=== PATIENT | female | born 1960 | race Caucasian/White ===

== ENCOUNTER 2016-11-09 13:21 | Inpatient (IN) | payer MEDICAID, OTHER ==
[~2016-11-09] VITALS: Ht 167.6 cm; Wt 55.9 kg
[2016-11-09] VITALS (9 sets, daily range): BP systolic 107–174; BP diastolic 81–99; PULSE 110–131; RESP 18–24; TEMP 97.3–98.4; O2SAT 83–98
[2016-11-09] MEDS: RESP: ALBUTEROL 2.5 MG/IPRATROPIUM 0.5 MG NEB (SCH) INH ×2 (13:41→13:42)
[2016-11-09] MEDS ORDERED: SODIUM CHLOR 0.9% 1000 ML INJ 1,000 ML IV SCH (13:45)
[2016-11-09] MEDS ORDERED: SODIUM CHLORIDE 0.9% FLUSH 10 ML FLUSH IVF PRN (13:45)
[2016-11-09] MEDS ORDERED: methylPREDNISolone SOD SUCC 125 MG/2 ML VIAL IVP ONE (13:45)
[2016-11-09 13:55] LABS: AUTOMATED NEUTROPHIL # 7.2 TH/MM3 (1.8-7.7); BASOPHIL # 0.1 TH/MM3 (0-0.2); BASOPHIL % 0.6 % (0.0-2.0); EOSINOPHIL % 0.4 % (0.0-4.0); HEMATOCRIT 30.4 % (35.0-46.0); HEMO FLAGS DIFF FINAL; MEAN CELL VOLUME 82.4 FL (80.0-100.0); MEAN CORPUSCULAR HEMOGLOBIN 27.4 PG (27.0-34.0); MEAN CORPUSCULAR HGB CONC 33.2 % (32.0-36.0); MONO % 6.9 % (0.0-8.0); NEUT % 72.1 % (16.0-70.0); PLATELET COUNT 578 TH/MM3 (150-450); RED BLOOD COUNT 3.69 MIL/MM3 (4.00-5.30); RED CELL DISTRIBUTION WIDTH 16.4 % (11.6-17.2)
[2016-11-09 14:00] LABS: CHLORIDE 89 MEQ/L (98-107); SODIUM (NA) 125 MEQ/L (136-145)
[2016-11-09 14:03] LABS: ANION GAP 9 MEQ/L (5-15); BICARBONATE 26.7 MEQ/L (21.0-32.0); BLOOD UREA NITROGEN 7 MG/DL (7-18); MAGNESIUM 1.5 MG/DL (1.5-2.5)
[2016-11-09 14:06] LABS: ALT (GPT) 22 U/L (10-53); AST (GOT) 17 U/L (15-37); GLOMERULAR FILTRATION RATE 159 ML/MIN (>89)
[2016-11-09 14:08] LABS: APTT (PATIENT) 31.7 SEC (24.3-30.1); PROTHROMBIN TIME - PATIENT 11.1 SEC (9.8-11.6); TOTAL BILIRUBIN ADULT 0.6 MG/DL (0.2-1.0)
[2016-11-09 14:09] LABS: ALKALINE PHOSPHATASE 92 U/L (45-117)
--- NOTE | 2016-11-09 14:09 | PD ---
HPI Chief Complaint: Respiratory Distress Time Seen by Provider: 13:29 Travel History International Travel<30 days: No Contact w/Intl Traveler<30days: No Traveled to known affect area: No History of Present Illness HPI The 56 year-old woman who presents to the emergency department complaining of increased cough congestion and shortness of breath symptoms ongoing for about a month. She has a history of tobacco use, less than a half pack per day for more than 20 years. About a month ago she started getting cough congestion symptoms. She was seen in urgent care. She was diagnosed with bronchitis. She was given a prescription for cough medicine. She initially improved a little bit but then had continued worsening symptoms. She went back today and they sent her to the emergency Department for hypoxia. She states she still having shortness of breath dyspnea on exertion cough congestion and wheezing. She states she's never had trouble like this before. She is not prone to respiratory infections. She is not been admitted to the hospital respiratory floor. She has no known past medical history. She otherwise has been feeling generally well and healthy. History Past Medical History Medical History: Denies Significant Hx Influenza Vaccination: No Past Surgical History Surgical History: No Previous Surgery Social History Alcohol Use: No Tobacco Use: Yes (< 1/2 PPD) Allergies-Medications (Allergen,Severity, Reaction): Coded Allergies: No Known Allergies (Unverified , 11/09/16) Reported Meds & Prescriptions Reported Meds & Active Scripts Active No Active Prescriptions or Reported Medications Review of Systems Except as stated in HPI: all other systems reviewed are Neg Physical Exam Narrative GENERAL: 56 year-old woman, mild to moderate respiratory distress. SKIN: Focused skin assessment warm/dry. HEAD: Atraumatic. Normocephalic. EYES: Pupils equal and round. No scleral icterus. No injection or drainage. ENT: No nasal bleeding or discharge. Mucous membranes pink and moist. NECK: Trachea midline. No JVD. CARDIOVASCULAR: Regular rate and rhythm. No murmur appreciated. RESPIRATORY: Coarse wheezing to the posterior lung rob with rhonchi in the bases. Mild to moderate respiratory distress. GASTROINTESTINAL: Abdomen soft, non-tender, nondistended. Hepatic and splenic margins not palpable. MUSCULOSKELETAL: No obvious deformities. No clubbing. No cyanosis. No edema. NEUROLOGICAL: Awake and alert. No obvious cranial nerve deficits. Motor grossly within normal limits. Normal speech. PSYCHIATRIC: Appropriate mood and affect; insight and judgment normal. Data Data Last Documented VS Vital Signs Date Time Temp Pulse Resp B/P Pulse Ox O2 Delivery O2 Flow Rate FiO2 11/09/16 15:31 120 20 147/91 95 Nasal Cannula 3 11/09/16 13:50 98.4 Orders Complete Blood Count With Diff (11/09/16 13:37) Comprehensive Metabolic Panel (11/09/16 13:37) B-Type Natriuretic Peptide (11/09/16 13:37) D-Dimer (11/09/16 13:37) Act Partial Throm Time (Ptt) (11/09/16 13:37) Prothrombin Time / Inr (Pt) (11/09/16 13:37) Magnesium (Mg) (11/09/16 13:37) Troponin I (11/09/16 13:37) Influenzae A/B Antigen (11/09/16 13:37) Iv Access Insert/Monitor (11/09/16 13:37) Electrocardiogram (11/09/16 13:37) Ecg Monitoring (11/09/16 13:37) Oximetry (11/09/16 13:37) Oxygen Administration (11/09/16 13:37) Chest, Single Ap (11/09/16 13:37) Sodium Chloride 0.9% Flush (Ns Flush) (11/09/16 13:45) Methylprednisolone So Succ Inj (Solumedr (11/09/16 13:45) Albuterol-Ipratropium Neb (Duoneb Neb) (11/09/16 13:45) Sodium Chlor 0.9% 1000 Ml Inj (Ns 1000 M (11/09/16 13:45) Lactic Acid (11/09/16 13:48) Blood Culture (11/09/16 13:48) Ct Pulmonary Angiogram (11/09/16 ) Iohexol 350 Inj (Omnipaque 350 Inj) (11/09/16 14:55) Labs Laboratory Tests Test 11/09/16 11/09/16 13:25 13:30 White Blood Count 10.0 TH/MM3 Red Blood Count 3.69 MIL/MM3 Hemoglobin 10.1 GM/DL Hematocrit 30.4 % Mean Corpuscular Volume 82.4 FL Mean Corpuscular Hemoglobin 27.4 PG Mean Corpuscular Hemoglobin 33.2 % Concent Red Cell Distribution Width 16.4 % Platelet Count 578 TH/MM3 Mean Platelet Volume 7.1 FL Neutrophils (%) (Auto) 72.1 % Lymphocytes (%) (Auto) 20.0 % Monocytes (%) (Auto) 6.9 % Eosinophils (%) (Auto) 0.4 % Basophils (%) (Auto) 0.6 % Neutrophils # (Auto) 7.2 TH/MM3 Lymphocytes # (Auto) 2.0 TH/MM3 Monocytes # (Auto) 0.7 TH/MM3 Eosinophils # (Auto) 0.0 TH/MM3 Basophils # (Auto) 0.1 TH/MM3 CBC Comment DIFF FINAL Differential Comment Prothrombin Time 11.1 SEC Prothromb Time International 1.0 RATIO Ratio Activated Partial 31.7 SEC Thromboplast Time D-Dimer Quantitative (PE/DVT) 3.13 MG/L FEU Sodium Level 125 MEQ/L Potassium Level 3.0 MEQ/L Chloride Level 89 MEQ/L Carbon Dioxide Level 26.7 MEQ/L Anion Gap 9 MEQ/L Blood Urea Nitrogen 7 MG/DL Creatinine 0.41 MG/DL Estimat Glomerular Filtration 159 ML/MIN Rate Random Glucose 103 MG/DL Calcium Level 8.7 MG/DL Magnesium Level 1.5 MG/DL Total Bilirubin 0.6 MG/DL Aspartate Amino Transf 17 U/L (AST/SGOT) Alanine Aminotransferase 22 U/L (ALT/SGPT) Alkaline Phosphatase 92 U/L Troponin I LESS THAN 0.02 NG/ML B-Type Natriuretic Peptide 32 PG/ML Total Protein 7.8 GM/DL Albumin 2.5 GM/DL Lactic Acid Level 1.5 mmol/L MDM Medical Decision Making Medical Screen Exam Complete: Yes Emergency Medical Condition: Yes Interpretation(s) My review of EKG: Sinus tachycardia rate of 127, normal axis, normal intervals, no definite evidence of acute ischemia. LABS: CBC remarkable for mild anemia. Platelet count 578. Hyponatremia 125, potassium 3, creatinine 0.41 Troponin negative BNP 32 Lactate 1.5 Coags unremarkable D-dimer 3.13 Chest x-ray: Probable mild congestive failure. Bibasal consolidations present worsening the left with small effusions. CT pulmonary angiogram: Small bilateral effusions. Subcarinal mass with diffuse mediastinal adenopathy. Unsure if the subcarinal mass related to her primary malignancy versus dominant large lymph nodes. Retroperitoneal adenopathy partially seen. Suggest either metastatic disease or myeloproliferative disorder. Emphysematous changes. No PE. Differential Diagnosis COPD or emphysema, pneumonia, PE, CHF, other Narrative Course Medical decision making INITIAL: 56 year-old woman presents to the emergency department complaining of shortness of breath or cough congestion symptoms. Should similar symptoms a month ago. No history of respiratory disease. Looks well with some respiratory distress and coarse wheezing Posterior lung rob. We'll check x- rays, labs, reassess. She is tachypneic and tachycardic, we'll check lactate and blood cultures. Diagnosis Primary Impression: Shortness of breath Additional Impressions: Hypoxia Mediastinal mass Scripts No Active Prescriptions or Reported Meds Grady Robb MD Nov 09, 2016 14:09
--- NOTE | 2016-11-09 14:28 | RADRPT ---
EXAM DATE/TIME: 11/09/2016 14:01 [facility] COMPARISON: No previous studies available for comparison. INDICATIONS : Short of breath MEDICAL HISTORY : Bronchitis SURGICAL HISTORY : None. ENCOUNTER: Initial ACUITY: 4 - 6 days PAIN SCORE: 0/10 LOCATION: Bilateral chest FINDINGS: There is cardiomegaly with mild interstitial edema present. There are small bilateral pleural effusi ons worse left than the right. Minimal bibasilar parietal changes are evident. The portion of the [place] skeleton visualized is unremarkable. CONCLUSION: Probable mild congestive failure. Bibasal consolidation is present worse in the left with small effu sions. Yaya Napier MD FACR on November 09, 2016 at 14:26 Board Certified Radiologist. This report was verified electronically.
[2016-11-09] MEDS ORDERED: IOHEXOL 350 MG/ML 10 ML VIAL (for RAD DIAG) IV ONE (14:55)
--- NOTE | 2016-11-09 15:21 | RADRPT ---
EXAM DATE/TIME: 11/09/2016 14:36 [facility] COMPARISON: CHEST SINGLE AP, November 09, 2016, 14:01. INDICATIONS : Short of breath, cough and congestion x 1 week. IV CONTRAST: 75 cc Omnipaque 350 (iohexol) IV RADIATION DOSE: 8.72 CTDIvol (mGy) MEDICAL HISTORY : None SURGICAL HISTORY : None. ENCOUNTER: Initial ACUITY: 1 week PAIN SCALE: 0/10 LOCATION: chest TECHNIQUE: Volumetric scanning of the chest was performed using a pulmonary embolism protocol MIP images were re constructed. Using automated exposure control and adjustment of the mA and/or kV according to patien t size, radiation dose was kept as low as reasonably achievable to obtain optimal diagnostic quality images. DICOM format image data is available electronically for review and comparison. Follow-up recommendations for incidentally detected pulmonary nodules are based at a minimum on nodul e size and patient risk factors according to Fleischner Society Guidelines. FINDINGS: PULMONARY ARTERIES: No filling defects are seen in the pulmonary arteries through the segmental level. LUNGS: Diffuse emphysematous changes. Consolidation involving the basilar segments bilaterally with some air bronchogram formation. PLEURAE: Small posterior layering pleural effusions bilaterally. MEDIASTINUM: Diffuse mediastinal adenopathy. The large subcarinal mass measuring 5.4 x 4.2 cm. Adenopathy througho ut the anterior, middle, and superior mediastinum. The heart is normal in size. Coronary artery ather osclerotic ulcerations. No pericardial effusion. Aorta is normal in caliber. MUSCULOSKELETAL: Within normal limits for patient age. MISCELLANEOUS: Adenopathy is partially seen within the retroperitoneum. CONCLUSION: 1. No pulmonary embolus. 2. Small bilateral pleural effusions with associated atelectasis. 3. Subcarinal mass with diffuse mediastinal adenopathy. I am unsure of the subcarinal mass related to a primary malignancy versus a dominant enlarged lymph node. Retroperitoneal adenopathy partially see n. This was suggest either metastatic disease or a myeloproliferative disorder. 4. Emphysematous changes. 5. Coronary artery atherosclerotic calcifications. Devon Pope Jr., MD on November 09, 2016 at 14:57 Board Certified Radiologist. This report was verified electronically.
[2016-11-09] MEDS ORDERED: ONDANSETRON HCL 4 MG/2 ML VIAL IVP PRN (15:45)
[2016-11-09] MEDS ORDERED: RESP: ALBUTEROL 2.5 MG/IPRATROPIUM 0.5 MG NEB (PRN) NEB (15:45)
[2016-11-09] MEDS ORDERED: LACTULOSE SYRUP 20 GM/30 ML CUP PO PRN (15:45)
[2016-11-09] MEDS ORDERED: BISACODYL 10 MG SUPP RECTAL PRN (15:45)
[2016-11-09] MEDS ORDERED: SENNOSIDES 8.6 MG TAB PO PRN (15:45)
[2016-11-09] MEDS ORDERED: SODIUM CHLORIDE 0.9% FLUSH 10 ML FLUSH IV FLUSH PRN (15:45)
[2016-11-09] MEDS ORDERED: MAGNESIUM HYDROXIDE SUSP 30 ML CUP PO PRN (15:45)
[2016-11-09] MEDS ORDERED: NALOXONE HCL 0.4 MG/ML AMP IV PRN (15:45)
[2016-11-09] MEDS ORDERED: NS + KCL 20 MEQ INJ 1,000 ML IV SCH (16:00)
[2016-11-09] MEDS: ENOXAPARIN SODIUM 40 MG/0.4 ML SYRINGE SQ SCH (16:09)
[2016-11-09] MEDS: LEVOFLOXACIN 750 MG PREMIX INJ 150 ML IV SCH (16:28)
--- NOTE | 2016-11-09 16:36 | HHI.HP ---
[facility] No Primary Care Physician Admission Diagnosis shortness of breath, hypoxia Diagnoses: Chief Complaint: Increasing Shortness of breath Travel History International Travel<30 Days: No Contact w/Intl Traveler <30 Da: No Traveled to Known Affected Are: No Sepsis Criteria SIRS Criteria (2 or more): Heart rate over 90, RR > 20 or PaCO2 < 32 Sepsis Criteria (SIRS+source): Infect source susp/known Criteria Outcome: Meets SIRS criteria, Meets sepsis criteria History of Present Illness Written by Annalee Kennedy, acting as scribe for Dr. Foley on 11/09/16 at 16:00. Patient is a 56-year-old female with no significant primary medical history who came into the hospital for evaluation of increasing and worsening shortness of breath and cough. Patient states that she had bronchitis last month that she went to urgent care facility, she was given some medication and she felt better. However in the past few days she has some increasing cough, mucus production, orthopnea, increased shortness of breath that she even gets winded and fatigued by just going from the house to the car. She went to urgent care center again to be evaluated she was told that her oxygenation is getting lower and that she needs to be seen in the emergency room. Patient states she has been coughing a lot, unable to bring up mucus but when she was able to in the previous days it was yellow and very thick. Initially, patient was in the ED with shortness of breath and she was desaturating a 83% on room air. She was placed on 3 L nasal cannula with improved O2 sat at 90-92%. She was also given Solu-Medrol 125 mg. States her breathing has improved right now on exam. Denies pain and discomfort. Denies chest pain, headaches, dizziness. Denies fevers, chills, n/v/d. Denies dysuria. Denies weight loss, reports weight gain. Review of Systems Except as stated in HPI: all other systems reviewed are Neg Past Family Social History Past Medical History No significant past medical history Past Surgical History None Reported Medications None Allergies: Coded Allergies: No Known Allergies (Unverified , 11/09/16) Active Ordered Medications Current Medications Medications (Trade) Dose Ordered Sig/Ramy Route Start Time Stop Time Status Last Admin (NS Flush) 2 ml UNSCH PRN IV FLUSH 11/09/16 15:45 (NS Flush) 2 ml BID IV FLUSH 11/09/16 21:00 (Zofran Inj) 4 mg Q6H PRN IVP 11/09/16 15:45 (Lovenox Inj) 40 mg Q24H SQ 11/09/16 16:00 (Narcan Inj) 0.4 mg UNSCH PRN IV 11/09/16 15:45 (Gaby-Colace) 1 tab BID PO 11/09/16 21:00 (Milk Of Magnesia Liq) 30 ml Q12H PRN PO 11/09/16 15:45 (Senokot) 17.2 mg Q12H PRN PO 11/09/16 15:45 (Dulcolax Supp) 10 mg DAILY PRN RECTAL 11/09/16 15:45 Lactulose 30 ml 30 ml DAILY PRN PO 11/09/16 15:45 (NS + KCl 20 Meq Inj) 1,000 ml @ 84 mls/hr [id number] IV 11/09/16 16:00 Family History Mother has COPD, diabetes on insulin. Father of bone cancer Social History Rare alcohol use Smokes a pack per week 37 years Denies illicit drug use Physical Exam Vital Signs Vital Signs Date Time Temp Pulse Resp B/P Pulse Ox O2 Delivery O2 Flow Rate FiO2 11/09/16 15:31 120 20 147/91 95 Nasal Cannula 3 11/09/16 14:27 115 20 135/81 96 Nasal Cannula 3 11/09/16 13:52 96 Nasal Cannula 3 11/09/16 13:52 22 96 Nasal Cannula 3 11/09/16 13:50 98.4 125 22 148/97 96 Nasal Cannula 3 11/09/16 13:27 98.4 131 24 174/99 83 Physical Exam GENERAL: This is a thin lady appearing, older than stated age, well-developed patient, short of breath. SKIN: Warm and dry. Multiple nodular skin lesions appearing bilateral axillary area, right abdominal upper quadrant, no drainage, no erythema, no edema HEAD: Normocephalic. EYES: Pupils equal round and reactive. Extraocular motions intact. No scleral icterus. No injection or drainage. ENT: Nose without bleeding. Throat without erythema. Uvula midline. Airway patent. NECK: Trachea midline. Supraclavicular lymphadenopathy present. CARDIOVASCULAR: Tachycardia to SR without murmurs. RESPIRATORY: Coarse breath sounds. Mild expiratory wheezes GASTROINTESTINAL: Abdomen soft, non-tender, nondistended. Bowel sounds active 4. MUSCULOSKELETAL: Extremities without edema. NEUROLOGICAL: Awake and alert. No focal neuro deficit. Motor and sensory grossly within normal limits. Normal speech. Laboratory Laboratory Tests Test 11/09/16 11/09/16 13:25 13:30 White Blood Count 10.0 Red Blood Count 3.69 Hemoglobin 10.1 Hematocrit 30.4 Mean Corpuscular Volume 82.4 Mean Corpuscular Hemoglobin 27.4 Mean Corpuscular Hemoglobin 33.2 Concent Red Cell Distribution Width 16.4 Platelet Count 578 Mean Platelet Volume 7.1 Neutrophils (%) (Auto) 72.1 Lymphocytes (%) (Auto) 20.0 Monocytes (%) (Auto) 6.9 Eosinophils (%) (Auto) 0.4 Basophils (%) (Auto) 0.6 Neutrophils # (Auto) 7.2 Lymphocytes # (Auto) 2.0 Monocytes # (Auto) 0.7 Eosinophils # (Auto) 0.0 Basophils # (Auto) 0.1 CBC Comment DIFF FINAL Differential Comment Prothrombin Time 11.1 Prothromb Time International 1.0 Ratio Activated Partial 31.7 Thromboplast Time D-Dimer Quantitative (PE/DVT) 3.13 Sodium Level 125 Potassium Level 3.0 Chloride Level 89 Carbon Dioxide Level 26.7 Anion Gap 9 Blood Urea Nitrogen 7 Creatinine 0.41 Estimat Glomerular Filtration 159 Rate Random Glucose 103 Calcium Level 8.7 Magnesium Level 1.5 Total Bilirubin 0.6 Aspartate Amino Transf 17 (AST/SGOT) Alanine Aminotransferase 22 (ALT/SGPT) Alkaline Phosphatase 92 Troponin I LESS THAN 0.02 B-Type Natriuretic Peptide 32 Total Protein 7.8 Albumin 2.5 Lactic Acid Level 1.5 Date/Time Procedure Status Source Growth 11/09/16 13:50 Influenza Types A,B Antigen (HAL) - Final Complete Nasal Washing NEGATIVE FOR FLU A AND B ANTIGEN.... 11/09/16 13:30 Aerobic Blood Culture Received Blood Peripheral Pending 11/09/16 13:30 Anaerobic Blood Culture Received Blood Peripheral Pending Result Diagram: 11/09/16 1325 11/09/16 1325 Imaging Last Impressions Chest X-Ray 11/09/16 1337 Signed Impressions: Service Date/Time: Wednesday, November 09, 2016 14:01 - CONCLUSION: Probable mild congestive failure. Bibasal consolidation is present worse in the left with small effusions. Yaya Napier MD FACR CT Angiography 11/09/16 0000 Signed Impressions: Service Date/Time: Wednesday, November 09, 2016 14:36 - CONCLUSION: 1. No pulmonary embolus. 2. Small bilateral pleural effusions with associated atelectasis. 3. Subcarinal mass with diffuse mediastinal adenopathy. I am unsure of the subcarinal mass related to a primary malignancy versus a dominant enlarged lymph node. Retroperitoneal adenopathy partially seen. This was suggest either metastatic disease or a myeloproliferative disorder. 4. Emphysematous changes. 5. Coronary artery atherosclerotic calcifications. Devon Pope Jr., MD Assessment and Plan Problem List: (1) Hypoxia ICD Code: R09.02 Status: Acute (2) Mediastinal mass ICD Code: J98.59 Status: Acute (3) PNA (pneumonia) ICD Code: J18.9 Status: Acute (4) Sepsis ICD Code: A41.9 Status: Acute Assessment and Plan Patient is a 56-year-old female with no significant primary medical history who came into the hospital for evaluation of increasing and worsening shortness of breath and cough. Sepsis Pneumonia, CAP Respiratory failure - Tachycardic 120-130's, hypoxic O2 sat 83% RA, orthopnea - CT angios showed 1. No pulmonary embolus. 2. Small bilateral pleural effusions with associated atelectasis. 3. Subcarinal mass with diffuse mediastinal adenopathy. Unsure of the subcarinal mass related to a primary malignancy versus a dominant enlarged lymph node. Retroperitoneal adenopathy partially seen. This suggested either metastatic disease or of myelo proliferative disorder. 4. Emphysematous changes. 5. Coronary artery atherosclerotic calcifications - Chest x-ray showed probable mild congestive failure. By basal consolidation is present worse in the left with small effusion. - D-dimer 3.13, BNP 32, troponin less than 0.02 - Pulmonary ultrasound, for possible thoracentesis - Consult pulmonology for further recommendations - DuoNeb scheduled and when necessary. Continue O2 nasal cannula, keep O2 > 92% - Start IV Levaquin 750 mg daily, Solu-Medrol IV - Monitor respiratory status - Check blood cultures, lactic acid - Repeat labs in the morning Subcarinal mass Unknown if it is primary or related to any other primary malignancy - Patient also has supraclavicular lymph nodes. Multiple nodular lesions bilateral axillary area, right abdominal upper quadrant area. - Pulmonology consulted for further recommendations - Depending on what pulmonology recommends would probably need medical oncology consult - Discuss with patient results of CT angiography and plan of care. Hyponatremia - IV fluids NS + KCL - Recheck labs Hypokalemia - IV fluids with KCL 20MEQ - Recheck labs caution w IVFs due to ? CHF noted on xray DVT prop SCD This note was transcribed by rukhsana Kennedy. I, Dr. Beth Foley personally performed the history, physical exam, and medical decision making; and confirmed the accuracy of the information in the transcribed note. Authenticated by Dr. Beth Foley on 11/09/16 at 16:00. Code Status Full code Discussed Condition With Patient, nursing, ED attending Physician Certification 2 Midnight Certification Type: Admission for Inpatient Services Order for Inpatient Services The services are ordered in accordance with Medicare regulations or non- Medicare payer requirements, as applicable. In the case of services not specified as inpatient-only, they are appropriately provided as inpatient services in accordance with the 2-midnight benchmark. Estimated LOS (days): 2 days is the estimated time the patient will need to remain in the hospital, assuming treatment plan goals are met and no additional complications. Post-Hospital Plan: Not yet determined Annalee Grant Nov 09, 2016 16:36 Beth Foley MD Nov 09, 2016 16:47
[2016-11-09] MEDS ORDERED: POTASSIUM CHLORIDE 20 MEQ CONTROLLED RELEASE TAB PO ONE (17:00)
--- NOTE | 2016-11-09 17:06 | RADRPT ---
EXAM DATE/TIME: 11/09/2016 16:22 [facility] COMPARISON: No previous studies available for comparison. INDICATIONS : Shortness of breath. MEDICAL HISTORY : Tobacco use. Dyspnea. SURGICAL HISTORY : None. ENCOUNTER: Initial ACUITY: 1 week PAIN SCORE: 2/10 LOCATION: Left chest. MEASUREMENTS: SKIN TO PARIETAL PLEURA: 1.4 cm SKIN TO MAX SAFE DEPTH: 5.1 cm ESTIMATED FLUID VOLUME: 667.68 cc FLUID COMPOSITION: simple FINDINGS: Pleural effusion as above. CONCLUSION: Moderate effusion as described above.. Yaya Napier MD FACR on November 09, 2016 at 17:04 Board Certified Radiologist. This report was verified electronically.
[2016-11-09] MEDS: RESP: ALBUTEROL 2.5 MG/IPRATROPIUM 0.5 MG NEB (SCH) NEB (19:29)
[2016-11-09] MEDS ORDERED: LEVOFLOXACIN 750 MG PREMIX INJ 150 ML IV SCH (20:00)
[2016-11-09] MEDS ORDERED: RESP: ALBUTEROL 2.5 MG/IPRATROPIUM 0.5 MG NEB (SCH) NEB (20:00)
--- NOTE | 2016-11-09 20:19 | MB ---
cc: Jaswant CLEARY M.D. DATE OF CONSULTATION 11/09/16 REASON FOR CONSULTATION Respiratory distress with COPD. HISTORY OF PRESENT ILLNESS This is a 56-year-old white female who has a longstanding history of smoking who was admitted through the emergency room with progressive shortness of breath, cough and wheezing over the past 2-3 weeks. The patient did have recurrent episodes of bronchitis. She was having some tightness in her chest and bringing up thick whitish-yellow mucus and also had lost some weight and she came to the ER where a chest x-ray showed evidence of some fluid overload and effusions. Subsequently, a CT chest was done which demonstrated a subcarinal mass as well as bilateral pleural effusions, more on the right side. The patient has had no fevers, chills or hemoptysis. Denies nausea, vomiting or aspiration. PAST HISTORY Not significant for any medical illnesses or surgery. ALLERGIES None listed. MEDICATIONS None. FAMILY HISTORY There is a history of diabetes and COPD and her father of carcinoma. HABITS The patient smoked half to one-pack per day for over 35 years. No significant alcohol use. REVIEW OF SYSTEMS Patient has lost weight. She has anxiety. She has shortness of breath, wheezing. She has had no urinary symptoms or flank pains. She has no depression or anxiety. Denies any joint pains or skin rash. PHYSICAL EXAMINATION GENERAL: This thinly built middle-aged white female who is pale and in no acute distress. VITAL SIGNS: Blood pressure was 140/80, pulse is 112, respirations 22, temperature 98.4. HEENT: Head normocephalic. Pupils are reactive and equal. Sclerae are clear. Throat was dry. Ears no inflammation. NECK: Supple. No lymphadenopathy. No bruits or thyroid enlargement. CHEST: Equal movements with percussion note. Dull at the bases, diminished breath sounds at both lower lung rob. Expiratory wheezes are scattered bilaterally. HEART: Heart sounds are regular S1-S2. No murmur. No S3. ABDOMEN: Abdomen is soft, scaphoid. No masses or organomegaly or tenderness. EXTREMITIES: No lesions. No edema. Reflexes were 1+ with no gross motor deficits. Cranial nerves are grossly intact. SKIN: Skin was dry and scaly. Some skin rash noted in the axillary areas. RECTAL: Exam is deferred. IMPRESSION 1. Bilateral pleural effusions with atelectasis right lower lobe. 2. Subcarinal and mediastinal mass, possible lymphadenopathy versus lung mass. 3. COPD with emphysema. 4. Nicotine dependency. PLAN The patient has been started on IV Levaquin 750 milligrams daily and Solu-Medrol 40 milligrams IV q.8 hours. Also be placed on Symbicort 160/4.5 2 puffs b.i.d. Pulmonary functions to be done at the bedside. Ultrasound examination of the chest. If there is significant fluid present a thoracentesis will be planned on the right. Following which a bronchoscopy will be scheduled to evaluate the hilar density. The patient was informed of all these procedures and possible risks including bleeding, pneumothorax, respiratory failure. We will schedule the procedures when the ultrasound results are available. The patient was counseled about quitting cigarette smoking and using a nicotine patch. Thank you Dr. Foley for this consultation. MD ANJALI Silverman/MAHESH /6:48 PM /8:05 PM
[2016-11-09] MEDS: BUDESONIDE-FORMOTEROL 160/4.5 MCG INHALER INH SCH (20:20)
[2016-11-09] MEDS: DOCUSATE SODIUM 50 MG/SENNA 8.6 MG TAB PO SCH (20:20)
[2016-11-09] MEDS: SODIUM CHLORIDE 0.9% FLUSH 10 ML FLUSH IV FLUSH SCH (20:21)
[2016-11-09] MEDS: methylPREDNISolone SOD SUCC 40 MG/1 ML VIAL IV PUSH SCH (20:21)
[2016-11-09 20:51] LABS: BLOOD GAS BASE EXCESS 3.4 mmol/L (-2-2); BLOOD GAS CARBOXYHEMOGLOBIN 4.9 % (0-4); BLOOD GAS HCO3 27 mmol/L (22-26); BLOOD GAS METHEMOGLOBIN 0.9 % (0-2); BLOOD GAS O2 HGB SATURATION 89 % (90-100); BLOOD GAS PCO2 38 mmHG (38-42); BLOOD GAS PO2 68 mmHG (61-120); BLOOD GAS TOTAL HGB 9.6 G/DL (12.0-16.0); TEMP CORR TO 98.6
[2016-11-09 20:52] LABS: CRITICAL VALUE YES; DRAW SITE LT RADIAL; LITER FLOW 2 L/M; NUMBER OF ARTERIAL PUNCTURES 1; OXYGEN DEVICE NASAL CANNULA; STAT NO; ULNAR PULSE Y
[2016-11-10] VITALS (11 sets, daily range): BP systolic 112–144; BP diastolic 66–109; PULSE 91–111; RESP 17–20; TEMP 96.4–98.5; O2SAT 92–98
[2016-11-10] MEDS: methylPREDNISolone SOD SUCC 40 MG/1 ML VIAL IV PUSH SCH ×4 (01:58→20:27)
[2016-11-10 06:52] LABS: AUTOMATED NEUTROPHIL # 3.8 TH/MM3 (1.8-7.7); BASOPHIL % 0.1 % (0.0-2.0); EOSINOPHIL % 0.2 % (0.0-4.0); HEMATOCRIT 29.9 % (35.0-46.0); HEMO FLAGS DIFF FINAL; LYMPH % 14.2 % (9.0-44.0); LYMPHOCYTE # 0.6 TH/MM3 (1.0-4.8); MEAN CELL VOLUME 84.5 FL (80.0-100.0); MEAN CORPUSCULAR HEMOGLOBIN 27.5 PG (27.0-34.0); MEAN CORPUSCULAR HGB CONC 32.5 % (32.0-36.0); MONO % 1.7 % (0.0-8.0); NEUT % 83.8 % (16.0-70.0); PLATELET COUNT 535 TH/MM3 (150-450); RED BLOOD COUNT 3.54 MIL/MM3 (4.00-5.30); RED CELL DISTRIBUTION WIDTH 16.6 % (11.6-17.2); WHITE BLOOD COUNT 4.5 TH/MM3 (4.0-11.0)
[2016-11-10 07:10] LABS: BICARBONATE 27.9 MEQ/L (21.0-32.0); POTASSIUM 3.8 MEQ/L (3.5-5.1)
[2016-11-10] MEDS: RESP: ALBUTEROL 2.5 MG/IPRATROPIUM 0.5 MG NEB (SCH) NEB ×4 (07:42→20:00)
[2016-11-10] MEDS: SODIUM CHLORIDE 0.9% FLUSH 10 ML FLUSH IV FLUSH SCH ×2 (09:00→20:27)
[2016-11-10] MEDS: BUDESONIDE-FORMOTEROL 160/4.5 MCG INHALER INH SCH ×2 (09:02→20:28)
[2016-11-10] MEDS: DOCUSATE SODIUM 50 MG/SENNA 8.6 MG TAB PO SCH ×2 (09:02→20:27)
--- NOTE | 2016-11-10 12:26 | HHI.PR ---
Subjective Remarks Pt states SOB is about the same. Denies any CP, had some nausea but no vomiting. Coughing some clear sputum, non bloody Objective Vitals Vital Signs Date Time Temp Pulse Resp B/P Pulse Ox O2 Delivery O2 Flow Rate FiO2 11/10/16 08:00 96.6 93 18 144/109 92 11/10/16 07:44 92 Nasal Cannula 3.00 11/10/16 04:00 97.4 101 18 132/94 93 11/10/16 00:00 96.4 111 20 120/89 96 11/09/16 20:00 112 11/09/16 20:00 97.3 118 18 107/82 98 11/09/16 19:30 95 Nasal Cannula 3.00 11/09/16 18:00 97.5 122 20 130/86 96 11/09/16 17:48 110 11/09/16 15:31 120 20 147/91 95 Nasal Cannula 3 11/09/16 14:27 115 20 135/81 96 Nasal Cannula 3 11/09/16 13:52 96 Nasal Cannula 3 11/09/16 13:52 22 96 Nasal Cannula 3 11/09/16 13:50 98.4 125 22 148/97 96 Nasal Cannula 3 11/09/16 13:27 98.4 131 24 174/99 83 I/O 11/09/16 11/09/16 11/09/16 11/10/16 11/10/16 11/10/16 06:59 14:59 22:59 06:59 14:59 22:59 Intake Total 1120 ml 240 ml Balance 1120 ml 240 ml Intake Oral 940 ml 240 ml IV Total 180 ml # Voids 2 1 # Bowel Movements 0 0 Result Diagram: 11/10/16 0620 11/10/16 0620 Imaging Last Impressions Chest X-Ray 11/09/16 1337 Signed Impressions: Service Date/Time: Wednesday, November 09, 2016 14:01 - CONCLUSION: Probable mild congestive failure. Bibasal consolidation is present worse in the left with small effusions. Yaya Napier MD FACR Chest Ultrasound 11/09/16 0000 Signed Impressions: Service Date/Time: Wednesday, November 09, 2016 16:22 - CONCLUSION: Moderate effusion as described above.. Yaya Napier MD FACR CT Angiography 11/09/16 0000 Signed Impressions: Service Date/Time: Wednesday, November 09, 2016 14:36 - CONCLUSION: 1. No pulmonary embolus. 2. Small bilateral pleural effusions with associated atelectasis. 3. Subcarinal mass with diffuse mediastinal adenopathy. I am unsure of the subcarinal mass related to a primary malignancy versus a dominant enlarged lymph node. Retroperitoneal adenopathy partially seen. This was suggest either metastatic disease or a myeloproliferative disorder. 4. Emphysematous changes. 5. Coronary artery atherosclerotic calcifications. Devon Pope Jr., MD Objective Remarks GENERAL: This is a thin lady appearing, older than stated age, well-developed patient, short of breath. SKIN: Multiple nodular skin lesions appearing bilateral axillary area, right abdominal upper quadrant EYES: Extraocular motions intact. No scleral icterus. No injection or drainage. ENT: Nose without bleeding. Airway patent. NECK: Trachea midline. Supraclavicular lymphadenopathy present. CARDIOVASCULAR: Tachycardia to SR without murmurs. RESPIRATORY: Coarse breath sounds. no wheezing today GASTROINTESTINAL: Abdomen soft, non-tender, nondistended. Bowel sounds active 4. MUSCULOSKELETAL: Extremities without edema. NEUROLOGICAL: Awake and alert. No focal neuro deficit. Motor and sensory grossly within normal limits. Normal speech. A/P Problem List: (1) Hypoxia ICD Code: R09.02 Status: Acute (2) Mediastinal mass ICD Code: J98.59 Status: Acute (3) PNA (pneumonia) ICD Code: J18.9 Status: Acute (4) Sepsis ICD Code: A41.9 Status: Acute Assessment and Plan Patient is a 56-year-old female with no significant primary medical history who came into the hospital for evaluation of increasing and worsening shortness of breath and cough. Sepsis Pneumonia, CAP Respiratory failure - Tachycardic 120-130's, hypoxic O2 sat 83% RA, orthopnea on admission - CT angios showed 1. No pulmonary embolus. 2. Small bilateral pleural effusions with associated atelectasis. 3. Subcarinal mass with diffuse mediastinal adenopathy. Unsure of the subcarinal mass related to a primary malignancy versus a dominant enlarged lymph node. Retroperitoneal adenopathy partially seen. This suggested either metastatic disease or of myelo proliferative disorder. 4. Emphysematous changes. 5. Coronary artery atherosclerotic calcifications - Chest x-ray showed probable mild congestive failure. By basal consolidation is present worse in the left with small effusion. - D-dimer 3.13, BNP 32, troponin less than 0.02 - Chest us shows 667.68ml. will order u/s thoracentesis w pleural effusion studies. - Pulmonology following - DuoNeb scheduled and when necessary. Continue O2 nasal cannula, keep O2 > 92% - on IV Levaquin 750 mg daily, Solu-Medrol IV - Monitor respiratory status - f/u blood cultures so far neg x 1 day, lactic acid 1.5 - Repeat labs in the morning Subcarinal mass Unknown if it is primary or related to any other primary malignancy - Patient also has supraclavicular lymph nodes. Multiple nodular lesions bilateral axillary area, right abdominal upper quadrant area. u/s left axilla - Pulmonology recommends bronchoscopy - Depending on what pulmonology recommends would probably need medical oncology consult Hyponatremia - HLIV - resolved. Hypokalemia - HLIV - resolved. DVT prop SCD Discharge Planning pulmonology following. Will need bronchoscopy needs u/s guided thoracentesis. f/u cultures Beth Foley MD Nov 10, 2016 12:26
[2016-11-10] MEDS ORDERED: LIDOCAINE HCL 1% 50 ML VIAL ONE (13:05)
--- NOTE | 2016-11-10 13:15 | EKG ---
Date Performed: 11/09/2016 Time Performed: 13:49:05 PTAGE: 56 years EKG: SUPRAVENTRICULAR TACHYCARDIA LOW QRS VOLTAGE IN EXTREMITY LEADS POSSIBLE RIGHT VENTRICULAR CONDUCTION DELAY MODERATE ST DEPRESSION ABNORMAL ECG NO PREVIOUS TRACING DOCTOR: Karma Ansari Interpretating Date/Time 11/10/2016 13:11:33
--- NOTE | 2016-11-10 13:44 | RADRPT ---
EXAM DATE/TIME: 11/10/2016 13:21 [facility] COMPARISON: CHEST SINGLE AP, November 09, 2016, 14:01. INDICATIONS : Expiration CXR status post thoracentesis. MEDICAL HISTORY : None. SURGICAL HISTORY : None. ENCOUNTER: Subsequent ACUITY: 1 week PAIN SCORE: 0/10 LOCATION: Chest. FINDINGS: Decreased left pleural effusion, now small. No pneumothorax seen. Small moderate right pleural effusi on is unchanged. Mild bibasilar consolidation unchanged for technique. Heart size stable, upper limits of normal. CONCLUSION: Left pleural effusion is now small. No pneumothorax or other acute complication demonstrated after th oracentesis. Isidoro Padilla MD on November 10, 2016 at 13:42 Board Certified Radiologist. This report was verified electronically.
[2016-11-10 14:05] LABS: PLEURAL FLUID PH 7.7
[2016-11-10 14:14] LABS: PLEURAL FLUID LYMPHS 98 %
--- NOTE | 2016-11-10 14:35 | HHI.PR ---
Subjective Remarks She is stable. O2 sats 95 on 2 l. Has SOB with exertion US chest not done yet. Objective Vital Signs Date Time Temp Pulse Resp B/P Pulse Ox O2 Delivery O2 Flow Rate FiO2 11/10/16 13:35 124/86 11/10/16 12:00 96.8 109 17 118/76 95 11/10/16 12:00 96.8 109 17 118/76 95 11/10/16 08:00 96.6 93 18 144/109 92 11/10/16 07:44 92 Nasal Cannula 3.00 11/10/16 04:00 97.4 101 18 132/94 93 11/10/16 00:00 96.4 111 20 120/89 96 11/09/16 20:00 112 11/09/16 20:00 97.3 118 18 107/82 98 11/09/16 19:30 95 Nasal Cannula 3.00 11/09/16 18:00 97.5 122 20 130/86 96 11/09/16 17:48 110 11/09/16 15:31 120 20 147/91 95 Nasal Cannula 3 I/O 11/09/16 11/09/16 11/09/16 11/10/16 11/10/16 11/10/16 06:59 14:59 22:59 06:59 14:59 22:59 Intake Total 1120 ml 240 ml Balance 1120 ml 240 ml Intake Oral 940 ml 240 ml IV Total 180 ml # Voids 2 1 # Bowel Movements 0 0 Result Diagram: 11/10/16 0620 11/10/16 0620 Objective Remarks GENERAL: This thinly built middle-aged white female who is pale and in no acute distress. HEENT: Head normocephalic. Pupils are reactive and equal. Sclerae are clear. Throat was dry. Ears no inflammation. NECK: Supple. No lymphadenopathy. No bruits or thyroid enlargement. CHEST: Equal movements with percussion note. Dull at the bases, diminished breath sounds at both lower lung rob. Expiratory wheezes are scattered bilaterally.Occ Crackles. HEART: Heart sounds are regular S1-S2. No murmur. No S3. ABDOMEN: Abdomen is soft, scaphoid. No masses or organomegaly or tenderness. EXTREMITIES: No lesions. No edema. Reflexes were 1+ with no gross motor deficits. Cranial nerves are grossly intact. SKIN: Skin was dry and scaly. Some skin rash noted in the axillary areas. RECTAL: Exam is deferred. Assessment and Plan Assessment and Plan IMPRESSION 1. Bilateral pleural effusions with atelectasis right lower lobe. 2. Subcarinal and mediastinal mass, possible lymphadenopathy versus lung mass. 3. COPD with emphysema. 4. Nicotine dependency. Plan : 1. Cont antibiotics,Levaquin. 2. O2 at 3l 3. Nebs qid , duoneb. 4. Solumderol 40 mg IV q6h. 5. Will need Bronchoscopy on Saturday. 6. Right thoracentesis with ultrasound. 7. CBC,Coags.PFT Jaswant Cardenas MD Nov 10, 2016 14:35
--- NOTE | 2016-11-10 15:08 | ECHRPT ---
Indication: SHORTNESS OF BREATH CONCLUSIONS Normal left ventricular size. Wall thickness is normal. The left ventricular systolic function is mildly reduced with an estimated ejection fraction in the range of 45- 50%. No regional wall motion abnormalities are present. Doppler parameters are consistent with impaired left ventricular relaxtion (grade 1 diastolic dysfun ction). A left sided pleural effusion is present. BP: 132 / 94 HR: 101 Rhythm: Sinus MEASUREMENTS (Male / Female) Normal Values Technical Quality:Fair 2D ECHO LV Diastolic Diameter PLAX 4.6 cm 4.2 - 5.9 / 3.9 - 5.3 cm LV Systolic Diameter PLAX 3.9 cm IVS Diastolic Thickness 0.7 cm 0.6 - 1.0 / 0.6 - 0.9 cm LVPW Diastolic Thickness 0.7 cm 0.6 - 1.0 / 0.6 - 0.9 cm LV Relative Wall Thickness 0.3 LVOT Diameter 2.0 cm Aortic Root Diameter 3.2 cm LA Systolic Diameter LX 2.6 cm 3.0 - 4.0 / 2.7 - 3.8 cm M-MODE AV Cusp Separation MM 1.9 cm DOPPLER AV Peak Velocity 136.0 cm/s AV Peak Gradient 7.4 mmHg AV Mean Gradient 4.0 mmHg AV Velocity Time Integral 23.7 cm LVOT Peak Velocity 102.0 cm/s LVOT Peak Gradient 4.2 mmHg LVOT Velocity Time Integral 16.3 cm LVOT Cardiac Index 3150.2 cm/minm AV Area Cont Eq vti 2.2 cm AV Area Cont Eq pk 2.4 cm Mitral E Point Velocity 80.9 cm/s Mitral A Point Velocity 97.7 cm/s Mitral E to A Ratio 0.8 LV E' Lateral Velocity 8.4 cm/s Mitral E to LV E' Lateral Ratio 9.7 LV E' Septal Velocity 13.8 cm/s Mitral E to LV E' Septal Ratio 5.9 TR Peak Velocity 280.0 cm/s TR Peak Gradient 31.4 mmHg PV Peak Velocity 70.7 cm/s PV Peak Gradient 2.0 mmHg FINDINGS LEFT VENTRICLE Normal left ventricular size. Wall thickness is normal. The left ventricular systolic function is mild to moderately reduced with an estimated ejection frac tion in the range of 35-45%. No regional wall motion abnormalities are present. Doppler parameters are consistent with impaired left ventricular relaxtion (grade 1 diastolic dysfun ction). RIGHT VENTRICLE Normal right ventricular size and systolic function. MITRAL VALVE Structurally normal mitral valve. Trace mitral valve regurgitation. TRICUSPID VALVE Structurally normal tricuspid valve. There is trace tricuspid valve regurgitation. Normal estimated pulmonary pressures. PERICARDIUM A left sided pleural effusion is present. Willian Whitlock MD (Electronically Signed) Final Date:10 November 2016 15:07
[2016-11-10 15:46] LABS: TOTAL PROTEIN,PLEURAL FLUID 4.3 GM/DL
[2016-11-10] MEDS: ENOXAPARIN SODIUM 40 MG/0.4 ML SYRINGE SQ SCH (15:55)
[2016-11-10] MEDS: LEVOFLOXACIN 750 MG PREMIX INJ 150 ML IV SCH (15:55)
--- NOTE | 2016-11-10 17:38 | RADRPT ---
EXAM DATE/TIME: 11/10/2016 17:15 [facility] COMPARISON: No previous studies available for comparison. INDICATIONS : Left axilla palpable lumps. MEDICAL HISTORY : Left pleural effusion. Respiratory disorders. SURGICAL HISTORY : Thoracentesis. ENCOUNTER: Initial ACUITY: 4-6 days PAIN SCORE: 0/10 LOCATION: Left arm. AREA EVALUATED: Left axilla. FINDINGS: There are circumscribed heterogeneous oval-shaped masses in the axilla measuring 2.1 x 1.1 x 1.8 cm a nd 1.4 x 1.5 x 0.8 cm. These are of uncertain etiology. They do not have the typical appearance of ly mph nodes. CONCLUSION: 1. Axillary masses as above with measurements given. Etiology unclear. Soham Mcbride MD on November 10, 2016 at 17:35 Board Certified Radiologist. This report was verified electronically.
[2016-11-11] VITALS (7 sets, daily range): BP systolic 122–135; BP diastolic 69–78; PULSE 85–89; RESP 18–20; TEMP 97.5–98.3; O2SAT 92–98
[2016-11-11] MEDS: methylPREDNISolone SOD SUCC 40 MG/1 ML VIAL IV PUSH SCH ×4 (01:14→19:49)
[2016-11-11] MEDS: RESP: ALBUTEROL 2.5 MG/IPRATROPIUM 0.5 MG NEB (SCH) NEB ×3 (07:33→16:43)
[2016-11-11] MEDS: DOCUSATE SODIUM 50 MG/SENNA 8.6 MG TAB PO SCH ×2 (09:49→19:50)
[2016-11-11] MEDS: SODIUM CHLORIDE 0.9% FLUSH 10 ML FLUSH IV FLUSH SCH ×2 (09:51→19:50)
[2016-11-11] MEDS: BUDESONIDE-FORMOTEROL 160/4.5 MCG INHALER INH SCH ×2 (09:51→19:50)
--- NOTE | 2016-11-11 12:12 | HHI.PR ---
Subjective Remarks No acute events overnight. Afebrile, vital signs stable. Patient currently on 1.5 L nasal cannula. States her shortness of breath is improved status post thoracentesis yesterday. Has no complaints at this time. Objective Vitals Vital Signs Date Time Temp Pulse Resp B/P Pulse Ox O2 Delivery O2 Flow Rate FiO2 11/11/16 08:05 97.6 88 18 128/78 93 11/11/16 07:35 92 Nasal Cannula 2.00 11/11/16 04:23 97.7 89 18 123/72 93 11/11/16 04:23 Nasal Cannula 3.00 11/10/16 23:30 97.4 91 18 138/70 92 11/10/16 19:00 98.5 97 18 112/66 98 11/10/16 19:00 98.5 97 18 112/66 98 11/10/16 16:00 97.8 99 18 118/80 93 11/10/16 15:30 98 Nasal Cannula 3.00 11/10/16 13:55 121/83 11/10/16 13:35 124/86 I/O 11/10/16 11/10/16 11/10/16 11/11/16 11/11/16 11/11/16 07:00 15:00 23:00 07:00 15:00 23:00 Intake Total 240 ml 750 ml 240 ml Output Total 300 ml Balance 240 ml 750 ml -60 ml Intake Oral 240 ml 240 ml IV Total 750 ml Output Urine Total 300 ml # Voids 1 4 # Bowel Movements 0 0 Result Diagram: 11/10/1620 11/10/16 0620 Objective Remarks GENERAL: This is a thin lady appearing, older than stated age, well-developed patient, short of breath. SKIN: Multiple nodular skin lesions appearing bilateral axillary area, right abdominal upper quadrant EYES: Extraocular motions intact. No scleral icterus. No injection or drainage. ENT: Nose without bleeding. Airway patent. NECK: Trachea midline. Supraclavicular lymphadenopathy present. CARDIOVASCULAR: No murmurs rubs or gallops. Regular rate and rhythm. RESPIRATORY: Coarse breath sounds. no wheezing GASTROINTESTINAL: Abdomen soft, non-tender, nondistended. Bowel sounds active 4. MUSCULOSKELETAL: Extremities without edema. NEUROLOGICAL: Awake and alert. No focal neuro deficit. Motor and sensory grossly within normal limits. Normal speech. A/P Problem List: (1) Hypoxia ICD Code: R09.02 Status: Acute (2) Mediastinal mass ICD Code: J98.59 Status: Acute (3) PNA (pneumonia) ICD Code: J18.9 Status: Acute (4) Sepsis ICD Code: A41.9 Status: Acute Assessment and Plan Patient is a 56-year-old female with no significant primary medical history who came into the hospital for evaluation of increasing and worsening shortness of breath and cough. Sepsis Pneumonia, CAP Respiratory failure - Tachycardic 120-130's, hypoxic O2 sat 83% RA, orthopnea on admission - CT angios showed 1. No pulmonary embolus. 2. Small bilateral pleural effusions with associated atelectasis. 3. Subcarinal mass with diffuse mediastinal adenopathy. Unsure of the subcarinal mass related to a primary malignancy versus a dominant enlarged lymph node. Retroperitoneal adenopathy partially seen. This suggested either metastatic disease or of myelo proliferative disorder. 4. Emphysematous changes. 5. Coronary artery atherosclerotic calcifications - Chest x-ray showed probable mild congestive failure. Bibasilar consolidation is present worse in the left with small effusion. - D-dimer 3.13, BNP 32, troponin less than 0.02 - Status post thoracentesis on 11/10, pleural fluid studies pending. Cytology pending. - Pulmonology following, anticipate bronchoscopy tomorrow - DuoNeb scheduled and when necessary. Continue O2 nasal cannula, keep O2 > 92% - on IV Levaquin 750 mg daily, Solu-Medrol IV - Monitor respiratory status - f/u blood cultures so far neg x 2 day, lactic acid 1.5 - Repeat labs in the morning Subcarinal mass Unknown if it is primary or related to any other primary malignancy - Patient also has supraclavicular lymph nodes. Multiple nodular lesions bilateral axillary area, right abdominal upper quadrant area. u/s left axilla - Pulmonology recommends bronchoscopy - Depending on what pulmonology recommends would probably need medical oncology consult Hyponatremia - HLIV - resolved. Hypokalemia - HLIV - resolved. DVT prop SCD Discharge Planning Pending results of bronchoscopy and cytology studies. Patient will likely need medical oncology consult during this hospitalization. Lianne Guardado MD R3 Nov 11, 2016 12:11
[2016-11-11 14:08] LABS: AUTOMATED NEUTROPHIL # 15.1 TH/MM3 (1.8-7.7); HEMATOCRIT 30.9 % (35.0-46.0); HEMO FLAGS DIFF FINAL; LYMPH % 4.4 % (9.0-44.0); LYMPHOCYTE # 0.7 TH/MM3 (1.0-4.8); MEAN CELL VOLUME 84.2 FL (80.0-100.0); MEAN CORPUSCULAR HEMOGLOBIN 27.1 PG (27.0-34.0); MEAN CORPUSCULAR HGB CONC 32.2 % (32.0-36.0); MONO % 5.1 % (0.0-8.0); NEUT % 90.5 % (16.0-70.0); PLATELET COUNT 534 TH/MM3 (150-450); RED BLOOD COUNT 3.67 MIL/MM3 (4.00-5.30); RED CELL DISTRIBUTION WIDTH 17.5 % (11.6-17.2); WHITE BLOOD COUNT 16.7 TH/MM3 (4.0-11.0)
[2016-11-11 14:25] LABS: BICARBONATE 27.1 MEQ/L (21.0-32.0); POTASSIUM 3.6 MEQ/L (3.5-5.1)
[2016-11-11] MEDS: SODIUM CHLOR 0.45% 1000 ML INJ 1,000 ML IV SCH (16:19)
--- NOTE | 2016-11-11 16:19 | HHI.PR ---
Subjective Remarks Remains stable. O2 sats 95 on 2 l. Has SOB with exertion Objective Vital Signs Date Time Temp Pulse Resp B/P Pulse Ox O2 Delivery O2 Flow Rate FiO2 11/11/16 12:26 97.5 87 20 122/71 93 11/11/16 08:05 97.6 88 18 128/78 93 11/11/16 07:35 92 Nasal Cannula 2.00 11/11/16 04:23 97.7 89 18 123/72 93 11/11/16 04:23 Nasal Cannula 3.00 11/10/16 23:30 97.4 91 18 138/70 92 11/10/16 19:00 98.5 97 18 112/66 98 11/10/16 19:00 98.5 97 18 112/66 98 I/O 11/10/16 11/10/16 11/10/16 11/11/16 11/11/16 11/11/16 07:00 15:00 23:00 07:00 15:00 23:00 Intake Total 240 ml 750 ml 240 ml Output Total 300 ml Balance 240 ml 750 ml -60 ml Intake Oral 240 ml 240 ml IV Total 750 ml Output Urine Total 300 ml # Voids 1 4 # Bowel Movements 0 0 Result Diagram: 11/11/16 1250 11/11/16 1250 Objective Remarks GENERAL: This thinly built middle-aged white female who is pale and in no acute distress. HEENT: Head normocephalic. Pupils are reactive and equal. Sclerae are clear. Throat was dry. Ears no inflammation. NECK: Supple. No lymphadenopathy. No bruits or thyroid enlargement. CHEST: Equal movements with percussion note. Dull at the bases, diminished breath sounds at both lower lung rob. Expiratory wheezes are scattered bilaterally. HEART: Heart sounds are regular S1-S2. No murmur. No S3. ABDOMEN: Abdomen is soft, scaphoid. No masses or organomegaly or tenderness. EXTREMITIES: No lesions. No edema. Reflexes were 1+ with no gross motor deficits. SKIN: Skin was dry and scaly. Some skin rash noted in the axillary areas. RECTAL: Exam is deferred. Assessment and Plan Assessment and Plan IMPRESSION 1. Bilateral pleural effusions with atelectasis right lower lobe. 2. Subcarinal and mediastinal mass, possible lymphadenopathy versus lung mass. 3. COPD with emphysema. 4. Nicotine dependency. Plan : 1. Cont antibiotics,Levaquin. 2. O2 at 3l 3. Nebs qid , duoneb. 4. Solumderol 40 mg IV q8h. 5. Will do Bronchoscopy on Saturday.Risks and potential complications discussed 6. Right thoracentesis with ultrasound. 7. CBC,.PFT, BMP in am Jaswant Cardenas MD Nov 11, 2016 16:19
[2016-11-11] MEDS: ENOXAPARIN SODIUM 40 MG/0.4 ML SYRINGE SQ SCH (16:27)
[2016-11-11] MEDS: LEVOFLOXACIN 750 MG PREMIX INJ 150 ML IV SCH (16:27)
[2016-11-11] MEDS ORDERED: RESP: ALBUTEROL CONC 2.5 MG/0.5 ML NEB NEB SCH (16:30)
[2016-11-12] VITALS (8 sets, daily range): BP systolic 126–149; BP diastolic 68–90; PULSE 80–96; RESP 16–20; TEMP 97.2–98.2; O2SAT 92–99
[2016-11-12] MEDS: methylPREDNISolone SOD SUCC 40 MG/1 ML VIAL IV PUSH SCH ×4 (01:19→22:33)
[2016-11-12] MEDS: SODIUM CHLOR 0.45% 1000 ML INJ 1,000 ML IV SCH ×2 (03:32→16:25)
[2016-11-12] MEDS: RESP: ALBUTEROL 2.5 MG/IPRATROPIUM 0.5 MG NEB (SCH) NEB ×4 (07:17→19:23)
[2016-11-12 07:58] LABS: AUTOMATED NEUTROPHIL # 10.8 TH/MM3 (1.8-7.7); BASOPHIL % 0.1 % (0.0-2.0); HEMATOCRIT 30.7 % (35.0-46.0); HEMO FLAGS DIFF FINAL; LYMPH % 7.7 % (9.0-44.0); LYMPHOCYTE # 0.9 TH/MM3 (1.0-4.8); MEAN CELL VOLUME 83.2 FL (80.0-100.0); MEAN CORPUSCULAR HEMOGLOBIN 27.2 PG (27.0-34.0); MEAN CORPUSCULAR HGB CONC 32.7 % (32.0-36.0); MONO % 2.8 % (0.0-8.0); NEUT % 89.4 % (16.0-70.0); PLATELET COUNT 508 TH/MM3 (150-450); RED CELL DISTRIBUTION WIDTH 17.9 % (11.6-17.2); WHITE BLOOD COUNT 12.1 TH/MM3 (4.0-11.0)
[2016-11-12 08:27] LABS: BICARBONATE 28.7 MEQ/L (21.0-32.0); POTASSIUM 3.9 MEQ/L (3.5-5.1)
--- NOTE | 2016-11-12 08:31 | RADRPT ---
EXAM DATE/TIME: 11/10/2016 12:57 [facility] COMPARISON: No previous studies available for comparison. INDICATIONS : Left pleural effusion. MEDICAL HISTORY : Left pleural effusion. Respiratory disorders. SURGICAL HISTORY : None. ENCOUNTER: Initial ACUITY: 3 days PAIN SCORE: 0/10 LOCATION: Left chest FLUID: Total volume of 800 cc of clear, red fluid was removed. Fluid was sent to lab for ordered studies. TECHNIQUE: 1. Ultrasound guidance for thoracentesis. 2. Thoracentesis. The risks, benefits, and alternatives to ultrasound guided thoracentesis were explained to the patien t in lay simple terms, including the risk of bleeding and infection. Written and verbal informed con sent was obtained. Appropriate area for thoracentesis was marked under ultrasound guidance with the patient in the uprig ht position. Overlying skin was prepped and draped in the usual sterile fashion and with local anest hetic, a dermatotomy was made with an 11 blade scalpel. A 6 Malay thoracentesis catheter was placed in the pleural space and fluid was removed. Catheter was then removed and a sterile dressing applie d. There were no immediate complications. The patient tolerated the procedure well and the left the ultrasound suite in stable condition. Chest radiograph is to be obtained. CONCLUSION: Uncomplicated ultrasound guided thoracentesis. Syed Valencia MD on November 12, 2016 at 8:30 Board Certified Radiologist. This report was verified electronically.
[2016-11-12] MEDS: DOCUSATE SODIUM 50 MG/SENNA 8.6 MG TAB PO SCH ×2 (09:10→22:34)
[2016-11-12] MEDS: SODIUM CHLORIDE 0.9% FLUSH 10 ML FLUSH IV FLUSH SCH ×2 (09:10→22:34)
[2016-11-12] MEDS: BUDESONIDE-FORMOTEROL 160/4.5 MCG INHALER INH SCH ×2 (09:10→22:37)
--- NOTE | 2016-11-12 11:25 | HHI.PR ---
Subjective Remarks Follow up for pneumonia, subcarinal mass. The patient is seen resting comfortably in bed. She denies any medical complaints including no fevers/chills , cough, chest pain, shortness of breath, or abdominal complaints. O2 sat stable on 2L NC. The patient was not on oxygen prior to arrival. The patient has smoked her entire life since teenage years, now down to 1 pack per week. She reports her father had lung cancer that was reportedly "cured" with chemo/ radiation, however then found to have mets to bone and in his 70s. Objective Vitals Vital Signs Date Time Temp Pulse Resp B/P Pulse Ox O2 Delivery O2 Flow Rate FiO2 11/12/16 08:00 97.3 80 20 126/75 92 11/12/16 07:17 98 Nasal Cannula 2.00 11/12/16 04:00 Nasal Cannula 2.00 11/12/16 04:00 97.2 88 18 143/86 99 11/12/16 00:00 Nasal Cannula 2.00 11/12/16 00:00 97.5 96 16 147/90 98 11/11/16 20:01 Nasal Cannula 2.00 11/11/16 20:00 98.0 87 18 129/69 98 11/11/16 16:45 96 Nasal Cannula 2.00 11/11/16 16:05 98.3 85 18 135/78 95 11/11/16 12:26 97.5 87 20 122/71 93 I/O 11/11/16 11/11/16 11/11/16 11/12/16 11/12/16 11/12/16 07:00 15:00 23:00 07:00 15:00 23:00 Intake Total 600 ml 560 ml 848 ml Output Total 1050 ml 700 ml 900 ml Balance -450 ml -140 ml -52 ml Intake Oral 600 ml 560 ml 580 ml IV Total 268 ml Output Urine Total 1050 ml 700 ml 900 ml # Bowel Movements 1 1 0 Result Diagram: 11/12/16 0711/12/16 07 Imaging Last Impressions Upper Extremity Ultrasound 11/10/16 0000 Signed Impressions: Service Date/Time: Thursday, November 10, 2016 17:15 - CONCLUSION: 1. Axillary masses as above with measurements given. Etiology unclear. Soham Mcbride MD Thoracentesis Ultrasound 11/10/16 0000 Signed Impressions: Service Date/Time: Thursday, November 10, 2016 12:57 - CONCLUSION: Uncomplicated ultrasound guided thoracentesis. Syed Valencia MD Chest X-Ray 11/10/16 0000 Signed Impressions: Service Date/Time: Thursday, November 10, 2016 13:21 - CONCLUSION: Left pleural effusion is now small. No pneumothorax or other acute complication demonstrated after thoracentesis. Isidoro Padilla MD Chest Ultrasound 11/09/16 0000 Signed Impressions: Service Date/Time: Wednesday, November 09, 2016 16:22 - CONCLUSION: Moderate effusion as described above.. Yaya Napier MD FACR CT Angiography 11/09/16 0000 Signed Impressions: Service Date/Time: Wednesday, November 09, 2016 14:36 - CONCLUSION: 1. No pulmonary embolus. 2. Small bilateral pleural effusions with associated atelectasis. 3. Subcarinal mass with diffuse mediastinal adenopathy. I am unsure of the subcarinal mass related to a primary malignancy versus a dominant enlarged lymph node. Retroperitoneal adenopathy partially seen. This was suggest either metastatic disease or a myeloproliferative disorder. 4. Emphysematous changes. 5. Coronary artery atherosclerotic calcifications. Devon Pope Jr., MD Objective Remarks GENERAL: Well-nourished, well-developed thin female patient who appears older than stated age, in NAD. SKIN: Warm and dry. No rash. HEENT: Normocephalic. Atraumatic. Pupils equal and round. Mucous membranes pink and moist. NECK: Supple. Trachea midline. +supraclavicular lymphadenopathy, nontender. CARDIOVASCULAR: Regular rate and rhythm. S1, S2 noted. No murmur appreciated. RESPIRATORY: No accessory muscle use. Breath sounds diminished at bilateral bases, otherwise clear to auscultation, no wheezing today. GASTROINTESTINAL: Abdomen soft, non-tender, nondistended. Normoactive bowel sounds x4. MUSCULOSKELETAL: No obvious deformities. Extremities without clubbing, cyanosis , or edema. NEUROLOGICAL: Awake and alert. No obvious cranial nerve deficits. Motor grossly within normal limits. Normal speech. PSYCHIATRIC: Appropriate mood and affect; insight and judgment normal. Procedures 11/10/16 - left thoracentesis by IR Medications and IVs Current Medications Medications (Trade) Dose Ordered Sig/Ramy Route Start Time Stop Time Status Last Admin (NS Flush) 2 ml UNSCH PRN IV FLUSH 11/09/16 15:45 (NS Flush) 2 ml BID IV FLUSH 11/09/16 21:00 11/12/16 09:10 (Zofran Inj) 4 mg Q6H PRN IVP 11/09/16 15:45 (Lovenox Inj) 40 mg Q24H SQ 11/09/16 16:00 11/11/16 16:27 (Narcan Inj) 0.4 mg UNSCH PRN IV 11/09/16 15:45 (Gaby-Colace) 1 tab BID PO 11/09/16 21:00 11/12/16 09:10 (Milk Of Magnesia Liq) 30 ml Q12H PRN PO 11/09/16 15:45 (Senokot) 17.2 mg Q12H PRN PO 11/09/16 15:45 (Dulcolax Supp) 10 mg DAILY PRN RECTAL 11/09/16 15:45 Lactulose 30 ml 30 ml DAILY PRN PO 11/09/16 15:45 (Levaquin 750 Mg Premix Inj) 150 ml @ 100 mls/hr Q24H IV 11/09/16 17:00 11/11/16 16:27 (SoluMEDROL INJ) 40 mg Q6H IV PUSH 11/09/16 20:00 11/12/16 09:10 Budesonide/ Formoterol Fumarate 2 puff 2 puff Q12HR INH 11/09/16 21:00 11/12/16 09:10 (1/2 NS 1000 ml Inj) 1,000 ml @ 83 mls/hr Q12H3M IV 11/11/16 16:19 11/12/16 03:32 A/P Problem List: (1) Hypoxia ICD Code: R09.02 Status: Acute (2) Mediastinal mass ICD Code: J98.59 Status: Acute (3) PNA (pneumonia) ICD Code: J18.9 Status: Acute (4) Sepsis ICD Code: A41.9 Status: Acute Assessment and Plan 56-year-old female with history of tobacco use, presents with worsening shortness of breath and cough. Sepsis with Community Acquired Pneumonia & Acute Hypoxic Respiratory Failure: meets sepsis criteria with tachycardia HR 131, tachypnea RR 24, and source PNA. Presented with acute respiratory failure with hypoxia, O2 sat 83% on room air. D -dimer elevated at 3.13, BNP 32, trop 0.02. -CXR 11/09 with probably mild congestive failure; bibasal consolidation worse on left with small effusions bilaterally. -CT-PA 11/09 shows small b/l pleural effusions; subcarinal mass with diffuse mediastinal adenopathy (malignancy vs dominant enlarged lymph node); emphysematous changes -S/p thoracentesis 11/10, pleural fluid studies/cytology pending. -Supportive treatment with Duonebs, O2 prn -Continue antibiotics with IV Levaquin -Continue steroids with IV Solumedrol 40mg q6h -Blood cultures with NGTD, continue to monitor -Pulmonology following, plan for bronchoscopy today 11/12 Subcarinal Mass with Diffuse Lymphadenopathy: Unknown if it is primary or related to any other primary malignancy -Patient also has +supraclavicular lymphadenopathy, multiple nodular lesions bilateral axillary area, right abdominal upper quadrant area. -U/S left axilla with atypical masses measuring 2.1 x 1.1 x 1.8cm and 1.4 x 1.5 x 0.8cm. -Pulmonology recommends bronchoscopy -Will consult oncology for suspicion for malignancy Hyponatremia: Na 125. suspect secondary to dehydration -Given IVF, repeat Na 138 -resolved. Hypokalemia: K 3.0. Suspect secondary to dehydration. -Given KCl replacement, repeat K 3.9 -resolved. DVT prophylaxis: SCDs; avoid chemoprophylaxis with upcoming procedure Discharge Planning Not yet ready for discharge. Pending further clinical improvement and work up. Going for bronchoscopy today. Mica Neves PA-C Nov 12, 2016 11:25 am
[2016-11-12] MEDS ORDERED: PROPOFOL 200 MG/20 ML AMP IV ONE (12:00)
[2016-11-12] MEDS ORDERED: LACTATED RINGER'S 1000 ML INJ 1,000 ML IV ONE (12:00)
[2016-11-12] MEDS: ENOXAPARIN SODIUM 40 MG/0.4 ML SYRINGE SQ SCH (16:00)
[2016-11-12] MEDS ORDERED: LIDOCAINE HCL 2% 50 ML VIAL ONE (16:20)
[2016-11-12] MEDS ORDERED: LIDOCAINE HCL 4% PF 5 ML AMP ONE (16:21)
[2016-11-12] MEDS ORDERED: LIDOCAINE VISCOUS 2% SOLN 15 ML UDC ONE (16:21)
[2016-11-12] MEDS: LEVOFLOXACIN 750 MG PREMIX INJ 150 ML IV SCH (17:00)
[2016-11-12] MEDS ORDERED: EPINEPHrine HCL (1:1000) 1 MG/ML VIAL ONE (17:15)
[2016-11-12] MEDS ORDERED: DO NOT ADM ANY ANTICOAGULANT DRUGS PRN (18:42)
[2016-11-12] MEDS ORDERED: RESP: ALBUTEROL 2.5 MG/3 ML NEB (PRN) NEB (18:45)
--- NOTE | 2016-11-12 19:20 | RADRPT ---
EXAM DATE/TIME: 11/12/2016 18:50 [facility] COMPARISON: CHEST SINGLE AP, November 09, 2016, 14:01. INDICATIONS : Evaluate for pneumothorax post bronchoscopy MEDICAL HISTORY : Left pleural effusion. Respiratory disorders. SURGICAL HISTORY : None. ENCOUNTER: Subsequent ACUITY: 1 week PAIN SCORE: 0/10 LOCATION: chest FINDINGS: No pneumothorax is identified post bronchoscopy. Bilateral effusions and basilar airspace disease pre sent. CONCLUSION: 1. No pneumothorax post bronchoscopy. Basal airspace disease present. Soham Mcbride MD on November 12, 2016 at 19:17 Board Certified Radiologist. This report was verified electronically.
[2016-11-12 23:14] LABS: FERRITIN 507 NG/ML (8-252); TRANSFERRIN IRON PROFILE 196 MG/DL (200-360)
[2016-11-13] VITALS (7 sets, daily range): BP systolic 123–155; BP diastolic 73–90; PULSE 76–96; RESP 16–20; TEMP 97.6–98.4; O2SAT 93–96
[2016-11-13] MEDS ORDERED: DIATRIZOATE MEGLUM/DIATRIZOATE SOD 9 ML CUP PO SCH (01:45)
[2016-11-13] MEDS: methylPREDNISolone SOD SUCC 40 MG/1 ML VIAL IV PUSH SCH ×2 (03:38→10:00)
[2016-11-13] MEDS: SODIUM CHLOR 0.45% 1000 ML INJ 1,000 ML IV SCH (03:38)
[2016-11-13] MEDS: RESP: ALBUTEROL 2.5 MG/IPRATROPIUM 0.5 MG NEB (SCH) NEB ×3 (08:00→16:55)
[2016-11-13] MEDS ORDERED: IOHEXOL 350 MG/ML 10 ML VIAL (for RAD DIAG) IV ONE (09:34)
[2016-11-13] MEDS: DOCUSATE SODIUM 50 MG/SENNA 8.6 MG TAB PO SCH ×2 (10:00→22:31)
[2016-11-13] MEDS: BUDESONIDE-FORMOTEROL 160/4.5 MCG INHALER INH SCH ×2 (10:00→22:32)
[2016-11-13] MEDS: SODIUM CHLORIDE 0.9% FLUSH 10 ML FLUSH IV FLUSH SCH ×2 (10:01→22:30)
--- NOTE | 2016-11-13 10:20 | RADRPT ---
EXAM DATE/TIME: 11/13/2016 09:19 [facility] COMPARISON: CT PULMONARY ANGIOGRAM, November 09, 2016, 14:36. INDICATIONS : Evaluate for adenopathy, recent CTA. IV CONTRAST: 90 cc Omnipaque 350 (iohexol) IV ORAL CONTRAST: Prescribed oral contrast ingested. RADIATION DOSE: 9.96 CTDIvol (mGy) MEDICAL HISTORY : Chronic obstructive pulmonary disease. Emphysema. SURGICAL HISTORY : None. ENCOUNTER: Initial ACUITY: 1 day PAIN SCALE: 0/10 LOCATION: Abdomen TECHNIQUE: Volumetric scanning of the abdomen and pelvis was performed. Using automated exposure control and ad justment of the mA and/or kV according to patient size, radiation dose was kept as low as reasonably achievable to obtain optimal diagnostic quality images. DICOM format image data is available electro nically for review and comparison. FINDINGS: LOWER LUNGS: Small bilateral pleural effusions, right greater than left. There is compressive atelectasis in the r ight lower lung. LIVER: Homogeneous density. 5 mm hepatic cyst in the left lobe of liver. There is no dilation of the biliar y tree. There is a calcified gallstone in the gallbladder measuring about 1.5 cm. No adjacent inflamm atory changes.. SPLEEN: Normal size without lesion. PANCREAS: Within normal limits. KIDNEYS: Normal in size and shape. There is no mass, stone or hydronephrosis. 1 cm stone lower pole left kidn ey without obstruction. There is a 1.5 cm right renal cyst. There is some nonspecific decreased densi ty in the upper and midpole the right kidney. This nonspecific decreased density in the midpole the r ight kidney measures approximately 2.4 cm. ADRENAL GLANDS: Within normal limits. VASCULAR: There is no aortic aneurysm. Atherosclerotic changes. BOWEL/MESENTERY: The stomach, small bowel, and colon demonstrate no acute abnormality. There is no free intraperitone al air or fluid. No inflammatory changes. ABDOMINAL WALL: Within normal limits. RETROPERITONEUM: There is para-aortic and retroperitoneal adenopathy in the midabdomen. The largest collection of lymp h nodes are seen in the left para-aortic area at the level of the kidneys measuring 2.9 cm. The adeno keith appears to extend to just before the bifurcation. No definite pelvic adenopathy is seen. BLADDER: No wall thickening or mass. REPRODUCTIVE: Within normal limits. INGUINAL: There is no lymphadenopathy or hernia. MUSCULOSKELETAL: Within normal limits for patient age. Bony degenerative changes. CONCLUSION: 1. There is para-aortic adenopathy in the midabdomen characteristic for neoplastic disease. Recommend a whole body PET/CT to evaluate for extent of the neoplastic disease. 2. 1 cm stone lower pole left kidney not causing obstruction. 3. Gallstone in the gallbladder. No biliary tract obstruction. 4. 1.5 cm right renal cysts. 5. Nonspecific decreased density in the upper and midpole the right kidney. Possible inflammatory pro cess such as nephritis. Recommend correlation with laboratory values. Sergio Hazel MD on November 13, 2016 at 9:37 Board Certified Radiologist. This report was verified electronically.
--- NOTE | 2016-11-13 12:39 | MB ---
cc: RUSTY SOLIS,ZACK Yun MD DATE OF CONSULTATION 11/12/2016 DATE OF [address] Rusty Solis CHIEF COMPLAINT Dr. Solis requested consultation for Mrs. Calvert regarding subcarinal and mediastinal adenopathy suspicious for underlying malignancy. HISTORY OF PRESENT ILLNESS Ms. Calvert is a 56-year-old woman with no significant past history. She apparently has never been hospitalized or been to a doctor. She developed bronchitis about four weeks ago. She has had persistent cough. Previous to that despite a long history of smoking a pack a day for over 20 years, she developed this coughing. She went to an urgent care and was given antibiotic therapy and was advised that the coughing may persist. She got better for a time, but then worsened prior to coming into the hospital. She returned to the Urgent Care and was found to have hypoxemia. Her saturation was low and therefore was referred to [place] emergency room. On admission, her saturation was 83% on room air. She was started on breathing treatment and improved. She was found to have pleural effusion and underwent a thoracentesis. CT angiogram on November 09 shows no pulmonary emboli. There was a small bilateral pleural effusion with associated atelectasis. There were emphysematous changes and atherosclerotic calcification. Sales Recruitment Specialist was consulted. She underwent a bronchoscopy. The cytology is still pending. There was no cytology from the pleural fluid. She is noted to have a PTT that is mildly prolonged. She has a normocytic anemia with elevated platelet count in the 500,000 range. Chemistry shows normal renal function. Albumin is decreased at 2.5. She tolerated the thoracentesis well. She feels better. She is less short of breath. She still has a cough. The rest of her review of systems is negative. She has had some weight loss, but due to her social situation. PAST MEDICAL HISTORY 1. Bronchitis 2. COPD 3. Chronic tobacco use 4. Emphysema PAST SURGICAL HISTORY Thoracentesis FAMILY HISTORY Mother of COPD complications in her 70s. Father of lung cancer metastatic to bone in his 70s. SOCIAL HISTORY She is from her second . She was living with her sister along with her 16-year-old son. She used to work at the [employer] in [facility], but could not transfer to the [facility] nearby after she moved to her sister's house. She smokes a pack a day for over 20 years. Denies any alcohol or illicit drug use. PHYSICAL EXAMINATION VITAL SIGNS: Temperature 97.3 heart rate 82, respiratory rate 18, blood pressure 149/77, saturation 99% on 2 liters nasal cannula. GENERAL: Nehal is a well-developed slender woman in no acute distress. HEAD, EYES, EARS, NOSE, AND THROAT: Her pupils are round and reactive to light and accommodation. Conjunctivae is pink. Oropharynx is clear. Poor dentition. NECK: Supple. LUNGS: With diminished breath sounds at the bases. CARDIOVASCULAR: Exam reveals mild tachycardia. ABDOMEN: Abdomen is benign. EXTREMITIES: Lower extremities with no edema. LABORATORY DATA Significant for a normocytic anemia with thrombocytosis. Renal function is normal. IMAGING STUDIES Described above. ASSESSMENT/PLAN Ms. Calvert is a 56-year-old woman with long history of tobacco use and COPD changes in the lungs mainly emphysema. She has subcarinal mediastinal adenopathy and possible adenopathy in the retroperitoneal area. We discussed the differential includes cell lung cancer in light of her history of smoking. We await the results of the bronchoscopic biopsy. Further recommendations will depend on the final pathology. In light of the retroperitoneal adenopathy, CT scan of the abdomen will also be obtained. If the bronchoscopic cytology is nondiagnostic, we may consider biopsy of a different lesion. We discussed the differential diagnosis to include cancer. Further recommendations will depend on the type of cancer and the results of the histologic evaluation of the biopsy specimens. Her questions were answered to her satisfaction. MD WAGNER Doe/YESSENIA /10:30 PM /12:25 PM
--- NOTE | 2016-11-13 13:29 | HHI.PR ---
Subjective Remarks Follow-up visit pneumonia, subcarinal mass, para-aortic adenopathy. Patient seen and examined today. Reports she is doing well. States her breathing has improved, she's been on and off oxygen. Denies any fevers, chills, cough, chest pains, headaches, palpitations, dizziness. Denies shortness of breath, dyspnea. Denies nausea, vomiting, diarrhea. Patient is requesting to go home if possible. Objective Vitals Vital Signs Date Time Temp Pulse Resp B/P Pulse Ox O2 Delivery O2 Flow Rate FiO2 11/13/16 12:50 93 21 11/13/16 08:00 97.8 88 20 155/88 96 11/13/16 05:18 97.6 78 16 152/90 95 11/13/16 00:38 97.8 76 18 140/76 95 11/12/16 21:18 97.3 83 18 149/77 99 11/12/16 19:15 97.9 109 20 144/86 99 Nasal Cannula 2 11/12/16 19:00 106 20 134/81 99 Nasal Cannula 2 11/12/16 18:41 97.9 141 20 118/71 96 Nasal Cannula 2 11/12/16 16:39 Nasal Cannula 2.00 11/12/16 16:12 97 Nasal Cannula 2.00 11/12/16 16:00 98.2 87 20 140/74 99 I/O 11/12/16 11/12/16 11/12/16 11/13/16 11/13/16 11/13/16 07:00 15:00 23:00 07:00 15:00 23:00 Intake Total 848 ml 734 ml 900 ml 1186 ml Output Total 900 ml 1350 ml 0 ml 1500 ml Balance -52 ml -616 ml 900 ml -314 ml Intake Oral 580 ml 0 ml 600 ml 1186 ml IV Total 268 ml 734 ml 100 ml Other 200 ml Output Urine Total 900 ml 1350 ml 0 ml 1500 ml # Bowel Movements 0 0 0 0 Result Diagram: 11/12/16 0700 11/12/16 0700 Imaging Last Impressions Abdomen/Pelvis CT 11/13/16 0000 Signed Impressions: Service Date/Time: Sunday, November 13, 2016 09:19 - CONCLUSION: 1. There is para-aortic adenopathy in the midabdomen characteristic for neoplastic disease. Recommend a whole body PET/CT to evaluate for extent of the neoplastic disease. 2. 1 cm stone lower pole left kidney not causing obstruction. 3. Gallstone in the gallbladder. No biliary tract obstruction. 4. 1.5 cm right renal cysts. 5. Nonspecific decreased density in the upper and midpole the right kidney. Possible inflammatory process such as nephritis. Recommend correlation with laboratory values. Sergio Hazel MD Chest X-Ray 11/12/16 Signed Impressions: Service Date/Time: Saturday, November 12, 2016 18:50 - CONCLUSION: 1. No pneumothorax post bronchoscopy. Basal airspace disease present. Soham Mcbride MD Upper Extremity Ultrasound 11/10/16 Signed Impressions: Service Date/Time: Thursday, November 10, 2016 17:15 - CONCLUSION: 1. Axillary masses as above with measurements given. Etiology unclear. Soham Mcbride MD Thoracentesis Ultrasound 11/10/16 Signed Impressions: Service Date/Time: Thursday, November 10, 2016 12:57 - CONCLUSION: Uncomplicated ultrasound guided thoracentesis. Syed Valencia MD Chest Ultrasound 11/09/16 Signed Impressions: Service Date/Time: Wednesday, November 09, 2016 16:22 - CONCLUSION: Moderate effusion as described above.. Yaya Napier MD FACR CT Angiography 11/09/16 Signed Impressions: Service Date/Time: Wednesday, November 09, 2016 14:36 - CONCLUSION: 1. No pulmonary embolus. 2. Small bilateral pleural effusions with associated atelectasis. 3. Subcarinal mass with diffuse mediastinal adenopathy. I am unsure of the subcarinal mass related to a primary malignancy versus a dominant enlarged lymph node. Retroperitoneal adenopathy partially seen. This was suggest either metastatic disease or a myeloproliferative disorder. 4. Emphysematous changes. 5. Coronary artery atherosclerotic calcifications. Devon Pope Jr., MD Objective Remarks GENERAL: This is a thinly appearing, well-developed patient, in no apparent distress. SKIN: Warm and dry. HEENT: Normocephalic. Pupils equal round and reactive. Nose without bleeding. Airway patent. NECK: Trachea midline. Supple. CARDIOVASCULAR: Regular rate and rhythm without murmurs, gallops, or rubs. RESPIRATORY: Diminished bases left greater than the right. No wheezing. No accessory muscle use. GASTROINTESTINAL: Abdomen soft, non-tender, nondistended. Bowel Sounds normoactive x4. MUSCULOSKELETAL: Extremities without clubbing, cyanosis, or edema. NEUROLOGICAL: Awake and alert. Oriented to time, place, person. No focal neuro deficit. Moves all extremities. Normal speech. Procedures 11/10/16 - left thoracentesis by IR A/P Problem List: (1) Hypoxia ICD Code: R09.02 Status: Acute (2) Mediastinal mass ICD Code: J98.59 Status: Acute (3) PNA (pneumonia) ICD Code: J18.9 Status: Acute (4) Sepsis ICD Code: A41.9 Status: Acute Assessment and Plan Patient is a 56-year-old female with no significant primary medical history who came into the hospital for evaluation of increasing and worsening shortness of breath and cough. Sepsis Pneumonia, CAP Respiratory failure - Initial presentation - Tachycardic 120-130's, hypoxic O2 sat 83% RA, orthopnea, D-dimer 3.13, BNP 32, troponin less than 0.02 - CT angios showed 1. No pulmonary embolus. 2. Small bilateral pleural effusions with associated atelectasis. 3. Subcarinal mass with diffuse mediastinal adenopathy. Unsure of the subcarinal mass related to a primary malignancy versus a dominant enlarged lymph node. Retroperitoneal adenopathy partially seen. This suggested either metastatic disease or of myelo proliferative disorder. 4. Emphysematous changes. 5. Coronary artery atherosclerotic calcifications - Chest x-ray showed probable mild congestive failure. By basal consolidation is present worse in the left with small effusion. - S/p thoracentesis 11/10, pleural fluid studies/cytology pending. - Consult pulmonology for further recommendations - DuoNeb scheduled and when necessary. Continue O2 nasal cannula, keep O2 > 92% - IV Levaquin 750 mg daily, Solu-Medrol IV. We'll switch to by mouth Levaquin. Solumedrol decrease dose to 20mg BID then PO switch. - Blood cultures no growth to date, continue to monitor - Monitor respiratory status - Bronchoscopy done 11/12/16 - Walk test - Possible underlying COPD as patient is a smoker 1 pack per day since her teenage years. Symbicort started. Subcarinal mass Unknown if it is primary or related to any other primary malignancy - Patient also has supraclavicular lymph nodes. Multiple nodular lesions bilateral axillary area, right abdominal upper quadrant area. - U/S left axilla with atypical masses measuring 2.1 x 1.1 x 1.8cm and 1.4 x 1.5 x 0.8cm. - Oncology consulted for suspicion of malignancy. Recommended CT of the abdomen and pelvis. - CT of the abdomen and pelvis showed there is para -aortic adenopathy in the mid abdomen characteristic of neoplastic disease. Recommend a whole-body PET/CT to evaluate extent of the neoplastic disease. 2. 1 cm stone lower pole left kidney not causing obstruction 3. Gallstone in the gallbladder. No biliary tract obstruction. 4. 1.5 cm right renal cysts. 5. Nonspecific decreased density in the upper and mid pole of the right kidney. Possible inflammatory process such as nephritis. Recommend correlation with laboratory values. - PET/CT Hyponatremia - Possibly secondary to dehydration - Resolved Hypokalemia - Possibly secondary to dehydration - Resolved DVT prop SCD, lovenox Full code Discussed with patient, nursing, Dr. Oleary Discharge Planning Plan for DC tomorrow if cleared with oncology and pulmonology, set up for outpatient follow up. Case management following for procurement of nebulizer and possible O2 if failed walk test. Annalee Grant [facility] Nov 13, 2016 13:28
[2016-11-13] MEDS: ENOXAPARIN SODIUM 40 MG/0.4 ML SYRINGE SQ SCH (16:51)
--- NOTE | 2016-11-13 19:46 | HHI.PR ---
Subjective Remarks No new complaints . Bronchoscopy result pending. Thoracentesis done and Cytology pending. O2 sats 95 on 2 l. Has SOB with exertion Objective Vital Signs Date Time Temp Pulse Resp B/P Pulse Ox O2 Delivery O2 Flow Rate FiO2 11/13/16 16:00 Nasal Cannula 2.00 11/13/16 16:00 98.4 91 20 129/73 93 11/13/16 12:50 93 21 11/13/16 12:00 Nasal Cannula 2.00 11/13/16 12:00 97.8 96 20 137/79 93 11/13/16 08:00 97.8 88 20 155/88 96 11/13/16 08:00 Nasal Cannula 2.00 11/13/16 05:18 97.6 78 16 152/90 95 11/13/16 00:38 97.8 76 18 140/76 95 11/12/16 21:18 97.3 83 18 149/77 99 I/O 11/12/16 11/12/16 11/12/16 11/13/16 11/13/16 11/13/16 06:59 14:59 22:59 06:59 14:59 22:59 Intake Total 848 ml 734 ml 900 ml 1186 ml 360 ml Output Total 900 ml 1350 ml 0 ml 1500 ml 1200 ml Balance -52 ml -616 ml 900 ml -314 ml -840 ml Intake Oral 580 ml 0 ml 600 ml 1186 ml 360 ml IV Total 268 ml 734 ml 100 ml Other 200 ml Output Urine Total 900 ml 1350 ml 0 ml 1500 ml 1200 ml # Bowel Movements 0 0 0 0 1 Result Diagram: 11/12/16 0700 11/12/16 07 Objective Remarks GENERAL: This thinly built middle-aged white female who is pale and in no acute distress. HEENT: Head normocephalic. Pupils are reactive and equal. Throat was dry. NECK: Supple. Supraclavicular lymphadenopathy. No bruits or thyroid enlargement. CHEST: Equal movements with diminished breath sounds at both lower lung rob. Expiratory wheezes are scattered bilaterally. HEART: Heart sounds are regular S1-S2. No murmur. No S3. ABDOMEN: Abdomen is soft, scaphoid. No masses or organomegaly or tenderness. EXTREMITIES: No lesions. No edema. Reflexes were 1+ with no gross motor deficits. SKIN: Skin was dry and scaly. Some skin rash noted in the axillary areas. RECTAL: Exam is deferred. Assessment and Plan Assessment and Plan IMPRESSION 1. Bilateral pleural effusions with atelectasis right lower lobe. 2. Subcarinal and mediastinal mass, possible lymphadenopathy versus lung mass. 3. COPD with emphysema. 4. Nicotine dependency. Plan : 1. Cont antibiotics, and switch to PO Levaquin. 2. O2 at 2 l 3. Nebs qid , duoneb. 4. D/C Solumderol and add Prednisone 30 mg daily 5.Oncology evaluation 6. Arrange home O2 if sats <89 on RA Jaswant Cardenas MD Nov 13, 2016 19:46
[2016-11-13] MEDS ORDERED: methylPREDNISolone SOD SUCC 40 MG/1 ML VIAL IV PUSH SCH (21:00)
[2016-11-14] VITALS: BP 117/69; PULSE 89; RESP 18; TEMP 98.9; O2SAT 94
[2016-11-14 04:00] VITALS: BP 130/67; PULSE 91; RESP 18; TEMP 98; O2SAT 94
[2016-11-14 08:00] VITALS: BP 127/78; PULSE 89; RESP 20; TEMP 98.3; O2SAT 97
[2016-11-14] MEDS: SODIUM CHLORIDE 0.9% FLUSH 10 ML FLUSH IV FLUSH SCH (08:39)
[2016-11-14] MEDS: DOCUSATE SODIUM 50 MG/SENNA 8.6 MG TAB PO SCH (08:39)
[2016-11-14] MEDS: BUDESONIDE-FORMOTEROL 160/4.5 MCG INHALER INH SCH (08:42)
[2016-11-14] MEDS ORDERED: LEVOFLOXACIN 750 MG TAB PO SCH (09:00)
[2016-11-14] MEDS ORDERED: predniSONE 20 MG TAB PO SCH (09:00)
--- NOTE | 2016-11-14 09:12 | HHI.PR ---
Subjective Remarks This report is in ERROR Please disregard this report and all prior copies ! This report is in ERROR Please disregard this report and all prior copies ! This report is in ERROR Please disregard this report and all prior copies ! Objective Vitals Vital Signs Date Time Temp Pulse Resp B/P Pulse Ox O2 Delivery O2 Flow Rate FiO2 11/14/16 04:00 98.0 91 18 130/67 94 11/14/16 00:00 98.9 89 18 117/69 94 11/13/16 20:00 98.4 77 18 123/75 95 11/13/16 20:00 Nasal Cannula 2.00 11/13/16 16:00 Nasal Cannula 2.00 11/13/16 16:00 98.4 91 20 129/73 93 11/13/16 12:50 93 21 11/13/16 12:00 Nasal Cannula 2.00 11/13/16 12:00 97.8 96 20 137/79 93 I/O 11/13/16 11/13/16 11/13/16 11/14/16 11/14/16 11/14/16 06:59 14:59 22:59 06:59 14:59 22:59 Intake Total 1186 ml 360 ml 480 ml 240 ml Output Total 1500 ml 1200 ml 1000 ml 500 ml Balance -314 ml -840 ml -520 ml -260 ml Intake Oral 1186 ml 360 ml 480 ml 240 ml Output Urine Total 1500 ml 1200 ml 1000 ml 500 ml # Bowel Movements 0 1 1 0 Result Diagram: 11/12/16 0700 11/12/16 0700 Procedures 11/10/16 - left thoracentesis by IR A/P Problem List: (1) Hypoxia ICD Code: R09.02 Status: Acute (2) Mediastinal mass ICD Code: J98.59 Status: Acute (3) PNA (pneumonia) ICD Code: J18.9 Status: Acute (4) Sepsis ICD Code: A41.9 Status: Acute Assessment and Plan Patient is a 56-year-old female with no significant primary medical history who came into the hospital for evaluation of increasing and worsening shortness of breath and cough. Sepsis Pneumonia, CAP Respiratory failure - Initial presentation - Tachycardic 120-130's, hypoxic O2 sat 83% RA, orthopnea, D-dimer 3.13, BNP 32, troponin less than 0.02 - CT angio showed 1. No pulmonary embolus. 2. Small bilateral pleural effusions with associated atelectasis. 3. Subcarinal mass with diffuse mediastinal adenopathy. Unsure of the subcarinal mass related to a primary malignancy versus a dominant enlarged lymph node. Retroperitoneal adenopathy partially seen. This suggested either metastatic disease or of myelo proliferative disorder. 4. Emphysematous changes. 5. Coronary artery atherosclerotic calcifications - Chest x-ray showed probable mild congestive failure. By basal consolidation is present worse in the left with small effusion. - S/p thoracentesis 11/10, pleural fluid studies/cytology pending. - Consulted pulmonology for further recommendations - DuoNeb scheduled and when necessary. Continue O2 nasal cannula, keep O2 > 92% - IV Levaquin 750 mg daily, Solu-Medrol IV. We'll switch to by mouth Levaquin. Solumedrol decrease dose to 20mg BID then PO switch. - Blood cultures no growth to date, continue to monitor - Monitor respiratory status - Bronchoscopy done 11/12/16 - Walk test - Possible underlying COPD as patient is a smoker 1 pack per day since her teenage years. Symbicort started. Subcarinal mass Unknown if it is primary or related to any other primary malignancy - Patient also has supraclavicular lymph nodes. Multiple nodular lesions bilateral axillary area, right abdominal upper quadrant area. - U/S left axilla with atypical masses measuring 2.1 x 1.1 x 1.8cm and 1.4 x 1.5 x 0.8cm. - Oncology consulted for suspicion of malignancy. Recommended CT of the abdomen and pelvis. - CT of the abdomen and pelvis showed there is para -aortic adenopathy in the mid abdomen characteristic of neoplastic disease. Recommend a whole-body PET/CT to evaluate extent of the neoplastic disease. 2. 1 cm stone lower pole left kidney not causing obstruction 3. Gallstone in the gallbladder. No biliary tract obstruction. 4. 1.5 cm right renal cysts. 5. Nonspecific decreased density in the upper and mid pole of the right kidney. Possible inflammatory process such as nephritis. Recommend correlation with laboratory values. - PET/CT as an outpt DVT prop FABY, Bg Hodges DO Nov 14, 2016 09:12
[2016-11-14] MEDS ORDERED: LEVA750T9 PO (09:34)
[2016-11-14] MEDS ORDERED: SYMB160A INH (09:34)
[2016-11-14] MEDS ORDERED: PRED10 PO (09:34)
[2016-11-14] MEDS ORDERED: VENTAER INH (09:34)
[2016-11-14] MEDS ORDERED: PRED20 PO (09:34)
--- NOTE | 2016-11-14 09:35 | HHI.DCPOC ---
Discharge Care Plan Diagnosis: (1) PNA (pneumonia) (2) Sepsis (3) Hypoxia (4) Mediastinal mass (5) Shortness of breath Goals to Promote Your Health * To prevent worsening of your condition and complications * To maintain your health at the optimal level Directions to Meet Your Goals Take your medications as prescribed Follow your dietary instruction Follow activity as directed Keep your appointments as scheduled Take your immunizations and boosters as scheduled If your symptoms worsen call your PCP, if no PCP go to Urgent Care Center or Emergency Room Smoking is Dangerous to Your Health. Avoid second hand smoke Call the 24-hour hour crisis hotline for domestic abuse at Bg Oleary DO Nov 14, 2016 09:35
--- NOTE | 2016-11-14 09:46 | HHI.DS ---
Discharge Summary Admission Date Nov 09, 2016 at 15:38 Discharge Date: Nov 14, 2016 Admitting Diagnosis shortness of breath, hypoxia (1) Hypoxia ICD Code: R09.02 Diagnosis: Principal (2) Mediastinal mass ICD Code: J98.59 Diagnosis: Principal (3) PNA (pneumonia) ICD Code: J18.9 (4) Sepsis ICD Code: A41.9 Procedures 11/10/16 - left thoracentesis by IR Brief History - From Admission Written by Annalee Kennedy, acting as scribe for Dr. Foley on 11/09/16 at 16:00. Patient is a 56-year-old female with no significant primary medical history who came into the hospital for evaluation of increasing and worsening shortness of breath and cough. Patient states that she had bronchitis last month that she went to urgent care facility, she was given some medication and she felt better. However in the past few days she has some increasing cough, mucus production, orthopnea, increased shortness of breath that she even gets winded and fatigued by just going from the house to the car. She went to urgent care center again to be evaluated she was told that her oxygenation is getting lower and that she needs to be seen in the emergency room. Patient states she has been coughing a lot, unable to bring up mucus but when she was able to in the previous days it was yellow and very thick. Initially, patient was in the ED with shortness of breath and she was desaturating a 83% on room air. She was placed on 3 L nasal cannula with improved O2 sat at 90-92%. She was also given Solu-Medrol 125 mg. States her breathing has improved right now on exam. Denies pain and discomfort. Denies chest pain, headaches, dizziness. Denies fevers, chills, n/v/d. Denies dysuria. Denies weight loss, reports weight gain. CBC/BMP: 11/12/16 0700 11/12/16 0700 Significant Findings Laboratory Tests Test 11/11/16 11/12/16 12:50 07:00 White Blood Count 16.7 TH/MM3 12.1 TH/MM3 (4.0-11.0) (4.0-11.0) Red Blood Count 3.67 MIL/MM3 3.70 MIL/MM3 (4.00-5.30) (4.00-5.30) Hemoglobin 9.9 GM/DL 10.0 GM/DL (11.6-15.3) (11.6-15.3) Hematocrit 30.9 % 30.7 % (35.0-46.0) (35.0-46.0) Red Cell Distribution Width 17.5 % 17.9 % (11.6-17.2) (11.6-17.2) Platelet Count 534 TH/MM3 508 TH/MM3 (150-450) (150-450) Neutrophils (%) (Auto) 90.5 % 89.4 % (16.0-70.0) (16.0-70.0) Lymphocytes (%) (Auto) 4.4 % 7.7 % (9.0-44.0) (9.0-44.0) Neutrophils # (Auto) 15.1 TH/MM3 10.8 TH/MM3 (1.8-7.7) (1.8-7.7) Lymphocytes # (Auto) 0.7 TH/MM3 0.9 TH/MM3 (1.0-4.8) (1.0-4.8) Creatinine 0.49 MG/DL 0.47 MG/DL (0.50-1.00) (0.50-1.00) Random Glucose 111 MG/DL (74-106) Percent Iron Saturation 19.0 % (20-50) Ferritin 507 NG/ML (8-252) Imaging Last Impressions Abdomen/Pelvis CT 11/13/16 0000 Signed Impressions: Service Date/Time: Sunday, November 13, 2016 09:19 - CONCLUSION: 1. There is para-aortic adenopathy in the midabdomen characteristic for neoplastic disease. Recommend a whole body PET/CT to evaluate for extent of the neoplastic disease. 2. 1 cm stone lower pole left kidney not causing obstruction. 3. Gallstone in the gallbladder. No biliary tract obstruction. 4. 1.5 cm right renal cysts. 5. Nonspecific decreased density in the upper and midpole the right kidney. Possible inflammatory process such as nephritis. Recommend correlation with laboratory values. Sergio Hazel MD Chest X-Ray 11/12/16 Signed Impressions: Service Date/Time: Saturday, November 12, 2016 18:50 - CONCLUSION: 1. No pneumothorax post bronchoscopy. Basal airspace disease present. Soham Mcbride MD Upper Extremity Ultrasound 11/10/16 Signed Impressions: Service Date/Time: Thursday, November 10, 2016 17:15 - CONCLUSION: 1. Axillary masses as above with measurements given. Etiology unclear. Soham Mcbride MD Thoracentesis Ultrasound 11/10/16 Signed Impressions: Service Date/Time: Thursday, November 10, 2016 12:57 - CONCLUSION: Uncomplicated ultrasound guided thoracentesis. Syed Valencia MD Chest Ultrasound 11/09/16 Signed Impressions: Service Date/Time: Wednesday, November 09, 2016 16:22 - CONCLUSION: Moderate effusion as described above.. Yaya Napier MD FACR CT Angiography 11/09/16 Signed Impressions: Service Date/Time: Wednesday, November 09, 2016 14:36 - CONCLUSION: 1. No pulmonary embolus. 2. Small bilateral pleural effusions with associated atelectasis. 3. Subcarinal mass with diffuse mediastinal adenopathy. I am unsure of the subcarinal mass related to a primary malignancy versus a dominant enlarged lymph node. Retroperitoneal adenopathy partially seen. This was suggest either metastatic disease or a myeloproliferative disorder. 4. Emphysematous changes. 5. Coronary artery atherosclerotic calcifications. Devon Pope Jr., MD PE at Discharge GENERAL: This is a thinly appearing, well-developed patient, in no apparent distress. SKIN: Warm and dry. HEENT: Normocephalic. Pupils equal round and reactive. Nose without bleeding. Airway patent. NECK: Trachea midline. Supple. CARDIOVASCULAR: Regular rate and rhythm without murmurs, gallops, or rubs. RESPIRATORY: Diminished bases left greater than the right. No wheezing. No accessory muscle use. GASTROINTESTINAL: Abdomen soft, non-tender, nondistended. Bowel Sounds normoactive x4. MUSCULOSKELETAL: Extremities without clubbing, cyanosis, or edema. NEUROLOGICAL: Awake and alert. Oriented to time, place, person. No focal neuro deficit. Moves all extremities. Normal speech. Pt update on day of discharge The patient was feeling well and wanted to go home. She said she would be able to wait for the test results and follow-up in clinic. Discussed with nursing. Hospital Course Sepsis/ Pneumonia/ Acute respiratory failure Initial presentation - Tachycardic 120-130's, hypoxic O2 sat 83% RA. CT angio showed: No pulmonary embolus; Small bilateral pleural effusions with associated atelectasis; Subcarinal mass with diffuse mediastinal adenopathy; Unsure of the subcarinal mass related to a primary malignancy versus a dominant enlarged lymph node; Retroperitoneal adenopathy partially seen; This suggested either metastatic disease or a myeloproliferative disorder. Chest x-ray showed probable mild congestive failure; Bibasilar consolidation is present worse in the left with small effusion. Echo with EF 45-50%, grade 1 diastolic dysfunction. Pulmonology was consulted. S/p thoracentesis 11/10, pleural fluid studies/cytology pending. She received DuoNebs scheduled and when necessary. She was started on IV Levaquin 750 mg daily, Solu-Medrol IV. Bronchoscopy done , cytology pending. A walk test was scheduled to assess the need for home oxygen. The patient will not require home oxygen. She will complete a prednisone taper on discharge. She will continue Levaquin. She was given Symbicort and albuterol. She will follow up with pulmonology. Subcarinal mass Noted on CT. Patient also has supraclavicular lymph nodes. Multiple nodular lesions bilateral axillary area, right abdominal upper quadrant area. U/S left axilla with atypical masses measuring 2.1 x 1.1 x 1.8cm and 1.4 x 1.5 x 0.8cm. Oncology consulted for suspicion of malignancy. Recommended CT of the abdomen and pelvis which showed: para -aortic adenopathy in the mid abdomen characteristic of neoplastic disease; Recommend a whole-body PET/CT to evaluate extent of the neoplastic disease. She will follow up with oncology as an outpt. Cytology as above is currently pending. The pt may need a biopsy of a lymph node if cytology negative. Pt Condition on Discharge: Stable Discharge Disposition: Discharge Home Discharge Time: > 30 minutes Discharge Instructions DIET: Follow Instructions for: As Tolerated, No Restrictions Activities you can perform: Weight Bearing as Margo Follow up Referrals: Oncology - [address] Pedraza PCP Follow-up - 1 Week Pulmonology - 1 Week with Jaswant Cardenas MD New Medications: Albuterol 18 GM Inh (Ventolin Hfa 18 GM Inh) 90 Mcg/Act Aer 2 PUFF INH Q4-6H PRN SHORTNESS OF BREATH #1 Ref 0 INHALER Prednisone (Prednisone) 10 Mg Tab 10 MG PO DAILY Start taking once done with 20 mg daily script Breathing #5 Ref 0 TAB Budesonide-Formoterol Inh (Symbicort Inh) 160-4.5 Mcg/Act Aero 2 PUFF INH Q12HR breathing #1 INHALER Levofloxacin (Levaquin) 750 Mg Tablet 750 MG PO DAILY Infection #4 TAB Prednisone (Prednisone) 20 Mg Tab 20 MG PO DAILY Breathing #5 TAB Bg Oleary DO Nov 14, 2016 09:46
--- NOTE | 2016-11-14 10:46 | MR ---
cc: Jaswant CARDENAS M.D. DATE: 11/12/2016 PROCEDURE Fiberoptic bronchoscopy with biopsy, brushings and washings. PREOPERATIVE DIAGNOSIS Subcarinal mass and pleural effusions. POSTOPERATIVE DIAGNOSIS Right mainstem bronchial lesion. SURGEON Dr. El Cardenas. PROCEDURE AND FINDINGS The patient was sedated with Diprivan IV and the LMA was placed against the larynx. The Olympus IT 180 bronchoscope was used to visualize the bronchi. The scope was advanced via the LMA into the trachea. The vocal cords moved equally. The scope was then advanced to the trachea which was normal but the raji was slightly widened and there was an irregular mucosal lesion extending from the raji down into the right mainstem all the way into the bronchus intermedius as well as the right middle lobe bronchus. The right upper lobe bronchus at its entry also had a mucosal lesion which was friable and bled easily to touch. Brushings were done from here for cytology and biopsies were done for pathology. Saline washings and lavage were done. The right lower lobe bronchus could not be completely visualized due to narrowing of the bronchus intermedius. The scope was also advanced into the left mainstem and left upper lobe bronchi which were patent and had no endobronchial lesions. Next, the left lower lobe segmental bronchi was visualized which demonstrated no endobronchial lesions. Saline washings were done from the left side and the procedure was then terminated. The patient tolerated the procedure well. MD ANJALI Silverman/TORIN /6:34 PM /10:27 AM
--- NOTE | 2016-11-14 11:23 | PD.ONC.PN ---
Subjective Subjective Remarks Afebrile overnight. Patient seen at 10AM, late entry. Patient d/c order has been placed and she is eager to go home. No complaints. Breathing improved. Objective Data Date Time Temp Pulse Resp B/P Pulse Ox O2 Delivery O2 Flow Rate FiO2 11/14/16 08:00 98.3 89 20 127/78 97 11/14/16 04:00 98.0 91 18 130/67 94 11/14/16 00:00 98.9 89 18 117/69 94 11/13/16 20:00 98.4 77 18 123/75 95 11/13/16 20:00 Nasal Cannula 2.00 11/13/16 16:00 Nasal Cannula 2.00 11/13/16 16:00 98.4 91 20 129/73 93 11/13/16 12:50 93 21 11/13/16 12:00 Nasal Cannula 2.00 11/13/16 12:00 97.8 96 20 137/79 93 11/14/16 11/14/16 11/14/16 07:00 15:00 23:00 Intake Total 240 ml Output Total 500 ml Balance -260 ml Result Diagram: 11/12/16 0700 11/12/16 0700 Culture Results Microbiology Date/Time Procedure Status Source Growth 11/12/16 18:25 Gram Stain - Final Resulted Bronchial Washings Other 11/12/16 18:25 Bronchial Culture - Preliminary Resulted Bronchial Washings Other RESULTS PENDING 11/12/16 18:25 Fungal Smear - Final Resulted Bronchial Washings Other NO FUNGAL ELEMENTS SEEN. 11/12/16 18:25 Fungal Culture Resulted Bronchial Washings Other Pending 11/12/16 18:25 Acid Fast Stain Received Bronchial Washings Other Pending 11/12/16 18:25 Mycobacterial Culture Received Bronchial Washings Other Pending 11/12/16 18:25 Gram Stain Ordered Wound Groin Pending 11/12/16 18:25 Wound Culture Ordered Wound Groin Pending 11/12/16 18:25 Acid Fast Stain Ordered Wound Groin Pending 11/12/16 18:25 Mycobacterial Culture Ordered Wound Groin Pending 11/12/16 18:25 Fungal Smear Ordered Wound Groin Pending 11/12/16 18:25 Fungal Culture Ordered Wound Groin Pending Administered Medications Medications (Trade) Dose Ordered Sig/Ramy Route PRN Reason Start Time Stop Time Status Last Admin Dose Admin Sodium Chloride (NS Flush) 2 ml UNSCH PRN IV FLUSH FLUSH AFTER USING IV ACCESS 11/09/16 15:45 11/13/16 03:39 Sodium Chloride (NS Flush) 2 ml BID IV FLUSH 11/09/16 21:00 11/14/16 08:39 Enoxaparin Sodium (Lovenox Inj) 40 mg Q24H SQ 11/09/16 16:00 11/13/16 16:51 Senna/Docusate Sodium (Gaby-Colace) 1 tab BID PO 11/09/16 21:00 11/13/16 22:31 Budesonide/ Formoterol Fumarate (Symbicort 160-4.5 Inh) 2 puff Q12HR INH 11/09/16 21:00 11/14/16 08:42 Levofloxacin (Levaquin) 750 mg DAILY PO 11/14/16 09:00 11/14/16 08:38 Prednisone (Deltasone) 20 mg DAILY PO 11/14/16 09:00 11/14/16 08:38 Objective Remarks GENERAL: Middle aged female upright in bed in nad. SKIN: Warm and dry. HEAD: Normocephalic. EYES: No injection or drainage. NECK: Supple, trachea midline. CARDIOVASCULAR: Regular rate and rhythm RESPIRATORY: diminished at bases, scattered wheeze. On 2L O2 GASTROINTESTINAL: Abdomen soft, non-tender, nondistended. EXTREMITIES: No cyanosis NEUROLOGICAL: awake and alert, normal speech. Assessment/Plan Problem List: (1) Lymphadenopathy Status: Acute Plan: CT angiogram on November 09 shows no pulmonary emboli. +small bilateral pleural effusion with associated atelectasis. +emphysematous changes and atherosclerotic calcification. --CT ab/pelvis shows para-aortic adenopathy --s/p bronchoscopy. cytology is still pending. --differential includes cell lung cancer in light of her history of smoking. Assessment 56y/o female with subcarinal and mediastinal adenopathy suspicious for underlying malignancy. h/o Bronchitis COPD Chronic tobacco use Emphysema Plan 1. fs faxed to new patient referrals 2. patient advised to call clinic and make follow up appointment 3. await pathology Sarah Marquez Nov 14, 2016 11:23
== END 2016-11-14 11:34 | disposition home or self-care (01) | DRG 853 ==
LOC: PHED 13:21 → PHEDA 15:38 → PH3B 17:00 → N04A 11-10 19:10
PROVIDERS: ADMIT Hospitalist; ATTEND Hospitalist
PROC: 0B9C8ZX Drainage of Right Upper Lung Lobe, Via Natural or Artificial Opening Endoscopic, Diagnostic (ICD-10-PCS; 2016-11-12)
PROC: 0W9B3ZZ Drainage of Left Pleural Cavity, Percutaneous Approach (ICD-10-PCS; 2016-11-12)
PROC: 0BBC8ZX Excision of Right Upper Lung Lobe, Via Natural or Artificial Opening Endoscopic, Diagnostic (ICD-10-PCS; principal; 2016-11-12 18:02)
DX: A41.9 Sepsis, unspecified organism (principal); J18.9 Pneumonia, unspecified organism; J96.01 Acute respiratory failure with hypoxia; I50.9 Heart failure, unspecified; J90 Pleural effusion, not elsewhere classified; E87.1 Hypo-osmolality and hyponatremia; J44.0 Chronic obstructive pulmonary disease with (acute) lower respiratory infection; J98.11 Atelectasis; D64.9 Anemia, unspecified; E87.6 Hypokalemia; K80.20 Calculus of gallbladder without cholecystitis without obstruction; N28.1 Cyst of kidney, acquired; F17.210 Nicotine dependence, cigarettes, uncomplicated; Z79.51 Long term (current) use of inhaled steroids; Z80.1 Family history of malignant neoplasm of trachea, bronchus and lung
CPT/HCPCS: 32555; 36600; 71010; 71275; 74177; 76604; 76882; 80048; 80053; 82150; 82728; 82805; 82945; 83540; 83550; 83605; 83615; 83735; 83880; 83986; 84157; 84484; 85025; 85379; 85610; 85730; 87015; 87040; 87070; 87102; 87116; 87205; 87206; 87804; 88112; 88305; 88341; 88342; 89051; 93005; 93306; 94620; 94640; 94664; C1729; J0171; J1650; J1956; J2920; J2930; J3010; J3480; J7030; J7120; J7512; Q9967

== ENCOUNTER 2016-12-23 12:35 | Inpatient (IN) | payer MEDICAID ==
[~2016-12-23] VITALS: Ht 170.2 cm; Wt 64.9 kg
[2016-12-23] VITALS (7 sets, daily range): BP systolic 104–112; BP diastolic 66–76; PULSE 116–135; RESP 16–18; TEMP 98.6–98.9; O2SAT 92–99
[~2016-12-23 12:35] MED LIST: LEVA750T9 PO; PRED10 PO; PRED20 PO; SYMB160A INH; VENTAER INH
--- NOTE | 2016-12-23 14:22 | PD ---
HPI Chief Complaint: Abdominal Pain Time Seen by Provider: 13:53 Travel History International Travel<30 days: No Contact w/Intl Traveler<30days: No Traveled to known affect area: No History of Present Illness HPI The patient was seen and examined in the presence of the nurse. This patient presents with some vague malaise. Difficult for her to elaborate a chief complaint. Symptoms severity is moderate. Duration is weeks. She has chronic baseline shortness of breath which is exacerbated by activity. Partially alleviated by rest. She was hospitalized last month and has presumptive diagnosis of lung cancer. She had a lung mass and diffuse adenopathy consistent with metastatic disease in a lifelong smoker. She had thoracentesis as well. She was supposed to follow up with pulmonary and oncology and so forth and has not followed up with anybody. She says she has [facility]. She gives a variety of excuses as to why she's not seen anybody. PFSH Past Medical History Cardiovascular Problems: No Diminished Hearing: No Musculoskeletal: No Neurologic: No Respiratory: Yes (copd) Pneumonia: Yes Tetanus Vaccination: Unknown Influenza Vaccination: No ?: Not Social History Alcohol Use: No Tobacco Use: Yes (< 1/2 PPD) Substance Use: No Allergies-Medications (Allergen,Severity, Reaction): Coded Allergies: No Known Allergies (Unverified , 12/23/16) Reported Meds & Prescriptions Reported Meds & Active Scripts Active Ventolin Hfa 18 GM Inh (Albuterol Sulfate) 90 Mcg/Act Aer 2 Puff INH Q4-6H PRN Prednisone 10 Mg Tab 10 Mg PO DAILY Start taking once done with 20 mg daily script Symbicort Inh (Budesonide/Formoterol Fumarate) 160-4.5 Mcg/Act Aero 2 Puff INH Q12HR Review of Systems General / Constitutional: No: Fever Eyes: No: Visual changes HENT: No: Headaches Cardiovascular: No: Chest Pain or Discomfort Respiratory: Positive: Shortness of Breath Gastrointestinal: No: Abdominal Pain Genitourinary: No: Dysuria Musculoskeletal: Positive: Weakness, No: Pain Skin: No Rash Neurologic: Positive: Weakness Psychiatric: No: Depression Endocrine: No: Polydipsia Hematologic/Lymphatic: No: Easy Bruising Physical Exam Narrative GENERAL: Well-nourished, well-developed patient in no apparent distress. SKIN: Focused skin assessment reveals no rash and nodules. Skin is Warm and dry. HEAD: Atraumatic. Normocephalic. EYES: Pupils equal and round. No scleral icterus. No injection or drainage. ENT: No nasal bleeding or discharge. Mucous membranes pink and moist. NECK: Trachea midline. No JVD. CARDIOVASCULAR: Regular rate and rhythm. No murmur appreciated. RESPIRATORY: No accessory muscle use. Scattered rhonchi without active wheezing or crackles. Breath sounds equal bilaterally. GASTROINTESTINAL: Abdomen soft, non-tender, nondistended. Hepatic and splenic margins not palpable. MUSCULOSKELETAL: No obvious deformities. No clubbing. No cyanosis. No edema. NEUROLOGICAL: Awake and alert. No obvious cranial nerve deficits. Motor grossly within normal limits. Normal speech. PSYCHIATRIC: Appropriate mood and affect; insight and judgment normal. Data Data Last Documented VS Vital Signs Date Time Temp Pulse Resp B/P (MAP) Pulse Ox O2 Delivery O2 Flow Rate FiO2 12/23/16 15:10 122 16 109/70 (83) 92 12/23/16 12:51 98.9 Orders Orders Iv Access Insert/Monitor (12/23/16 14:10) Complete Blood Count With Diff (12/23/16 14:10) Basic Metabolic Panel (Bmp) (12/23/16 14:10) Chest, Single Ap (12/23/16 ) Electrocardiogram (12/23/16 ) Admit Order (Ed Use Only) (12/23/16 15:17) Labs Laboratory Tests Test 12/23/16 13:59 White Blood Count 14.4 TH/MM3 Red Blood Count 3.63 MIL/MM3 Hemoglobin 9.5 GM/DL Hematocrit 28.6 % Mean Corpuscular Volume 78.8 FL Mean Corpuscular Hemoglobin 26.1 PG Mean Corpuscular Hemoglobin Concent 33.1 % Red Cell Distribution Width 17.6 % Platelet Count 626 TH/MM3 Mean Platelet Volume 7.2 FL Neutrophils (%) (Auto) 85.8 % Lymphocytes (%) (Auto) 8.9 % Monocytes (%) (Auto) 4.5 % Eosinophils (%) (Auto) 0.4 % Basophils (%) (Auto) 0.4 % Neutrophils # (Auto) 12.3 TH/MM3 Lymphocytes # (Auto) 1.3 TH/MM3 Monocytes # (Auto) 0.6 TH/MM3 Eosinophils # (Auto) 0.1 TH/MM3 Basophils # (Auto) 0.1 TH/MM3 CBC Comment DIFF FINAL Differential Comment Blood Urea Nitrogen 9 MG/DL Creatinine 0.40 MG/DL Random Glucose 82 MG/DL Calcium Level 8.9 MG/DL Sodium Level 128 MEQ/L Potassium Level 2.9 MEQ/L Chloride Level 88 MEQ/L Carbon Dioxide Level 26.8 MEQ/L Anion Gap 13 MEQ/L Estimat Glomerular Filtration Rate 164 ML/MIN MDM Medical Decision Making Medical Screen Exam Complete: Yes Emergency Medical Condition: Yes Medical Record Reviewed: Yes Differential Diagnosis COPD, lung cancer, cardiac arrhythmia Narrative Course I have reviewed the patient's electronic medical record. I reviewed her discharge summary from November 2016 IV placed I reviewed her EKG which shows sinus tachycardia without ectopy Extended cardiac monitoring shows persistent sinus tachycardia I reviewed her chest x-ray which shows COPD changes and trace fluid similar to prior CBC shows anemia Metabolic profile shows hyponatremia Patient not clinically stable for discharge. She is borderline hypoxic and tachycardic at 1:30 with electrolyte abnormalities and generalized weakness and possible cancer that is not getting any follow-up in the last one month. I reviewed with hospitalist. He is going to evaluate for possible PE and try to get her better organized. Diagnosis Primary Impression: Shortness of breath Additional Impressions: Hypoxia Sinus tachycardia Generalized weakness Admitting Information Admitting Physician Requests: Admit Harmeet Berrios MD Dec 23, 2016 14:21
[2016-12-23 14:32] LABS: AUTOMATED NEUTROPHIL # 12.3 TH/MM3 (1.8-7.7); BASOPHIL # 0.1 TH/MM3 (0-0.2); BASOPHIL % 0.4 % (0.0-2.0); EOSINOPHIL # 0.1 TH/MM3 (0-0.4); EOSINOPHIL % 0.4 % (0.0-4.0); HEMATOCRIT 28.6 % (35.0-46.0); LYMPH % 8.9 % (9.0-44.0); LYMPHOCYTE # 1.3 TH/MM3 (1.0-4.8); MEAN CELL VOLUME 78.8 FL (80.0-100.0); MEAN CORPUSCULAR HEMOGLOBIN 26.1 PG (27.0-34.0); MEAN CORPUSCULAR HGB CONC 33.1 % (32.0-36.0); MONO % 4.5 % (0.0-8.0); NEUT % 85.8 % (16.0-70.0); PLATELET COUNT 626 TH/MM3 (150-450); RED BLOOD COUNT 3.63 MIL/MM3 (4.00-5.30); RED CELL DISTRIBUTION WIDTH 17.6 % (11.6-17.2); WHITE BLOOD COUNT 14.4 TH/MM3 (4.0-11.0)
[2016-12-23 14:37] LABS: HEMO FLAGS DIFF FINAL
[2016-12-23 14:49] LABS: BICARBONATE 26.8 MEQ/L (21.0-32.0)
[2016-12-23 14:50] LABS: POTASSIUM 2.9 MEQ/L (3.5-5.1)
--- NOTE | 2016-12-23 14:58 | RADRPT ---
EXAM DATE/TIME: 12/23/2016 14:34 [facility] COMPARISON: CT ABDOMEN & PELVIS W CONTRAST, November 13, 2016, 9:19. CHEST SINGLE AP, 2016, 18:50. INDICATIONS : Short of breath, cough, abdomen pain MEDICAL HISTORY : None. SURGICAL HISTORY : None. ENCOUNTER: Initial ACUITY: 1 week PAIN SCORE: 0/10 LOCATION: Bilateral chest FINDINGS: Trace right and small left pleural effusions with associated lower lung zone compressive atelectasis. Mild interstitial prominence. Cardiomediastinal contours are stable. Remainder of exam is unchanged. CONCLUSION: 1. Stable trace right and small left pleural effusions with associated lower lobe atelectasis. 2. No significant interval change from recent CT exam. Syed Valencia MD on December 23, 2016 at 14:54 Board Certified Radiologist. This report was verified electronically.
[2016-12-23] MEDS ORDERED: NALOXONE HCL 0.4 MG/ML AMP IV PUSH PRN (16:15)
[2016-12-23] MEDS ORDERED: ACETAMINOPHEN 325 MG TAB PO PRN (16:15)
[2016-12-23] MEDS ORDERED: SENNOSIDES 8.6 MG TAB PO PRN (16:15)
[2016-12-23] MEDS ORDERED: LACTULOSE SYRUP 20 GM/30 ML CUP PO PRN (16:15)
[2016-12-23] MEDS ORDERED: BISACODYL 10 MG SUPP RECTAL PRN (16:15)
[2016-12-23] MEDS ORDERED: MAGNESIUM HYDROXIDE SUSP 30 ML CUP PO PRN (16:15)
[2016-12-23] MEDS ORDERED: ONDANSETRON HCL 4 MG/2 ML VIAL IVP PRN (16:15)
[2016-12-23] MEDS ORDERED: SODIUM CHLORIDE 0.9% FLUSH 10 ML FLUSH IV FLUSH PRN (16:15)
--- NOTE | 2016-12-23 16:26 | HHI.HP ---
HPI Service [facility] Hospitalists Primary Care Physician No Primary Care Physician Admission Diagnosis hypoxia,tachycardia,gen weakness,hyponatremia Diagnoses: Chief Complaint: Abdominal pain and distention Travel History International Travel<30 Days: No Contact w/Intl Traveler <30 Da: No Traveled to Known Affected Are: No History of Present Illness This is a 48-year-old female with past medical history as detailed below who presents to [facility] complaining of vague malaise, abdominal pain and distention. The patient states that she has had this sensation for some weeks. The patient also complains of some chronic baseline shortness of breath which is exacerbated by activity. The patient states that she was hospitalized last month with the patient the diagnosis of lung cancer. As per medical records the patient had a lung mass and diffuse adenopathy consistent with metastatic disease. At that time the patient underwent thoracentesis but pathology is inconclusive. As per patient, he was supposed to follow-up with pulmonology and oncology but she has not follow-up with anybody. Otherwise the patient complains of constipation, denies diarrhea. The patient also complains of increased abdominal girth and distention and mild diffuse abdominal pain. The patient however denies fevers or chills, nausea or vomiting. Past Family Social History Allergies: Coded Allergies: No Known Allergies (Unverified , 12/23/16) Physical Exam Vital Signs Vital Signs Date Time Temp Pulse Resp B/P (MAP) Pulse Ox O2 Delivery O2 Flow Rate FiO2 12/23/16 15:10 122 16 109/70 (83) 92 12/23/16 12:51 98.9 135 16 109/66 (80) 97 Physical Exam GENERAL: This is a well-nourished, well-developed patient, in no apparent distress. SKIN: No rashes, ecchymoses or lesions. Cool and dry. HEAD: Atraumatic. Normocephalic. No temporal or scalp tenderness. EYES: Pupils equal round and reactive. Extraocular motions intact. No scleral icterus. No injection or drainage. ENT: Nose without bleeding, purulent drainage or septal hematoma. Throat without erythema, tonsillar hypertrophy or exudate. Uvula midline. Airway patent. NECK: Trachea midline. No JVD or lymphadenopathy. Supple, nontender, no meningeal signs. CARDIOVASCULAR: Regular rate and rhythm without murmurs, gallops, or rubs. RESPIRATORY: Clear to auscultation. Breath sounds equal bilaterally. No wheezes , rales, or rhonchi. GASTROINTESTINAL: Abdomen soft, non-tender, nondistended. No hepato-splenomegaly , or palpable masses. No guarding. MUSCULOSKELETAL: Extremities without clubbing, cyanosis, or edema. No joint tenderness, effusion, or edema noted. No calf tenderness. Negative Homans sign bilaterally. NEUROLOGICAL: Awake and alert. Cranial nerves II through XII intact. Motor and sensory grossly within normal limits. Five out of 5 muscle strength in all muscle groups. Normal speech. Laboratory Laboratory Tests Test 12/23/16 13:59 White Blood Count 14.4 Red Blood Count 3.63 Hemoglobin 9.5 Hematocrit 28.6 Mean Corpuscular Volume 78.8 Mean Corpuscular Hemoglobin 26.1 Mean Corpuscular Hemoglobin Concent 33.1 Red Cell Distribution Width 17.6 Platelet Count 626 Mean Platelet Volume 7.2 Neutrophils (%) (Auto) 85.8 Lymphocytes (%) (Auto) 8.9 Monocytes (%) (Auto) 4.5 Eosinophils (%) (Auto) 0.4 Basophils (%) (Auto) 0.4 Neutrophils # (Auto) 12.3 Lymphocytes # (Auto) 1.3 Monocytes # (Auto) 0.6 Eosinophils # (Auto) 0.1 Basophils # (Auto) 0.1 CBC Comment DIFF FINAL Differential Comment Blood Urea Nitrogen 9 Creatinine 0.40 Random Glucose 82 Calcium Level 8.9 Sodium Level 128 Potassium Level 2.9 Chloride Level 88 Carbon Dioxide Level 26.8 Anion Gap 13 Estimat Glomerular Filtration Rate 164 Result Diagram: 12/23/16 1359 12/23/16 1359 Imaging Chest x-ray reviewed by me shows stable trace right and small left pleural effusions with associated lower lobe atelectasis. Septic Shock Reassessment Heart: Regular rate and rhythm Lungs: Clear Skin: Warm Peripheral Pulses: Bounding Right Radial Bounding Left Radial Caprini VTE Risk Assessment Caprini VTE Risk Assessment: Mod/High Risk (score >= 2) Caprini Risk Assessment Model Point Value = 1 Point Value = 2 Point Value = 3 Point Value = 5 Age 41-60 Minor surgery BMI > 25 kg/m2 Swollen legs Varicose veins or History of unexplained or recurrent spontaneous Oral contraceptives or hormone replacement Sepsis (< 1 month) Serious lung disease, including pneumonia (< 1 month) Abnormal pulmonary function Acute myocardial infarction Congestive heart failure (< 1 month) History of inflammatory bowel disease Medical patient at bed rest Age 61-74 Arthroscopic surgery Major open surgery (> 45 min) Laparoscopic surgery (> 45 min) Malignancy Confined to bed (> 72 hours) Immobilizing plaster cast Central venous access Age >= 75 History of VTE Family history of VTE Factor V Leiden Prothrombin [id number] Lupus anticoagulant Anticardiolipin antibodies Elevated serum homocysteine Heparin-induced thrombocytopenia Other congenital or acquired thrombophilia Stroke (< 1 month) Elective arthroplasty Hip, pelvis, or leg fracture Acute spinal cord injury (< 1 month) Prophylaxis Regimen Total Risk Factor Score Risk Level Prophylaxis Regimen 0-1 Low Early ambulation 2 Moderate Order ONE of the following: *Sequential Compression Device (SCD) *Heparin 5000 units SQ BID 3-4 Higher Order ONE of the following medications: *Heparin 5000 units SQ TID *Enoxaparin/Lovenox 40 mg SQ daily (WT < 150 kg, CrCl > 30 mL/min) *Enoxaparin/Lovenox 30 mg SQ daily (WT < 150 kg, CrCl > 10-29 mL/min) *Enoxaparin/Lovenox 30 mg SQ BID (WT < 150 kg, CrCl > 30 mL/min) AND/OR *Sequential Compression Device (SCD) 5 or more Highest Order ONE of the following medications: *Heparin 5000 units SQ TID (Preferred with Epidurals) *Enoxaparin/Lovenox 40 mg SQ daily (WT < 150 kg, CrCl > 30 mL/min) *Enoxaparin/Lovenox 30 mg SQ daily (WT < 150 kg, CrCl > 10-29 mL/min) *Enoxaparin/Lovenox 30 mg SQ BID (WT < 150 kg, CrCl > 30 mL/min) AND *Sequential Compression Device (SCD) Assessment and Plan Problem List: (1) HCAP (healthcare-associated pneumonia) ICD Code: J18.9 - Pneumonia, unspecified organism (2) Sepsis ICD Code: A41.9 - Sepsis, unspecified organism Status: Acute (3) Hypoxia ICD Code: R09.02 - Hypoxemia Status: Acute (4) Shortness of breath ICD Code: R06.02 - Shortness of breath Status: Acute (5) Generalized weakness ICD Code: R53.1 - Weakness Status: Acute Assessment and Plan Sepsis present on admission. Admit the patient to the medical floor Continue supportive therapy with IV fluids in the form of normal saline, broad- spectrum IV antibiotics I will start the patient IV vancomycin and IV Zosyn to cover for hospital- acquired pneumonia since she has been recently hospitalized. Leukocytosis likely secondary to sepsis, monitor CBC Patient with anemia, which as per review of records seems to be anemia of chronic disease. Replace and monitor electrodes aggressively. I will order a CT angiogram of the chest to rule out PE and given to the patient is a very high risk for pulmonary emboli, I will start the patient on IV heparin drip which could be discontinued after the CT angiogram is negative. Check venous Doppler of the left lower extremity given swelling to rule out DVT. Placed on SCDs for DVT prophylaxis Follow-up blood cultures obtained in emergency department Discussed Condition With Patient, RN, ED physician Physician Certification 2 Midnight Certification Type: Admission for Inpatient Services Order for Inpatient Services The services are ordered in accordance with Medicare regulations or non- Medicare payer requirements, as applicable. In the case of services not specified as inpatient-only, they are appropriately provided as inpatient services in accordance with the 2-midnight benchmark. Estimated LOS (days): 2 days is the estimated time the patient will need to remain in the hospital, assuming treatment plan goals are met and no additional complications. Post-Hospital Plan: Not yet determined Jeanmarie Ospina MD Dec 23, 2016 16:26
[2016-12-23] MEDS ORDERED: Vancomycin Consult Pharmacy 1 EA OTHER SCH (16:30)
[2016-12-23] MEDS ORDERED: POTASSIUM CHLORIDE 10 MEQ CONTROLLED RELEASE TAB PO ONE (16:30)
[2016-12-23] MEDS ORDERED: HEPARIN-D5W 25,000 U/250 ML 250 ML IV PRN (16:30)
[2016-12-23] MEDS ORDERED: PIPERACIL-TAZO 4.5 GM PREMIX 100 ML IV SCH (17:00)
--- NOTE | 2016-12-23 17:12 | RADRPT ---
EXAM DATE/TIME: 12/23/2016 21:31 [facility] COMPARISON: No previous studies available for comparison. INDICATIONS : Left leg edema. MEDICAL HISTORY : Chronic obstructive pulmonary disease. SURGICAL HISTORY : None. ENCOUNTER: Initial ACUITY: 4 - 6 days PAIN SCORE: 0/10 LOCATION: Left leg. TECHNIQUE: Venous ultrasound of the leg was performed from the inguinal ligament to the proximal calf. Real-edu e, color Doppler and spectral tracing, compression and augmentation techniques were used. FINDINGS: There is normal compressibility of the deep venous system from the inguinal region to the proximal ca lf. No echogenic clot is seen in the lumen of the common femoral, femoral, popliteal, and posterior tibial veins. There is a normal response of the venous system to proximal and distal augmentation an d respiration. CONCLUSION: No DVT of the left lower extremity. Isidoro Padilla MD on December 23, 2016 at 17:10 Board Certified Radiologist. This report was verified electronically.
[2016-12-23] MEDS ORDERED: IOHEXOL 350 MG/ML 10 ML VIAL (for RAD DIAG) IVCONTRAST ONE (17:15)
--- NOTE | 2016-12-23 17:32 | RADRPT ---
EXAM DATE/TIME: 12/23/2016 17:04 [facility] COMPARISON: CT PULMONARY ANGIOGRAM, November 09, 2016, 14:36. INDICATIONS : Short of breath for one week. Evaluate for embolism. IV CONTRAST: 85 cc Omnipaque 350 (iohexol) IV ; Cumulative dose for multiple exams. RADIATION DOSE: 8.57 CTDIvol (mGy) MEDICAL HISTORY : Chronic obstructive pulmonary disease. SURGICAL HISTORY : None. ENCOUNTER: Initial ACUITY: 1 week PAIN SCALE: 0/10 LOCATION: chest TECHNIQUE: Volumetric scanning of the chest was performed using a pulmonary embolism protocol MIP images were re constructed. Using automated exposure control and adjustment of the mA and/or kV according to patien t size, radiation dose was kept as low as reasonably achievable to obtain optimal diagnostic quality images. DICOM format image data is available electronically for review and comparison. Follow-up recommendations for detected pulmonary nodules are based at a minimum on nodule size and pa tient risk factors according to Fleischner Society Guidelines. FINDINGS: PULMONARY ARTERIES: No filling defects are seen in the pulmonary arteries through the segmental level. LUNGS: Moderate diffuse centrilobular emphysema. Mild airspace consolidation at the lung bases. PLEURAE: Interval resolution of right pleural effusion. Simple appearing moderate left pleural effusion. MEDIASTINUM: Bulky supraclavicular, mediastinal, and hilar adenopathy. This has improved slightly since previous e xamination. The dominant subcarinal mass/node now measures 4.8 x 3.4 cm in comparison to 5.4 x 4.2 cm . There is also decreased right hilar mass with near resolution of associated post obstructive right lower lobe airspace disease. A second referenced anterior tracheal node now measures 2.5 x 1.7 cm in comparison to 2.2 x 2.9 cm on prior exam. Heart appears grossly unremarkable. There is trace right pe ricardial effusion. Moderate coronary artery calcifications. Thoracic aorta is non-aneurysmal. MUSCULOSKELETAL: 1.6 x 1.4 cm lytic lesion in the left humeral head. 1.7 cm with lytic lesion in the left clavicular h ead. Ill-defined lytic mass involving the T4 vertebral body with moderate compression deformity. Chago tional small lytic lesion involving the transverse process of T3 vertebral body. MISCELLANEOUS: The visualized portions of the upper abdomen demonstrate bulky retroperitoneal adenopathy. There is s mall to moderate ascites in the visualized upper abdomen. CONCLUSION: 1. No CT evidence for pulmonary artery embolism through the segmental level. 2. Improved bulky supraclavicular, mediastinal and hilar adenopathy with improved dominant subcarinal mass/node now measuring 4.8 x 3.4 cm in comparison to 5.4 x 4.2 cm on prior exam. There is also impr anayeli associated right hilar mass effect with near interval resolution of postobstructive central righ t lower lobe consolidation. 3. Multiple lytic metastatic bony lesions with infiltrative lytic mass at T4 with associated moderate progressive compression deformity. 4. Interval resolution of right pleural effusion. Moderate left pleural effusion with associated comp ressive atelectasis in the left lower lobe. 5. Bulky retroperitoneal adenopathy in the visualized portions of the upper abdomen. 6. Small to moderate ascites in the visualized upper abdomen. 7. Stable ancillary findings, as above. Syed Valencia MD on December 23, 2016 at 17:17 Board Certified Radiologist. This report was verified electronically.
--- NOTE | 2016-12-23 17:33 | RADRPT ---
EXAM DATE/TIME: 12/23/2016 17:04 [facility] COMPARISON: CT ABDOMEN & PELVIS W CONTRAST, November 13, 2016, 9:19. INDICATIONS : Abdominal distention. IV CONTRAST: 85 cc Omnipaque 350 (iohexol) IV ORAL CONTRAST: No oral contrast ingested. RADIATION DOSE: 11.39 CTDIvol (mGy) MEDICAL HISTORY : Chronic obstructive pulmonary disease. SURGICAL HISTORY : None. ENCOUNTER: Initial ACUITY: 1 week PAIN SCALE: 0/10 LOCATION: abdomen TECHNIQUE: Volumetric scanning of the abdomen and pelvis was performed. Using automated exposure control and ad justment of the mA and/or kV according to patient size, radiation dose was kept as low as reasonably achievable to obtain optimal diagnostic quality images. DICOM format image data is available electro nically for review and comparison. FINDINGS: Since the prior study, moderate ascites has developed. No loculated fluid collections are present. Th e liver, spleen, pancreas and adrenal glands are within normal limits. No Enlarged and heterogeneously enhancing bilateral kidneys noted. There is worsening retroperitoneal ly mphadenopathy. There is a new mass at the level of the left renal hilum to the left of the aorta that currently measures 4.0 x 5.3 cm, previously 2.6 x 2.9 cm. There are bilateral retrocrural lymph node s that measure up to 12 m in greatest short axis dimension. A 7 mm nonobstructing stone is again seen of the lower pole of the left kidney. There now appears to be some mesenteric caking, for example series 5 image 68. There is a left inguin al hernia which appears to contain an 18 mm peritoneal nodule, new. Previously it was a small fat con taining hernia. No bowel obstruction. No free air. 18 mm gallstone and atherosclerosis of the abdominal aorta again noted. CONCLUSION: 1. New omental/peritoneal caking and worsening retroperitoneal lymphadenopathy, presumably metastatic . Lymphoma would be in the differential but the omental caking is not typical for such. 2. Enlarged, heterogeneously enhancing kidneys and infiltrating neoplasm such as metastatic disease o r lymphoma would be in the differential. 3. Moderate ascites, new. Isidoro Padilla MD on December 23, 2016 at 17:21 Board Certified Radiologist. This report was verified electronically.
[2016-12-23 17:44] LABS: HEMATOCRIT 24.9 % (35.0-46.0); MEAN CELL VOLUME 78.4 FL (80.0-100.0); MEAN CORPUSCULAR HEMOGLOBIN 25.3 PG (27.0-34.0); MEAN CORPUSCULAR HGB CONC 32.3 % (32.0-36.0); PLATELET COUNT 597 TH/MM3 (150-450); RED BLOOD COUNT 3.17 MIL/MM3 (4.00-5.30); RED CELL DISTRIBUTION WIDTH 17.5 % (11.6-17.2); REVIEW FLAG FINAL; WHITE BLOOD COUNT 12.6 TH/MM3 (4.0-11.0)
[2016-12-23 17:59] LABS: APTT (PATIENT) 30.9 SEC (24.3-30.1); INTERNATIONAL NORMALIZED RATIO 1.1 RATIO; PROTHROMBIN TIME - PATIENT 11.9 SEC (9.8-11.6)
[2016-12-23] MEDS ORDERED: VANCOMYCIN INJ 1,000 MG in SODIUM CHLOR 0.9% 250 ML INJ 250 ML IV SCH (18:00)
[2016-12-23] MEDS: NS + KCL 40 MEQ INJ 1,000 ML IV SCH (18:09)
[2016-12-23 18:16] LABS: CREATINE KINASE 30 U/L (26-192)
[2016-12-23] MEDS: PIPERACIL-TAZO 4.5 GM PREMIX 100 ML IV SCH (19:00)
--- NOTE | 2016-12-23 19:14 | EKG ---
Date Performed: 12/23/2016 Time Performed: 14:46:52 PTAGE: 56 years EKG: SINUS TACHYCARDIA NONSPECIFIC T-WAVE ABNORMALITY ABNORMAL RHYTHM ECG PREVIOUS TRACING : 11/09/2016 13.49 No significant change from previous tracing noted. DOCTOR: Elijah Avina Interpretating Date/Time 12/23/2016 19:13:51
[2016-12-23] MEDS: VANCOMYCIN 1,000 MG/NS 250 ML IV SCH ×2 (20:26)
[2016-12-23] MEDS: DOCUSATE SODIUM 50 MG/SENNA 8.6 MG TAB PO SCH (22:58)
[2016-12-23] MEDS: SODIUM CHLORIDE 0.9% FLUSH 10 ML FLUSH IV FLUSH SCH (22:58)
[2016-12-23 23:56] LABS: CREATINE KINASE 24 U/L (26-192)
[2016-12-24] VITALS (8 sets, daily range): BP systolic 100–116; BP diastolic 66–77; PULSE 100–121; RESP 18–20; TEMP 96.2–99.5; O2SAT 93–100
[2016-12-24] MEDS ORDERED: ACETAMINOPHEN/HYDROcodone 325 MG/5 MG TAB PO ONE ×2 (01:15→22:00)
[2016-12-24] MEDS: NS + KCL 40 MEQ INJ 1,000 ML IV SCH ×3 (02:57→22:42)
[2016-12-24] MEDS: PIPERACIL-TAZO 4.5 GM PREMIX 100 ML IV SCH ×3 (02:57→18:18)
[2016-12-24] MEDS: VANCOMYCIN 1,000 MG/NS 250 ML IV SCH ×6 (05:06→20:12)
[2016-12-24 07:08] LABS: CHLORIDE 95 MEQ/L (98-107); POTASSIUM 3.6 MEQ/L (3.5-5.1); SODIUM (NA) 132 MEQ/L (136-145)
[2016-12-24 07:38] LABS: ALKALINE PHOSPHATASE 75 U/L (45-117); ALT (GPT) 18 U/L (10-53); ANION GAP 8 MEQ/L (5-15); AST (GOT) 24 U/L (15-37); BICARBONATE 28.6 MEQ/L (21.0-32.0); BLOOD UREA NITROGEN 7 MG/DL (7-18); GLOMERULAR FILTRATION RATE 136 ML/MIN (>89); TOTAL BILIRUBIN ADULT 0.8 MG/DL (0.2-1.0)
[2016-12-24] MEDS: SODIUM CHLORIDE 0.9% FLUSH 10 ML FLUSH IV FLUSH SCH ×2 (08:16→21:00)
[2016-12-24] MEDS: DOCUSATE SODIUM 50 MG/SENNA 8.6 MG TAB PO SCH ×2 (08:16→21:00)
--- NOTE | 2016-12-24 17:37 | HHI.PR ---
Subjective Remarks Patient states she is feeling better denies cp/sob. Still c/o of some abdominal pain Objective Vitals Vital Signs Date Time Temp Pulse Resp B/P (MAP) Pulse Ox O2 Delivery O2 Flow Rate FiO2 12/24/16 12:00 97.0 111 20 100/73 (82) 96 12/24/16 11:46 99 Nasal Cannula 2.00 12/24/16 08:00 96.2 115 20 116/75 (89) 94 12/24/16 04:00 98.3 100 18 112/75 (87) 100 12/24/16 00:00 98.2 111 18 113/77 (89) 100 12/23/16 23:14 99 Nasal Cannula 2.00 12/23/16 22:00 120 12/23/16 20:30 116 12/23/16 20:00 98.6 120 18 104/68 (80) 99 12/23/16 18:07 I/O 12/23/16 12/23/16 12/23/16 12/24/16 12/24/16 12/24/16 07:00 15:00 23:00 07:00 15:00 23:00 Intake Total 1540 ml Balance 1540 ml Intake Oral 240 ml IV Total 1300 ml # Voids 2 Result Diagram: 12/23/16 1720 12/24/16 0615 Imaging Last Impressions Lower Extremity Ultrasound 12/23/16 0000 Signed Impressions: Service Date/Time: Friday, December 23, 2016 21:31 - CONCLUSION: No DVT of the left lower extremity. Isidoro Padilla MD Chest X-Ray 12/23/16 0000 Signed Impressions: Service Date/Time: Friday, December 23, 2016 14:34 - CONCLUSION: 1. Stable trace right and small left pleural effusions with associated lower lobe atelectasis. 2. No significant interval change from recent CT exam. Syed Valencia MD CT Angiography 12/23/16 0000 Signed Impressions: Service Date/Time: Friday, December 23, 2016 17:04 - CONCLUSION: 1. No CT evidence for pulmonary artery embolism through the segmental level. 2. Improved bulky supraclavicular, mediastinal and hilar adenopathy with improved dominant subcarinal mass/node now measuring 4.8 x 3.4 cm in comparison to 5.4 x 4.2 cm on prior exam. There is also improved associated right hilar mass effect with near interval resolution of postobstructive central right lower lobe consolidation. 3. Multiple lytic metastatic bony lesions with infiltrative lytic mass at T4 with associated moderate progressive compression deformity. 4. Interval resolution of right pleural effusion. Moderate left pleural effusion with associated compressive atelectasis in the left lower lobe. 5. Bulky retroperitoneal adenopathy in the visualized portions of the upper abdomen. 6. Small to moderate ascites in the visualized upper abdomen. 7. Stable ancillary findings, as above. Syed Valencia MD Abdomen/Pelvis CT 12/23/16 0000 Signed Impressions: Service Date/Time: Friday, December 23, 2016 17:04 - CONCLUSION: 1. New omental/peritoneal caking and worsening retroperitoneal lymphadenopathy, presumably metastatic. Lymphoma would be in the differential but the omental caking is not typical for such. 2. Enlarged, heterogeneously enhancing kidneys and infiltrating neoplasm such as metastatic disease or lymphoma would be in the differential. 3. Moderate ascites, new. Isidoro Padilla MD A/P Problem List: (1) HCAP (healthcare-associated pneumonia) ICD Code: J18.9 - Pneumonia, unspecified organism (2) Sepsis ICD Code: A41.9 - Sepsis, unspecified organism Status: Acute (3) Hypoxia ICD Code: R09.02 - Hypoxemia Status: Acute (4) Shortness of breath ICD Code: R06.02 - Shortness of breath Status: Acute (5) Generalized weakness ICD Code: R53.1 - Weakness Status: Acute (6) Metastatic neoplastic disease ICD Code: C79.9 - Secondary malignant neoplasm of unspecified site (7) Ascites ICD Code: R18.8 - Other ascites (8) Hyponatremia ICD Code: E87.1 - Hypo-osmolality and hyponatremia Assessment and Plan sepsis improving - WBC trending down Continue IV antibiotics Hypoxemia improving and due to HCAP Continue supplemental O2 PT consulted - no PT recommended CT A/P shows metastatic disease - consult oncology will order US guided abdominal paracentesis to r/o sbp - send gram stain and cytology monitor WBC Discharge Planning continue to monitor in the medical floor. Jeanmarie Ospina MD Dec 24, 2016 17:37
[2016-12-24] MEDS ORDERED: PHARMACY ORDERED LAB ONE (19:45)
[2016-12-25] VITALS (10 sets, daily range): BP systolic 107–127; BP diastolic 66–90; PULSE 90–137; RESP 16–21; TEMP 96.7–98.3; O2SAT 90–100
[2016-12-25] MEDS: PIPERACIL-TAZO 4.5 GM PREMIX 100 ML IV SCH ×3 (04:05→19:23)
[2016-12-25] MEDS: VANCOMYCIN 1,000 MG/NS 250 ML IV SCH ×6 (05:11→20:22)
[2016-12-25] MEDS: DOCUSATE SODIUM 50 MG/SENNA 8.6 MG TAB PO SCH ×2 (08:03→20:21)
[2016-12-25] MEDS: NS + KCL 40 MEQ INJ 1,000 ML IV SCH ×2 (08:03→20:30)
[2016-12-25] MEDS: SODIUM CHLORIDE 0.9% FLUSH 10 ML FLUSH IV FLUSH SCH ×2 (08:03→20:31)
[2016-12-25 12:00] LABS: AUTOMATED NEUTROPHIL # 10.7 TH/MM3 (1.8-7.7); BASOPHIL # 0.1 TH/MM3 (0-0.2); BASOPHIL % 0.4 % (0.0-2.0); EOSINOPHIL # 0.1 TH/MM3 (0-0.4); EOSINOPHIL % 0.4 % (0.0-4.0); HEMATOCRIT 24.8 % (35.0-46.0); HEMO FLAGS DIFF FINAL; LYMPHOCYTE # 1.1 TH/MM3 (1.0-4.8); MEAN CELL VOLUME 80.1 FL (80.0-100.0); MEAN CORPUSCULAR HEMOGLOBIN 25.3 PG (27.0-34.0); MEAN CORPUSCULAR HGB CONC 31.6 % (32.0-36.0); MONO % 5.8 % (0.0-8.0); NEUT % 84.4 % (16.0-70.0); PLATELET COUNT 608 TH/MM3 (150-450); RED BLOOD COUNT 3.09 MIL/MM3 (4.00-5.30); RED CELL DISTRIBUTION WIDTH 17.3 % (11.6-17.2); WHITE BLOOD COUNT 12.7 TH/MM3 (4.0-11.0)
[2016-12-25 12:11] LABS: CHLORIDE 100 MEQ/L (98-107); POTASSIUM 3.4 MEQ/L (3.5-5.1); SODIUM (NA) 135 MEQ/L (136-145)
[2016-12-25 12:15] LABS: ANION GAP 7 MEQ/L (5-15); BICARBONATE 28.2 MEQ/L (21.0-32.0); BLOOD UREA NITROGEN 5 MG/DL (7-18); MAGNESIUM 1.7 MG/DL (1.5-2.5)
[2016-12-25 12:17] LABS: ALT (GPT) 18 U/L (10-53)
[2016-12-25 12:18] LABS: AST (GOT) 19 U/L (15-37); GLOMERULAR FILTRATION RATE 140 ML/MIN (>89)
[2016-12-25 12:19] LABS: TOTAL BILIRUBIN ADULT 0.4 MG/DL (0.2-1.0)
[2016-12-25 12:20] LABS: ALKALINE PHOSPHATASE 74 U/L (45-117)
--- NOTE | 2016-12-25 14:52 | RADRPT ---
EXAM DATE/TIME: 12/25/2016 08:53 [facility] COMPARISON: No previous studies available for comparison. INDICATIONS : Ascities. MEDICAL HISTORY : Chronic obstructive pulmonary disease. Glasses. Pnemonia. Possible lung cancer. Measles. Chicken po x. Tobacco use. SURGICAL HISTORY : None. ENCOUNTER: Initial ACUITY: 1 week PAIN SCORE: 2/10 LOCATION: Right lower quadrant FLUID: Total volume of 2800 cc of clear, red fluid was removed. Fluid was sent to lab for ordered studies. Post procedure scanning reveals no hematoma or other complication. TECHNIQUE: 1. Ultrasound guidance for abdominal paracentesis. 2. Paracentesis. The risks, benefits, and alternatives to ultrasound guided paracentesis were explained to the patient in detail including the risk of bleeding and infection. Written and verbal informed consent was obt ained. With the patient on the ultrasound table, ultrasound imaging was used to select the most appropriate approach for paracentesis. Overlying skin was prepped and draped in the usual sterile fashion and wi th a local anesthetic, a dermatotomy was made with an 11 blade scalpel. A 6 Y[place] Ist-N-vupxzlsf ca theter was introduced into the peritoneal cavity and fluid was collected. The patient tolerated the procedure well and left the ultrasound suite in stable condition. CONCLUSION: Uncomplicated ultrasound guided paracentesis. Armand Hunter MD on December 25, 2016 at 14:50 Board Certified Radiologist. This report was verified electronically.
[2016-12-25 14:57] LABS: PERITONEAL WBC 1200 /MM3 (0-10)
[2016-12-25 14:58] LABS: PERITONEAL HISTIOCYTES 2 %; PERITONEAL LYMPHS 14 %; PERITONEAL MESOTHELIAL 2 %; PERITONEAL MONOS 9 %; PERITONEAL POLYS(SEGS) 73 %
[2016-12-25] MEDS ORDERED: POTASSIUM CHLORIDE 10 MEQ CONTROLLED RELEASE TAB PO ONE (15:30)
--- NOTE | 2016-12-25 15:42 | HHI.PR ---
Subjective Remarks deferred entry - patient seen at 11:00 am Denies cp/sob Abdominal pain improved denies fevers/chills Objective Vitals Vital Signs Date Time Temp Pulse Resp B/P (MAP) Pulse Ox O2 Delivery O2 Flow Rate FiO2 12/25/16 14:18 98.1 109 18 107/80 (89) 95 12/25/16 14:00 96.7 109 18 111/83 (92) 100 12/25/16 12:00 97.2 90 19 118/72 (87) 96 12/25/16 08:27 97 Nasal Cannula 1.00 12/25/16 08:00 96.8 110 21 110/80 (90) 97 12/25/16 04:00 97.8 119 16 110/82 (91) 96 12/25/16 00:00 98.3 121 18 108/74 (85) 95 12/24/16 20:30 99.5 121 20 104/66 (79) 93 12/24/16 20:18 93 Nasal Cannula 1.00 12/24/16 18:00 97.2 108 18 108/72 (84) 97 I/O 12/24/16 12/24/16 12/24/16 12/25/16 12/25/16 12/25/16 07:00 15:00 23:00 07:00 15:00 23:00 Intake Total 1540 ml 1250 ml Output Total 300 ml Balance 1540 ml 1250 ml -300 ml Intake Oral 240 ml IV Total 1300 ml 1250 ml Output Urine Total 300 ml # Voids 2 Result Diagram: 12/25/16 1140 12/25/16 1140 Imaging Last Impressions Cyst Biopsy Asp-Paracentesis US 12/25/16 0000 Signed Impressions: Service Date/Time: Sunday, December 25, 2016 08:53 - CONCLUSION: Uncomplicated ultrasound guided paracentesis. Armand Hunter MD Lower Extremity Ultrasound 12/23/16 0000 Signed Impressions: Service Date/Time: Friday, December 23, 2016 21:31 - CONCLUSION: No DVT of the left lower extremity. Isidoro Padilla MD Chest X-Ray 12/23/16 0000 Signed Impressions: Service Date/Time: Friday, December 23, 2016 14:34 - CONCLUSION: 1. Stable trace right and small left pleural effusions with associated lower lobe atelectasis. 2. No significant interval change from recent CT exam. Syed Valencia MD CT Angiography 12/23/16 0000 Signed Impressions: Service Date/Time: Friday, December 23, 2016 17:04 - CONCLUSION: 1. No CT evidence for pulmonary artery embolism through the segmental level. 2. Improved bulky supraclavicular, mediastinal and hilar adenopathy with improved dominant subcarinal mass/node now measuring 4.8 x 3.4 cm in comparison to 5.4 x 4.2 cm on prior exam. There is also improved associated right hilar mass effect with near interval resolution of postobstructive central right lower lobe consolidation. 3. Multiple lytic metastatic bony lesions with infiltrative lytic mass at T4 with associated moderate progressive compression deformity. 4. Interval resolution of right pleural effusion. Moderate left pleural effusion with associated compressive atelectasis in the left lower lobe. 5. Bulky retroperitoneal adenopathy in the visualized portions of the upper abdomen. 6. Small to moderate ascites in the visualized upper abdomen. 7. Stable ancillary findings, as above. Syed Valencia MD Abdomen/Pelvis CT 12/23/16 0000 Signed Impressions: Service Date/Time: Friday, December 23, 2016 17:04 - CONCLUSION: 1. New omental/peritoneal caking and worsening retroperitoneal lymphadenopathy, presumably metastatic. Lymphoma would be in the differential but the omental caking is not typical for such. 2. Enlarged, heterogeneously enhancing kidneys and infiltrating neoplasm such as metastatic disease or lymphoma would be in the differential. 3. Moderate ascites, new. Isidoro Padilla MD Objective Remarks AAOx3 (+) ascites, abdomen soft distended Lungs clear BL no edema in lower extremities Medications and IVs Current Medications Medications (Trade) Dose Ordered Sig/Ramy Route Start Time Stop Time Status Last Admin (NS Flush) 2 ml UNSCH PRN IV FLUSH 12/23/16 16:15 (NS Flush) 2 ml BID IV FLUSH 12/23/16 21:00 12/25/16 08:03 (Tylenol) 650 mg Q4H PRN PO 12/23/16 16:15 (Zofran Inj) 4 mg Q6H PRN IVP 12/23/16 16:15 (Narcan Inj) 0.4 mg UNSCH PRN IV PUSH 12/23/16 16:15 (Gaby-Colace) 1 tab BID PO 12/23/16 21:00 12/25/16 08:03 (Milk Of Magnesia Liq) 30 ml Q12H PRN PO 12/23/16 16:15 (Senokot) 17.2 mg Q12H PRN PO 12/23/16 16:15 (Dulcolax Supp) 10 mg DAILY PRN RECTAL 12/23/16 16:15 (Lactulose Liq) 30 ml DAILY PRN PO 12/23/16 16:15 Pharmacy Profile Note 0 ml @ 0 mls/hr UNSCH OTHER 12/23/16 16:30 Potassium Chloride/Sodium Chloride 1,000 ml @ 100 mls/hr Q10H IV 12/23/16 16:30 12/25/16 08:03 Piperacillin Sod/ Tazobactam Sod 100 ml @ 200 mls/hr Q8H IV 12/23/16 19:00 12/25/16 11:07 Vancomycin HCl 1000 mg/Sodium Chloride 250 ml @ 250 mls/hr Q8H IV 12/23/16 20:00 12/25/16 11:53 Urinary Catheter: No Vascular Central Line Catheter: No A/P Problem List: (1) Sepsis ICD Code: A41.9 - Sepsis, unspecified organism Status: Acute Plan: Present on admission. Patient admitted to the medical floor and started on broad-spectrum IV antibiotics. Continue IV vancomycin and IV Zosyn. Vancomycin to be dosed by pharmacy. Sepsis in to be slowly improving with improving tachycardia and leukocytosis WBC continues to trend down, 14K On Admission down to 12.7. Monitor CBC. (2) HCAP (healthcare-associated pneumonia) ICD Code: J18.9 - Pneumonia, unspecified organism Plan: Chest x-ray showed stable trace right and small left pleural effusion with associated lower lobe atelectasis. CTA ordered and it did not show any evidence of pulmonary artery embolism. It did show mediastinal and hilar adenopathy with improved dominant subcarinal mass /node measuring 4.83.4. Multiple lytic metastatic bony lesions with infiltrative lytic mass at T4 with associated moderate progressive compression deformity. Bulky retroperitoneal adenopathy in the visualized portion of the upper abdomen and small to moderate ascites. I will order a MRI of the cervical, thoracic and lumbar spine to better evaluate the described lytic mass and associated moderate progressive compression deformity. (3) Hypoxia ICD Code: R09.02 - Hypoxemia Status: Acute Plan: Hypoxemia likely secondary to healthcare associated pneumonia and associated atelectasis. Now much improved with oxygen saturation in the high 90s. Continue to provide supplemental oxygen to keep oxygen saturation more than 92%. (4) Shortness of breath ICD Code: R06.02 - Shortness of breath Status: Acute Plan: Shortness of breath has significantly improved. Likely secondary to HCAP. (5) Generalized weakness ICD Code: R53.1 - Weakness Status: Acute Plan: Consulted, the patient will not need PT upon return to home. (6) Metastatic neoplastic disease ICD Code: C79.9 - Secondary malignant neoplasm of unspecified site Plan: Medical oncology consulted. Recommendations pending. (7) Ascites ICD Code: R18.8 - Other ascites Plan: Status post ultrasound-guided paracentesis. Peritoneal fluid does not look infectious. (8) Hyponatremia ICD Code: E87.1 - Hypo-osmolality and hyponatremia Plan: Sodium continues to trend up likely due to hypovolemia. Continue normal saline. (9) Recurrent pleural effusion on left ICD Code: J90 - Pleural effusion, not elsewhere classified Plan: CTA angiogram of the chest showed recurrent left pleural effusion. I will consult pulmonary for further recommendations. Assessment and Plan DVT prophylaxis: Continue SCDs Discharge Planning continue to monitor in the medical floor. Jeanmarie Ospina MD Dec 25, 2016 15:42
[2016-12-25] MEDS ORDERED: SODIUM CHLORID 0.9% 500 ML INJ 500 ML IV ONE (17:15)
[2016-12-25] MEDS ORDERED: ACETAMINOPHEN 325 MG TAB PO PRN (17:45)
[2016-12-25] MEDS ORDERED: diphenhydrAMINE HCL 25 MG CAP PO PRN (17:45)
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
[2016-12-25 18:54] LABS: APTT (PATIENT) 32.7 SEC (24.3-30.1); INTERNATIONAL NORMALIZED RATIO 1.1 RATIO; PROTHROMBIN TIME - PATIENT 12.1 SEC (9.8-11.6)
[2016-12-25 18:55] LABS: AUTOMATED NEUTROPHIL # 15.3 TH/MM3 (1.8-7.7); BASOPHIL # 0.2 TH/MM3 (0-0.2); BASOPHIL % 1.3 % (0.0-2.0); EOSINOPHIL % 0.2 % (0.0-4.0); HEMATOCRIT 27.3 % (35.0-46.0); LYMPHOCYTE # 1.4 TH/MM3 (1.0-4.8); MEAN CELL VOLUME 80.7 FL (80.0-100.0); MEAN CORPUSCULAR HEMOGLOBIN 25.9 PG (27.0-34.0); MEAN CORPUSCULAR HGB CONC 32.1 % (32.0-36.0); MONO % 5.3 % (0.0-8.0); NEUT % 85.2 % (16.0-70.0); PLATELET COUNT 627 TH/MM3 (150-450); RED BLOOD COUNT 3.39 MIL/MM3 (4.00-5.30); RED CELL DISTRIBUTION WIDTH 17.8 % (11.6-17.2); WHITE BLOOD COUNT 17.9 TH/MM3 (4.0-11.0)
[2016-12-25 19:02] LABS: HEMO FLAGS DIFF FINAL
[2016-12-25] MEDS: ACETAMINOPHEN/HYDROcodone 325 MG/5 MG TAB PO PRN (20:21)
[2016-12-25] MEDS ORDERED: DIGOXIN 0.5 MG/2 ML VIAL IV PUSH ONE (21:00)
[2016-12-26] VITALS (9 sets, daily range): BP systolic 122–143; BP diastolic 78–87; PULSE 99–160; RESP 17–20; TEMP 97.4–98.5; O2SAT 95–100
[2016-12-26] MEDS: PIPERACIL-TAZO 4.5 GM PREMIX 100 ML IV SCH ×3 (02:35→18:33)
[2016-12-26] MEDS: VANCOMYCIN 1,000 MG/NS 250 ML IV SCH ×6 (03:25→20:30)
[2016-12-26 06:39] LABS: AUTOMATED NEUTROPHIL # 13.2 TH/MM3 (1.8-7.7); BASOPHIL % 0.3 % (0.0-2.0); EOSINOPHIL # 0.1 TH/MM3 (0-0.4); EOSINOPHIL % 0.7 % (0.0-4.0); HEMATOCRIT 26.7 % (35.0-46.0); HEMO FLAGS DIFF FINAL; LYMPHOCYTE # 1.2 TH/MM3 (1.0-4.8); MEAN CELL VOLUME 79.7 FL (80.0-100.0); MEAN CORPUSCULAR HGB CONC 31.4 % (32.0-36.0); MONO % 5.3 % (0.0-8.0); NEUT % 85.7 % (16.0-70.0); PLATELET COUNT 614 TH/MM3 (150-450); RED BLOOD COUNT 3.35 MIL/MM3 (4.00-5.30); RED CELL DISTRIBUTION WIDTH 17.3 % (11.6-17.2); WHITE BLOOD COUNT 15.3 TH/MM3 (4.0-11.0)
[2016-12-26 06:49] LABS: ALKALINE PHOSPHATASE 70 U/L (45-117); ALT (GPT) 14 U/L (10-53); ANION GAP 8 MEQ/L (5-15); AST (GOT) 18 U/L (15-37); BICARBONATE 25.4 MEQ/L (21.0-32.0); BLOOD UREA NITROGEN 5 MG/DL (7-18); CHLORIDE 106 MEQ/L (98-107); GLOMERULAR FILTRATION RATE 169 ML/MIN (>89); MAGNESIUM 1.7 MG/DL (1.5-2.5); POTASSIUM 4.7 MEQ/L (3.5-5.1); SODIUM (NA) 139 MEQ/L (136-145); TOTAL BILIRUBIN ADULT 0.5 MG/DL (0.2-1.0)
[2016-12-26] MEDS: DOCUSATE SODIUM 50 MG/SENNA 8.6 MG TAB PO SCH ×2 (07:31→20:33)
[2016-12-26] MEDS: SODIUM CHLORIDE 0.9% FLUSH 10 ML FLUSH IV FLUSH SCH ×2 (07:32→20:32)
[2016-12-26 09:33] LABS: LDH SERUM 149 U/L (84-246)
[2016-12-26] MEDS ORDERED: LORazepam 2 MG/ML VIAL IV PUSH ONE (12:00)
[2016-12-26] MEDS: NS + KCL 40 MEQ INJ 1,000 ML IV SCH (13:40)
--- NOTE | 2016-12-26 15:14 | HHI.PR ---
Subjective Remarks Patient seen in follow up for weakness, sob and ascites. Probable NSCL Ca. 2.8 Liters removed from abd yesterday patient says belly feels better Objective Vitals Vital Signs Date Time Temp Pulse Resp B/P (MAP) Pulse Ox O2 Delivery O2 Flow Rate FiO2 12/26/16 12:00 97.7 101 19 122/78 (93) 99 12/26/16 08:25 96 Nasal Cannula 2.00 12/26/16 08:00 97.8 124 18 126/80 (95) 100 12/26/16 04:00 97.4 129 20 134/87 (103) 99 12/26/16 00:00 98.1 123 18 123/83 (96) 95 12/25/16 21:54 98 Nasal Cannula 2.00 12/25/16 21:22 20 12/25/16 20:00 98.1 137 20 127/90 (102) 90 12/25/16 16:00 98.0 92 18 115/66 (82) 97 I/O 12/25/16 12/25/16 12/25/16 12/26/16 12/26/16 12/26/16 07:00 15:00 23:00 07:00 15:00 23:00 Intake Total 350 ml 1880 ml 240 ml Output Total 300 ml Balance -300 ml 350 ml 1880 ml 240 ml Intake Oral 480 ml 240 ml IV Total 350 ml 1400 ml Output Urine Total 300 ml # Voids 1 2 # Bowel Movements 0 1 Result Diagram: 12/26/16 0540 12/26/16 0540 Imaging Last Impressions Cyst Biopsy Asp-Paracentesis US 12/25/16 0000 Signed Impressions: Service Date/Time: Sunday, December 25, 2016 08:53 - CONCLUSION: Uncomplicated ultrasound guided paracentesis. Armand Hunter MD Lower Extremity Ultrasound 12/23/16 0000 Signed Impressions: Service Date/Time: Friday, December 23, 2016 21:31 - CONCLUSION: No DVT of the left lower extremity. Isidoro Padilla MD Chest X-Ray 12/23/16 0000 Signed Impressions: Service Date/Time: Friday, December 23, 2016 14:34 - CONCLUSION: 1. Stable trace right and small left pleural effusions with associated lower lobe atelectasis. 2. No significant interval change from recent CT exam. Syed Valencia MD CT Angiography 12/23/16 0000 Signed Impressions: Service Date/Time: Friday, December 23, 2016 17:04 - CONCLUSION: 1. No CT evidence for pulmonary artery embolism through the segmental level. 2. Improved bulky supraclavicular, mediastinal and hilar adenopathy with improved dominant subcarinal mass/node now measuring 4.8 x 3.4 cm in comparison to 5.4 x 4.2 cm on prior exam. There is also improved associated right hilar mass effect with near interval resolution of postobstructive central right lower lobe consolidation. 3. Multiple lytic metastatic bony lesions with infiltrative lytic mass at T4 with associated moderate progressive compression deformity. 4. Interval resolution of right pleural effusion. Moderate left pleural effusion with associated compressive atelectasis in the left lower lobe. 5. Bulky retroperitoneal adenopathy in the visualized portions of the upper abdomen. 6. Small to moderate ascites in the visualized upper abdomen. 7. Stable ancillary findings, as above. Syed Valencia MD Abdomen/Pelvis CT 12/23/16 0000 Signed Impressions: Service Date/Time: Friday, December 23, 2016 17:04 - CONCLUSION: 1. New omental/peritoneal caking and worsening retroperitoneal lymphadenopathy, presumably metastatic. Lymphoma would be in the differential but the omental caking is not typical for such. 2. Enlarged, heterogeneously enhancing kidneys and infiltrating neoplasm such as metastatic disease or lymphoma would be in the differential. 3. Moderate ascites, new. Isidoro Padilla MD Objective Remarks GENERAL: This is a well-nourished, well-developed patient, sob at rest CARDIOVASCULAR: sinu tachycardia without murmurs, gallops, or rubs. RESPIRATORY: Clear to auscultation. Breath sounds equal bilaterally. No wheezes , rales, or rhonchi. GASTROINTESTINAL: Abdomen soft, non-tender, minimally distended. Normal active bowel sounds MUSCULOSKELETAL: Extremities without clubbing, cyanosis, or edema. NEURO: Alert & Oriented x4 to person, place, time, situation. Moves all ext x4 A/P Problem List: (1) Sepsis ICD Code: A41.9 - Sepsis, unspecified organism Status: Acute Plan: Recent postobstructive pneumonia, improved symptoms BC, ascites neg so far Continue IV vancomycin and IV Zosyn. Vancomycin to be dosed by pharmacy. Sepsis in to be slowly improving with improving tachycardia and leukocytosis WBC continues to trend down, (2) Metastatic neoplastic disease ICD Code: C79.9 - Secondary malignant neoplasm of unspecified site Plan: Non small cell lung Ca presumed Medical oncology appreciated Bony mets on imaging with inconclusive pathology Likely will need a repeat bx, follow cytology form ascites (3) COPD (chronic obstructive pulmonary disease) ICD Code: J44.9 - Chronic obstructive pulmonary disease, unspecified Plan: bronchodilators, O2, prn (4) Hypoxia ICD Code: R09.02 - Hypoxemia Status: Acute Plan: Hypoxemia likely secondary to healthcare associated pneumonia, copd, systolic heart failure, and associated atelectasis. cont o2, Duonebs, education add coreg Assessment and Plan heparin q8 Discharge Planning may need inpatient palliative chemo per oncology Azra Davis MD Dec 26, 2016 15:14
[2016-12-26] MEDS ORDERED: GADODIAMIDE PF 287 MG/ML 5 ML VIAL (for RAD MRI) IV PUSH ONE (17:18)
[2016-12-26] MEDS: RESP: ALBUTEROL 2.5 MG/IPRATROPIUM 0.5 MG NEB (PRN) NEB (17:44)
[2016-12-26] MEDS: CARVEDILOL 12.5 MG TAB PO SCH (20:32)
[2016-12-26] MEDS: HEPARIN SODIUM - SQ 10,000 UNITS/ML VIAL SQ SCH (20:33)
--- NOTE | 2016-12-26 20:55 | EKG ---
Date Performed: 12/25/2016 Time Performed: 18:09:19 PTAGE: 56 years EKG: SINUS TACHYCARDIA, POSSIBLE ATRIAL FLUTTER LOW QRS VOLTAGE IN EXTREMITY LEADS POSSIBLE RIGH T VENTRICULAR CONDUCTION DELAY ABNORMAL RHYTHM ECG PREVIOUS TRACING : 12/23/2016 14.46 Compared to prior tracing no significant change DOCTOR: Aaron Prado Interpretating Date/Time 12/26/2016 20:48:43
[2016-12-26] MEDS ORDERED: CARVEDILOL 6.25 MG TAB PO SCH (21:00)
--- NOTE | 2016-12-26 23:08 | RADRPT ---
EXAM DATE/TIME: 12/26/2016 15:35 [facility] COMPARISON: No previous studies available for comparison. INDICATIONS : Metastatic disease. Difficulty Breathing CONTRAST: 14 cc Omniscan (gadodiamide) IV MEDICAL HISTORY : Chronic obstructive pulmonary disease. SURGICAL HISTORY : None. ENCOUNTER: Subsequent ACUITY: 4-6 days PAIN SCORE: 0/10 LOCATION: cervical TECHNIQUE: Multiplanar, multisequence MRI examination of the cervical spine was performed. FINDINGS: The examination is significantly degraded by motion artifact. VERTEBRAE: Normal vertebral body height. Homogeneous marrow signal. ALIGNMENT: There is a grade 1 anterolisthesis of C4 on C5 and C3 on C4. CORD: Normal configuration and signal. POST FOSSA: The cerebellar tonsils are normal in position. POST-CONTRAST: No abnormal areas of enhancement are seen. C2-C3: The thecal sac has a normal configuration. There is no evidence of disc herniation or spinal canal stenosis. The neural foramina are patent bilaterally. C3-C4: There is a broad-based disc bulge that just touches the ventral portion of the cord without flattenin g. Bony uncovertebral hypertrophy generates moderate left and mild right neural foraminal narrowing. C4-C5: There is a broad-based disc bulge that just touches the ventral portion of the cord. No significant c entral canal stenosis. Bony uncovertebral hypertrophy generates bilateral neural foraminal narrowing. C5-C6: A broad-based disc bulge just touches the ventral portion of the cord without flattening. Prominent b parvez uncovertebral hypertrophy generates severe left and moderate right neural foraminal narrowing. C6-C7: A broad-based disc bulge just touches the ventral portion of the cord without flattening. Prominent b parvez uncovertebral hypertrophy generates prominent ilateral neural foraminal narrowing. C7-T1: The thecal sac has a normal configuration. There is no evidence of disc herniation or spinal canal s tenosis. The neural foramina are patent bilaterally. CONCLUSION: 1. Study significantly degraded by motion artifact. 2. No metastatic lesions involving the cervical spine. See the thoracic spine reported separately. 3. Multilevel degenerative changes as detailed at each level in the above discussion. Devon Pope Jr., MD on December 26, 2016 at 23:02 Board Certified Radiologist. This report was verified electronically.
--- NOTE | 2016-12-26 23:13 | RADRPT ---
EXAM DATE/TIME: 12/26/2016 15:35 [facility] COMPARISON: No previous studies available for comparison. INDICATIONS : Metastatic disease. Difficulty Breathing. CONTRAST: 14 cc Omniscan (gadodiamide) IV MEDICAL HISTORY : Chronic obstructive pulmonary disease. SURGICAL HISTORY : None. ENCOUNTER: Subsequent ACUITY: 4-6 days PAIN SCORE: 0/10 LOCATION: thoracic TECHNIQUE: Multiplanar multisequence MRI of the thoracic spine was performed. FINDINGS: Significant motion artifact degrades the current study. VERTEBRA: There is a marrow replacing process involving the majority of the T4 vertebral body with loss of heig ht of approximately 30%. This is secondary to a mass which extends from the right posterior lateral p ortion of the vertebral body into the right pedicle and right transverse process. It causes some narr owing of the right lateral recess as well as the right anterolateral portion of the central canal. Th ere is a lesion seen involving the T5 vertebral body within the right lateral aspect. I see no apprec iable involvement of posterior elements. There is a lesion seen involving the T10 level. This predomi nantly involves the pedicle and transverse process on the right. It causes minimal narrowing of the r ight lateral aspect of the central canal. ALIGNMENT: Normal. CORD: Normal position and configuration. POST CONTRAST: The previously described lesions enhance. T1-T2: Normal. T2-T3: The thecal sac has a normal diameter. No evidence of disc bulge or protrusion. T3-T4: See above discussion. The thecal sac has a normal diameter. No evidence of disc bulge or protrusion. T4-T5: The thecal sac has a normal diameter. No evidence of disc bulge or protrusion. T5-T6: The thecal sac has a normal diameter. No evidence of disc bulge or protrusion. T6-T7: The thecal sac has a normal diameter. No evidence of disc bulge or protrusion. T7-T8: The thecal sac has a normal diameter. No evidence of disc bulge or protrusion. T8-T9: The thecal sac has a normal diameter. No evidence of disc bulge or protrusion. T9-T10: The thecal sac has a normal diameter. No evidence of disc bulge or protrusion. T10-T11: The thecal sac has a normal diameter. No evidence of disc bulge or protrusion. T11-T12: The thecal sac has a normal diameter. No evidence of disc bulge or protrusion. T12-L1: The thecal sac has a normal diameter. No evidence of disc bulge or protrusion. CONCLUSION: 1. Metastatic lesions involving T4, T5, and T10. There is a pathologic compression fracture involving T4 with 5 mm of retropulsion. The metastatic lesion encroaches upon the right anterolateral portion of the central canal abutting the cord as well as narrowing the right neural foramen. Metastatic lesi ons at T5 and T10 do not cause significant encroachment upon the cord or central canal. Devon Pope Jr., MD on December 26, 2016 at 23:06 Board Certified Radiologist. This report was verified electronically.
--- NOTE | 2016-12-26 23:19 | RADRPT ---
EXAM DATE/TIME: 12/26/2016 15:35 [facility] COMPARISON: No previous studies available for comparison. INDICATIONS : Metastatic disease. Difficulty Breathing CONTRAST: 14 cc Omniscan (gadodiamide) IV MEDICAL HISTORY : Chronic obstructive pulmonary disease. SURGICAL HISTORY : None. ENCOUNTER: Subsequent ACUITY: 4-6 days PAIN SCORE: 0/10 LOCATION: lumbar TECHNIQUE: Multiplanar multisequence MRI of the lumbar spine was performed with and without contrast. FINDINGS: Motion artifact degrades the exam. The most caudal appearing lumbar vertebra is numbered as L5. VERTEBRAE: 2 small metastatic lesions are seen involving the T3 vertebral body. The largest is 1 cm in size invo lving the right posterolateral portion of the vertebral body. The second lesion is approximately 8 mm in size and is located anteriorly within the vertebral body. No other lesions observed. CONUS: Normal level and configuration. POST CONTRAST: Homogeneous enhancement of the metastatic lesions involving T3. Multiple enhancing retroperitoneal ly mph nodes. T12-L1: There is disc desiccation and disc space height loss with a broad-based disc bulge eccentric to the l eft. Central canal and lateral recesses are patent. Neural foramina are patent. L1-L2: There is disc desiccation and disc space height loss with a broad-based disc bulge eccentric to the l eft. Central canal and lateral recesses are patent. Neural foramina are patent. L2-L3: There is disc desiccation and disc space height loss with a broad-based disc bulge eccentric to the l eft. Central canal and lateral recesses are patent. Neural foramina are patent. L3-L4: There is disc desiccation with a broad-based disc bulge. Central canal lateral recesses are patent. M ild ligamentum flavum hypertrophy of the facets. Neural foramina are patent bilaterally. L4-L5: There is disc desiccation with a broad-based disc bulge. Prominent bony hypertrophy of the facets. Na rrowing of the left lateral recess without impingement. The right lateral recess and central canal re main patent. Narrowing of the left neural foramen without impingement. The right remains patent. L5-S1: Disc desiccation with a mild broad-based bulge. Moderate bony hypertrophy of the facets more pronounc ed on the left. The central canal and lateral recesses are patent. Neural foramina on the left shows some narrowing but remains patent otherwise. Right remains patent. CONCLUSION: 1. Diffuse retroperitoneal adenopathy. 2. 2 metastatic lesions involving the L3 vertebral body with without degeneration the central canal e ncroachment or neural impingement. 3. Multilevel degenerative changes as detailed above. Devon Pope Jr., MD on December 26, 2016 at 23:12 Board Certified Radiologist. This report was verified electronically.
[2016-12-27] VITALS (8 sets, daily range): BP systolic 90–110; BP diastolic 65–77; PULSE 94–118; RESP 18–22; TEMP 96–100.7; O2SAT 95–100
[2016-12-27] MEDS: PIPERACIL-TAZO 4.5 GM PREMIX 100 ML IV SCH ×3 (03:28→18:04)
[2016-12-27] MEDS: VANCOMYCIN 1,000 MG/NS 250 ML IV SCH ×6 (05:54→20:15)
[2016-12-27] MEDS: HEPARIN SODIUM - SQ 10,000 UNITS/ML VIAL SQ SCH ×2 (05:55→14:59)
[2016-12-27] MEDS: CARVEDILOL 12.5 MG TAB PO SCH ×2 (08:18→20:15)
[2016-12-27] MEDS: SODIUM CHLORIDE 0.9% FLUSH 10 ML FLUSH IV FLUSH SCH ×2 (08:18→20:15)
[2016-12-27] MEDS: DOCUSATE SODIUM 50 MG/SENNA 8.6 MG TAB PO SCH ×2 (08:19→20:15)
[2016-12-27] MEDS ORDERED: LORazepam 2 MG/ML VIAL IV ONE (09:35)
[2016-12-27] MEDS ORDERED: LIDOCAINE HCL 1% 20 ML VIAL SQ ONE (10:37)
[2016-12-27] MEDS ORDERED: GELATIN 12 MM/7 MM FOAM OTHER ONE (10:37)
[2016-12-27] MEDS ORDERED: THROMBIN (TOPICAL) 5,000 UNIT VIAL ONE (10:44)
--- NOTE | 2016-12-27 11:07 | PD.RAD ---
Post CT Procedure Prog Note Pre Procedure Diagnosis: (1) Lymphadenopathy (2) History of lung cancer (3) History of lymphoma Post Procedure Diagnosis: (1) Lymphadenopathy (2) History of lung cancer (3) History of lymphoma Procedure Date: Dec 27, 2016 Supervising Radiologist: Rudy Gaxiola Anesthesia: Local, Analgesia Plan of Activity Patient to Unit: PACU Patient Condition: Good See PACS Report for procedural detail/treatment Biopsy Imaging Guidance: CT Biopsy Procedure: Lymph Node (left retroperitoneal) Specimen: Core Biopsy (x2 - Formalin and RPMI) Findings: Bulky retroperitoneal adenopathy. Small amt of blood in guide needle post bx. Thrombin-gelfoam slurry injected through guide needle. No active bleeding post procedure. Rudy Gaxiola MD Dec 27, 2016 10:28
--- NOTE | 2016-12-27 11:34 | RADRPT ---
EXAM DATE/TIME: 12/27/2016 09:38 [facility] COMPARISON: No previous studies available for comparison. INDICATIONS : Left retroperitoneal lymph node biopsy. SEDATION TIME: 30 minutes BIOPSY SITE: Left retroperitoneal lymph node MEDICATION(S): 1.) 50 mg fentanyl (Sublimaze) IV 2.) 1 mg lorazepam (Ativan) IV 3.) Gelfoam 4.) Thrombin DEVICE(S): 1.) 18 gauge Temno core biopsy needle 2.) 16 gauge Galvan blunt needle MEDICAL HISTORY : Carcinoma, lung. Chronic obstructive pulmonary disease. SURGICAL HISTORY : None. ENCOUNTER: Initial ACUITY: 1 day PAIN SCORE: 0/10 LOCATION: Left lower quadrant A total of two core specimen(s) were obtained and sent to the laboratory for pathologic evaluation. PROCEDURE: 1. CT guided lymph noderetroperitoneal biopsy. 2. Conscious sedation with continuous EKG and oximetry monitoring. 3. EKG and oximetry remained stable throughout the procedure. Prior to the procedure informed consent was obtained. Any appropriate prior imaging studies were rev iewed. Using automated exposure control and adjustment of the mA and/or kV according to patient size, radiat ion dose was kept as low as reasonably achievable to obtain optimal diagnostic quality images. DICOM format image data is available electronically for review and comparison. The site was prepped in a sterile fashion. Full sterile technique was used, including cap, mask, ingris rile gloves and gown and a large sterile sheet. Hand hygiene and 2% chlorhexidine and/or betadine/al cohol prep was utilized per protocol for cutaneous antisepsis. The skin and subcutaneous tissues wer e infiltrated with local anesthetic solution. With CT guidance the previously identified target was localized. Biopsy was performed using the presc ribed needle as above. Adequate hemostasis was obtained with injection of a Gelfoam and thrombin slu rry through the guide needle and compression at the puncture site. Follow-up CT scan reveals no significant hemorrhage. The patient tolerated the procedure well and there were no complications. The patient was returned to the Radiology Outpatient Unit in stable condition. CONCLUSION: Uncomplicated CT guided biopsy. Rudy Gaxiola MD on December 27, 2016 at 11:21 Board Certified Radiologist. This report was verified electronically.
--- NOTE | 2016-12-27 12:45 | HHI.PR ---
Subjective Remarks Patient seen today in follow-up for pleural effusion with likely metastatic lung cancer. Metastases found in thoracic and lumbar spine. T max 100.7, patient seen status post retroperitoneal lymph node biopsy. No new events overnight otherwise Objective Vitals Vital Signs Date Time Temp Pulse Resp B/P (MAP) Pulse Ox O2 Delivery O2 Flow Rate FiO2 12/27/16 11:53 98.6 94 21 110/77 (88) 99 12/27/16 08:18 99 Nasal Cannula 3.00 12/27/16 08:00 97.0 102 22 106/70 (82) 99 12/27/16 08:00 99 Nasal Cannula 3.00 12/27/16 04:00 96.0 101 20 90/65 (73) 95 12/27/16 03:30 97.5 12/27/16 00:00 100.7 118 20 107/73 (84) 97 12/26/16 21:53 96 Nasal Cannula 3.00 12/26/16 20:01 160 12/26/16 20:00 98.5 150 18 143/85 (104) 100 12/26/16 20:00 100 Nasal Cannula 3.00 12/26/16 16:00 98.1 99 17 122/80 (94) 98 I/O 12/26/16 12/26/16 12/26/16 12/27/16 12/27/16 12/27/16 07:00 15:00 23:00 07:00 15:00 23:00 Intake Total 240 ml 3114 ml 100 ml 250 ml Output Total 400 ml Balance 240 ml 2714 ml 100 ml 250 ml Intake Oral 240 ml 240 ml IV Total 2874 ml 100 ml 250 ml Output Urine Total 400 ml # Voids 2 2 # Bowel Movements 1 2 Result Diagram: 12/26/16 0540 12/26/16 0540 Objective Remarks GENERAL: This is a well-nourished, well-developed patient, sob at rest CARDIOVASCULAR: sinu tachycardia without murmurs, gallops, or rubs. RESPIRATORY: Clear to auscultation. Breath sounds equal bilaterally. No wheezes , rales, or rhonchi. GASTROINTESTINAL: Abdomen soft, non-tender, minimally distended. Normal active bowel sounds MUSCULOSKELETAL: Extremities without clubbing, cyanosis, or edema. NEURO: Alert & Oriented x4 to person, place, time, situation. Moves all ext x4 Procedures Retroperitoneal lymph node biopsy Paracentesis A/P Problem List: (1) Sepsis ICD Code: A41.9 - Sepsis, unspecified organism Status: Acute Plan: Recent postobstructive pneumonia, improved symptoms BC, ascites neg so far Continue IV vancomycin and IV Zosyn. Vancomycin to be dosed by pharmacy. Sepsis in to be slowly improving with improving tachycardia and leukocytosis WBC continues to trend down, (2) Metastatic neoplastic disease ICD Code: C79.9 - Secondary malignant neoplasm of unspecified site Plan: Non small cell lung Ca presumed Medical oncology appreciated Bony vertebral mets on imaging with inconclusive pathology Status post repeat peritoneal lymph node biopsy with pending pathology (3) COPD (chronic obstructive pulmonary disease) ICD Code: J44.9 - Chronic obstructive pulmonary disease, unspecified Plan: bronchodilators, O2, prn (4) Hypoxia ICD Code: R09.02 - Hypoxemia Status: Acute Plan: Hypoxemia likely secondary to healthcare associated pneumonia, copd, gallops, pleural effusion, Likely will need to evaluate for thoracentesis, repeat CXR today systolic heart failure, and associated atelectasis. cont o2, Duonebs, education add coreg Assessment and Plan heparin q8 Discharge Planning may need inpatient palliative chemo per oncology Azra Davis MD Dec 27, 2016 12:45
--- NOTE | 2016-12-27 13:54 | RADRPT ---
EXAM DATE/TIME: 12/27/2016 13:27 [facility] COMPARISON: CHEST SINGLE AP, December 23, 2016, 14:34. INDICATIONS : Pleural effusion, short of breath, MEDICAL HISTORY : Chronic obstructive pulmonary disease. Glasses. Pnemonia. Possible lungcancer. Measles. Chicken pox. Tobacco use. SURGICAL HISTORY : None. ENCOUNTER: Initial ACUITY: 4 - 6 days PAIN SCORE: 0/10 LOCATION: chest FINDINGS: PA and lateral views of the chest demonstrate small left pleural effusion and left basilar density. R ight basilar atelectasis. Heart mildly enlarged. Osseous structures are intact. CONCLUSION: 1. Small left pleural effusion left basilar density likely atelectasis. Josesito Gunter MD on December 27, 2016 at 13:53 Board Certified Radiologist. This report was verified electronically.
[2016-12-27] MEDS: RESP: ALBUTEROL 2.5 MG/IPRATROPIUM 0.5 MG NEB (SCH) NEB (19:52)
[2016-12-27] MEDS: predniSONE 10 MG TAB PO SCH (20:15)
[2016-12-27] MEDS: ACETAMINOPHEN/HYDROcodone 325 MG/5 MG TAB PO PRN (20:17)
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
[2016-12-28] VITALS (9 sets, daily range): BP systolic 85–116; BP diastolic 63–81; PULSE 90–103; RESP 12–19; TEMP 95.7–98.4; O2SAT 92–97
[2016-12-28] MEDS: VANCOMYCIN 1,000 MG/NS 250 ML IV SCH ×6 (03:02→22:11)
[2016-12-28] MEDS: PIPERACIL-TAZO 4.5 GM PREMIX 100 ML IV SCH ×3 (03:02→22:08)
[2016-12-28 05:43] LABS: AUTOMATED NEUTROPHIL # 9.8 TH/MM3 (1.8-7.7); BASOPHIL % 0.4 % (0.0-2.0); EOSINOPHIL % 0.4 % (0.0-4.0); HEMATOCRIT 23.1 % (35.0-46.0); HEMO FLAGS DIFF FINAL; LYMPHOCYTE # 0.9 TH/MM3 (1.0-4.8); MEAN CELL VOLUME 79.5 FL (80.0-100.0); MEAN CORPUSCULAR HEMOGLOBIN 25.3 PG (27.0-34.0); MEAN CORPUSCULAR HGB CONC 31.9 % (32.0-36.0); MONO % 4.4 % (0.0-8.0); NEUT % 86.8 % (16.0-70.0); PLATELET COUNT 536 TH/MM3 (150-450); RED BLOOD COUNT 2.91 MIL/MM3 (4.00-5.30); RED CELL DISTRIBUTION WIDTH 17.3 % (11.6-17.2); WHITE BLOOD COUNT 11.1 TH/MM3 (4.0-11.0)
[2016-12-28] MEDS: HEPARIN SODIUM - SQ 10,000 UNITS/ML VIAL SQ SCH ×3 (05:59→22:09)
[2016-12-28] MEDS: RESP: ALBUTEROL 2.5 MG/IPRATROPIUM 0.5 MG NEB (SCH) NEB ×4 (07:27→21:18)
[2016-12-28] MEDS: CARVEDILOL 12.5 MG TAB PO SCH (08:57)
[2016-12-28] MEDS: DOCUSATE SODIUM 50 MG/SENNA 8.6 MG TAB PO SCH ×2 (08:58→22:09)
[2016-12-28] MEDS: predniSONE 10 MG TAB PO SCH ×2 (08:58→22:09)
[2016-12-28] MEDS: SODIUM CHLORIDE 0.9% FLUSH 10 ML FLUSH IV FLUSH SCH ×2 (09:00→22:10)
--- NOTE | 2016-12-28 13:42 | HHI.PR ---
Subjective Remarks Patient seen in follow up for COPD, lung Ca and for weakness. We had a long talk about her functional staus and Endo Of Life goals. She would want to be a DNR. HR better, no fever but BP low on coreg Objective Vitals Vital Signs Date Time Temp Pulse Resp B/P (MAP) Pulse Ox O2 Delivery O2 Flow Rate FiO2 12/28/16 12:37 95.7 90 19 85/63 (70) 96 12/28/16 08:57 93 Nasal Cannula 1.00 12/28/16 08:37 95.8 94 19 100/70 (80) 93 12/28/16 08:35 95 12/28/16 07:29 92 Nasal Cannula 2.00 12/28/16 04:00 98.2 102 18 90/68 (75) 96 12/28/16 00:00 98.0 100 18 85/64 (71) 94 12/27/16 20:17 93 Nasal Cannula 1.00 12/27/16 20:00 108 12/27/16 20:00 96.4 101 18 97/70 (79) 100 12/27/16 19:53 99 Nasal Cannula 3.00 I/O 12/27/16 12/27/16 12/27/16 12/28/16 12/28/16 12/28/16 07:00 15:00 23:00 07:00 15:00 23:00 Intake Total 100 ml 780 ml 615 ml 845 ml Balance 100 ml 780 ml 615 ml 845 ml Intake Oral 430 ml 480 ml IV Total 100 ml 350 ml 615 ml 365 ml # Voids 2 2 # Bowel Movements 1 0 Result Diagram: 12/28/16 0515 12/28/16 0515 Objective Remarks GENERAL: This is a well-nourished, well-developed patient, sob at rest CARDIOVASCULAR: sinu tachycardia without murmurs, gallops, or rubs. RESPIRATORY: Clear to auscultation. Breath sounds equal bilaterally. No wheezes , rales, or rhonchi. GASTROINTESTINAL: Abdomen soft, non-tender, minimally distended. Normal active bowel sounds MUSCULOSKELETAL: Extremities without clubbing, cyanosis, or edema. NEURO: Alert & Oriented x4 to person, place, time, situation. Moves all ext x4 Procedures Retroperitoneal lymph node biopsy Paracentesis A/P Problem List: (1) Sepsis ICD Code: A41.9 - Sepsis, unspecified organism Status: Acute Plan: Recent postobstructive pneumonia, improved symptoms BC, ascites neg so far Continue IV vancomycin and IV Zosyn. Vancomycin to be dosed by pharmacy. Sepsis in to be slowly improving with improving tachycardia and leukocytosis WBC continues to trend down, (2) Metastatic neoplastic disease ICD Code: C79.9 - Secondary malignant neoplasm of unspecified site (3) COPD (chronic obstructive pulmonary disease) ICD Code: J44.9 - Chronic obstructive pulmonary disease, unspecified Plan: bronchodilators, O2, prn Prednisone added (4) Hypoxia ICD Code: R09.02 - Hypoxemia Status: Acute Plan: Hypoxemia likely secondary to healthcare associated pneumonia, copd, repeat CXR shows imprved effusion systolic heart failure, and associated atelectasis. cont o2, prednisone,Duonebs, education coreg Assessment and Plan heparin q8 decrease coreg dc'd from pt, oob with nursing Discharge Planning may need inpatient palliative chemo per oncology Azra Davis MD Dec 28, 2016 13:42
--- NOTE | 2016-12-28 19:42 | PD.ONC.PN ---
Subjective Subjective Remarks Tolerated biopsy well. Denies any pain. No results yet. Cont anemia. Marginal response to supportive treatment. Desirous of receiving treatment. Objective Data Date Time Temp Pulse Resp B/P (MAP) Pulse Ox O2 Delivery O2 Flow Rate FiO2 12/28/16 17:04 98.4 100 19 99/79 (86) 97 12/28/16 12:37 95.7 90 19 85/63 (70) 96 12/28/16 08:57 93 Nasal Cannula 1.00 12/28/16 08:37 95.8 94 19 100/70 (80) 93 12/28/16 08:35 95 12/28/16 07:29 92 Nasal Cannula 2.00 12/28/16 04:00 98.2 102 18 90/68 (75) 96 12/28/16 00:00 98.0 100 18 85/64 (71) 94 12/27/16 20:17 93 Nasal Cannula 1.00 12/27/16 20:00 108 12/27/16 20:00 96.4 101 18 97/70 (79) 100 12/27/16 19:53 99 Nasal Cannula 3.00 12/28/16 12/28/16 12/28/16 07:00 15:00 23:00 Intake Total 845 ml 100 ml 275 ml Balance 845 ml 100 ml 275 ml Result Diagram: 12/28/1615 12/28/1615 Laboratory Results Laboratory Tests Test 12/28/16 05:15 White Blood Count 11.1 TH/MM3 Red Blood Count 2.91 MIL/MM3 Hemoglobin 7.4 GM/DL Hematocrit 23.1 % Mean Corpuscular Volume 79.5 FL Mean Corpuscular Hemoglobin 25.3 PG Mean Corpuscular Hemoglobin Concent 31.9 % Red Cell Distribution Width 17.3 % Platelet Count 536 TH/MM3 Mean Platelet Volume 7.1 FL Neutrophils (%) (Auto) 86.8 % Lymphocytes (%) (Auto) 8.0 % Monocytes (%) (Auto) 4.4 % Eosinophils (%) (Auto) 0.4 % Basophils (%) (Auto) 0.4 % Neutrophils # (Auto) 9.8 TH/MM3 Lymphocytes # (Auto) 0.9 TH/MM3 Monocytes # (Auto) 0.5 TH/MM3 Eosinophils # (Auto) 0.0 TH/MM3 Basophils # (Auto) 0.0 TH/MM3 CBC Comment DIFF FINAL Differential Comment Creatinine 0.66 MG/DL Estimat Glomerular Filtration Rate 92 ML/MIN Administered Medications Medications (Trade) Dose Ordered Sig/Ramy Route PRN Reason Start Time Stop Time Status Last Admin Dose Admin Sodium Chloride (NS Flush) 2 ml BID IV FLUSH 12/23/16 21:00 12/28/16 09:00 Senna/Docusate Sodium (Gaby-Colace) 1 tab BID PO 12/23/16 21:00 12/25/16 20:21 Piperacillin Sod/ Tazobactam Sod 100 ml @ 200 mls/hr Q8H IV 12/23/16 19:00 12/28/16 12:27 Vancomycin HCl 1000 mg/Sodium Chloride 250 ml @ 250 mls/hr Q8H IV 12/23/16 20:00 12/28/16 12:29 Acetaminophen/ Hydrocodone Bitart ([place] 5-325 Mg) 2 tab Q4H PRN PO PAIN SCALE 5 TO 10 12/25/16 19:30 12/27/16 20:17 Acetaminophen/ Hydrocodone Bitart ([place] 5-325 Mg) 1 tab Q4H PRN PO PAIN SCALE 1 TO 4 12/25/16 19:30 12/25/16 20:21 Albuterol/ Ipratropium (Duoneb Neb) 1 ampule Q2HR NEB PRN NEB dyspnea 12/26/16 15:15 12/26/16 17:44 Heparin Sodium (Porcine) (Heparin Inj) 5,000 units Q8HR SQ 12/26/16 22:00 Future hold 12/28/16 14:04 Prednisone (Deltasone) 10 mg BID PO 12/27/16 21:00 12/28/16 08:58 Albuterol/ Ipratropium (Duoneb Neb) 1 ampule QID NEB NEB 12/27/16 20:00 12/28/16 15:13 Objective Remarks GENERAL: Well-nourished, thin, chronically ill appearing. SKIN: Warm and dry. Looks older than stated age. HEAD: Normocephalic. Poor dentition. EYES: No scleral icterus. No injection or drainage. NECK: Supple, trachea midline. No JVD or lymphadenopathy. LYMPHATIC: No adenopathy. CARDIOVASCULAR: Regular rate and rhythm without murmurs. RESPIRATORY: Breath sounds equal bilaterally. No accessory muscle use. GASTROINTESTINAL: Abdomen soft, non-tender, nondistended. EXTREMITIES: No cyanosis, or edema. MUSCULOSKELETAL: Adequate muscle tone. NEUROLOGICAL: No obvious focal deficit. Awake, alert, and oriented x3. PSYCHIATRIC: Appropriate mood and affect; insight and judgment normal. 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 KPS decreasing. Chance of response with Cisplatin/carboplatin and [employer]M [employer] 16. Biopsy LN to r/o second primary cancer, suspect related to same. Pt desirous of treatment. Transfer to [facility], unable to treat with chemo at PO. Agree with DNR, support pt with her decision. Assessment 56y/o woman with NSCLCA w/ neuroendocrine differentiation, hopes of response and improvement in KPS with chemo. Plan 1. Transfer to [facility]. 2. Give information on Cisplatin and VP16. 3. Anticipate transfusion for support. 4. 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
[2016-12-28] MEDS: CARVEDILOL 6.25 MG TAB PO SCH (22:10)
[2016-12-28] MEDS: ACETAMINOPHEN/HYDROcodone 325 MG/5 MG TAB PO PRN (22:37)
[2016-12-29] VITALS (10 sets, daily range): BP systolic 94–121; BP diastolic 63–75; PULSE 84–105; RESP 14–18; TEMP 95.2–96.6; O2SAT 93–98
[2016-12-29] MEDS: PIPERACIL-TAZO 4.5 GM PREMIX 100 ML IV SCH (04:06)
[2016-12-29] MEDS: VANCOMYCIN 1,000 MG/NS 250 ML IV SCH ×2 (05:10)
[2016-12-29] MEDS: HEPARIN SODIUM - SQ 10,000 UNITS/ML VIAL SQ SCH ×3 (05:11→20:44)
[2016-12-29 07:04] LABS: HEMATOCRIT 24.1 % (35.0-46.0); MEAN CELL VOLUME 80.8 FL (80.0-100.0); MEAN CORPUSCULAR HEMOGLOBIN 25.1 PG (27.0-34.0); PLATELET COUNT 589 TH/MM3 (150-450); RED BLOOD COUNT 2.98 MIL/MM3 (4.00-5.30); RED CELL DISTRIBUTION WIDTH 18.6 % (11.6-17.2); REVIEW FLAG FINAL; WHITE BLOOD COUNT 11.9 TH/MM3 (4.0-11.0)
[2016-12-29] MEDS: RESP: ALBUTEROL 2.5 MG/IPRATROPIUM 0.5 MG NEB (SCH) NEB ×4 (08:57→20:08)
[2016-12-29] MEDS: DOCUSATE SODIUM 50 MG/SENNA 8.6 MG TAB PO SCH ×2 (09:00→20:39)
[2016-12-29] MEDS: CARVEDILOL 6.25 MG TAB PO SCH ×2 (10:09→20:39)
[2016-12-29] MEDS: predniSONE 10 MG TAB PO SCH (10:10)
[2016-12-29] MEDS: SODIUM CHLORIDE 0.9% FLUSH 10 ML FLUSH IV FLUSH SCH ×2 (10:10→20:41)
--- NOTE | 2016-12-29 10:33 | HHI.PR ---
Subjective Remarks Follow-up sepsis and metastatic lung cancer. States she is okay denies shortness of breath. Mild lower back pain. Discussed with RN Objective Vitals Vital Signs Date Time Temp Pulse Resp B/P (MAP) Pulse Ox O2 Delivery O2 Flow Rate FiO2 12/29/16 09:00 95.2 86 18 108/67 (81) 98 12/29/16 08:58 98 Nasal Cannula 2.00 12/29/16 04:33 96 2.00 12/29/16 04:33 90 12/29/16 04:00 96.0 93 17 117/74 (88) 96 12/29/16 03:14 98 Nasal Cannula 2.00 12/29/16 00:23 96.6 95 14 94/75 (81) 93 12/28/16 23:37 18 12/28/16 21:18 95 Nasal Cannula 1.00 12/28/16 20:26 96.7 103 12 116/81 (93) 94 12/28/16 17:04 98.4 100 19 99/79 (86) 97 12/28/16 12:37 95.7 90 19 85/63 (70) 96 I/O 12/28/16 12/28/16 12/28/16 12/29/16 12/29/16 12/29/16 07:00 15:00 23:00 07:00 15:00 23:00 Intake Total 845 ml 100 ml 275 ml 240 ml Balance 845 ml 100 ml 275 ml 240 ml Intake Oral 480 ml 240 ml IV Total 365 ml 100 ml 275 ml # Voids 2 9 1 # Bowel Movements 0 2 Result Diagram: 12/29/16 0542 12/28/16 0515 Imaging Last Impressions Lymph Node Biopsy CT 12/27/16 0000 Signed Impressions: Service Date/Time: December 09:38 - CONCLUSION: Uncomplicated CT guided biopsy. Rudy Gaxiola MD Chest X-Ray 12/27/16 0000 Signed Impressions: Service Date/Time: December 13:27 - CONCLUSION: 1. Small left pleural effusion left basilar density likely atelectasis. Josesito Gunter MD Thoracic Spine MRI 12/26/16 0000 Signed Impressions: Service Date/Time: Monday, December 26, 2016 15:35 - CONCLUSION: 1. Metastatic lesions involving T4, T5, and T10. There is a pathologic compression fracture involving T4 with 5 mm of retropulsion. The metastatic lesion encroaches upon the right anterolateral portion of the central canal abutting the cord as well as narrowing the right neural foramen. Metastatic lesions at T5 and T10 do not cause significant encroachment upon the cord or central canal. Devon Pope Jr., MD Lumbar Spine MRI 12/26/16 Signed Impressions: Service Date/Time: Monday, December 26, 2016 15:35 - CONCLUSION: 1. Diffuse retroperitoneal adenopathy. 2. 2 metastatic lesions involving the L3 vertebral body with without degeneration the central canal encroachment or neural impingement. 3. Multilevel degenerative changes as detailed above. Devon Pope Jr., MD Cervical Spine MRI 12/26/16 Signed Impressions: Service Date/Time: Monday, December 26, 2016 15:35 - CONCLUSION: 1. Study significantly degraded by motion artifact. 2. No metastatic lesions involving the cervical spine. See the thoracic spine reported separately. 3. Multilevel degenerative changes as detailed at each level in the above discussion. Devon Pope Jr., MD Cyst Biopsy Asp-Paracentesis US 12/25/16 Signed Impressions: Service Date/Time: Sunday, December 25, 2016 08:53 - CONCLUSION: Uncomplicated ultrasound guided paracentesis. Armand Hunter MD Lower Extremity Ultrasound 12/23/16 0000 Signed Impressions: Service Date/Time: Friday, December 23, 2016 21:31 - CONCLUSION: No DVT of the left lower extremity. Isidoro Padilla MD CT Angiography 12/23/16 0000 Signed Impressions: Service Date/Time: Friday, December 23, 2016 17:04 - CONCLUSION: 1. No CT evidence for pulmonary artery embolism through the segmental level. 2. Improved bulky supraclavicular, mediastinal and hilar adenopathy with improved dominant subcarinal mass/node now measuring 4.8 x 3.4 cm in comparison to 5.4 x 4.2 cm on prior exam. There is also improved associated right hilar mass effect with near interval resolution of postobstructive central right lower lobe consolidation. 3. Multiple lytic metastatic bony lesions with infiltrative lytic mass at T4 with associated moderate progressive compression deformity. 4. Interval resolution of right pleural effusion. Moderate left pleural effusion with associated compressive atelectasis in the left lower lobe. 5. Bulky retroperitoneal adenopathy in the visualized portions of the upper abdomen. 6. Small to moderate ascites in the visualized upper abdomen. 7. Stable ancillary findings, as above. Syed Valencia MD Abdomen/Pelvis CT 12/23/16 0000 Signed Impressions: Service Date/Time: Friday, December 23, 2016 17:04 - CONCLUSION: 1. New omental/peritoneal caking and worsening retroperitoneal lymphadenopathy, presumably metastatic. Lymphoma would be in the differential but the omental caking is not typical for such. 2. Enlarged, heterogeneously enhancing kidneys and infiltrating neoplasm such as metastatic disease or lymphoma would be in the differential. 3. Moderate ascites, new. Isidoro Padilla MD Objective Remarks Well-developed, well-nourished in no distress on 2 L nasal cannula Equal in expansion decreased breath sounds Regular rate and rhythm Abdomen soft nontender extremities trace edema and no cyanosis Alert and oriented nonfocal Procedures Retroperitoneal lymph node biopsy Paracentesis A/P Problem List: (1) Sepsis ICD Code: A41.9 - Sepsis, unspecified organism Status: Acute (2) Metastatic neoplastic disease ICD Code: C79.9 - Secondary malignant neoplasm of unspecified site (3) COPD (chronic obstructive pulmonary disease) ICD Code: J44.9 - Chronic obstructive pulmonary disease, unspecified (4) Hypoxia ICD Code: R09.02 - Hypoxemia Status: Acute Assessment and Plan (1) Sepsis Recent postobstructive pneumonia, improved symptoms BC, ascites neg so far De-escalate IV vancomycin and IV Zosyn start Augmentin total of 2 weeks. (2) Metastatic neoplastic disease Transferred to [facility] to start chemotherapy per oncology (3) COPD (chronic obstructive pulmonary disease) Improving continue bronchodilators, taper prednisone and wean O2 (4) Hypoxia Hypoxemia likely secondary to healthcare associated pneumonia, copd, DVT prophylaxis with heparin q8 Discharge Planning Discharge when cleared by oncology Marko Amaro MD Dec 29, 2016 10:33
--- NOTE | 2016-12-29 11:39 | PD.ONC.PN ---
Subjective Subjective Remarks Afebrile Patient walking around her room in no acute distress Complaining of having some swelling in her feet Objective Data Date Time Temp Pulse Resp B/P (MAP) Pulse Ox O2 Delivery O2 Flow Rate FiO2 12/29/16 09:00 95.2 86 18 108/67 (81) 98 12/29/16 08:58 98 Nasal Cannula 2.00 12/29/16 04:33 96 2.00 12/29/16 04:33 90 12/29/16 04:00 96.0 93 17 117/74 (88) 96 12/29/16 03:14 98 Nasal Cannula 2.00 12/29/16 00:23 96.6 95 14 94/75 (81) 93 12/28/16 23:37 18 12/28/16 21:18 95 Nasal Cannula 1.00 12/28/16 20:26 96.7 103 12 116/81 (93) 94 12/28/16 17:04 98.4 100 19 99/79 (86) 97 12/28/16 12:37 95.7 90 19 85/63 (70) 96 12/29/16 12/29/16 12/29/16 07:00 15:00 23:00 Intake Total 240 ml Balance 240 ml Result Diagram: 12/29/16 0542 12/28/16 0515 Laboratory Results Laboratory Tests Test 12/29/16 05:42 White Blood Count 11.9 TH/MM3 Red Blood Count 2.98 MIL/MM3 Hemoglobin 7.5 GM/DL Hematocrit 24.1 % Mean Corpuscular Volume 80.8 FL Mean Corpuscular Hemoglobin 25.1 PG Mean Corpuscular Hemoglobin Concent 31.0 % Red Cell Distribution Width 18.6 % Platelet Count 589 TH/MM3 Mean Platelet Volume 7.0 FL Administered Medications Medications (Trade) Dose Ordered Sig/Ramy Route PRN Reason Start Time Stop Time Status Last Admin Dose Admin Sodium Chloride (NS Flush) 2 ml BID IV FLUSH 12/23/16 21:00 12/29/16 10:10 Senna/Docusate Sodium (Gaby-Colace) 1 tab BID PO 12/23/16 21:00 12/28/16 22:09 Acetaminophen/ Hydrocodone Bitart ([place] 5-325 Mg) 2 tab Q4H PRN PO PAIN SCALE 5 TO 10 12/25/16 19:30 12/27/16 20:17 Acetaminophen/ Hydrocodone Bitart ([place] 5-325 Mg) 1 tab Q4H PRN PO PAIN SCALE 1 TO 4 12/25/16 19:30 12/28/16 22:37 Albuterol/ Ipratropium (Duoneb Neb) 1 ampule Q2HR NEB PRN NEB dyspnea 12/26/16 15:15 12/26/16 17:44 Heparin Sodium (Porcine) (Heparin Inj) 5,000 units Q8HR SQ 12/26/16 22:00 Future hold 12/29/16 05:11 Albuterol/ Ipratropium (Duoneb Neb) 1 ampule QID NEB NEB 12/27/16 20:00 12/29/16 08:57 Carvedilol (Coreg) 6.25 mg Q12HR PO 12/28/16 21:00 12/29/16 10:09 Objective Remarks GENERAL: Well-nourished, thin, chronically ill appearing. SKIN: Warm and dry. Looks older than stated age. HEAD: Normocephalic. Poor dentition. EYES: No scleral icterus. No injection or drainage. NECK: Supple, trachea midline. No JVD or lymphadenopathy. CARDIOVASCULAR: Regular rate and rhythm without murmurs. RESPIRATORY: Breath sounds equal bilaterally. No accessory muscle use. GASTROINTESTINAL: Abdomen soft, non-tender, nondistended. EXTREMITIES: DAYAN hose to bilateral lower extremities. Pedal edema. MUSCULOSKELETAL: Adequate muscle tone. NEUROLOGICAL: No obvious focal deficit. Awake, alert, and oriented x3. 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 Plan 1. Await pathology. 2. Will likely plan for cisplatin and etoposide in next few days 3. Supportive care. Attending Statement The exam, history, and the medical decision-making described in the above note were completed with the assistance of the mid-level provider. I reviewed and agree with the findings presented. I attest that I had a [id number] encounter with the patient on the same day, and personally performed and documented my assessment and findings in the medical record. Pt seen and examined. 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 Carboplatin alternative if renal function worsen. Await pathology confirm, same disease in the abdomen. 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
--- NOTE | 2016-12-29 17:36 | RADRPT ---
EXAM DATE/TIME: 12/29/2016 16:26 [place] COMPARISON: No previous studies available for comparison. INDICATIONS : Bilateral leg swelling. MEDICAL HISTORY : Chronic obstructive pulmonary disease. Glasses. Pneumonia. Metastatic cancer with known bone metast asis and adenopathy. SURGICAL HISTORY : None. ENCOUNTER: Initial ACUITY: 1 day PAIN SCORE: 4/10 LOCATION: Bilateral legs. TECHNIQUE: Venous ultrasound of the left and right leg was performed from the inguinal ligament to the proximal calf. Real-time, color Doppler and spectral tracing, compression and augmentation techniques were us ed. FINDINGS: RIGHT LEG: There is normal compressibility of the deep venous system from the inguinal region to the proximal ca lf. No echogenic clot is seen in the lumen of the common femoral, femoral, popliteal, and posterior tibial veins. There is a normal response of the venous system to proximal and distal augmentation an d respiration. There is a complex hypoechoic oval collection along the right medial knee measuring u p to 2.9 I 1 x 2.3 cm in diameter. This has low-level internal echogenicity and no internal color tru w. LEFT LEG: There is normal compressibility of the deep venous system from the inguinal region to the proximal ca lf. No echogenic clot is seen in the lumen of the common femoral, femoral, popliteal, and posterior tibial veins. There is a normal response of the venous system to proximal and distal augmentation an d respiration. CONCLUSION: 1. No evidence of deep venous thrombosis. 2. Multiple hypoechoic complex cystic-appearing lesion along the medial right knee in the area of pal pable concern. The finding is nonspecific. Bg Lugo MD on December 29, 2016 at 17:32 Board Certified Radiologist. This report was verified electronically.
[2016-12-29] MEDS: ACETAMINOPHEN/HYDROcodone 325 MG/5 MG TAB PO PRN (20:40)
[2016-12-29] MEDS: AMOXICILLIN/CLAVULANATE K 875 MG TAB PO SCH (20:43)
[2016-12-30] VITALS (16 sets, daily range): BP systolic 108–135; BP diastolic 69–75; PULSE 90–109; RESP 16–20; TEMP 96.3–98.1; O2SAT 83–98
[2016-12-30] MEDS ORDERED: VANCOMYCIN TROUGH ONE (03:45)
[2016-12-30] MEDS: HEPARIN SODIUM - SQ 10,000 UNITS/ML VIAL SQ SCH ×3 (05:30→23:14)
[2016-12-30 06:45] LABS: ANION GAP 8 MEQ/L (5-15); AST (GOT) 15 U/L (15-37); BICARBONATE 24.2 MEQ/L (21.0-32.0); BLOOD UREA NITROGEN 10 MG/DL (7-18); CHLORIDE 109 MEQ/L (98-107); GLOMERULAR FILTRATION RATE 62 ML/MIN (>89); LDH SERUM 187 U/L (84-246); POTASSIUM 3.1 MEQ/L (3.5-5.1); SODIUM (NA) 141 MEQ/L (136-145)
[2016-12-30 06:48] LABS: ALKALINE PHOSPHATASE 62 U/L (45-117); ALT (GPT) 11 U/L (10-53); TOTAL BILIRUBIN ADULT 0.2 MG/DL (0.2-1.0); URIC ACID 3.4 MG/DL (2.6-6.0); VANCOMYCIN TROUGH 39.3 MCG/ML (5.0-10.0)
[2016-12-30 06:56] LABS: AUTOMATED NEUTROPHIL # 8.7 TH/MM3 (1.8-7.7); BASOPHIL # 0.1 TH/MM3 (0-0.2); BASOPHIL % 1.3 % (0.0-2.0); EOSINOPHIL # 0.1 TH/MM3 (0-0.4); EOSINOPHIL % 1.2 % (0.0-4.0); HEMATOCRIT 22.7 % (35.0-46.0); HEMO FLAGS DIFF FINAL; LYMPH % 10.5 % (9.0-44.0); LYMPHOCYTE # 1.2 TH/MM3 (1.0-4.8); MEAN CELL VOLUME 81.2 FL (80.0-100.0); PLATELET COUNT 551 TH/MM3 (150-450); RED BLOOD COUNT 2.79 MIL/MM3 (4.00-5.30); RED CELL DISTRIBUTION WIDTH 18.2 % (11.6-17.2); REVIEW FLAG FINAL; WHITE BLOOD COUNT 11.3 TH/MM3 (4.0-11.0)
[2016-12-30] MEDS: RESP: ALBUTEROL 2.5 MG/IPRATROPIUM 0.5 MG NEB (SCH) NEB ×4 (07:47→19:20)
[2016-12-30] MEDS ORDERED: POTASSIUM CHLORIDE 10 MEQ CONTROLLED RELEASE TAB PO ONE (08:30)
[2016-12-30] MEDS: DOCUSATE SODIUM 50 MG/SENNA 8.6 MG TAB PO SCH ×2 (09:00→19:43)
--- NOTE | 2016-12-30 09:26 | PD.ONC.PN ---
Subjective Subjective Remarks Patient sitting up in bed on O2 cannula in no acute distress Reports that she's had some shortness of breath with ambulation Left lower extremity swelling persistent Objective Data Date Time Temp Pulse Resp B/P (MAP) Pulse Ox O2 Delivery O2 Flow Rate FiO2 12/30/16 04:10 92 12/30/16 04:00 96.3 90 16 110/70 (83) 97 12/30/16 00:00 94 12/30/16 00:00 96.3 98 18 109/69 (82) 98 12/29/16 20:44 Nasal Cannula 2.00 12/29/16 20:01 102 12/29/16 20:00 96.3 105 17 112/63 (79) 94 12/29/16 16:00 96.6 97 18 121/72 (88) 95 12/29/16 12:00 96.5 84 18 105/65 (78) 98 12/30/16 12/30/16 12/30/16 07:00 15:00 23:00 Intake Total 480 ml Balance 480 ml Result Diagram: 12/30/16 0530 12/30/16 0530 Laboratory Results Laboratory Tests Test 12/30/16 05:30 White Blood Count 11.3 TH/MM3 Red Blood Count 2.79 MIL/MM3 Hemoglobin 7.3 GM/DL Hematocrit 22.7 % Mean Corpuscular Volume 81.2 FL Mean Corpuscular Hemoglobin 26.0 PG Mean Corpuscular Hemoglobin Concent 32.0 % Red Cell Distribution Width 18.2 % Platelet Count 551 TH/MM3 Mean Platelet Volume 7.2 FL Neutrophils (%) (Auto) 77.0 % Lymphocytes (%) (Auto) 10.5 % Monocytes (%) (Auto) 10.0 % Eosinophils (%) (Auto) 1.2 % Basophils (%) (Auto) 1.3 % Neutrophils # (Auto) 8.7 TH/MM3 Lymphocytes # (Auto) 1.2 TH/MM3 Monocytes # (Auto) 1.1 TH/MM3 Eosinophils # (Auto) 0.1 TH/MM3 Basophils # (Auto) 0.1 TH/MM3 CBC Comment DIFF FINAL Differential Comment Reticulocyte Count 2.0 % Absolute Reticulocyte Count 56.0 MIL/L Blood Urea Nitrogen 10 MG/DL Creatinine 0.93 MG/DL Random Glucose 76 MG/DL Total Protein 5.3 GM/DL Albumin 1.3 GM/DL Calcium Level 7.9 MG/DL Uric Acid 3.4 MG/DL Alkaline Phosphatase 62 U/L Aspartate Amino Transf (AST/SGOT) 15 U/L Alanine Aminotransferase (ALT/SGPT) 11 U/L Lactate Dehydrogenase 187 U/L Total Bilirubin 0.2 MG/DL Sodium Level 141 MEQ/L Potassium Level 3.1 MEQ/L Chloride Level 109 MEQ/L Carbon Dioxide Level 24.2 MEQ/L Anion Gap 8 MEQ/L Estimat Glomerular Filtration Rate 62 ML/MIN Vancomycin Level Trough 39.3 MCG/ML Administered Medications Medications (Trade) Dose Ordered Sig/Ramy Route PRN Reason Start Time Stop Time Status Last Admin Dose Admin Sodium Chloride (NS Flush) 2 ml BID IV FLUSH 12/23/16 21:00 12/29/16 20:41 Senna/Docusate Sodium (Gaby-Colace) 1 tab BID PO 12/23/16 21:00 12/29/16 20:39 Acetaminophen/ Hydrocodone Bitart ([place] 5-325 Mg) 2 tab Q4H PRN PO PAIN SCALE 5 TO 10 12/25/16 19:30 12/29/16 20:40 Acetaminophen/ Hydrocodone Bitart ([place] 5-325 Mg) 1 tab Q4H PRN PO PAIN SCALE 1 TO 4 12/25/16 19:30 12/28/16 22:37 Albuterol/ Ipratropium (Duoneb Neb) 1 ampule Q2HR NEB PRN NEB dyspnea 12/26/16 15:15 12/26/16 17:44 Heparin Sodium (Porcine) (Heparin Inj) 5,000 units Q8HR SQ 12/26/16 22:00 Future hold 12/30/16 05:30 Albuterol/ Ipratropium (Duoneb Neb) 1 ampule QID NEB NEB 12/27/16 20:00 12/30/16 07:47 Carvedilol (Coreg) 6.25 mg Q12HR PO 12/28/16 21:00 12/29/16 20:39 Amoxicillin/ Clavulanate Potassium (Augmentin) 875 mg BID@0800,1999 PO 12/29/16 20:00 01/06/17 19:59 12/29/16 20:43 Objective Remarks GENERAL: Well-nourished, thin, chronically ill appearing. SKIN: Warm and dry. Looks older than stated age. HEAD: Normocephalic. Poor dentition. EYES: No scleral icterus. No injection or drainage. NECK: Supple, trachea midline. No JVD or lymphadenopathy. CARDIOVASCULAR: Regular rate and rhythm without murmurs. RESPIRATORY: Diminished to bases bilaterally. On 1 L O2 nasal cannula GASTROINTESTINAL: Abdomen soft, non-tender, nondistended. EXTREMITIES: DAYAN hose to bilateral lower extremities. 1+ edema to left lower extremity MUSCULOSKELETAL: Adequate muscle tone. NEUROLOGICAL: No obvious focal deficit. Awake, alert, and oriented x3. 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 Plan 1. Kidney function stable; will order MRI Brain w/wo contrast to r/o neuroendocrine involvement 2. Transfuse 1 unit PRBC today for hgb 7.3 associated with tachycardia and SOB on exertion. 3. PICC line to be placed today by vascular. 4. Anticipate chemo early this week. Attending Statement The exam, history, and the medical decision-making described in the above note were completed with the assistance of the mid-level provider. I reviewed and agree with the findings presented. I attest that I had a [id number] encounter with the patient on the same day, and personally performed and documented my assessment and findings in the medical record. Pt seen and examined. Anticipate tx with Carbo/VP16 for the NSCLC with neuroendocrine differentiation. Path pending expect same pathology instead of a second primary. Noted increasing creatinine, pt will be unable to tolerate the cisplatin. Discussed plans to start chemo, in hopes of a rapid response due to above pathology. Pt's KPS poor but intent on trying treatment, motivated by 16y/o son. 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
[2016-12-30] MEDS: CARVEDILOL 6.25 MG TAB PO SCH ×2 (09:39→19:44)
[2016-12-30] MEDS: SODIUM CHLORIDE 0.9% FLUSH 10 ML FLUSH IV FLUSH SCH ×2 (09:39→19:45)
[2016-12-30] MEDS: predniSONE 10 MG TAB PO SCH (09:39)
[2016-12-30] MEDS: AMOXICILLIN/CLAVULANATE K 875 MG TAB PO SCH ×2 (09:58→19:45)
[2016-12-30] MEDS ORDERED: ACETAMINOPHEN 325 MG TAB PO PRN (10:00)
[2016-12-30] MEDS ORDERED: diphenhydrAMINE HCL 25 MG CAP PO PRN (10:00)
[2016-12-30] MEDS ORDERED: SODIUM CHLOR 0.9% 250 ML INJ 250 ML IV ONE (10:00)
[2016-12-30] MEDS ORDERED: GADODIAMIDE PF 287 MG/ML 5 ML VIAL (for RAD MRI) IVCONTRAST ONE (10:55)
--- NOTE | 2016-12-30 11:19 | HHI.PR ---
Subjective Remarks Follow-up pneumonia and metastatic lung cancer. Patient has no complaints denies chest pain and shortness of breath tolerating nasal cannula. Discussed with RN Objective Vitals Vital Signs Date Time Temp Pulse Resp B/P (MAP) Pulse Ox O2 Delivery O2 Flow Rate FiO2 12/30/16 08:45 96 12/30/16 08:30 96.3 98 18 121/74 (90) 89 12/30/16 04:10 92 12/30/16 04:00 96.3 90 16 110/70 (83) 97 12/30/16 00:00 94 12/30/16 00:00 96.3 98 18 109/69 (82) 98 12/29/16 20:44 Nasal Cannula 2.00 12/29/16 20:01 102 12/29/16 20:00 96.3 105 17 112/63 (79) 94 12/29/16 16:00 96.6 97 18 121/72 (88) 95 12/29/16 12:00 96.5 84 18 105/65 (78) 98 I/O 12/29/16 12/29/16 12/29/16 12/30/16 12/30/16 12/30/16 07:00 15:00 23:00 07:00 15:00 23:00 Intake Total 240 ml 720 ml 480 ml Balance 240 ml 720 ml 480 ml Intake Oral 240 ml 720 ml 480 ml # Voids 1 7 2 # Bowel Movements 2 Result Diagram: 12/30/16 0530 12/30/16 0530 Objective Remarks Well-developed, well-nourished in no distress on 2 L nasal cannula Equal in expansion decreased breath sounds Regular rate and rhythm Abdomen soft nontender extremities trace edema and no cyanosis Alert and oriented nonfocal No significant change in PE from previous Procedures Retroperitoneal lymph node biopsy Paracentesis A/P Problem List: (1) Sepsis ICD Code: A41.9 - Sepsis, unspecified organism Status: Acute (2) Metastatic neoplastic disease ICD Code: C79.9 - Secondary malignant neoplasm of unspecified site (3) COPD (chronic obstructive pulmonary disease) ICD Code: J44.9 - Chronic obstructive pulmonary disease, unspecified (4) Hypoxia ICD Code: R09.02 - Hypoxemia Status: Acute Assessment and Plan (1) Sepsis Recent postobstructive pneumonia, improved symptoms BC, ascites neg so far Continue Augmentin total of 2 weeks status post IV Vanco and Zosyn. (2) Metastatic neoplastic disease To start chemotherapy per oncology. For PICC. Follow-up brain MRI results (3) COPD (chronic obstructive pulmonary disease) Improving continue bronchodilators, taper prednisone and wean O2 (4) Hypoxia Hypoxemia likely secondary to healthcare associated pneumonia, copd, DVT prophylaxis with heparin q8 Discharge Planning Discharge when cleared by oncology Marko Amaro MD Dec 30, 2016 11:19
[2016-12-30] MEDS ORDERED: SODIUM CHLORIDE 0.9% FLUSH 10 ML FLUSH IV FLUSH PRN (12:30)
--- NOTE | 2016-12-30 12:58 | RADRPT ---
EXAM DATE/TIME: 12/30/2016 10:44 [facility] COMPARISON: No previous studies available for comparison. INDICATIONS : Metastatic disease. CONTRAST: 14 cc Omniscan (gadodiamide) IV MEDICAL HISTORY : Chronic obstructive pulmonary disease. SURGICAL HISTORY : None. ENCOUNTER: Initial ACUITY: 4-6 days PAIN SCORE: 0/10 LOCATION: cranial TECHNIQUE: Multiplanar, multisequence MRI of the brain was performed both prior to and following the administrat ion of paramagnetic contrast. FINDINGS: CEREBRUM: The ventricles are normal. There are CSF density structures in the basal ganglia bilaterally. No midl ine shift, mass lesion, hemorrhage or acute infarction. No extraaxial fluid collections are seen. T he pituitary gland and suprasellar cistern are normal in configuration. WHITE MATTER: There is minimal periventricular and subcortical white matter signal change. POSTERIOR FOSSA: The cerebellum and brainstem demonstrate no acute finding. The 4th ventricle is midline. The cerebel lopontine angle is unremarkable. The cerebellar tonsils are normal in position. DIFFUSION IMAGING: Intracranially, no restricted diffusion is identified. However, there are 3 calvarial lesions posteri kim which demonstrate increased diffusion signal. EXTRACRANIAL: There are 3 high calvarial lesions posteriorly. One is located in the left parietal bone and 2 are lo cated in the occipital bone. These range in size from 17 mm down to 8 mm. There is a nodule in the tagn bcutaneous fat of the right maxillary region measuring 9 mm. POST-CONTRAST: Intracranially, no abnormal enhancement is present. There is abnormal enhancement of the osseous lesi ons. CONCLUSION: 1. There are 3 abnormal calvarial lesions measuring up to 17 mm. The appearance is highly suspicious for metastatic bone disease. Intracranially, no metastatic disease or acute abnormality is identified . 2. There is a subcutaneous nodule on the right face measuring 9 mm. Isidoro Merchant MD on December 30, 2016 at 12:51 Board Certified Radiologist. This report was verified electronically.
[2016-12-30] MEDS: POTASSIUM CHLORIDE 20 MEQ CONTROLLED RELEASE TAB PO SCH (13:17)
--- NOTE | 2016-12-30 15:57 | RADRPT ---
EXAM DATE/TIME: 12/30/2016 12:49 [facility] COMPARISON: CHEST SINGLE AP, December 23, 2016, 14:34. INDICATIONS : PICC line placement. MEDICAL HISTORY : Chronic obstructive pulmonary disease. Metastatic cancer with known bone metastasis and adenopathy. SURGICAL HISTORY : None. ENCOUNTER: Initial ACUITY: 1 day PAIN SCORE: 0/10 LOCATION: Bilateral chest FINDINGS: A single AP erect view of the chest was obtained and demonstrates interval placement of a right-sided PICC line with the tip projected in the region of the right atrium. There is no pneumothorax. Both c ostophrenic angles are blunted with abnormal opacity at the lung bases. The heart size is at the uppe r limits of normal. The bony thorax is intact. The patient is mildly tilted and rotated. There are mu ltiple overlying electrocardiogram leads. CONCLUSION: 1. Placement of right-sided PICC line with the tip projected in the region of the right atrium. 2. Bilateral pleural effusions with abnormal opacity at the lung bases. Bg Lugo MD on December 30, 2016 at 15:54 Board Certified Radiologist. This report was verified electronically.
[2016-12-30] MEDS: ACETAMINOPHEN/HYDROcodone 325 MG/5 MG TAB PO PRN (23:15)
[2016-12-31] VITALS (9 sets, daily range): BP systolic 107–135; BP diastolic 67–76; PULSE 93–104; RESP 18–20; TEMP 96.3–97.7; O2SAT 90–99
[2016-12-31 05:17] LABS: AUTOMATED NEUTROPHIL # 9.8 TH/MM3 (1.8-7.7); BASOPHIL # 0.2 TH/MM3 (0-0.2); BASOPHIL % 1.3 % (0.0-2.0); EOSINOPHIL # 0.1 TH/MM3 (0-0.4); EOSINOPHIL % 0.8 % (0.0-4.0); HEMATOCRIT 26.1 % (35.0-46.0); HEMO FLAGS DIFF FINAL; LYMPHOCYTE # 1.1 TH/MM3 (1.0-4.8); MEAN CELL VOLUME 79.4 FL (80.0-100.0); MEAN CORPUSCULAR HEMOGLOBIN 25.3 PG (27.0-34.0); MEAN CORPUSCULAR HGB CONC 31.9 % (32.0-36.0); MONO % 9.1 % (0.0-8.0); NEUT % 79.8 % (16.0-70.0); PLATELET COUNT 554 TH/MM3 (150-450); RED BLOOD COUNT 3.29 MIL/MM3 (4.00-5.30); RED CELL DISTRIBUTION WIDTH 17.7 % (11.6-17.2); WHITE BLOOD COUNT 12.4 TH/MM3 (4.0-11.0)
[2016-12-31 05:37] LABS: BICARBONATE 25.5 MEQ/L (21.0-32.0); POTASSIUM 3.8 MEQ/L (3.5-5.1)
[2016-12-31] MEDS: HEPARIN SODIUM - SQ 10,000 UNITS/ML VIAL SQ SCH ×3 (06:04→20:29)
[2016-12-31] MEDS: RESP: ALBUTEROL 2.5 MG/IPRATROPIUM 0.5 MG NEB (SCH) NEB ×4 (08:19→18:59)
[2016-12-31] MEDS: predniSONE 10 MG TAB PO SCH (08:50)
[2016-12-31] MEDS: CARVEDILOL 6.25 MG TAB PO SCH ×2 (08:50→20:26)
[2016-12-31] MEDS: POTASSIUM CHLORIDE 20 MEQ CONTROLLED RELEASE TAB PO SCH (08:50)
[2016-12-31] MEDS: AMOXICILLIN/CLAVULANATE K 875 MG TAB PO SCH ×2 (08:51→20:26)
[2016-12-31] MEDS: SODIUM CHLORIDE 0.9% FLUSH 10 ML FLUSH IV FLUSH SCH ×3 (08:55→20:26)
[2016-12-31] MEDS: DOCUSATE SODIUM 50 MG/SENNA 8.6 MG TAB PO SCH ×2 (08:56→20:25)
[2016-12-31] MEDS ORDERED: LORazepam 0.5 MG TAB PO PRN (10:00)
--- NOTE | 2016-12-31 10:02 | HHI.PR ---
Subjective Remarks Follow-up pneumonia and metastatic lung cancer. Having difficulty getting out of bed not being seen by physical therapy. Discussed with RN Objective Vitals Vital Signs Date Time Temp Pulse Resp B/P (MAP) Pulse Ox O2 Delivery O2 Flow Rate FiO2 12/31/16 08:58 96.6 95 20 134/76 (95) 99 12/31/16 08:21 99 Nasal Cannula 2.00 12/31/16 04:00 97 12/31/16 04:00 96.3 104 19 113/67 (82) 94 12/31/16 00:00 98 12/31/16 00:00 97.3 100 18 107/67 (80) 95 12/30/16 23:20 97.4 100 19 108/69 96 12/30/16 21:00 97.7 109 18 113/71 97 12/30/16 20:50 Nasal Cannula 1.00 12/30/16 20:37 97.9 108 18 112/70 98 12/30/16 20:02 105 12/30/16 20:00 98.1 105 19 135/73 (93) 95 12/30/16 19:28 92 Nasal Cannula 2.00 12/30/16 19:19 83 12/30/16 16:30 103 12/30/16 16:00 97.4 103 20 110/71 (84) 93 12/30/16 12:30 95 12/30/16 12:00 97.9 97 20 119/75 (90) 96 12/30/16 10:00 95 Nasal Cannula 1.00 I/O 12/30/16 12/30/16 12/30/16 12/31/16 12/31/16 12/31/16 07:00 15:00 23:00 07:00 15:00 23:00 Intake Total 480 ml 1440 ml 565 ml Balance 480 ml 1440 ml 565 ml Intake Oral 480 ml 1440 ml 240 ml Packed Cells 325 ml # Voids 2 8 1 # Bowel Movements 3 Result Diagram: 12/31/16 0500 12/31/16 0500 Imaging Last Impressions Chest X-Ray 12/30/16 0000 Signed Impressions: Service Date/Time: Friday, December 30, 2016 12:49 - CONCLUSION: 1. Placement of right-sided PICC line with the tip projected in the region of the right atrium. 2. Bilateral pleural effusions with abnormal opacity at the lung bases. Bg Lugo MD Brain MRI 12/30/16 Signed Impressions: Service Date/Time: Friday, December 30, 2016 10:44 - CONCLUSION: 1. There are 3 abnormal calvarial lesions measuring up to 17 mm. The appearance is highly suspicious for metastatic bone disease. Intracranially, no metastatic disease or acute abnormality is identified. 2. There is a subcutaneous nodule on the right face measuring 9 mm. Isidoro Merchant MD Lower Extremity Ultrasound 12/29/16 Signed Impressions: Service Date/Time: Thursday, December 29, 2016 16:26 - CONCLUSION: 1. No evidence of deep venous thrombosis. 2. Multiple hypoechoic complex cystic-appearing lesion along the medial right knee in the area of palpable concern. The finding is nonspecific. Bg Lugo MD Lymph Node Biopsy CT 12/27/16 Signed Impressions: Service Date/Time: December 09:38 - CONCLUSION: Uncomplicated CT guided biopsy. Rudy Gaxiola MD Thoracic Spine MRI 12/26/16 Signed Impressions: Service Date/Time: Monday, December 26, 2016 15:35 - CONCLUSION: 1. Metastatic lesions involving T4, T5, and T10. There is a pathologic compression fracture involving T4 with 5 mm of retropulsion. The metastatic lesion encroaches upon the right anterolateral portion of the central canal abutting the cord as well as narrowing the right neural foramen. Metastatic lesions at T5 and T10 do not cause significant encroachment upon the cord or central canal. Devon Pope Jr., MD Lumbar Spine MRI 12/26/16 Signed Impressions: Service Date/Time: Monday, December 26, 2016 15:35 - CONCLUSION: 1. Diffuse retroperitoneal adenopathy. 2. 2 metastatic lesions involving the L3 vertebral body with without degeneration the central canal encroachment or neural impingement. 3. Multilevel degenerative changes as detailed above. Devon Pope Jr., MD Cervical Spine MRI 12/26/16 Signed Impressions: Service Date/Time: Monday, December 26, 2016 15:35 - CONCLUSION: 1. Study significantly degraded by motion artifact. 2. No metastatic lesions involving the cervical spine. See the thoracic spine reported separately. 3. Multilevel degenerative changes as detailed at each level in the above discussion. Devon Pope Jr., MD Cyst Biopsy Asp-Paracentesis US 12/25/16 0000 Signed Impressions: Service Date/Time: Sunday, December 25, 2016 08:53 - CONCLUSION: Uncomplicated ultrasound guided paracentesis. Armand Hunter MD CT Angiography 12/23/16 0000 Signed Impressions: Service Date/Time: Friday, December 23, 2016 17:04 - CONCLUSION: 1. No CT evidence for pulmonary artery embolism through the segmental level. 2. Improved bulky supraclavicular, mediastinal and hilar adenopathy with improved dominant subcarinal mass/node now measuring 4.8 x 3.4 cm in comparison to 5.4 x 4.2 cm on prior exam. There is also improved associated right hilar mass effect with near interval resolution of postobstructive central right lower lobe consolidation. 3. Multiple lytic metastatic bony lesions with infiltrative lytic mass at T4 with associated moderate progressive compression deformity. 4. Interval resolution of right pleural effusion. Moderate left pleural effusion with associated compressive atelectasis in the left lower lobe. 5. Bulky retroperitoneal adenopathy in the visualized portions of the upper abdomen. 6. Small to moderate ascites in the visualized upper abdomen. 7. Stable ancillary findings, as above. Syed Valencia MD Abdomen/Pelvis CT 12/23/16 0000 Signed Impressions: Service Date/Time: Friday, December 23, 2016 17:04 - CONCLUSION: 1. New omental/peritoneal caking and worsening retroperitoneal lymphadenopathy, presumably metastatic. Lymphoma would be in the differential but the omental caking is not typical for such. 2. Enlarged, heterogeneously enhancing kidneys and infiltrating neoplasm such as metastatic disease or lymphoma would be in the differential. 3. Moderate ascites, new. Isidoro Padilla MD Objective Remarks Well-developed, well-nourished in no distress on 2 L nasal cannula Equal in expansion decreased breath sounds Regular rate and rhythm Abdomen soft nontender extremities trace edema and no cyanosis Alert and oriented nonfocal Procedures Retroperitoneal lymph node biopsy Paracentesis PICC A/P Problem List: (1) Sepsis ICD Code: A41.9 - Sepsis, unspecified organism Status: Acute (2) Metastatic neoplastic disease ICD Code: C79.9 - Secondary malignant neoplasm of unspecified site (3) COPD (chronic obstructive pulmonary disease) ICD Code: J44.9 - Chronic obstructive pulmonary disease, unspecified (4) Hypoxia ICD Code: R09.02 - Hypoxemia Status: Acute Assessment and Plan (1) Sepsis Recent postobstructive pneumonia, improved symptoms BC, ascites neg so far Continue Augmentin total of 2 weeks till January 11 status post IV Vanco and Zosyn. (2) Metastatic neoplastic disease For chemotherapy per oncology s/p PICC. Follow-up brain MRI results which showed 3 abnormal calvarial lesions measuring up to 17 mm highly suspicious for metastatic bone disease. (3) COPD (chronic obstructive pulmonary disease) Improving continue bronchodilators, taper prednisone and wean O2 (4) Hypoxia Hypoxemia likely secondary to healthcare associated pneumonia, copd, DVT prophylaxis with heparin q8 Discharge Planning Discharge when cleared by oncology Marko Amaro MD Dec 31, 2016 10:02
--- NOTE | 2016-12-31 12:38 | PD.ONC.PN ---
Subjective Subjective Remarks Afebrile overnight. Patient resting in bed in nad. No complaints. Waiting to start chemotherapy. Objective Data Date Time Temp Pulse Resp B/P (MAP) Pulse Ox O2 Delivery O2 Flow Rate FiO2 12/31/16 08:58 96.6 95 20 134/76 (95) 99 12/31/16 08:45 Nasal Cannula 1.00 12/31/16 08:21 99 Nasal Cannula 2.00 12/31/16 04:00 97 12/31/16 04:00 96.3 104 19 113/67 (82) 94 12/31/16 00:00 98 12/31/16 00:00 97.3 100 18 107/67 (80) 95 12/30/16 23:20 97.4 100 19 108/69 96 12/30/16 21:00 97.7 109 18 113/71 97 12/30/16 20:50 Nasal Cannula 1.00 12/30/16 20:37 97.9 108 18 112/70 98 12/30/16 20:02 105 12/30/16 20:00 98.1 105 19 135/73 (93) 95 12/30/16 19:28 92 Nasal Cannula 2.00 12/30/16 19:19 83 12/30/16 16:30 103 12/30/16 16:00 97.4 103 20 110/71 (84) 93 12/31/16 12/31/16 12/31/16 07:00 15:00 23:00 Intake Total 565 ml Balance 565 ml Result Diagram: 12/31/16 0500 12/31/16 0500 Laboratory Results Laboratory Tests Test 12/31/16 05:00 White Blood Count 12.4 TH/MM3 Red Blood Count 3.29 MIL/MM3 Hemoglobin 8.3 GM/DL Hematocrit 26.1 % Mean Corpuscular Volume 79.4 FL Mean Corpuscular Hemoglobin 25.3 PG Mean Corpuscular Hemoglobin Concent 31.9 % Red Cell Distribution Width 17.7 % Platelet Count 554 TH/MM3 Mean Platelet Volume 6.5 FL Neutrophils (%) (Auto) 79.8 % Lymphocytes (%) (Auto) 9.0 % Monocytes (%) (Auto) 9.1 % Eosinophils (%) (Auto) 0.8 % Basophils (%) (Auto) 1.3 % Neutrophils # (Auto) 9.8 TH/MM3 Lymphocytes # (Auto) 1.1 TH/MM3 Monocytes # (Auto) 1.1 TH/MM3 Eosinophils # (Auto) 0.1 TH/MM3 Basophils # (Auto) 0.2 TH/MM3 CBC Comment DIFF FINAL Differential Comment Blood Urea Nitrogen 10 MG/DL Creatinine 0.95 MG/DL Random Glucose 82 MG/DL Calcium Level 7.8 MG/DL Sodium Level 141 MEQ/L Potassium Level 3.8 MEQ/L Chloride Level 108 MEQ/L Carbon Dioxide Level 25.5 MEQ/L Anion Gap 8 MEQ/L Estimat Glomerular Filtration Rate 60 ML/MIN Administered Medications Medications (Trade) Dose Ordered Sig/Ramy Route PRN Reason Start Time Stop Time Status Last Admin Dose Admin Sodium Chloride (NS Flush) 2 ml BID IV FLUSH 12/23/16 21:00 12/31/16 08:55 Senna/Docusate Sodium (Gaby-Colace) 1 tab BID PO 12/23/16 21:00 12/30/16 19:43 Acetaminophen/ Hydrocodone Bitart ([place] 5-325 Mg) 2 tab Q4H PRN PO PAIN SCALE 5 TO 10 12/25/16 19:30 12/30/16 23:15 Acetaminophen/ Hydrocodone Bitart ([place] 5-325 Mg) 1 tab Q4H PRN PO PAIN SCALE 1 TO 4 12/25/16 19:30 12/28/16 22:37 Albuterol/ Ipratropium (Duoneb Neb) 1 ampule Q2HR NEB PRN NEB dyspnea 12/26/16 15:15 12/26/16 17:44 Heparin Sodium (Porcine) (Heparin Inj) 5,000 units Q8HR SQ 12/26/16 22:00 Future hold 12/30/16 23:14 Albuterol/ Ipratropium (Duoneb Neb) 1 ampule QID NEB NEB 12/27/16 20:00 12/31/16 11:37 Carvedilol (Coreg) 6.25 mg Q12HR PO 12/28/16 21:00 12/31/16 08:50 Amoxicillin/ Clavulanate Potassium (Augmentin) 875 mg BID@0800,2000 PO 12/29/16 20:00 01/06/17 19:59 12/31/16 08:51 Prednisone (Deltasone) 10 mg DAILY PO 12/30/16 09:00 01/03/17 08:59 12/31/16 08:50 Potassium Chloride (KCl) 20 meq DAILY PO 12/30/16 09:00 12/31/16 08:50 Acetaminophen (Tylenol) 650 mg Q4H PRN PO SEE LABEL COMMENTS 12/30/16 10:00 12/30/16 19:43 Diphenhydramine HCl (Benadryl) 25 mg Q4H PRN PO SEE LABEL COMMENTS 12/30/16 10:00 12/30/16 19:43 Objective Remarks GENERAL: Pleasant middle aged female sitting up in bed in nad. SKIN: Warm and dry. HEAD: Normocephalic. EYES: No injection or drainage. NECK: Supple, trachea midline. CARDIOVASCULAR: +S1/S2 RESPIRATORY: diminished at bases, scattered wheeze. on 1L O2 via NC GASTROINTESTINAL: Abdomen soft, non-tender, nondistended. EXTREMITIES: No cyanosis NEUROLOGICAL: awake and alert, normal speech. moving all extremities. 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 Plan 1. start Carboplatin/VP16 today 2. continue supportive care 3. fs faxed to new patient referrals for follow up with Dr. Pedraza this . Hopefully will be able to give Neulasta at that time. Attending Statement The exam, history, and the medical decision-making described in the above note were completed with the assistance of the mid-level provider. I reviewed and agree with the findings presented. I attest that I had a [id number] encounter with the patient on the same day, and personally performed and documented my assessment and findings in the medical record. Pt seen and examined. Tolerated Day1 Carbo/VP16. Continue to Day 2 and Day3 chemo. Anticipate DC home after Day3 chemo, hopefully to follow up as out pt. Pt advised that she will need additional treatments that we will need to coordinate on out pt basis. Biopsy from LN same poorly differentiated cancer with neuroendocrine differentiation. Cr .93, increased from baseline, unable to use cisplatin. Monitor toxicity from chemo. 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
[2016-12-31] MEDS ORDERED: SODIUM CHLOR 0.9% 250 ML INJ 250 ML IV ONE (13:00)
[2016-12-31] MEDS ORDERED: GRANISETRON INJ 1 MG, DEXAMETHASONE INJ 20 MG in SODIUM CHLORIDE 0.9% INJ 50 ML IV ONE (13:30)
[2016-12-31] MEDS ORDERED: CARBOPLATIN IV ONE (14:00)
[2016-12-31] MEDS ORDERED: SODIUM CHLOR 0.9% IV ONE (14:00)
[2016-12-31] MEDS: ACETAMINOPHEN/HYDROcodone 325 MG/5 MG TAB PO PRN (15:21)
[2016-12-31] MEDS ORDERED: SODIUM CHLORID 0.9% 500 ML INJ 500 ML IV ONE (15:30)
[2016-12-31] MEDS: NS IV SCH (18:27)
[2016-12-31] MEDS: ETOPOSIDE IV SCH (18:27)
--- NOTE | 2016-12-31 19:33 | HHI.PR ---
Subjective Remarks On Chemo now. In better spirits. No chest pain.O2 at 3 L Objective Vital Signs Date Time Temp Pulse Resp B/P (MAP) Pulse Ox O2 Delivery O2 Flow Rate FiO2 12/31/16 16:00 93 12/31/16 16:00 96.8 93 19 112/69 (83) 95 12/31/16 15:07 95 Nasal Cannula 2.00 12/31/16 13:05 Nasal Cannula 2.00 12/31/16 12:47 97.4 95 19 121/72 (88) 95 12/31/16 12:00 93 12/31/16 08:58 96.6 95 20 134/76 (95) 99 12/31/16 08:45 Nasal Cannula 1.00 12/31/16 08:21 99 Nasal Cannula 2.00 12/31/16 04:00 97 12/31/16 04:00 96.3 104 19 113/67 (82) 94 12/31/16 00:00 98 12/31/16 00:00 97.3 100 18 107/67 (80) 95 12/30/16 23:20 97.4 100 19 108/69 96 12/30/16 21:00 97.7 109 18 113/71 97 12/30/16 20:50 Nasal Cannula 1.00 12/30/16 20:37 97.9 108 18 112/70 98 12/30/16 20:02 105 12/30/16 20:00 98.1 105 19 135/73 (93) 95 I/O 12/30/16 12/30/16 12/30/16 12/31/16 12/31/16 12/31/16 07:00 15:00 23:00 07:00 15:00 23:00 Intake Total 480 ml 1440 ml 565 ml 581 ml Balance 480 ml 1440 ml 565 ml 581 ml Intake Oral 480 ml 1440 ml 240 ml IV Total 581 ml Packed Cells 325 ml # Voids 2 8 1 # Bowel Movements 3 Result Diagram: 12/31/16 0500 12/31/16 0500 Objective Remarks GENERAL: This is a thin middle-aged white female who is pale appears chronically ill. HEENT: Head normocephalic. Pupils reactive. Sclerae are injected. Tongue was dry. Nasal mucosa is clear. NECK: Supple with no venous distension. No thyromegaly or lymphadenopathy. CHEST: Decreased breath sounds at the bases more so on the left side with occasional bibasilar crackles and wheezes . CARDIAC: Heart sounds are irregular S1-S2. No murmur. ABDOMEN: Protuberant with some tenderness in the upper abdomen with liver just felt below the costal margin. The bowel sounds are active. EXTREMITIES: Minimal edema with decreased pulses. Reflexes are 1+ with no gross motor deficits. SKIN: Dry and cool. Assessment and Plan Assessment and Plan IMPRESSION 1. [id number] lung cancer with metastatic disease to bone. 2. Mediastinal and retroperitoneal lymphadenopathy, rule out lymphoma. 3. Ascites and pleural effusions. 4. COPD with emphysema and chronic bronchitis 5. Possible basilar pneumonia. Plan : 1. O2 at 2 L. 2. Cont Nebs qid , duoneb. 3. Chemo as planned . 4. Symbicort 160/4.5 Mcg , 2 puffs bid. 5. Cont Antibiotics Jaswant Cardenas MD Dec 31, 2016 19:32
[2017-01-01] VITALS (8 sets, daily range): BP systolic 125–145; BP diastolic 64–87; PULSE 82–93; RESP 16–20; TEMP 96.1–97.6; O2SAT 94–97
[2017-01-01] MEDS: HEPARIN SODIUM - SQ 10,000 UNITS/ML VIAL SQ SCH ×3 (04:25→21:57)
[2017-01-01 04:39] LABS: AUTOMATED NEUTROPHIL # 10.3 TH/MM3 (1.8-7.7); BASOPHIL % 0.4 % (0.0-2.0); HEMO FLAGS DIFF FINAL; LYMPH % 7.7 % (9.0-44.0); LYMPHOCYTE # 0.9 TH/MM3 (1.0-4.8); MEAN CELL VOLUME 80.5 FL (80.0-100.0); MEAN CORPUSCULAR HEMOGLOBIN 25.1 PG (27.0-34.0); MEAN CORPUSCULAR HGB CONC 31.2 % (32.0-36.0); MONO % 3.7 % (0.0-8.0); NEUT % 88.2 % (16.0-70.0); PLATELET COUNT 562 TH/MM3 (150-450); RED BLOOD COUNT 3.36 MIL/MM3 (4.00-5.30); RED CELL DISTRIBUTION WIDTH 18.7 % (11.6-17.2); WHITE BLOOD COUNT 11.7 TH/MM3 (4.0-11.0)
[2017-01-01 05:08] LABS: ANION GAP 9 MEQ/L (5-15); AST (GOT) 13 U/L (15-37); BICARBONATE 22.9 MEQ/L (21.0-32.0); BLOOD UREA NITROGEN 12 MG/DL (7-18); CHLORIDE 108 MEQ/L (98-107); GLOMERULAR FILTRATION RATE 60 ML/MIN (>89); POTASSIUM 4.2 MEQ/L (3.5-5.1); SODIUM (NA) 140 MEQ/L (136-145)
[2017-01-01 05:11] LABS: ALKALINE PHOSPHATASE 72 U/L (45-117); ALT (GPT) LESS THAN 6 U/L (10-53); TOTAL BILIRUBIN ADULT 0.3 MG/DL (0.2-1.0)
--- NOTE | 2017-01-01 06:05 | RADRPT ---
EXAM DATE/TIME: 01/01/2017 05:04 [facility] COMPARISON: CHEST SINGLE AP, December 30, 2016, 12:49. INDICATIONS : Shortness of breath. MEDICAL HISTORY : Chronic obstructive pulmonary disease. Metastatic cancer. SURGICAL HISTORY : None. ENCOUNTER: Subsequent ACUITY: 1 week PAIN SCORE: 0/10 LOCATION: Bilateral chest FINDINGS: A single view of the chest demonstrates right PICC line tip in right atrium. Basilar airspace disease and pleural effusions unchanged from December 30. Scoliosis. CONCLUSION: 1. Basilar airspace disease and pleural effusions not significantly changed over the last day. Right PICC line in right atrium. Soham Mcbride MD on January 01, 2017 at 6:01 Board Certified Radiologist. This report was verified electronically.
[2017-01-01] MEDS: SODIUM CHLORIDE 0.9% FLUSH 10 ML FLUSH IV FLUSH SCH ×3 (09:00→20:28)
[2017-01-01] MEDS: CARVEDILOL 6.25 MG TAB PO SCH ×2 (09:16→20:28)
[2017-01-01] MEDS: predniSONE 10 MG TAB PO SCH (09:16)
[2017-01-01] MEDS: DOCUSATE SODIUM 50 MG/SENNA 8.6 MG TAB PO SCH ×2 (09:16→20:28)
[2017-01-01] MEDS: POTASSIUM CHLORIDE 20 MEQ CONTROLLED RELEASE TAB PO SCH (09:17)
[2017-01-01] MEDS: AMOXICILLIN/CLAVULANATE K 875 MG TAB PO SCH ×2 (09:22→20:28)
--- NOTE | 2017-01-01 11:45 | HHI.PR ---
Subjective Remarks Follow-up pneumonia and metastatic lung cancer. Patient doing well noted slight abdominal distention denies abdominal pain. She is stooling. Discussed with RN Objective Vitals Vital Signs Date Time Temp Pulse Resp B/P (MAP) Pulse Ox O2 Delivery O2 Flow Rate FiO2 01/01/17 09:35 96 Nasal Cannula 2.00 01/01/17 04:00 90 01/01/17 04:00 97.0 91 17 125/78 (94) 97 01/01/17 00:00 86 01/01/17 00:00 97.0 89 18 134/73 (93) 94 12/31/16 20:00 Nasal Cannula 2.00 12/31/16 20:00 97.7 103 18 135/71 (92) 90 12/31/16 20:00 94 12/31/16 16:00 93 12/31/16 16:00 96.8 93 19 112/69 (83) 95 12/31/16 15:07 95 Nasal Cannula 2.00 12/31/16 13:05 Nasal Cannula 2.00 12/31/16 12:47 97.4 95 19 121/72 (88) 95 12/31/16 12:00 93 I/O 12/31/16 12/31/16 12/31/16 01/01/17 01/01/17 01/01/17 07:00 15:00 23:00 07:00 15:00 23:00 Intake Total 565 ml 1089.75 ml 500 ml Output Total 550 ml Balance 565 ml 1089.75 ml -50 ml Intake Oral 240 ml IV Total 1089.75 ml 500 ml Packed Cells 325 ml Output Urine Total 550 ml # Voids 1 1 Result Diagram: 01/01/17 0420 01/01/17 0420 Imaging Last Impressions Chest X-Ray 01/01/17 0600 Signed Impressions: Service Date/Time: Sunday, January 01, 2017 05:04 - CONCLUSION: 1. Basilar airspace disease and pleural effusions not significantly changed over the last day. Right PICC line in right atrium. Soham Mcbride MD Brain MRI 12/30/16 0000 Signed Impressions: Service Date/Time: Friday, December 30, 2016 10:44 - CONCLUSION: 1. There are 3 abnormal calvarial lesions measuring up to 17 mm. The appearance is highly suspicious for metastatic bone disease. Intracranially, no metastatic disease or acute abnormality is identified. 2. There is a subcutaneous nodule on the right face measuring 9 mm. Isidoro Merchant MD Lower Extremity Ultrasound 12/29/16 0000 Signed Impressions: Service Date/Time: Thursday, December 29, 2016 16:26 - CONCLUSION: 1. No evidence of deep venous thrombosis. 2. Multiple hypoechoic complex cystic-appearing lesion along the medial right knee in the area of palpable concern. The finding is nonspecific. Bg Lugo MD Lymph Node Biopsy CT 12/27/16 0000 Signed Impressions: Service Date/Time: December 09:38 - CONCLUSION: Uncomplicated CT guided biopsy. Rudy Gaxiola MD Thoracic Spine MRI 12/26/16 0000 Signed Impressions: Service Date/Time: Monday, December 26, 2016 15:35 - CONCLUSION: 1. Metastatic lesions involving T4, T5, and T10. There is a pathologic compression fracture involving T4 with 5 mm of retropulsion. The metastatic lesion encroaches upon the right anterolateral portion of the central canal abutting the cord as well as narrowing the right neural foramen. Metastatic lesions at T5 and T10 do not cause significant encroachment upon the cord or central canal. Devon Pope Jr., MD Lumbar Spine MRI 12/26/16 0000 Signed Impressions: Service Date/Time: Monday, December 26, 2016 15:35 - CONCLUSION: 1. Diffuse retroperitoneal adenopathy. 2. 2 metastatic lesions involving the L3 vertebral body with without degeneration the central canal encroachment or neural impingement. 3. Multilevel degenerative changes as detailed above. Devon Pope Jr., MD Cervical Spine MRI 12/26/16 0000 Signed Impressions: Service Date/Time: Monday, December 26, 2016 15:35 - CONCLUSION: 1. Study significantly degraded by motion artifact. 2. No metastatic lesions involving the cervical spine. See the thoracic spine reported separately. 3. Multilevel degenerative changes as detailed at each level in the above discussion. Devon Pope Jr., MD Cyst Biopsy Asp-Paracentesis US 12/25/16 0000 Signed Impressions: Service Date/Time: Sunday, December 25, 2016 08:53 - CONCLUSION: Uncomplicated ultrasound guided paracentesis. Armand Hunter MD CT Angiography 12/23/16 0000 Signed Impressions: Service Date/Time: Friday, December 23, 2016 17:04 - CONCLUSION: 1. No CT evidence for pulmonary artery embolism through the segmental level. 2. Improved bulky supraclavicular, mediastinal and hilar adenopathy with improved dominant subcarinal mass/node now measuring 4.8 x 3.4 cm in comparison to 5.4 x 4.2 cm on prior exam. There is also improved associated right hilar mass effect with near interval resolution of postobstructive central right lower lobe consolidation. 3. Multiple lytic metastatic bony lesions with infiltrative lytic mass at T4 with associated moderate progressive compression deformity. 4. Interval resolution of right pleural effusion. Moderate left pleural effusion with associated compressive atelectasis in the left lower lobe. 5. Bulky retroperitoneal adenopathy in the visualized portions of the upper abdomen. 6. Small to moderate ascites in the visualized upper abdomen. 7. Stable ancillary findings, as above. Syed Valencia MD Abdomen/Pelvis CT 12/23/16 0000 Signed Impressions: Service Date/Time: Friday, December 23, 2016 17:04 - CONCLUSION: 1. New omental/peritoneal caking and worsening retroperitoneal lymphadenopathy, presumably metastatic. Lymphoma would be in the differential but the omental caking is not typical for such. 2. Enlarged, heterogeneously enhancing kidneys and infiltrating neoplasm such as metastatic disease or lymphoma would be in the differential. 3. Moderate ascites, new. Isidoro Padilla MD Objective Remarks Well-developed, well-nourished in no distress on 2 L nasal cannula Equal in expansion decreased breath sounds Regular rate and rhythm Abdomen soft nontender with ascites extremities with pitting edema and no cyanosis Alert and oriented nonfocal Procedures Retroperitoneal lymph node biopsy Paracentesis PICC A/P Problem List: (1) Sepsis ICD Code: A41.9 - Sepsis, unspecified organism Status: Acute (2) Metastatic neoplastic disease ICD Code: C79.9 - Secondary malignant neoplasm of unspecified site (3) COPD (chronic obstructive pulmonary disease) ICD Code: J44.9 - Chronic obstructive pulmonary disease, unspecified (4) Hypoxia ICD Code: R09.02 - Hypoxemia Status: Acute Assessment and Plan (1) Sepsis Recent postobstructive pneumonia, improved symptoms BC, ascites neg so far Continue Augmentin total of 2 weeks till January 11 status post IV Vanco and Zosyn. 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 Follow-up brain MRI results which showed 3 abnormal calvarial lesions measuring up to 17 mm highly suspicious for metastatic bone disease. Slight worsening of ascites secondary to IV hydration from chemotherapy. Consider diuresis. Abdominal/pelvic CT results noted (3) COPD (chronic obstructive pulmonary disease) Improving continue bronchodilators, taper prednisone and wean O2 (4) Hypoxia Hypoxemia likely secondary to healthcare associated pneumonia, copd, DVT prophylaxis with heparin q8 Discharge Planning Discharge when cleared by oncology Marko Amaro MD Jan 01, 2017 11:45
[2017-01-01] MEDS ORDERED: SODIUM CHLOR 0.9% 250 ML INJ 250 ML IV ONE (13:30)
--- NOTE | 2017-01-01 14:09 | PD.ONC.PN ---
Subjective Subjective Remarks Afebrile overnight. Patient resting in bed in nad. Tolerating chemotherapy. No nausea or vomiting. Dyspnea is stable. Objective Data Date Time Temp Pulse Resp B/P (MAP) Pulse Ox O2 Delivery O2 Flow Rate FiO2 01/01/17 12:00 97.4 93 16 134/64 (87) 97 01/01/17 09:35 96 Nasal Cannula 2.00 01/01/17 08:00 96.1 90 20 133/73 (93) 97 01/01/17 04:00 90 01/01/17 04:00 97.0 91 17 125/78 (94) 97 01/01/17 00:00 86 01/01/17 00:00 97.0 89 18 134/73 (93) 94 12/31/16 20:00 Nasal Cannula 2.00 12/31/16 20:00 97.7 103 18 135/71 (92) 90 12/31/16 20:00 94 12/31/16 16:00 93 12/31/16 16:00 96.8 93 19 112/69 (83) 95 12/31/16 15:07 95 Nasal Cannula 2.00 01/01/17 01/01/17 01/01/17 07:00 15:00 23:00 Intake Total 500 ml Output Total 550 ml Balance -50 ml Result Diagram: 01/01/1741901/01/17419 Laboratory Results Laboratory Tests Test 01/01/17 04:20 White Blood Count 11.7 TH/MM3 Red Blood Count 3.36 MIL/MM3 Hemoglobin 8.4 GM/DL Hematocrit 27.0 % Mean Corpuscular Volume 80.5 FL Mean Corpuscular Hemoglobin 25.1 PG Mean Corpuscular Hemoglobin Concent 31.2 % Red Cell Distribution Width 18.7 % Platelet Count 562 TH/MM3 Mean Platelet Volume 6.6 FL Neutrophils (%) (Auto) 88.2 % Lymphocytes (%) (Auto) 7.7 % Monocytes (%) (Auto) 3.7 % Eosinophils (%) (Auto) 0.0 % Basophils (%) (Auto) 0.4 % Neutrophils # (Auto) 10.3 TH/MM3 Lymphocytes # (Auto) 0.9 TH/MM3 Monocytes # (Auto) 0.4 TH/MM3 Eosinophils # (Auto) 0.0 TH/MM3 Basophils # (Auto) 0.0 TH/MM3 CBC Comment DIFF FINAL Differential Comment Blood Urea Nitrogen 12 MG/DL Creatinine 0.95 MG/DL Random Glucose 127 MG/DL Total Protein 5.4 GM/DL Albumin 1.3 GM/DL Calcium Level 7.8 MG/DL Alkaline Phosphatase 72 U/L Aspartate Amino Transf (AST/SGOT) 13 U/L Alanine Aminotransferase (ALT/SGPT) LESS THAN 6 U/L Total Bilirubin 0.3 MG/DL Sodium Level 140 MEQ/L Potassium Level 4.2 MEQ/L Chloride Level 108 MEQ/L Carbon Dioxide Level 22.9 MEQ/L Anion Gap 9 MEQ/L Estimat Glomerular Filtration Rate 60 ML/MIN Imaging Studies Last 24 hours Impressions Chest X-Ray 01/01/17 0600 Signed Impressions: Service Date/Time: Sunday, January 01, 2017 05:04 - CONCLUSION: 1. Basilar airspace disease and pleural effusions not significantly changed over the last day. Right PICC line in right atrium. Soham Mcbride MD Administered Medications Medications (Trade) Dose Ordered Sig/Ramy Route PRN Reason Start Time Stop Time Status Last Admin Dose Admin Sodium Chloride (NS Flush) 2 ml BID IV FLUSH 12/23/16 21:00 01/01/17 09:17 Senna/Docusate Sodium (Gaby-Colace) 1 tab BID PO 12/23/16 21:00 01/01/17 09:16 Acetaminophen/ Hydrocodone Bitart ([place] 5-325 Mg) 2 tab Q4H PRN PO PAIN SCALE 5 TO 10 12/25/16 19:30 12/31/16 15:21 Acetaminophen/ Hydrocodone Bitart ([place] 5-325 Mg) 1 tab Q4H PRN PO PAIN SCALE 1 TO 4 12/25/16 19:30 12/28/16 22:37 Albuterol/ Ipratropium (Duoneb Neb) 1 ampule Q2HR NEB PRN NEB dyspnea 12/26/16 15:15 12/26/16 17:44 Heparin Sodium (Porcine) (Heparin Inj) 5,000 units Q8HR SQ 12/26/16 22:00 Future hold 01/01/17 04:25 Carvedilol (Coreg) 6.25 mg Q12HR PO 12/28/16 21:00 01/01/17 09:16 Amoxicillin/ Clavulanate Potassium (Augmentin) 875 mg BID@0800,2000 PO 12/29/16 20:00 01/06/17 19:59 01/01/17 09:22 Prednisone (Deltasone) 10 mg DAILY PO 12/30/16 09:00 01/03/17 08:59 01/01/17 09:16 Potassium Chloride (KCl) 20 meq DAILY PO 12/30/16 09:00 01/01/17 09:17 Acetaminophen (Tylenol) 650 mg Q4H PRN PO SEE LABEL COMMENTS 12/30/16 10:00 12/30/16 19:43 Diphenhydramine HCl (Benadryl) 25 mg Q4H PRN PO SEE LABEL COMMENTS 12/30/16 10:00 12/30/16 19:43 Heparin Sodium (Porcine) (Heparin Central Flush) See Protocol DAILY IV FLUSH 12/31/16 09:00 01/01/17 09:17 Etoposide 175 mg/ Sodium Chloride 508.75 ml @ 508.75 mls/hr Q24H IV 12/31/16 14:30 01/02/17 15:29 12/31/16 18:27 Objective Remarks GENERAL: chronically ill female upright in bed in nad. On 2L O2 via NC SKIN: Warm and dry. HEAD: Normocephalic. EYES: No injection or drainage. NECK: Supple, trachea midline. CARDIOVASCULAR: +S1/S2 RESPIRATORY: bases diminished. scattered rhonchi in anterior lung rob. on 2L O2 via NC GASTROINTESTINAL: Abdomen distended. nontender. EXTREMITIES: No cyanosis NEUROLOGICAL: aox3. normal speech. moving extremities. 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 Plan 1. continue VP16 2. monitor electrolytes, renal function 3. can discharge after chemotherapy tomorrow. needs to follow up at clinic on . Attending Statement The exam, history, and the medical decision-making described in the above note were completed with the assistance of the mid-level provider. I reviewed and agree with the findings presented. I attest that I had a [id number] encounter with the patient on the same day, and personally performed and documented my assessment and findings in the medical record. c/o SOB from ascites Feels over all that breathing is better. LE edema improved but ascites worsen, tense. Pt able to eat dinner but slowly. Discussed with pharmacy dose reduction on Day 3 etoposide to 100mg, liver metabolized. Noted LFT normal. Out pt trying to get Neulasta approved. If symptoms persist, will request US guide paracentesis for comfort. Pt WBC and platelet have not yet saniya. 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
[2017-01-01] MEDS ORDERED: SODIUM CHLORID 0.9% 500 ML INJ 500 ML IV ONE (15:30)
[2017-01-01] MEDS: DEXAMETHASONE INJ 10 MG in SODIUM CHLORIDE 0.9% INJ 50 ML IV SCH (15:52)
[2017-01-01] MEDS: ACETAMINOPHEN/HYDROcodone 325 MG/5 MG TAB PO PRN ×2 (15:57→21:56)
[2017-01-01] MEDS: ETOPOSIDE IV SCH (17:25)
[2017-01-01] MEDS: SODIUM CHLOR 0.9% 250 ML INJ 250 ML IV SCH (17:25)
[2017-01-01] MEDS: NS IV SCH (17:25)
[2017-01-02] VITALS (12 sets, daily range): BP systolic 124–148; BP diastolic 64–91; PULSE 76–82; RESP 14–18; TEMP 95.6–97.2; O2SAT 94–99
[2017-01-02] MEDS: HEPARIN SODIUM - SQ 10,000 UNITS/ML VIAL SQ SCH ×3 (05:27→22:22)
[2017-01-02] MEDS: CARVEDILOL 6.25 MG TAB PO SCH ×2 (08:23→22:22)
[2017-01-02] MEDS: POTASSIUM CHLORIDE 20 MEQ CONTROLLED RELEASE TAB PO SCH (08:23)
[2017-01-02] MEDS: predniSONE 10 MG TAB PO SCH (08:24)
[2017-01-02] MEDS: AMOXICILLIN/CLAVULANATE K 875 MG TAB PO SCH ×2 (08:25→22:20)
[2017-01-02] MEDS: SODIUM CHLORIDE 0.9% FLUSH 10 ML FLUSH IV FLUSH SCH ×3 (08:27→21:00)
[2017-01-02] MEDS: DOCUSATE SODIUM 50 MG/SENNA 8.6 MG TAB PO SCH ×2 (08:28→21:00)
--- NOTE | 2017-01-02 09:20 | HHI.PR ---
Subjective Remarks Follow-up Ascites. Complaining of bilateral upper quadrant discomfort when recumbent. Still feeling bloated. 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 Objective Vitals Vital Signs Date Time Temp Pulse Resp B/P (MAP) Pulse Ox O2 Delivery O2 Flow Rate FiO2 01/02/17 08:43 76 01/02/17 08:00 95.6 76 18 148/91 (110) 98 01/02/17 04:00 97.0 82 17 125/64 (84) 98 01/02/17 04:00 79 01/02/17 00:00 97.0 81 17 141/89 (106) 99 01/02/17 00:00 82 01/01/17 20:20 Nasal Cannula 2.00 01/01/17 20:00 96.1 83 18 145/87 (106) 97 01/01/17 20:00 82 01/01/17 17:38 97 Nasal Cannula 2.00 01/01/17 16:00 97.6 92 16 131/84 (100) 96 01/01/17 14:12 Nasal Cannula 2.00 01/01/17 12:00 97.4 93 16 134/64 (87) 97 01/01/17 09:35 96 Nasal Cannula 2.00 I/O 01/01/17 01/01/17 01/01/17 01/02/17 01/02/17 01/02/17 07:00 15:00 23:00 07:00 15:00 23:00 Intake Total 500 ml 1773.75 ml 900 ml Output Total 550 ml Balance -50 ml 1773.75 ml 900 ml Intake Oral 960 ml 400 ml IV Total 500 ml 813.75 ml 500 ml Output Urine Total 550 ml # Voids 6 2 # Bowel Movements 3 Result Diagram: 01/01/17 0420 01/01/17 0420 Imaging Last Impressions Chest X-Ray 01/01/17 0600 Signed Impressions: Service Date/Time: Sunday, January 01, 2017 05:04 - CONCLUSION: 1. Basilar airspace disease and pleural effusions not significantly changed over the last day. Right PICC line in right atrium. Soham Mcbride MD Brain MRI 12/30/16 0000 Signed Impressions: Service Date/Time: Friday, December 30, 2016 10:44 - CONCLUSION: 1. There are 3 abnormal calvarial lesions measuring up to 17 mm. The appearance is highly suspicious for metastatic bone disease. Intracranially, no metastatic disease or acute abnormality is identified. 2. There is a subcutaneous nodule on the right face measuring 9 mm. Isidoro Merchant MD Lower Extremity Ultrasound 12/29/16 0000 Signed Impressions: Service Date/Time: Thursday, December 29, 2016 16:26 - CONCLUSION: 1. No evidence of deep venous thrombosis. 2. Multiple hypoechoic complex cystic-appearing lesion along the medial right knee in the area of palpable concern. The finding is nonspecific. Bg Lugo MD Lymph Node Biopsy CT 12/27/16 0000 Signed Impressions: Service Date/Time: December 09:38 - CONCLUSION: Uncomplicated CT guided biopsy. Rudy Gaxiola MD Thoracic Spine MRI 12/26/16 0000 Signed Impressions: Service Date/Time: Monday, December 26, 2016 15:35 - CONCLUSION: 1. Metastatic lesions involving T4, T5, and T10. There is a pathologic compression fracture involving T4 with 5 mm of retropulsion. The metastatic lesion encroaches upon the right anterolateral portion of the central canal abutting the cord as well as narrowing the right neural foramen. Metastatic lesions at T5 and T10 do not cause significant encroachment upon the cord or central canal. Dveon Pope Jr., MD Lumbar Spine MRI 12/26/16 0000 Signed Impressions: Service Date/Time: Monday, December 26, 2016 15:35 - CONCLUSION: 1. Diffuse retroperitoneal adenopathy. 2. 2 metastatic lesions involving the L3 vertebral body with without degeneration the central canal encroachment or neural impingement. 3. Multilevel degenerative changes as detailed above. Devon Poep Jr., MD Cervical Spine MRI 12/26/16 0000 Signed Impressions: Service Date/Time: Monday, December 26, 2016 15:35 - CONCLUSION: 1. Study significantly degraded by motion artifact. 2. No metastatic lesions involving the cervical spine. See the thoracic spine reported separately. 3. Multilevel degenerative changes as detailed at each level in the above discussion. Devon Pope Jr., MD Cyst Biopsy Asp-Paracentesis US 12/25/16 0000 Signed Impressions: Service Date/Time: Sunday, December 25, 2016 08:53 - CONCLUSION: Uncomplicated ultrasound guided paracentesis. Armand Hunter MD CT Angiography 12/23/16 0000 Signed Impressions: Service Date/Time: Friday, December 23, 2016 17:04 - CONCLUSION: 1. No CT evidence for pulmonary artery embolism through the segmental level. 2. Improved bulky supraclavicular, mediastinal and hilar adenopathy with improved dominant subcarinal mass/node now measuring 4.8 x 3.4 cm in comparison to 5.4 x 4.2 cm on prior exam. There is also improved associated right hilar mass effect with near interval resolution of postobstructive central right lower lobe consolidation. 3. Multiple lytic metastatic bony lesions with infiltrative lytic mass at T4 with associated moderate progressive compression deformity. 4. Interval resolution of right pleural effusion. Moderate left pleural effusion with associated compressive atelectasis in the left lower lobe. 5. Bulky retroperitoneal adenopathy in the visualized portions of the upper abdomen. 6. Small to moderate ascites in the visualized upper abdomen. 7. Stable ancillary findings, as above. Syed Valencia MD Abdomen/Pelvis CT 12/23/16 0000 Signed Impressions: Service Date/Time: Friday, December 23, 2016 17:04 - CONCLUSION: 1. New omental/peritoneal caking and worsening retroperitoneal lymphadenopathy, presumably metastatic. Lymphoma would be in the differential but the omental caking is not typical for such. 2. Enlarged, heterogeneously enhancing kidneys and infiltrating neoplasm such as metastatic disease or lymphoma would be in the differential. 3. Moderate ascites, new. Isidoro Padilla MD Objective Remarks Well-developed, well-nourished in no distress on 2 L nasal cannula Equal in expansion decreased breath sounds Regular rate and rhythm Abdomen soft nontender with ascites extremities with pitting edema and no cyanosis Alert and oriented nonfocal Procedures Retroperitoneal lymph node biopsy Paracentesis PICC A/P Problem List: (1) Sepsis ICD Code: A41.9 - Sepsis, unspecified organism Status: Acute (2) Metastatic neoplastic disease ICD Code: C79.9 - Secondary malignant neoplasm of unspecified site (3) COPD (chronic obstructive pulmonary disease) ICD Code: J44.9 - Chronic obstructive pulmonary disease, unspecified (4) Hypoxia ICD Code: R09.02 - Hypoxemia Status: Acute Assessment and Plan (1) Sepsis Recent postobstructive pneumonia, improved symptoms BC, ascites neg so far Continue Augmentin total of 2 weeks till January 11 status post IV Vanco and Zosyn. 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 Follow-up brain MRI results which showed 3 abnormal calvarial lesions measuring up to 17 mm highly suspicious for metastatic bone disease. Complaining of abdominal pain and increased ascites on IV hydration from chemotherapy. Therapeutic and diagnostic paracentesis. Consider diuresis. (3) COPD (chronic obstructive pulmonary disease) Improving continue bronchodilators, taper prednisone and wean O2. Oxygen walk test (4) Hypoxia Hypoxemia likely secondary to healthcare associated pneumonia, copd, DVT prophylaxis with heparin q8 Discharge Planning Discharge when cleared by oncology Marilu the morning Marko Amaro MD Jan 02, 2017 09:20
[2017-01-02] MEDS ORDERED: HYDR-3516 PO (09:24)
[2017-01-02] MEDS ORDERED: AMOX875T2 PO (09:24)
[2017-01-02] MEDS ORDERED: CARV6.25 PO (09:24)
--- NOTE | 2017-01-02 09:24 | HHI.DCPOC ---
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 Avoid second hand smoke Call the 24-hour hour crisis hotline for domestic abuse at Marko Amaro MD Jan 02, 2017 09:24
[2017-01-02] MEDS ORDERED: OXYGENDME NAS.CANULA (09:26)
[2017-01-02] MEDS: RESP: ALBUTEROL 2.5 MG/IPRATROPIUM 0.5 MG NEB (PRN) NEB (10:05)
--- NOTE | 2017-01-02 10:32 | PD.ONC.PN ---
Subjective Subjective Remarks Afebrile Reports that the abdominal distension feels worse making breathing more difficult Breathing about the same Otherwise she is tolerating chemotherapy Objective Data Date Time Temp Pulse Resp B/P (MAP) Pulse Ox O2 Delivery O2 Flow Rate FiO2 01/02/17 10:07 99 Nasal Cannula 2.00 01/02/17 08:43 76 01/02/17 08:00 95.6 76 18 148/91 (110) 98 01/02/17 04:00 97.0 82 17 125/64 (84) 98 01/02/17 04:00 79 01/02/17 00:00 97.0 81 17 141/89 (106) 99 01/02/17 00:00 82 01/01/17 20:20 Nasal Cannula 2.00 01/01/17 20:00 96.1 83 18 145/87 (106) 97 01/01/17 20:00 82 01/01/17 17:38 97 Nasal Cannula 2.00 01/01/17 16:00 97.6 92 16 131/84 (100) 96 01/01/17 14:12 Nasal Cannula 2.00 01/01/17 12:00 97.4 93 16 134/64 (87) 97 01/02/17 01/02/17 01/02/17 07:00 15:00 23:00 Intake Total 900 ml Balance 900 ml Result Diagram: 01/01/17 04201/01/17 0420 Administered Medications Medications (Trade) Dose Ordered Sig/Ramy Route PRN Reason Start Time Stop Time Status Last Admin Dose Admin Sodium Chloride (NS Flush) 2 ml BID IV FLUSH 12/23/16 21:00 01/01/17 09:17 Senna/Docusate Sodium (Gaby-Colace) 1 tab BID PO 12/23/16 21:00 01/01/17 09:16 Sennosides (Senokot) 17.2 mg Q12H PRN PO MODERATE - SEVERE CONSTIPATION 12/23/16 16:15 01/01/17 15:52 Acetaminophen/ Hydrocodone Bitart ([place] 5-325 Mg) 2 tab Q4H PRN PO PAIN SCALE 5 TO 10 12/25/16 19:30 01/01/17 15:57 Acetaminophen/ Hydrocodone Bitart ([place] 5-325 Mg) 1 tab Q4H PRN PO PAIN SCALE 1 TO 4 12/25/16 19:30 01/01/17 21:56 Albuterol/ Ipratropium (Duoneb Neb) 1 ampule Q2HR NEB PRN NEB dyspnea 12/26/16 15:15 01/02/17 10:05 Heparin Sodium (Porcine) (Heparin Inj) 5,000 units Q8HR SQ 12/26/16 22:00 Future hold 01/01/17 21:57 Carvedilol (Coreg) 6.25 mg Q12HR PO 12/28/16 21:00 01/02/17 08:23 Amoxicillin/ Clavulanate Potassium (Augmentin) 875 mg BID@0800,2000 PO 12/29/16 20:00 01/06/17 19:59 01/02/17 08:25 Prednisone (Deltasone) 10 mg DAILY PO 12/30/16 09:00 01/03/17 08:59 01/02/17 08:24 Potassium Chloride (KCl) 20 meq DAILY PO 12/30/16 09:00 01/02/17 08:23 Acetaminophen (Tylenol) 650 mg Q4H PRN PO SEE LABEL COMMENTS 12/30/16 10:00 12/30/16 19:43 Diphenhydramine HCl (Benadryl) 25 mg Q4H PRN PO SEE LABEL COMMENTS 12/30/16 10:00 12/30/16 19:43 Sodium Chloride (NS Flush) See Protocol DAILY IV FLUSH 12/31/16 09:00 01/02/17 08:27 Heparin Sodium (Porcine) (Heparin Central Flush) See Protocol DAILY IV FLUSH 12/31/16 09:00 01/02/17 08:24 Sodium Chloride 250 ml @ 0 mls/hr Q24H IV 12/31/16 14:00 01/02/17 23:59 01/01/17 17:25 Dexamethasone Sodium Phosphate 10 mg/Sodium Chloride 52.5 ml @ 210 mls/hr Q24H IV 01/01/17 14:00 01/02/17 14:14 01/01/17 15:52 Objective Remarks GENERAL: Chronically ill-appearing female sitting up in bed in no acute distress. SKIN: Warm and dry. HEAD: Normocephalic. EYES: No injection or drainage. NECK: Supple, trachea midline. CARDIOVASCULAR: +S1/S2 RESPIRATORY: Scattered wheezing posteriorly. On 2 L O2 via nasal cannula GASTROINTESTINAL: Abdomen distended. nontender. EXTREMITIES: No cyanosis. Generalized edema to bilateral lower extremities NEUROLOGICAL: Moving all extremities. Normal speech. 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 Plan 1. Last day of chemotherapy today 2. We'll get ultrasound to evaluate if patient would benefit from repeat paracentesis 3. Okay for discharge once respiratory issues have resolved. 4. Will need growth factor support tomorrow; if inpatient will give Neupogen, or if discharged can get Neulasta in clinic. Attending Statement The exam, history, and the medical decision-making described in the above note were completed with the assistance of the mid-level provider. I reviewed and agree with the findings presented. I attest that I had a [id number] encounter with the patient on the same day, and personally performed and documented my assessment and findings in the medical record. Pt seen and examined. Feel better after paracentesis. Plan for DC tomorrow. Request assistance from CM to assist with pt establish with PCP. Pt needs to see PCP prior to approval to see oncologist. Insurance pathway does not allow pt to come in for her Neulasta support within 3 days after chemo. Out pt working on prior auth since pt will need GCSF support. Highest risk of neutropenic fever is first cycle. 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
[2017-01-02] MEDS ORDERED: LIDOCAINE HCL 1% 30 ML VIAL SQ ONE (13:24)
[2017-01-02] MEDS ORDERED: SODIUM CHLOR 0.9% 250 ML INJ 250 ML IV ONE (13:30)
[2017-01-02] MEDS ORDERED: ETOPOSIDE IV SCH (14:30)
[2017-01-02] MEDS ORDERED: NS IV SCH (14:30)
[2017-01-02 15:04] LABS: PERITONEAL WBC 676 /MM3 (0-10)
[2017-01-02 15:05] LABS: PERITONEAL HISTIOCYTES 8 %; PERITONEAL LYMPHS 71 %; PERITONEAL MESOTHELIAL 9 %; PERITONEAL MONOS 2 %; PERITONEAL POLYS(SEGS) 10 %
[2017-01-02] MEDS ORDERED: SODIUM CHLORID 0.9% 500 ML INJ 500 ML IV ONE (15:30)
[2017-01-02] MEDS: DEXAMETHASONE INJ 10 MG in SODIUM CHLORIDE 0.9% INJ 50 ML IV SCH (16:14)
--- NOTE | 2017-01-02 16:32 | RADRPT ---
EXAM DATE/TIME: 01/02/2017 11:48 [facility] COMPARISON: US GUIDED ABD PARACENTESIS, December 25, 2016, 8:53. INDICATIONS : Ascites. MEDICAL HISTORY : Chronic obstructive pulmonary disease. Pneumonia. Measles. SURGICAL HISTORY : None. ENCOUNTER: Initial ACUITY: 1 week PAIN SCORE: 0/10 LOCATION: Left lower quadrant FLUID: Total volume of 1, 200 cc of clear, yellow fluid was removed. Fluid was sent to lab for ordered studies. Post procedure scanning reveals no hematoma or other complication. TECHNIQUE: 1. Ultrasound guidance for abdominal paracentesis. 2. Paracentesis. The risks, benefits, and alternatives to ultrasound guided paracentesis were explained to the patient in detail including the risk of bleeding and infection. Written and verbal informed consent was obt ained. With the patient on the ultrasound table, ultrasound imaging was used to select the most appropriate approach for paracentesis. Overlying skin was prepped and draped in the usual sterile fashion and wi th a local anesthetic, a dermatotomy was made with an 11 blade scalpel. A 6 [id number] ca theter was introduced into the peritoneal cavity and fluid was collected. The patient tolerated the procedure well and left the ultrasound suite in stable condition. CONCLUSION: Uncomplicated ultrasound guided paracentesis. Syed Valencia MD on January 02, 2017 at 16:30 Board Certified Radiologist. This report was verified electronically.
[2017-01-02] MEDS: SODIUM CHLOR 0.9% 250 ML INJ 250 ML IV SCH (17:37)
[2017-01-02] MEDS: ACETAMINOPHEN/HYDROcodone 325 MG/5 MG TAB PO PRN (22:21)
[2017-01-03] VITALS: BP 127/76; PULSE 78; RESP 17; TEMP 96.3; O2SAT 97
[2017-01-03 04:00] VITALS: BP 125/77; PULSE 78; RESP 18; TEMP 96.5; O2SAT 96
[2017-01-03] MEDS: HEPARIN SODIUM - SQ 10,000 UNITS/ML VIAL SQ SCH ×2 (06:45→14:21)
[2017-01-03 07:50] VITALS: BP 149/83; PULSE 80; RESP 20; TEMP 96; O2SAT 95
[2017-01-03 08:26] LABS: AUTOMATED NEUTROPHIL # 11.6 TH/MM3 (1.8-7.7); BASOPHIL % 0.2 % (0.0-2.0); EOSINOPHIL % 0.1 % (0.0-4.0); HEMATOCRIT 27.1 % (35.0-46.0); HEMO FLAGS DIFF FINAL; LYMPH % 8.9 % (9.0-44.0); LYMPHOCYTE # 1.1 TH/MM3 (1.0-4.8); MEAN CELL VOLUME 81.5 FL (80.0-100.0); MEAN CORPUSCULAR HEMOGLOBIN 25.7 PG (27.0-34.0); MEAN CORPUSCULAR HGB CONC 31.5 % (32.0-36.0); MONO % 1.3 % (0.0-8.0); NEUT % 89.5 % (16.0-70.0); PLATELET COUNT 564 TH/MM3 (150-450); RED BLOOD COUNT 3.33 MIL/MM3 (4.00-5.30); RED CELL DISTRIBUTION WIDTH 18.4 % (11.6-17.2); WHITE BLOOD COUNT 12.9 TH/MM3 (4.0-11.0)
[2017-01-03] MEDS: DOCUSATE SODIUM 50 MG/SENNA 8.6 MG TAB PO SCH (09:00)
[2017-01-03] MEDS: SODIUM CHLORIDE 0.9% FLUSH 10 ML FLUSH IV FLUSH SCH ×2 (09:00→09:20)
[2017-01-03] MEDS: POTASSIUM CHLORIDE 20 MEQ CONTROLLED RELEASE TAB PO SCH (09:20)
[2017-01-03] MEDS: CARVEDILOL 6.25 MG TAB PO SCH (09:20)
[2017-01-03 09:31] VITALS: O2SAT 96
--- NOTE | 2017-01-03 10:08 | PD.ONC.PN ---
Subjective Subjective Remarks Afebrile "I feel tired this morning" Anxious about finding a PCP Objective Data Date Time Temp Pulse Resp B/P (MAP) Pulse Ox O2 Delivery O2 Flow Rate FiO2 01/03/17 09:31 2.00 01/03/17 09:31 96 Nasal Cannula 2.00 01/03/17 04:00 96.5 78 18 125/77 (93) 96 01/03/17 00:00 96.3 78 17 127/76 (93) 97 01/02/17 22:00 96 Nasal Cannula 2.00 01/02/17 22:00 Nasal Cannula 2.00 01/02/17 21:16 97 Nasal Cannula 2.00 01/02/17 20:00 96.5 80 17 130/76 (94) 97 01/02/17 14:56 96.0 77 18 129/86 (100) 98 01/02/17 13:13 97.2 79 14 138/85 (102) 94 01/02/17 12:35 97.1 80 17 134/86 (102) 94 01/02/17 12:00 95.8 76 18 140/88 (105) 97 01/02/17 11:57 95.6 77 18 124/80 (95) 95 01/02/17 11:52 Nasal Cannula 2.00 01/02/17 10:07 99 Nasal Cannula 2.00 Result Diagram: 01/03/17 0736 01/01/17 0420 Laboratory Results Laboratory Tests Test 01/02/17 12:25 01/03/17 07:36 Peritoneal Fluid WBC 676 /MM3 Peritoneal Fluid RBC 02665 /MM3 Peritoneal Fluid Neutrophils 10 % Peritoneal Fluid Lymphocytes 71 % Peritoneal Fluid Monocytes 2 % Peritoneal Fluid Histiocytes 8 % Peritoneal Fluid Mesothelial Cells 9 % Peritoneal Fluid Comment White Blood Count 12.9 TH/MM3 Red Blood Count 3.33 MIL/MM3 Hemoglobin 8.5 GM/DL Hematocrit 27.1 % Mean Corpuscular Volume 81.5 FL Mean Corpuscular Hemoglobin 25.7 PG Mean Corpuscular Hemoglobin Concent 31.5 % Red Cell Distribution Width 18.4 % Platelet Count 564 TH/MM3 Mean Platelet Volume 6.9 FL Neutrophils (%) (Auto) 89.5 % Lymphocytes (%) (Auto) 8.9 % Monocytes (%) (Auto) 1.3 % Eosinophils (%) (Auto) 0.1 % Basophils (%) (Auto) 0.2 % Neutrophils # (Auto) 11.6 TH/MM3 Lymphocytes # (Auto) 1.1 TH/MM3 Monocytes # (Auto) 0.2 TH/MM3 Eosinophils # (Auto) 0.0 TH/MM3 Basophils # (Auto) 0.0 TH/MM3 CBC Comment DIFF FINAL Differential Comment Culture Results Microbiology Date/Time Source Procedure Growth Status 01/02/17 12:25 Fluid Peritoneal Fluid Gram Stain - Final Resulted 01/02/17 12:25 Fluid Peritoneal Fluid Body Fluid Culture Pending Resulted Administered Medications Medications (Trade) Dose Ordered Sig/Ramy Route PRN Reason Start Time Stop Time Status Last Admin Dose Admin Sodium Chloride (NS Flush) 2 ml BID IV FLUSH 12/23/16 21:00 01/03/17 09:00 Senna/Docusate Sodium (Gaby-Colace) 1 tab BID PO 12/23/16 21:00 01/01/17 09:16 Sennosides (Senokot) 17.2 mg Q12H PRN PO MODERATE - SEVERE CONSTIPATION 12/23/16 16:15 01/01/17 15:52 Acetaminophen/ Hydrocodone Bitart ([place] 5-325 Mg) 2 tab Q4H PRN PO PAIN SCALE 5 TO 10 12/25/16 19:30 01/02/17 22:21 Acetaminophen/ Hydrocodone Bitart ([place] 5-325 Mg) 1 tab Q4H PRN PO PAIN SCALE 1 TO 4 12/25/16 19:30 01/01/17 21:56 Albuterol/ Ipratropium (Duoneb Neb) 1 ampule Q2HR NEB PRN NEB dyspnea 12/26/16 15:15 01/02/17 10:05 Heparin Sodium (Porcine) (Heparin Inj) 5,000 units Q8HR SQ 12/26/16 22:00 Future hold 01/03/17 06:45 Carvedilol (Coreg) 6.25 mg Q12HR PO 12/28/16 21:00 01/03/17 09:20 Amoxicillin/ Clavulanate Potassium (Augmentin) 875 mg BID@0800,2000 PO 12/29/16 20:00 01/06/17 19:59 01/02/17 22:20 Potassium Chloride (KCl) 20 meq DAILY PO 12/30/16 09:00 01/03/17 09:20 Acetaminophen (Tylenol) 650 mg Q4H PRN PO SEE LABEL COMMENTS 12/30/16 10:00 12/30/16 19:43 Diphenhydramine HCl (Benadryl) 25 mg Q4H PRN PO SEE LABEL COMMENTS 12/30/16 10:00 12/30/16 19:43 Sodium Chloride (NS Flush) See Protocol DAILY IV FLUSH 12/31/16 09:00 01/03/17 09:20 Heparin Sodium (Porcine) (Heparin Central Flush) See Protocol DAILY IV FLUSH 12/31/16 09:00 01/03/17 09:20 Objective Remarks GENERAL: Chronically ill-appearing female sitting up in bed in no acute distress. SKIN: Warm and dry. HEAD: Normocephalic. EYES: No injection or drainage. NECK: Supple, trachea midline. CARDIOVASCULAR: +S1/S2 RESPIRATORY: Scattered wheezing posteriorly. On 2 L O2 via nasal cannula GASTROINTESTINAL: Abdomen is less distended than previously seen. EXTREMITIES: No cyanosis. Generalized edema to bilateral lower extremities NEUROLOGICAL: Moving all extremities. Normal speech. 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 Plan 1. Patient had paracentesis yesterday with 1200 mL fluid removed 2. The patient will need to be establish with PCP prior to following up with us in oncology clinic 3. Discussed with case management 4. Okay for discharge from oncology standpoint; Pt approved for Neulasta in clinic on Saturday Attending Statement The exam, history, and the medical decision-making described in the above note were completed with the assistance of the mid-level provider. I reviewed and agree with the findings presented. I attest that I had a [id number] encounter with the patient on the same day, and personally performed and documented my assessment and findings in the medical record. Pt seen and examined. Feeling better, eating breakfast.Tolerated chemo. Discussed effort by out pt team to get her approval for Neulasta. Follow up to see Chey Galdamez tomorrow at [facility] at [facility] to get Neulasta Support. In the mean time she has three weeks to establish with PCP to get her next cycle of chemotherapy. We discussed the importance of this, communicated with out pt lead sustainability specialist. 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
[2017-01-03] MEDS ORDERED: FURO20TA PO (11:12)
[2017-01-03] MEDS ORDERED: POTA20TA5 PO (11:12)
--- NOTE | 2017-01-03 11:14 | HHI.DS ---
Discharge Summary Admission Date Dec 23, 2016 at 15:19 Discharge Date: Jan 03, 2017 Admitting Diagnosis hypoxia,tachycardia,gen weakness,hyponatremia (1) Sepsis ICD Code: A41.9 - Sepsis, unspecified organism Diagnosis: Principal Status: Acute (2) Metastatic neoplastic disease ICD Code: C79.9 - Secondary malignant neoplasm of unspecified site Diagnosis: Principal (3) COPD (chronic obstructive pulmonary disease) ICD Code: J44.9 - Chronic obstructive pulmonary disease, unspecified Diagnosis: Principal (4) Hypoxia ICD Code: R09.02 - Hypoxemia Diagnosis: Principal Status: Acute Procedures Retroperitoneal lymph node biopsy Paracentesis PICC Brief History - From Admission This is a 48-year-old female with past medical history as detailed below who presents to [facility] complaining of vague malaise, abdominal pain and distention. The patient states that she has had this sensation for some weeks. The patient also complains of some chronic baseline shortness of breath which is exacerbated by activity. The patient states that she was hospitalized last month with the patient the diagnosis of lung cancer. As per medical records the patient had a lung mass and diffuse adenopathy consistent with metastatic disease. At that time the patient underwent thoracentesis but pathology is inconclusive. As per patient, he was supposed to follow-up with pulmonology and oncology but she has not follow-up with anybody. Otherwise the patient complains of constipation, denies diarrhea. The patient also complains of increased abdominal girth and distention and mild diffuse abdominal pain. The patient however denies fevers or chills, nausea or vomiting. CBC/BMP: 01/03/17 0736 01/01/17 0420 Significant Findings Laboratory Tests Test 01/01/17 04:20 01/02/17 12:25 01/03/17 07:36 White Blood Count 11.7 TH/MM3 (4.0-11.0) 12.9 TH/MM3 (4.0-11.0) Red Blood Count 3.36 MIL/MM3 (4.00-5.30) 3.33 MIL/MM3 (4.00-5.30) Hemoglobin 8.4 GM/DL (11.6-15.3) 8.5 GM/DL (11.6-15.3) Hematocrit 27.0 % (35.0-46.0) 27.1 % (35.0-46.0) Mean Corpuscular Hemoglobin 25.1 PG (27.0-34.0) 25.7 PG (27.0-34.0) Mean Corpuscular Hemoglobin Concent 31.2 % (32.0-36.0) 31.5 % (32.0-36.0) Red Cell Distribution Width 18.7 % (11.6-17.2) 18.4 % (11.6-17.2) Platelet Count 562 TH/MM3 (150-450) 564 TH/MM3 (150-450) Mean Platelet Volume 6.6 FL (7.0-11.0) 6.9 FL (7.0-11.0) Neutrophils (%) (Auto) 88.2 % (16.0-70.0) 89.5 % (16.0-70.0) Lymphocytes (%) (Auto) 7.7 % (9.0-44.0) 8.9 % (9.0-44.0) Neutrophils # (Auto) 10.3 TH/MM3 (1.8-7.7) 11.6 TH/MM3 (1.8-7.7) Lymphocytes # (Auto) 0.9 TH/MM3 (1.0-4.8) Random Glucose 127 MG/DL (74-106) Total Protein 5.4 GM/DL (6.4-8.2) Albumin 1.3 GM/DL (3.4-5.0) Calcium Level 7.8 MG/DL (8.5-10.1) Aspartate Amino Transf (AST/SGOT) 13 U/L (15-37) Alanine Aminotransferase (ALT/SGPT) LESS THAN 6 U/L (10-53) Chloride Level 108 MEQ/L (98-107) Estimat Glomerular Filtration Rate 60 ML/MIN (>89) Peritoneal Fluid WBC 676 /MM3 (0-10) Peritoneal Fluid RBC 34019 /MM3 (0-0) Imaging Last Impressions Cyst Biopsy Asp-Paracentesis US 01/02/17 0000 Signed Impressions: Service Date/Time: Monday, January 02, 2017 11:48 - CONCLUSION: Uncomplicated ultrasound guided paracentesis. Syed Valencia MD Chest X-Ray 01/01/17 0600 Signed Impressions: Service Date/Time: Sunday, January 01, 2017 05:04 - CONCLUSION: 1. Basilar airspace disease and pleural effusions not significantly changed over the last day. Right PICC line in right atrium. Soham Mcbride MD Brain MRI 12/30/16 0000 Signed Impressions: Service Date/Time: Friday, December 30, 2016 10:44 - CONCLUSION: 1. There are 3 abnormal calvarial lesions measuring up to 17 mm. The appearance is highly suspicious for metastatic bone disease. Intracranially, no metastatic disease or acute abnormality is identified. 2. There is a subcutaneous nodule on the right face measuring 9 mm. Isidoro Merchant MD Lower Extremity Ultrasound 12/29/16 0000 Signed Impressions: Service Date/Time: Thursday, December 29, 2016 16:26 - CONCLUSION: 1. No evidence of deep venous thrombosis. 2. Multiple hypoechoic complex cystic-appearing lesion along the medial right knee in the area of palpable concern. The finding is nonspecific. Bg Lugo MD Lymph Node Biopsy CT 12/27/16 0000 Signed Impressions: Service Date/Time: December 09:38 - CONCLUSION: Uncomplicated CT guided biopsy. Rudy Gaxiola MD Thoracic Spine MRI 12/26/16 0000 Signed Impressions: Service Date/Time: Monday, December 26, 2016 15:35 - CONCLUSION: 1. Metastatic lesions involving T4, T5, and T10. There is a pathologic compression fracture involving T4 with 5 mm of retropulsion. The metastatic lesion encroaches upon the right anterolateral portion of the central canal abutting the cord as well as narrowing the right neural foramen. Metastatic lesions at T5 and T10 do not cause significant encroachment upon the cord or central canal. Devon Pope Jr., MD Lumbar Spine MRI 12/26/16 0000 Signed Impressions: Service Date/Time: Monday, December 26, 2016 15:35 - CONCLUSION: 1. Diffuse retroperitoneal adenopathy. 2. 2 metastatic lesions involving the L3 vertebral body with without degeneration the central canal encroachment or neural impingement. 3. Multilevel degenerative changes as detailed above. Devon Pope Jr., MD Cervical Spine MRI 12/26/16 0000 Signed Impressions: Service Date/Time: Monday, December 26, 2016 15:35 - CONCLUSION: 1. Study significantly degraded by motion artifact. 2. No metastatic lesions involving the cervical spine. See the thoracic spine reported separately. 3. Multilevel degenerative changes as detailed at each level in the above discussion. Devon Pope Jr., MD CT Angiography 12/23/16 0000 Signed Impressions: Service Date/Time: Friday, December 23, 2016 17:04 - CONCLUSION: 1. No CT evidence for pulmonary artery embolism through the segmental level. 2. Improved bulky supraclavicular, mediastinal and hilar adenopathy with improved dominant subcarinal mass/node now measuring 4.8 x 3.4 cm in comparison to 5.4 x 4.2 cm on prior exam. There is also improved associated right hilar mass effect with near interval resolution of postobstructive central right lower lobe consolidation. 3. Multiple lytic metastatic bony lesions with infiltrative lytic mass at T4 with associated moderate progressive compression deformity. 4. Interval resolution of right pleural effusion. Moderate left pleural effusion with associated compressive atelectasis in the left lower lobe. 5. Bulky retroperitoneal adenopathy in the visualized portions of the upper abdomen. 6. Small to moderate ascites in the visualized upper abdomen. 7. Stable ancillary findings, as above. Syed Valencia MD Abdomen/Pelvis CT 12/23/16 0000 Signed Impressions: Service Date/Time: Friday, December 23, 2016 17:04 - CONCLUSION: 1. New omental/peritoneal caking and worsening retroperitoneal lymphadenopathy, presumably metastatic. Lymphoma would be in the differential but the omental caking is not typical for such. 2. Enlarged, heterogeneously enhancing kidneys and infiltrating neoplasm such as metastatic disease or lymphoma would be in the differential. 3. Moderate ascites, new. Isidoro Padilla MD PE at Discharge Well-developed, well-nourished in no distress on 2 L nasal cannula Equal in expansion decreased breath sounds Regular rate and rhythm Abdomen soft nontender with ascites extremities with pitting edema and no cyanosis Alert and oriented nonfocal Hospital Course (1) Sepsis Recent postobstructive pneumonia Resolved BC, ascites neg so far Continue Augmentin total of 2 weeks till January 11 status post IV Vanco and Zosyn. 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 Follow-up brain MRI results which showed 3 abnormal calvarial lesions measuring up to 17 mm highly suspicious for metastatic bone disease. Complaining of abdominal pain and increased ascites on IV hydration from chemotherapy. Therapeutic and diagnostic paracentesis x2 . Low dose diuresis with Lasix for 3 days check BMP and mag outpatient. (3) COPD (chronic obstructive pulmonary disease) Improving continue bronchodilators, taper prednisone and wean O2. Failed walk test will need home oxygen (4) Hypoxia Hypoxemia likely secondary to healthcare associated pneumonia, copd, DVT prophylaxis with heparin q8 Pt Condition on Discharge: Stable Discharge Disposition: Discharge Home Discharge Time: > 30 minutes Discharge Instructions DIET: Follow Instructions for: As Tolerated, No Restrictions Activities you can perform: Regular-No Restrictions Activities to Avoid: Driving Follow up Referrals: Oncology - 1 Week PCP Follow-up - 1 Week New Orders: BASIC METABOLIC PROF - 01/07/17 New Medications: Oxygen (O2) (Oxygen (O2)) Device LITER NEVILLE.CANULA CONTINUOUS for Prevent Hypoxemia, #2 Oxygen Concentrator Portable Gaseous 2 L/min via Nasal Canula Continuous For 99 months Amoxicillin-Clavulanate (Amoxicillin-Clavulanate) 875-125 mg Tab 875 MG PO BID@0800,2000 for Infection, #16 TAB not for use in CrCl <30 mL/minute Carvedilol (Coreg) 6.25 Mg Tab 6.25 MG PO Q12HR for Blood Pressure Management, #60 TAB Furosemide (Furosemide) 20 Mg Tab 20 MG PO DAILY for edema, #3 TAB Hydrocodone-Acetaminophen (Hydrocodone-Acetaminophen) 5-325 mg Tab 1 TAB PO Q6HR PRN for pain, #28 TAB Potassium Chloride Microencaps (Potassium Chloride Microencaps) 20 Meq Tab 20 MEQ PO DAILY for Electrolyte Replacement, #3 TAB Continued Medications: Albuterol 18 GM Inh (Ventolin Hfa 18 GM Inh) 90 Mcg/Act Aer 2 PUFF INH Q4-6H PRN for SHORTNESS OF BREATH, #1 INHALER 0 Refills Budesonide-Formoterol Inh (Symbicort Inh) 160-4.5 Mcg/Act Aero 2 PUFF INH Q12HR for breathing, #1 INHALER Discontinued Medications: Prednisone (Prednisone) 10 Mg Tab 10 MG PO DAILY for Breathing, #5 TAB 0 Refills Start taking once done with 20 mg daily script Additional Information I spent 35 minutes [id number] with the patient or on the barraza discussing the patient's disposition, prognosis, and plan of care with patient's caregivers. Over half the time spent was devoted to counseling the patient regarding placement in coordinating care with caregivers and case management. Marko Amaro MD Jan 03, 2017 11:14
[2017-01-03] MEDS ORDERED: FUROSEMIDE 20 MG TAB PO SCH (11:15)
[2017-01-03] MEDS ORDERED: POTASSIUM CHLORIDE 20 MEQ CONTROLLED RELEASE TAB PO SCH (11:15)
[2017-01-03 11:30] VITALS: BP 130/69; PULSE 92; RESP 20; TEMP 97; O2SAT 97
[2017-01-03] MEDS: AMOXICILLIN/CLAVULANATE K 875 MG TAB PO SCH (12:34)
[2017-01-03] MEDS: ACETAMINOPHEN/HYDROcodone 325 MG/5 MG TAB PO PRN (14:22)
[2017-01-03] MEDS: RESP: ALBUTEROL 2.5 MG/IPRATROPIUM 0.5 MG NEB (PRN) NEB (15:31)
[2017-01-03 15:50] VITALS: BP 130/77; PULSE 100; RESP 20; TEMP 97.4; O2SAT 96
== END 2017-01-03 20:01 | disposition home or self-care (01) | DRG 853 ==
LOC: PHED 12:35 → PHEDA 15:19 → PH3A 17:59 → HOCA 12-29 03:02
PROVIDERS: ADMIT Internal Medicine; ATTEND Internal Medicine
PROC: 0W9G3ZX Drainage of Peritoneal Cavity, Percutaneous Approach, Diagnostic (ICD-10-PCS; 2016-12-25)
PROC: 07BC3ZX Excision of Pelvis Lymphatic, Percutaneous Approach, Diagnostic (ICD-10-PCS; 2016-12-27)
PROC: 30233N1 Transfusion of Nonautologous Red Blood Cells into Peripheral Vein, Percutaneous Approach (ICD-10-PCS; principal; 2016-12-30)
PROC: 3E03305 Introduction of Other Antineoplastic into Peripheral Vein, Percutaneous Approach (ICD-10-PCS; 2016-12-31)
PROC: 0W9G3ZZ Drainage of Peritoneal Cavity, Percutaneous Approach (ICD-10-PCS; 2017-01-02)
DX: A41.9 Sepsis, unspecified organism (principal); J18.9 Pneumonia, unspecified organism; C79.51 Secondary malignant neoplasm of bone; C77.8 Secondary and unspecified malignant neoplasm of lymph nodes of multiple regions; C34.91 Malignant neoplasm of unspecified part of right bronchus or lung; R18.8 Other ascites; J44.0 Chronic obstructive pulmonary disease with (acute) lower respiratory infection; I50.20 Unspecified systolic (congestive) heart failure; E87.1 Hypo-osmolality and hyponatremia; J98.11 Atelectasis; D63.8 Anemia in other chronic diseases classified elsewhere; R00.0 Tachycardia, unspecified; R09.02 Hypoxemia; F17.200 Nicotine dependence, unspecified, uncomplicated; Z80.1 Family history of malignant neoplasm of trachea, bronchus and lung; Z80.8 Family history of malignant neoplasm of other organs or systems; Z82.5 Family history of asthma and other chronic lower respiratory diseases; Y95 Nosocomial condition; Z66 Do not resuscitate; K59.00 Constipation, unspecified; D75.89 Other specified diseases of blood and blood-forming organs
CPT/HCPCS: 36430; 36569; 38505; 49083; 70553; 71010; 71020; 71275; 72156; 72157; 72158; 74177; 76937; 77012; 80048; 80053; 80202; 82042; 82150; 82550; 82565; 82945; 83605; 83615; 83735; 84100; 84155; 84157; 84484; 84550; 85025; 85027; 85044; 85610; 85730; 86850; 86900; 86901; 86920; 87040; 87070; 87205; 88112; 88305; 88341; 88342; 89051; 93005; 93970; 93971; 94620; 94640; 94664; A9579; C1729; J1100; J1160; J1626; J1642; J1644; J2060; J2543; J3010; J3370; J3480; J7040; J7050; J7512; J9045; J9181; P9016; Q9967

== ENCOUNTER 2017-02-11 16:16 | Inpatient (IN) | payer MEDICAID ==
[2017-02-11] VITALS (8 sets, daily range): BP systolic 106–117; BP diastolic 63–83; PULSE 97–115; RESP 20–24; TEMP 97.9–98.6; O2SAT 97–100
[~2017-02-11] VITALS: Ht 167.6 cm; Wt 55.5 kg
[~2017-02-11 16:16] MED LIST changes: +AMOX875T2 PO; +CARV6.25 PO; +FURO20TA PO; +HYDR-3516 PO; -LEVA750T9 PO; +OXYGENDME NAS.CANULA; +POTA20TA5 PO; -PRED10 PO; -PRED20 PO
--- NOTE | 2017-02-11 16:54 | PD ---
HPI Chief Complaint: Edema Time Seen by Provider: 16:36 Travel History International Travel<30 days: No Contact w/Intl Traveler<30days: No Traveled to known affect area: No History of Present Illness HPI The patient is a 56-year-old female who presents to the emergency department via EMS for shortness of breath. The patient states she was recently diagnosed with lung cancer, unsure of the pathologic diagnosis. The patient underwent radiation therapy and is scheduled undergo chemotherapy in the near future with her oncologist, Dr. Pedraza. The patient states she's had increasing shortness of breath the last several days of increasing edema lower extremities bilaterally as well as edema of the abdomen. The patient has undergone paracentesis of the abdomen as well as thoracentesis in the past secondary to acute related fluid, thought to be secondary to her underlying cancer, according to the patient's report. She denies any chest pain, does note increased work of breathing worse with activity. 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 The patient's primary physician is at the [facility]. The patient denies any known history DVT or pulmonary embolism. She denies any associated fever, chills, or sweats. Symptoms are moderate, possibly exacerbated by underlying lung cancer, and there are no current alleviating factors. PFSH Past Medical History Cancer: Yes Cardiovascular Problems: Yes Chemotherapy: Yes Cerebrovascular Accident: Yes Diminished Hearing: No Endocrine: No Immune Disorder: No Musculoskeletal: No Neurologic: No Psychiatric: No Respiratory: Yes (copd) Pneumonia: Yes Social History Alcohol Use: No Tobacco Use: Yes (< 1/2 PPD) Substance Use: No Allergies-Medications (Allergen,Severity, Reaction): Coded Allergies: No Known Allergies (Unverified Allergy, Unknown, 02/11/17) Reported Meds & Prescriptions Reported Meds & Active Scripts Active Furosemide 20 Mg Tab 20 Mg PO DAILY Potassium Chloride Microencaps 20 Meq Tab 20 Meq PO DAILY Oxygen (O2) Device Liter NEVILLE.CANULA CONTINUOUS Oxygen Concentrator Portable Gaseous 2 L/min via Nasal Canula Continuous For 99 months Hydrocodone-Acetaminophen 5-325 mg Tab 1 Tab PO Q6HR PRN Coreg (Carvedilol) 6.25 Mg Tab 6.25 Mg PO Q12HR Ventolin Hfa 18 GM Inh (Albuterol Sulfate) 90 Mcg/Act Aer 2 Puff INH Q4-6H PRN Symbicort Inh (Budesonide/Formoterol Fumarate) 160-4.5 Mcg/Act Aero 2 Puff INH Q12HR Reported Aspirin 81 Mg Chew 81 Mg CHEW DAILY Review of Systems Except as stated in HPI: all other systems reviewed are Neg General / Constitutional: No: Fever HENT: No: Lightheadedness Cardiovascular: Positive: Dyspnea on exertion, No: Chest Pain or Discomfort Respiratory: Positive: Shortness of Breath, Orthopnea Gastrointestinal: Positive: Abdominal Pain (distention secondary to fluid with the patient's report), No: Nausea, Vomiting Musculoskeletal: Positive: Weakness, Edema Neurologic: Positive: Weakness Physical Exam Narrative GENERAL: Awake, alert, pleasant 56-year-old female who appears her stated age and appears moderately short of breath. SKIN: Focused skin assessment warm/dry. HEAD: Atraumatic. Normocephalic. EYES: Pupils equal and round. No scleral icterus. No injection or drainage. ENT: No nasal bleeding or discharge. Poor dentition. NECK: Trachea midline. No JVD. CARDIOVASCULAR: Regular, tachycardic with a heart rate of 110. RESPIRATORY: Mild tachypnea with a respiratory rate of 22. Minimally diminished breath sounds in the bases bilaterally. GASTROINTESTINAL: Abdomen soft, mild distention with positive fluid wave. MUSCULOSKELETAL: No obvious deformities. Bilateral lower show any pitting edema to the knees bilaterally. Long fingernails bilaterally. NEUROLOGICAL: Awake and alert. No obvious cranial nerve deficits. Motor grossly within normal limits. Normal speech. PSYCHIATRIC: Appropriate mood and affect; insight and judgment normal. Data Data Last Documented VS Vital Signs Date Time Temp Pulse Resp B/P (MAP) Pulse Ox O2 Delivery O2 Flow Rate FiO2 02/11/17 19:45 99 20 107/70 (82) 99 Nasal Cannula 2.00 02/11/17 18:07 97.9 Orders Orders Complete Blood Count With Diff (02/11/17 16:47) Comprehensive Metabolic Panel (02/11/17 16:47) B-Type Natriuretic Peptide (02/11/17 16:47) Act Partial Throm Time (Ptt) (02/11/17 16:47) Prothrombin Time / Inr (Pt) (02/11/17 16:47) Magnesium (Mg) (02/11/17 16:47) Ckmb (Isoenzyme) Profile (02/11/17 16:47) Troponin I (02/11/17 16:47) Blood Culture (02/11/17 16:47) Iv Access Insert/Monitor (02/11/17 16:47) Electrocardiogram (02/11/17 16:47) Ecg Monitoring (02/11/17 16:47) Oximetry (02/11/17 16:47) Oxygen Administration (02/11/17 16:47) Chest, Single Ap (02/11/17 16:47) Sodium Chloride 0.9% Flush (Ns Flush) (02/11/17 17:00) Albuterol-Ipratropium Neb (Duoneb Neb) (02/11/17 17:00) Lactic Acid (02/11/17 16:47) Urinalysis - C+S If Indicated (02/11/17 18:41) Ct Pulmonary Angiogram (02/11/17 ) Iohexol 350 Inj (Omnipaque 350 Inj) (02/11/17 21:33) Acetamin-Hydrocod 325-5 Mg (Ralston 5-325 (02/11/17 21:45) Cefepime Inj (Maxipime Inj) (02/11/17 22:00) Azithromycin Inj (Zithromax Inj) (02/11/17 22:00) Admit Order (Ed Use Only) (02/11/17 ) Acute Care Nurse / Telemetry BALTAZAR.Q8H (02/11/17 22:04) Vital Signs (Adult) Q4H (02/11/17 22:04) Diet Heart Healthy (02/12/17 Breakfast) Activity Oob With Assistance (02/11/17 22:04) Labs Laboratory Tests Test 02/11/17 17:30 02/11/17 20:40 White Blood Count 25.9 TH/MM3 Red Blood Count 2.94 MIL/MM3 Hemoglobin 8.4 GM/DL Hematocrit 25.3 % Mean Corpuscular Volume 86.1 FL Mean Corpuscular Hemoglobin 28.7 PG Mean Corpuscular Hemoglobin Concent 33.3 % Red Cell Distribution Width 21.4 % Platelet Count 332 TH/MM3 Mean Platelet Volume 7.9 FL Neutrophils (%) (Auto) 96.8 % Lymphocytes (%) (Auto) 1.3 % Monocytes (%) (Auto) 0.8 % Eosinophils (%) (Auto) 0.0 % Basophils (%) (Auto) 1.1 % Neutrophils # (Auto) 25.1 TH/MM3 Lymphocytes # (Auto) 0.3 TH/MM3 Monocytes # (Auto) 0.2 TH/MM3 Eosinophils # (Auto) 0.0 TH/MM3 Basophils # (Auto) 0.3 TH/MM3 CBC Comment DIFF FINAL Differential Comment Prothrombin Time 12.0 SEC Prothromb Time International Ratio 1.1 RATIO Activated Partial Thromboplast Time 27.1 SEC Blood Urea Nitrogen 53 MG/DL Creatinine 0.95 MG/DL Random Glucose 99 MG/DL Total Protein 6.9 GM/DL Albumin 1.6 GM/DL Calcium Level 8.9 MG/DL Magnesium Level 2.0 MG/DL Alkaline Phosphatase 150 U/L Aspartate Amino Transf (AST/SGOT) 45 U/L Alanine Aminotransferase (ALT/SGPT) 76 U/L Total Bilirubin 0.5 MG/DL Sodium Level 138 MEQ/L Potassium Level 3.2 MEQ/L Chloride Level 105 MEQ/L Carbon Dioxide Level 23.1 MEQ/L Anion Gap 10 MEQ/L Estimat Glomerular Filtration Rate 60 ML/MIN Lactic Acid Level 1.4 mmol/L Total Creatine Kinase 28 U/L Troponin I LESS THAN 0.02 NG/ML B-Type Natriuretic Peptide 75 PG/ML Urine Color YELLOW Urine Turbidity CLEAR Urine pH 5.5 Urine Specific [place] 1.018 Urine Protein 30 mg/dL Urine Glucose (UA) NEG mg/dL Urine Ketones NEG mg/dL Urine Occult Blood MOD Urine Nitrite NEG Urine Bilirubin NEG Urine Leukocyte Esterase TRACE Urine RBC 0-3 /hpf Urine WBC 3-5 /hpf Urine Squamous Epithelial Cells 6-8 /hpf Urine Amorphous Sediment FEW Urine Bacteria FEW /hpf Urine Mucus FEW /lpf Microscopic Urinalysis Comment CULT NOT INDICATED MDM Medical Decision Making Medical Screen Exam Complete: Yes Emergency Medical Condition: Yes Medical Record Reviewed: Yes Interpretation(s) EKG reveals normal sinus rhythm with a rate of 98. RSR prime in V1 with QRS of 94 ms, consistent with incomplete right bundle branch block. Nonspecific ST changes. Last Impressions Chest X-Ray 02/11/17 [id number] Signed Impressions: Service Date/Time: Saturday, February 11, 2017 16:55 - CONCLUSION: Interval improvement. Minimal blunting left costophrenic sulcus without significant pleural effusion. Yaya Napier MD FACR Laboratory Tests Test 02/11/17 17:30 02/11/17 20:40 White Blood Count 25.9 TH/MM3 Red Blood Count 2.94 MIL/MM3 Hemoglobin 8.4 GM/DL Hematocrit 25.3 % Mean Corpuscular Volume 86.1 FL Mean Corpuscular Hemoglobin 28.7 PG Mean Corpuscular Hemoglobin Concent 33.3 % Red Cell Distribution Width 21.4 % Platelet Count 332 TH/MM3 Mean Platelet Volume 7.9 FL Neutrophils (%) (Auto) 96.8 % Lymphocytes (%) (Auto) 1.3 % Monocytes (%) (Auto) 0.8 % Eosinophils (%) (Auto) 0.0 % Basophils (%) (Auto) 1.1 % Neutrophils # (Auto) 25.1 TH/MM3 Lymphocytes # (Auto) 0.3 TH/MM3 Monocytes # (Auto) 0.2 TH/MM3 Eosinophils # (Auto) 0.0 TH/MM3 Basophils # (Auto) 0.3 TH/MM3 CBC Comment DIFF FINAL Differential Comment Prothrombin Time 12.0 SEC Prothromb Time International Ratio 1.1 RATIO Activated Partial Thromboplast Time 27.1 SEC Blood Urea Nitrogen 53 MG/DL Creatinine 0.95 MG/DL Random Glucose 99 MG/DL Total Protein 6.9 GM/DL Albumin 1.6 GM/DL Calcium Level 8.9 MG/DL Magnesium Level 2.0 MG/DL Alkaline Phosphatase 150 U/L Aspartate Amino Transf (AST/SGOT) 45 U/L Alanine Aminotransferase (ALT/SGPT) 76 U/L Total Bilirubin 0.5 MG/DL Sodium Level 138 MEQ/L Potassium Level 3.2 MEQ/L Chloride Level 105 MEQ/L Carbon Dioxide Level 23.1 MEQ/L Anion Gap 10 MEQ/L Estimat Glomerular Filtration Rate 60 ML/MIN Lactic Acid Level 1.4 mmol/L Total Creatine Kinase 28 U/L Troponin I LESS THAN 0.02 NG/ML B-Type Natriuretic Peptide 75 PG/ML Urine Color YELLOW Urine Turbidity CLEAR Urine pH 5.5 Urine Specific [place] 1.018 Urine Protein 30 mg/dL Urine Glucose (UA) NEG mg/dL Urine Ketones NEG mg/dL Urine Occult Blood MOD Urine Nitrite NEG Urine Bilirubin NEG Urine Leukocyte Esterase TRACE Urine RBC 0-3 /hpf Urine WBC 3-5 /hpf Urine Squamous Epithelial Cells 6-8 /hpf Urine Amorphous Sediment FEW Urine Bacteria FEW /hpf Urine Mucus FEW /lpf Microscopic Urinalysis Comment CULT NOT INDICATED CT pulmonary angiogram reveals no PE eyes identified. There is new airspace consolidation the right lower lobe. This could represent an infectious process and appropriate clinical history. Small left pleural effusion has decreased in size. Mild decrease in the size of the left supraclavicular, mediastinal, bilateral hilar, and retroperitoneal lymphadenopathy. Mild increased size of the lytic lesion of the left humerus suspicious for metastatic lesion. The pathologic T4 compression fracture appears stable. Stable soft tissue encasing and mildly narrowing the main bronchi. Differential Diagnosis Differential diagnosis includes COPD exacerbation, bronchitis, pneumonia, pulmonary embolus and, volume overload, congestive heart failure, cardiomyopathy , anasarca, hyponatremia. Narrative Course IV was established, labs are drawn and sent, and the patient was placed on cardiac telemetry monitoring and continuous pulse oximetry monitoring. EKG was ordered and interpreted. Chest x-ray was obtained. The patient was administered one DuoNeb. Chest x-ray reveals interval improvement. However, white count is elevated at 25.6, hemoglobin is baseline at 8.4. Lactic acid is within normal limits. UA was unremarkable. As patient has shortness of breath and leukocytosis, CT pulmonary angiogram was ordered to evaluate for possible PE or underlying pneumonia. CT pulmonary injury gram is negative for PE, however, does reveal new airspace consolidation right lower lobe which could represent infectious process. Mild increased size a lytic lesion left femur suspicious for metastatic disease and pathologic T4 compression fracture appears stable. The patient was treated with cefepime and Zithromax to cover for healthcare acquired pneumonia. The patient does meet sepsis criteria will be admitted to the medical service. Sepsis Criteria SIRS Criteria (2 or more): Heart rate over 90, WBC > 40523, < 4000 or > 10% bands Sepsis Criteria (SIRS+source): Infect source susp/known Criteria Outcome: Meets sepsis criteria Physician Communication [facility] I discussed the patient with Dr. Guardado who agrees with admission. Diagnosis Primary Impression: HCAP (healthcare-associated pneumonia) Additional Impressions: Sepsis Qualified Codes: A41.9 - Sepsis, unspecified organism Shortness of breath Admitting Information Admitting Physician Requests: Admit Condition: Stable Ruben Vela MD Feb 11, 2017 16:54
[2017-02-11] MEDS ORDERED: RESP: ALBUTEROL 2.5 MG/IPRATROPIUM 0.5 MG NEB (SCH) INH ONE (17:00)
[2017-02-11] MEDS ORDERED: SODIUM CHLORIDE 0.9% FLUSH 10 ML FLUSH IVF PRN (17:00)
--- NOTE | 2017-02-11 17:33 | RADRPT ---
EXAM DATE/TIME: 02/11/2017 16:55 [facility] COMPARISON: CHEST SINGLE AP, January 01, 2017, 5:04. INDICATIONS : Shortness of breath. MEDICAL HISTORY : Chronic obstructive pulmonary disease. Metastatic cancer. SURGICAL HISTORY : None. ENCOUNTER: Initial ACUITY: 1 day PAIN SCORE: 0/10 LOCATION: Bilateral chest FINDINGS: Interval improvement. Minimal blunting of the left costophrenic sulcus. PICC line has been removed. The heart and pulmonary vascularity are normal. CONCLUSION: Interval improvement. Minimal blunting left costophrenic sulcus without significant pleural effusion. Yaya Napier MD FACR on February 11, 2017 at 17:30 Board Certified Radiologist. This report was verified electronically.
[2017-02-11 17:46] LABS: AUTOMATED NEUTROPHIL # 25.1 TH/MM3 (1.8-7.7); BASOPHIL # 0.3 TH/MM3 (0-0.2); BASOPHIL % 1.1 % (0.0-2.0); HEMATOCRIT 25.3 % (35.0-46.0); LYMPH % 1.3 % (9.0-44.0); LYMPHOCYTE # 0.3 TH/MM3 (1.0-4.8); MEAN CELL VOLUME 86.1 FL (80.0-100.0); MEAN CORPUSCULAR HEMOGLOBIN 28.7 PG (27.0-34.0); MEAN CORPUSCULAR HGB CONC 33.3 % (32.0-36.0); MONO % 0.8 % (0.0-8.0); NEUT % 96.8 % (16.0-70.0); PLATELET COUNT 332 TH/MM3 (150-450); RED BLOOD COUNT 2.94 MIL/MM3 (4.00-5.30); RED CELL DISTRIBUTION WIDTH 21.4 % (11.6-17.2); WHITE BLOOD COUNT 25.9 TH/MM3 (4.0-11.0)
[2017-02-11 17:57] LABS: HEMO FLAGS DIFF FINAL
[2017-02-11 17:58] LABS: CHLORIDE 105 MEQ/L (98-107); POTASSIUM 3.2 MEQ/L (3.5-5.1); SODIUM (NA) 138 MEQ/L (136-145)
[2017-02-11 18:02] LABS: ANION GAP 10 MEQ/L (5-15); BICARBONATE 23.1 MEQ/L (21.0-32.0); BLOOD UREA NITROGEN 53 MG/DL (7-18)
[2017-02-11 18:03] LABS: APTT (PATIENT) 27.1 SEC (24.3-30.1); INTERNATIONAL NORMALIZED RATIO 1.1 RATIO
[2017-02-11 18:05] LABS: ALT (GPT) 76 U/L (10-53); AST (GOT) 45 U/L (15-37); GLOMERULAR FILTRATION RATE 60 ML/MIN (>89)
[2017-02-11 18:07] LABS: TOTAL BILIRUBIN ADULT 0.5 MG/DL (0.2-1.0)
[2017-02-11 18:08] LABS: ALKALINE PHOSPHATASE 150 U/L (45-117)
[2017-02-11] MEDS ORDERED: ASPI-516 CHEW (18:11)
[2017-02-11 18:32] LABS: CREATINE KINASE 28 U/L (26-192)
[2017-02-11 20:48] LABS: BLOOD, URINE MOD (NEG); GLUCOSE,URINE NEG (NEG); KETONE, URINE NEG (NEG); NITRITE,URINE NEG (NEG); PH, URINE 5.5 (5.0-8.5)
[2017-02-11 20:52] LABS: URINE COLOR YELLOW (YELLW/STRAW)
[2017-02-11 20:53] LABS: BACTERIA, URINE FEW /hpf; COMMENT (UR) CULT NOT INDICATED; CULTURE IF INDICATED CULT NOT INDICATED; MUCUS URINE FEW /lpf (OCC); RBC, URINE 0-3 /hpf (0-3)
[2017-02-11] MEDS ORDERED: IOHEXOL 350 MG/ML 10 ML VIAL (for RAD DIAG) IVCONTRAST ONE (21:33)
[2017-02-11] MEDS ORDERED: ACETAMINOPHEN/HYDROcodone 325 MG/5 MG TAB PO ONE (21:45)
--- NOTE | 2017-02-11 21:52 | RADRPT ---
EXAM DATE/TIME: 02/11/2017 21:06 [facility] COMPARISON: MRI THORACIC SPINE W & W/O CONTRAST, December 26, 2016, 15:35. CT PULMONARY ANGIOGRAM, December, 17:04. INDICATIONS : Increased shortness of breath with history of lung cancer. IV CONTRAST: 75 cc Omnipaque 350 (iohexol) IV RADIATION DOSE: 6.10 CTDIvol (mGy) MEDICAL HISTORY : Chronic obstructive pulmonary disease. Carcinoma, lung. SURGICAL HISTORY : None. ENCOUNTER: Initial ACUITY: 1 day PAIN SCALE: 4/10 LOCATION: Bilateral chest TECHNIQUE: Volumetric scanning of the chest was performed using a pulmonary embolism protocol MIP images were re constructed. Using automated exposure control and adjustment of the mA and/or kV according to patien t size, radiation dose was kept as low as reasonably achievable to obtain optimal diagnostic quality images. DICOM format image data is available electronically for review and comparison. Follow-up recommendations for detected pulmonary nodules are based at a minimum on nodule size and pa tient risk factors according to Fleischner Society Guidelines. FINDINGS: PULMONARY ARTERIES: No filling defects are seen in the pulmonary arteries through the segmental level. LUNGS: There is centrilobular emphysema. Airspace consolidation is present in the right lower lobe. Mildly i mproved compressive atelectasis is present in the left lower lobe. No pneumothorax is present. PLEURAE: There is a small simple appearing left pleural effusion, slightly decreased in volume from the prior study. MEDIASTINUM: There is coronary artery calcification and atherosclerotic disease of the aorta. The left supraclavic ular, mediastinal, and bilateral hilar lymphadenopathy has slightly decreased in size. Index measurem ent includes a right paratracheal lymph node currently measuring 2.3 x 1.1 cm compared to 2.8 x 1.8 c m previously. There is persistent abnormal soft tissue density encasing the main bronchi and causing mild narrowing of the lumen. MUSCULOSKELETAL: There is a persistent lytic lesion involving the left humeral head measuring 19 mm compared to 16 mm previously. Stable compression pathologic fracture of T4 is again identified. No new lesion is seen. MISCELLANEOUS: The retroperitoneal lymphadenopathy in the upper abdomen has decreased in size. There is free fluid w ithin the abdomen. Stable low density lesions are present in the left lobe of the liver and are too s mall to characterize. CONCLUSION: 1. No PE is identified. 2. There is new airspace consolidation in the right lower lobe. This could represent an infectious pr ocess in the appropriate clinical history. The small left pleural effusion has decreased in size. 3. Mild decrease in size of the left supraclavicular, mediastinal, bilateral hilar, and retroperitone al lymphadenopathy. 4. Mild increased size of the lytic lesion in the left humerus suspicious for a metastatic lesion. Th e pathologic T4 compression fracture appears stable. 5. Stable soft tissue encasing and mildly narrowing the main bronchi. Isidoro Merchant MD on February 11, 2017 at 21:42 Board Certified Radiologist. This report was verified electronically.
[2017-02-11] MEDS ORDERED: AZITHROMYCIN INJ 500 MG in SODIUM CHLOR 0.9% 250 ML INJ 250 ML IV ONE (22:00)
[2017-02-11] MEDS ORDERED: CEFEPIME INJ 2,000 MG in SODIUM CHLORIDE 0.9% INJ 100 ML IV ONE (22:00)
[2017-02-11] MEDS ORDERED: POTASSIUM CHLORIDE 20 MEQ CONTROLLED RELEASE TAB PO ONE (22:15)
[2017-02-11] MEDS ORDERED: NALOXONE HCL 0.4 MG/ML AMP IV PUSH PRN (22:15)
[2017-02-11] MEDS ORDERED: RESP: ALBUTEROL 2.5 MG/IPRATROPIUM 0.5 MG NEB (PRN) NEB (22:30)
[2017-02-11] MEDS: HEPARIN SODIUM - SQ 10,000 UNITS/ML VIAL SQ SCH (23:24)
[2017-02-12] VITALS (7 sets, daily range): BP systolic 102–121; BP diastolic 70–89; PULSE 96–117; RESP 16–18; TEMP 96.1–97.3; O2SAT 96–100
[2017-02-12] MEDS: RESP: ALBUTEROL 2.5 MG/IPRATROPIUM 0.5 MG NEB (SCH) NEB ×4 (03:33→21:35)
[2017-02-12] MEDS: CEFEPIME INJ 2,000 MG in SODIUM CHLORIDE 0.9% INJ 100 ML IV SCH ×3 (05:18→22:51)
[2017-02-12 07:19] LABS: AUTOMATED NEUTROPHIL # 18.3 TH/MM3 (1.8-7.7); BASOPHIL # 0.1 TH/MM3 (0-0.2); BASOPHIL % 0.4 % (0.0-2.0); EOSINOPHIL % 0.1 % (0.0-4.0); HEMATOCRIT 21.9 % (35.0-46.0); LYMPHOCYTE # 0.2 TH/MM3 (1.0-4.8); MEAN CORPUSCULAR HGB CONC 34.1 % (32.0-36.0); MONO % 1.2 % (0.0-8.0); NEUT % 97.3 % (16.0-70.0); PLATELET COUNT 313 TH/MM3 (150-450); RED BLOOD COUNT 2.49 MIL/MM3 (4.00-5.30); WHITE BLOOD COUNT 18.8 TH/MM3 (4.0-11.0)
[2017-02-12 07:20] LABS: HEMO FLAGS DIFF FINAL
[2017-02-12 07:25] LABS: POTASSIUM 3.5 MEQ/L (3.5-5.1)
[2017-02-12 07:30] LABS: BICARBONATE 25.7 MEQ/L (21.0-32.0)
[2017-02-12] MEDS: HEPARIN SODIUM - SQ 10,000 UNITS/ML VIAL SQ SCH ×3 (08:24→22:51)
[2017-02-12] MEDS: ACETAMINOPHEN/HYDROcodone 325 MG/5 MG TAB PO PRN ×2 (09:22→15:17)
[2017-02-12] MEDS ORDERED: CEFEPIME INJ 2,000 MG in SODIUM CHLORIDE 0.9% INJ 100 ML IV SCH (10:00)
--- NOTE | 2017-02-12 12:19 | PD.CONS ---
Consult Service Palliative Care Consult Requested By . Primary Care Physician No Primary Care Physician . Reason for Consultation a. To assist with evaluation and management of symptoms including: pain, dyspnea b. To assist medical decision maker(s) with: better understanding of current medical conditions; weighing benefits/burdens of medical treatment options; making medical treatment decisions. . HPI History of Present Illness This 56-year-old female had essentially no significant past medical history prior to presenting to the emergency department on 11/09/16 after one month of coughing and now worsening dyspnea. She was found to have some hypoxia, was admitted, and a CT scan revealed a subcarinal mass with extensive adenopathy in the mediastinum as well as retroperitoneum. Bronchoscopy and biopsy was undertaken, and a poorly differentiated non-small cell lung cancer was found. Recommendations were made for initiating chemotherapy as an outpatient, and the patient was discharged. She was provided with supplemental oxygen at home, and has been using it most of the time since then. However, she failed to follow- up with the oncologist or with a primary care doctor. On 12/23/16, the patient returned to the emergency department complaining of abdominal pain. Repeat CAT scans revealed worsened adenopathy and multiple lytic bone lesions. 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 The patient says she had a couple chemotherapy treatments but "then had insurance problems" and did not follow-up for more. In the early part of January 2017, the patient presented to [facility] with stroke symptoms, and the patient says she was found to have an acute stroke that resulted in left facial weakness/drooping and some difficulty swallowing. She said she had no other deficits. While she was hospitalized, she reports that she received radiation to her spine because of metastatic disease. She thinks it helped the back pain. The patient eventually followed up with her oncologist again, and she was scheduled to get a port placed tomorrow. The patient reports that she has lost about 10 pounds over these past 3 or 4 months. However, she developed worsening shortness of breath again and return to the emergency department on . Findings in the emergency department included: * Moderate dyspnea, alert * Temp 97.9, pulse 99, respirations 20, blood pressure 107/20, oxygen saturation 99% on 2 L * White count 23.9, hemoglobin 8.4 * Sodium 138, creatinine 0.95, albumin 1.6 * Lactic acid 1.4 * Chest x-ray with left costophrenic angle blunting * CT angiography did not reveal any PE, but again showed the findings of her malignancy and also some pneumonia on the right Cultures were obtained, antibiotics were begun, and the patient was admitted. At the time I am seeing her this morning, she says she believes that her dyspnea is a little better. She has some ongoing discomfort in her abdomen that is fairly constant and not positional, and she describes as mild. She is not having back pain at this time. Palliative Care was consulted to assist with symptom management, and to enter into discussions with the patient regarding her illnesses, the prognosis, and the benefits and burdens of the various treatment options. . Function/Cognitive Trajectory The patient was somewhat weak and was on supplemental oxygen at home, but she reports she was able to get around on her own and manage her own ADLs . Review of Systems Constitutional: COMPLAINS OF: Weight loss Endocrine: DENIES: Polydipsia Eyes: DENIES: Eye inflammation Ears, nose, mouth, throat: DENIES: Oral lesions, Epistaxis Respiratory: COMPLAINS OF: Cough (chronic), Shortness of breath Cardiovascular: COMPLAINS OF: Lower Extremity Edema (for a week or 2), DENIES: Chest pain, Syncope Gastrointestinal: DENIES: Bloody stools, Constipation, Diarrhea, Vomiting, Vomiting blood Genitourinary: DENIES: Hematuria Musculoskeletal: COMPLAINS OF: Back pain (attributed to her malignancy), DENIES : Neck pain Integumentary: DENIES: Rash Hematologic/Lymphatics: DENIES: Bruising Immunologic/Allergic: DENIES: Urticaria Neurologic: COMPLAINS OF: Localized weakness (left face), DENIES: Headache, Seizures Psychiatric: DENIES: Confusion, Hallucinations, Agitation Past Family Social History Coded Allergies: No Known Allergies (Unverified Allergy, Unknown, 02/11/17) Past Medical History * Non-small cell lung cancer diagnosed in November 2016 * Metastatic disease involving adenopathy in the chest and retroperitoneum, as well as multiple bony areas * s/p initial but incomplete scheduled chemotherapy * s/p radiation therapy to the spine * Underlying COPD, long-term cigarette smoker * History of stroke affecting left face and swallowing, early January 2017 * Chronic anemia * Pathologic fracture of T4 * Malnutrition, with low serum albumin . Past Surgical History * Thoracentesis November 2016 * Bronchoscopy and biopsy November 2016 . Reported Medications Reported Meds & Active Scripts Active Furosemide 20 Mg Tab 20 Mg PO DAILY Potassium Chloride Microencaps 20 Meq Tab 20 Meq PO DAILY Oxygen (O2) Device Liter NEVILLE.CANULA CONTINUOUS Oxygen Concentrator Portable Gaseous 2 L/min via Nasal Canula Continuous For 99 months Hydrocodone-Acetaminophen 5-325 mg Tab 1 Tab PO Q6HR PRN Coreg (Carvedilol) 6.25 Mg Tab 6.25 Mg PO Q12HR Ventolin Hfa 18 GM Inh (Albuterol Sulfate) 90 Mcg/Act Aer 2 Puff INH Q4-6H PRN Symbicort Inh (Budesonide/Formoterol Fumarate) 160-4.5 Mcg/Act Aero 2 Puff INH Q12HR Reported Aspirin 81 Mg Chew 81 Mg CHEW DAILY . Current Medications Medications (Trade) Dose Ordered Sig/Ramy Route Start Time Stop Time Status Last Admin (NS Flush) 2 ml UNSCH PRN IVF 02/11/17 17:00 (Heparin Inj) 5,000 units Q8H SQ 02/11/17 23:00 02/12/17 08:24 (Narcan Inj) 0.4 mg UNSCH PRN IV PUSH 02/11/17 22:15 Azithromycin 500 mg/Sodium Chloride 250 ml @ 250 mls/hr Q24H IV 02/12/17 22:00 (Duoneb Neb) 1 ampule Q6HR NEB NEB 02/12/17 04:00 02/12/17 03:33 (Duoneb Neb) 1 ampule Q2HR NEB PRN NEB 02/11/17 22:30 Cefepime HCl 2000 mg/Sodium Chloride 100 ml @ 200 mls/hr Q8HR IV 02/12/17 06:00 02/12/17 05:18 ([place] 5-325 Mg) 1 tab Q6H PRN PO 02/12/17 08:30 02/12/17 09:22 Family History The patient's mother has diabetes and COPD, and her father of "bone cancer. " . Substance Use Tobacco: One pack per day for many years Alcohol: Rare Prescription med abuse: None Illicits: None . Psychosocial History The patient was born and raised in [place], but moved to [place] at the age of 20. She currently lives with her sister Jayson, her niece and nephew, and her own 16-year-old son. The patient has been twice. She was from her first , and now for more than 10 years from her second . She is still legally but is unaware of his whereabouts. She has 2 sons, a 35-year-old who has been estranged from her since he was 10 years old, and a 16-year-old son that lives with her now. The patient worked in [employer] and also in [employer] over the years. . Spiritual/Cultural Factors The patient reports she was raised Jewish, but she has no association with Catholicism or any other organized holiness or sabianist recently. She says that she is "a believer" and that the chaplains visited her when she was in the hospital before and she would like that to happen again. . Living Will: Never completed Health Care Surrogate: Copy in medical record Durable Power of Elevator Installer Apprentice: Never completed Date completed: 02/12/17 . Health Care Surrogate(s): The patient named her sister Jaqueline "Edgar Muhammad as her surrogate. . Today's verbally stated goals: The patient clearly wants to continue chemotherapy and other recommended aggressive treatments for her cancer, as one of her goals is to see her 16-year- old son graduate from high school. She does understand her disease is likely not curable, and she definitely does not want to be resuscitated or put on life support machines when that time comes. . Ethical and Legal Issues There are no ethical issues that would impact her care or decision-making at this time. The patient has capacity for decision-making. She has designated her sister Jaqueline Muhammad (Toni) as healthcare surrogate. . Physical Exam Vital Signs Date Time Temp Pulse Resp B/P (MAP) Pulse Ox O2 Delivery O2 Flow Rate FiO2 02/12/17 08:00 97.3 97 18 104/77 (86) 100 02/12/17 04:00 97.2 96 16 103/89 (94) 96 02/12/17 00:00 96.1 103 18 102/74 (83) 100 02/11/17 23:50 100 Nasal Cannula 2.00 02/11/17 23:30 22 02/11/17 23:05 101 20 115/72 (86) 98 Nasal Cannula 2.00 02/11/17 19:45 99 20 107/70 (82) 99 Nasal Cannula 2.00 02/11/17 18:32 115 24 117/83 (94) 99 Nasal Cannula 2.00 02/11/17 18:07 97.9 97 22 106/63 (77) 99 Nasal Cannula 02/11/17 17:58 Nasal Cannula 2.00 02/11/17 17:50 100 22 107/76 (86) 97 Nasal Cannula 2.00 02/11/17 17:10 98 Nasal Cannula 2.00 02/11/17 16:51 Nasal Cannula 3.00 02/11/17 16:51 98 Nasal Cannula 3.00 02/11/17 16:39 98 Nasal Cannula 02/11/17 16:33 98.6 98 20 106/75 (85) 99 Exam CONSTITUTIONAL/GENERAL: This is a somewhat thin patient, in no apparent distress. TUBES/LINES/DRAINS: Nasal cannula oxygen, peripheral IV SKIN: No jaundice, rashes, or lesions. Ecchymoses on upper extremities. No wounds seen anteriorly. Skin temperature appropriate. Not diaphoretic. HEAD: Atraumatic. Normocephalic. EYES: Pupils equal and round and reactive. Extraocular motions intact. No scleral icterus. No injection or drainage. Fundi not examined. ENT: Hearing grossly normal. Nose without bleeding or purulent drainage. Throat without visible erythema, exudates, masses, or lesions. NECK: Trachea midline. Supple, nontender. No palpable thyroid enlargement or nodularity. CARDIOVASCULAR: Regular rate and rhythm without murmurs, gallops, or rubs. No JVD. Peripheral pulses symmetric. RESPIRATORY/CHEST: Symmetric, unlabored respirations. There are a couple expiratory wheezes on the right, and some scattered rhonchi bilateral. GASTROINTESTINAL: Abdomen soft, non-tender, but moderately distended with apparent ascites. No hepato-splenomegaly, or palpable masses. No guarding. Bowel sounds present. GENITOURINARY: Without palpable bladder distension. MUSCULOSKELETAL: Extremities without clubbing or cyanosis, but she has 2+ pitting edema below both knees. No joint tenderness or effusion noted. No calf tenderness. No mottling or clubbing. LYMPHATICS: No palpable cervical or supraclavicular adenopathy. NEUROLOGICAL: Awake and alert. There is a motor deficit involving the entire left face including the forehead, but no other motor deficits noted. Follows commands. Cognitively sharp. Moves all extremities. PSYCHIATRIC: No obvious anxiety/depression. no apparent hallucinations or other psychotic thought process. . Diagnostic Tests Laboratory Laboratory Tests Test 02/11/17 17:30 02/11/17 20:40 02/12/17 07:00 White Blood Count 25.9 TH/MM3 (4.0-11.0) 18.8 TH/MM3 (4.0-11.0) Red Blood Count 2.94 MIL/MM3 (4.00-5.30) 2.49 MIL/MM3 (4.00-5.30) Hemoglobin 8.4 GM/DL (11.6-15.3) 7.5 GM/DL (11.6-15.3) Hematocrit 25.3 % (35.0-46.0) 21.9 % (35.0-46.0) Mean Corpuscular Volume 86.1 FL (80.0-100.0) 88.0 FL (80.0-100.0) Mean Corpuscular Hemoglobin 28.7 PG (27.0-34.0) 30.0 PG (27.0-34.0) Mean Corpuscular Hemoglobin Concent 33.3 % (32.0-36.0) 34.1 % (32.0-36.0) Red Cell Distribution Width 21.4 % (11.6-17.2) 22.0 % (11.6-17.2) Platelet Count 332 TH/MM3 (150-450) 313 TH/MM3 (150-450) Mean Platelet Volume 7.9 FL (7.0-11.0) 7.6 FL (7.0-11.0) Neutrophils (%) (Auto) 96.8 % (16.0-70.0) 97.3 % (16.0-70.0) Lymphocytes (%) (Auto) 1.3 % (9.0-44.0) 1.0 % (9.0-44.0) Monocytes (%) (Auto) 0.8 % (0.0-8.0) 1.2 % (0.0-8.0) Eosinophils (%) (Auto) 0.0 % (0.0-4.0) 0.1 % (0.0-4.0) Basophils (%) (Auto) 1.1 % (0.0-2.0) 0.4 % (0.0-2.0) Neutrophils # (Auto) 25.1 TH/MM3 (1.8-7.7) 18.3 TH/MM3 (1.8-7.7) Lymphocytes # (Auto) 0.3 TH/MM3 (1.0-4.8) 0.2 TH/MM3 (1.0-4.8) Monocytes # (Auto) 0.2 TH/MM3 (0-0.9) 0.2 TH/MM3 (0-0.9) Eosinophils # (Auto) 0.0 TH/MM3 (0-0.4) 0.0 TH/MM3 (0-0.4) Basophils # (Auto) 0.3 TH/MM3 (0-0.2) 0.1 TH/MM3 (0-0.2) CBC Comment DIFF FINAL DIFF FINAL Differential Comment Prothrombin Time 12.0 SEC (9.8-11.6) Prothromb Time International Ratio 1.1 RATIO Activated Partial Thromboplast Time 27.1 SEC (24.3-30.1) Blood Urea Nitrogen 53 MG/DL (7-18) 52 MG/DL (7-18) Creatinine 0.95 MG/DL (0.50-1.00) 1.00 MG/DL (0.50-1.00) Random Glucose 99 MG/DL (74-106) 75 MG/DL (74-106) Total Protein 6.9 GM/DL (6.4-8.2) Albumin 1.6 GM/DL (3.4-5.0) Calcium Level 8.9 MG/DL (8.5-10.1) 8.7 MG/DL (8.5-10.1) Magnesium Level 2.0 MG/DL (1.5-2.5) Alkaline Phosphatase 150 U/L (45-117) Aspartate Amino Transf (AST/SGOT) 45 U/L (15-37) Alanine Aminotransferase (ALT/SGPT) 76 U/L (10-53) Total Bilirubin 0.5 MG/DL (0.2-1.0) Sodium Level 138 MEQ/L (136-145) 140 MEQ/L (136-145) Potassium Level 3.2 MEQ/L (3.5-5.1) 3.5 MEQ/L (3.5-5.1) Chloride Level 105 MEQ/L (98-107) 105 MEQ/L (98-107) Carbon Dioxide Level 23.1 MEQ/L (21.0-32.0) 25.7 MEQ/L (21.0-32.0) Anion Gap 10 MEQ/L (5-15) 9 MEQ/L (5-15) Estimat Glomerular Filtration Rate 60 ML/MIN (>89) 57 ML/MIN (>89) Lactic Acid Level 1.4 mmol/L (0.4-2.0) Total Creatine Kinase 28 U/L (26-192) Troponin I LESS THAN 0.02 NG/ML B-Type Natriuretic Peptide 75 PG/ML (0-100) Urine Color YELLOW (YELLW/STRAW) Urine Turbidity CLEAR (CLEAR) Urine pH 5.5 (5.0-8.5) Urine Specific [place] 1.018 (1.002-1.035) Urine Protein 30 mg/dL (NEG-TRACE) Urine Glucose (UA) NEG mg/dL (NEG) Urine Ketones NEG mg/dL (NEG) Urine Occult Blood MOD (NEG) Urine Nitrite NEG (NEG) Urine Bilirubin NEG (NEG) Urine Leukocyte Esterase TRACE (NEG) Urine RBC 0-3 /hpf (0-3) Urine WBC 3-5 /hpf (0-5) Urine Squamous Epithelial Cells 6-8 /hpf (0-5) Urine Amorphous Sediment FEW Urine Bacteria FEW /hpf (NONE) Urine Mucus FEW /lpf (OCC) Microscopic Urinalysis Comment CULT NOT INDICATED Result Diagram: 02/12/17 0700 02/12/17 0700 Microbiology Microbiology Date/Time Source Procedure Growth Status 02/11/17 17:30 Blood Peripheral Aerobic Blood Culture - Preliminary NO GROWTH IN 1 DAY Resulted 02/11/17 17:30 Blood Peripheral Anaerobic Blood Culture - Preliminary NO GROWTH IN 1 DAY Resulted 02/11/17 17:30 Blood Peripheral Aerobic Blood Culture - Preliminary NO GROWTH IN 1 DAY Resulted 02/11/17 17:30 Blood Peripheral Anaerobic Blood Culture - Preliminary NO GROWTH IN 1 DAY Resulted Imaging Last Impressions Chest X-Ray 02/11/17 1647 Signed Impressions: Service Date/Time: Saturday, February 11, 2017 16:55 - CONCLUSION: Interval improvement. Minimal blunting left costophrenic sulcus without significant pleural effusion. Yaya Napier MD FACR CT Angiography 02/11/17 0000 Signed Impressions: Service Date/Time: Saturday, February 11, 2017 21:06 - CONCLUSION: 1. No PE is identified. 2. There is new airspace consolidation in the right lower lobe. This could represent an infectious process in the appropriate clinical history. The small left pleural effusion has decreased in size. 3. Mild decrease in size of the left supraclavicular, mediastinal, bilateral hilar, and retroperitoneal lymphadenopathy. 4. Mild increased size of the lytic lesion in the left humerus suspicious for a metastatic lesion. The pathologic T4 compression fracture appears stable. 5. Stable soft tissue encasing and mildly narrowing the main bronchi. Isidoro Merchant MD Procedures Paracentesis 02/12/17 . Patient/Family Conference Present at Family Conference: The patient and I . Family Conference Time (mins): 44 Family Conference Location: Bedside Issues Discussed: * Palliative care role, purpose, approach * Additional medical, psychosocial, and spiritual history * Patients general health, functional status, and cognitive changes in the months leading up to the current hospitalization * Patient/family understanding of the current medical problems * Patient/family understanding of prognosis * Patients goals of care as best understood from advance directives and/or conversations and/or values * Current medical treatment options and benefits/burdens of those options * Likely scenarios comparing ongoing aggressive care with a transition to comfort measures only * Questions answered to the best of my ability * Palliative care contact information provided The patient clearly wants to continue chemotherapy and other recommended aggressive treatments for her cancer, as one of her goals is to see her 16-year- old son graduate from high school. She does understand her disease is likely not curable, and she definitely does not want to be resuscitated or put on life support machines when that time comes. . Assessment and Plan Disease Oriented Problem List: (1) pneumonia/sepsis (2) non-small cell lung cancer diagnosed November 2016 (3) metastatic disease involving adenopathy in the chest and retroperitoneum, as well as multiple bony areas (4) s/p initial couple treatments, but recently lost to follow-up (5) s/p radiation therapy to spine (6) underlying COPD, long-term cigarette smoker (7) history of recent stroke affecting left face and swallowing, January 2017 (8) chronic anemia (9) pathologic fracture T4 (10) malnutrition, serum albumin 1.6 Symptom Scale: (1) dyspnea 0-10 Scale: 1 (2) pain 0-10 Scale: 1 (primarily abdominal discomfort) Pertinent Non-Medical Issues Psychosocial: Long-term separation from current , one estranged 35-year- old son, 16-year-old son living with her and the patient's sister. 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 Spiritual: Unaffiliated Yarsanism, would like spooler operator automatic visits. Legal: The patient has capacity for decision-making. She has designated her sister Jaqueline Muhammad (Toni) as healthcare surrogate. Ethical issues impacting care: None . Important Contacts The patient's sister and designated HCS Jaqueline Muhammad (Toni) [phone] . Prognosis The patient has advanced stage non-small cell lung cancer, likely eventually terminal. She is undergoing chemotherapy and recent radiation now. . Code Status: No Code Plan * DO NOT RESUSCITATE, per request of patient 02/12/17 * DECISION-MAKING: The patient has capacity for decision-making at this time. She has designated her sister Jaqueline Muhammad (Toni) as healthcare surrogate. * GOALS: The patient clearly wants to continue chemotherapy and other recommended aggressive treatments for her cancer, as one of her goals is to see her 16-year-old son graduate from high school. She does understand her disease is likely not curable, and she definitely does not want to be resuscitated or put on life support machines when that time comes. * SYMPTOMS: The patient's dyspnea is improved and she remains on supplemental oxygen (as she has been for 3 months); her back pain is improved since her radiation treatments, and she has mild abdominal pain. No specific medication recommendations are made at this time. * Professor Of Religion visits requested. * DNR entered into the record. * Healthcare surrogacy forms completed. * Living Will information provided to the patient. * Palliative Care will continue to follow this patient during this hospitalization. . Time Spent Total Floor Time (mins): 78 Face to Face Time (mins): 55 >50% Counseling/Coord of Care: Yes Thank you for the opportunity to participate in the care of Ms. Calvert. Attestation To help prompt me to consider important information that might be impacting today's encounter and assessment, information from prior notes written by myself or my colleagues may have been "brought forward" into today's note. My signature on this note, however, is an attestation that I personally performed the exam, history, and/or decision-making noted today, and, unless otherwise indicated, the interactions with patient, family, and staff as well as the review of records all occurred today. I also attest that the listed assessment and stated plan reflect my best clinical judgment today based on the combination of historical information, prior notes, and today's exam/ interactions. When time spent is documented, it refers only to time spent today by the signer, or if indicated, combined time spent today by collaborating physician/nurse practitioner. Diandra Mccarty MD Feb 12, 2017 12:19
--- NOTE | 2017-02-12 13:07 | HHI.HP ---
HPI Service [facility] Primary Care Physician No Primary Care Physician Admission Diagnosis sepsis, right lower lobe pneumonia, dyspnea Diagnoses: Travel History International Travel<30 Days: No Contact w/Intl Traveler <30 Da: No Traveled to Known Affected Are: No History of Present Illness This is a pleasant 78 year-old female who is diagnosed with non-small cell lung cancer several months ago with metastasis. She underwent first round of chemotherapy in December and underwent radiation therapy of [facility] last month. Patient was also admitted to the [facility] last month and diagnosed with an acute stroke. She had left facial droop and some left sided weakness. Her oncologist is Dr. Pedraza. The patient was seen in her clinic on Saturday. At that time she was noted to have increased swelling in her abdomen and lower extremities. She was scheduled for an abdominal paracentesis today. Over the weekend the patient started to get more edematous and started to have increased shortness of breath. She does use home oxygen. Symptoms were moderate without alleviating factors. The patient also has a cough but feels she is unable to produce sputum. The patient presented to the emergency department last night for evaluation of these symptoms. CTA was negative for pulmonary embolism but did show a new airspace consolidation in the right lower lobe. The patient was given cefepime and azithromycin and admitted to the hospital. Patient underwent therapeutic paracentesis today with removal of 3 L of fluid. Her dyspnea has improved. Patient denies fever or chills. History obtained from the patient and discussion with Dr. Pedraza. The patient has also had thoracentesis for a left pleural effusion. CTA showed only a small left pleural effusion in the ED. Review of Systems Constitutional: DENIES: Fever, Chills Eyes: DENIES: Blurred vision, Diplopia Ears, nose, mouth, throat: DENIES: Hearing loss, Throat pain Respiratory: COMPLAINS OF: Cough, Shortness of breath, DENIES: Sputum production Cardiovascular: COMPLAINS OF: Dyspnea on Exertion, DENIES: Chest pain, Palpitations Gastrointestinal: DENIES: Abdominal pain, Vomiting Genitourinary: DENIES: Urgency, Dysuria Integumentary: DENIES: Pruritus, Rash Hematologic/lymphatic: DENIES: Lymphadenopathy Neurologic: DENIES: Abnormal gait, Headache Psychiatric: DENIES: Anxiety, Confusion Past Family Social History Past Medical History Non-small cell lung cancer diagnosed in November 2016 Metastatic disease involving adenopathy in the chest and retroperitoneum, calvarium, T4, left humerus COPD CVA January 2017 Chronic anemia Malnutrition Past Surgical History * Thoracentesis November 2016 * Bronchoscopy and biopsy November 2016 . Reported Medications Allergies Coded Allergies Type Severity Reaction Last Updated Verified No Known Allergies Allergy Unknown 02/11/17 No Active Scripts Medications Dose Route/Sig Max Daily Dose Days Date Category Dose Instructions Aspirin 81 Mg Chew 81 Mg CHEW DAILY 02/11/17 Reported Furosemide 20 Mg Tab 20 Mg PO DAILY 01/03/17 Rx Potassium Chloride Microencaps 20 Meq Tab 20 Meq PO DAILY 01/03/17 Rx Oxygen (O2) Device Liter NEVILLE.CANULA CONTINUOUS 01/02/17 Rx Oxygen Concentrator Portable Gaseous 2 L/min via Nasal Canula Continuous For 99 months Hydrocodone-Acetaminophen 5-325 mg Tab 1 Tab PO Q6HR PRN 01/02/17 Rx Coreg (Carvedilol) 6.25 Mg Tab 6.25 Mg PO Q12HR 01/02/17 Rx Ventolin Hfa 18 GM Inh (Albuterol Sulfate) 90 Mcg/Act Aer 2 Puff INH Q4-6H PRN 11/14/16 Rx Symbicort Inh (Budesonide/Formoterol Fumarate) 160-4.5 Mcg/Act Aero 2 Puff INH Q12HR 11/14/16 Rx Allergies: Coded Allergies: No Known Allergies (Unverified Allergy, Unknown, 02/11/17) Family History The patient's mother has diabetes and COPD, and her father of "bone cancer. " . 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 Physical Exam Vital Signs Vital Signs Date Time Temp Pulse Resp B/P (MAP) Pulse Ox O2 Delivery O2 Flow Rate FiO2 02/12/17 08:00 97.3 97 18 104/77 (86) 100 02/12/17 04:00 97.2 96 16 103/89 (94) 96 02/12/17 00:00 96.1 103 18 102/74 (83) 100 02/11/17 23:50 100 Nasal Cannula 2.00 02/11/17 23:30 22 02/11/17 23:05 101 20 115/72 (86) 98 Nasal Cannula 2.00 02/11/17 19:45 99 20 107/70 (82) 99 Nasal Cannula 2.00 02/11/17 18:32 115 24 117/83 (94) 99 Nasal Cannula 2.00 02/11/17 18:07 97.9 97 22 106/63 (77) 99 Nasal Cannula 02/11/17 17:58 Nasal Cannula 2.00 02/11/17 17:50 100 22 107/76 (86) 97 Nasal Cannula 2.00 02/11/17 17:10 98 Nasal Cannula 2.00 02/11/17 16:51 Nasal Cannula 3.00 02/11/17 16:51 98 Nasal Cannula 3.00 02/11/17 16:39 98 Nasal Cannula 02/11/17 16:33 98.6 98 20 106/75 (85) 99 Physical Exam GENERAL: Cachectic malnourished appearing female patient with thin hair. SKIN: Warm and dry. HEAD: Normocephalic. EYES: No scleral icterus. No injection or drainage. NECK: Supple, trachea midline. No JVD or lymphadenopathy. CARDIOVASCULAR: Regular rate and rhythm without murmurs, gallops, or rubs. RESPIRATORY: Breath sounds equal bilaterally. No accessory muscle use. GASTROINTESTINAL: Abdomen soft, non-tender, nondistended. EXTREMITIES: 2+ pedal edema.. Long fingernails. NEUROLOGICAL: Awake, alert, and oriented x 3. Left facial droop. Generalized weakness. Laboratory Laboratory Tests Test 02/11/17 17:30 02/11/17 20:40 02/12/17 07:00 White Blood Count 25.9 18.8 Red Blood Count 2.94 2.49 Hemoglobin 8.4 7.5 Hematocrit 25.3 21.9 Mean Corpuscular Volume 86.1 88.0 Mean Corpuscular Hemoglobin 28.7 30.0 Mean Corpuscular Hemoglobin Concent 33.3 34.1 Red Cell Distribution Width 21.4 22.0 Platelet Count 332 313 Mean Platelet Volume 7.9 7.6 Neutrophils (%) (Auto) 96.8 97.3 Lymphocytes (%) (Auto) 1.3 1.0 Monocytes (%) (Auto) 0.8 1.2 Eosinophils (%) (Auto) 0.0 0.1 Basophils (%) (Auto) 1.1 0.4 Neutrophils # (Auto) 25.1 18.3 Lymphocytes # (Auto) 0.3 0.2 Monocytes # (Auto) 0.2 0.2 Eosinophils # (Auto) 0.0 0.0 Basophils # (Auto) 0.3 0.1 CBC Comment DIFF FINAL DIFF FINAL Differential Comment Prothrombin Time 12.0 Prothromb Time International Ratio 1.1 Activated Partial Thromboplast Time 27.1 Blood Urea Nitrogen 53 52 Creatinine 0.95 1.00 Random Glucose 99 75 Total Protein 6.9 Albumin 1.6 Calcium Level 8.9 8.7 Magnesium Level 2.0 Alkaline Phosphatase 150 Aspartate Amino Transf (AST/SGOT) 45 Alanine Aminotransferase (ALT/SGPT) 76 Total Bilirubin 0.5 Sodium Level 138 140 Potassium Level 3.2 3.5 Chloride Level 105 105 Carbon Dioxide Level 23.1 25.7 Anion Gap 10 9 Estimat Glomerular Filtration Rate 60 57 Lactic Acid Level 1.4 Total Creatine Kinase 28 Troponin I LESS THAN 0.02 B-Type Natriuretic Peptide 75 Urine Color YELLOW Urine Turbidity CLEAR Urine pH 5.5 Urine Specific Gratz 1.018 Urine Protein 30 Urine Glucose (UA) NEG Urine Ketones NEG Urine Occult Blood MOD Urine Nitrite NEG Urine Bilirubin NEG Urine Leukocyte Esterase TRACE Urine RBC 0-3 Urine WBC 3-5 Urine Squamous Epithelial Cells 6-8 Urine Amorphous Sediment FEW Urine Bacteria FEW Urine Mucus FEW Microscopic Urinalysis Comment CULT NOT INDICATED Date/Time Source Procedure Growth Status 02/11/17 17:30 Blood Peripheral Aerobic Blood Culture - Preliminary NO GROWTH IN 1 DAY Resulted 02/11/17 17:30 Blood Peripheral Anaerobic Blood Culture - Preliminary NO GROWTH IN 1 DAY Resulted Result Diagram: 02/12/17 0700 02/12/17 0700 Imaging Last Impressions Chest X-Ray 02/11/17 1647 Signed Impressions: Service Date/Time: Saturday, February 11, 2017 16:55 - CONCLUSION: Interval improvement. Minimal blunting left costophrenic sulcus without significant pleural effusion. Yaya Napier MD FACR CT Angiography 02/11/17 0000 Signed Impressions: Service Date/Time: Saturday, February 11, 2017 21:06 - CONCLUSION: 1. No PE is identified. 2. There is new airspace consolidation in the right lower lobe. This could represent an infectious process in the appropriate clinical history. The small left pleural effusion has decreased in size. 3. Mild decrease in size of the left supraclavicular, mediastinal, bilateral hilar, and retroperitoneal lymphadenopathy. 4. Mild increased size of the lytic lesion in the left humerus suspicious for a metastatic lesion. The pathologic T4 compression fracture appears stable. 5. Stable soft tissue encasing and mildly narrowing the main bronchi. MD Efrain Lafleur VTE Risk Assessment Caprini VTE Risk Assessment: Mod/High Risk (score >= 2) Caprini Risk Assessment Model Point Value = 1 Point Value = 2 Point Value = 3 Point Value = 5 Age 41-60 Minor surgery BMI > 25 kg/m2 Swollen legs Varicose veins or History of unexplained or recurrent spontaneous Oral contraceptives or hormone replacement Sepsis (< 1 month) Serious lung disease, including pneumonia (< 1 month) Abnormal pulmonary function Acute myocardial infarction Congestive heart failure (< 1 month) History of inflammatory bowel disease Medical patient at bed rest Age 61-74 Arthroscopic surgery Major open surgery (> 45 min) Laparoscopic surgery (> 45 min) Malignancy Confined to bed (> 72 hours) Immobilizing plaster cast Central venous access Age >= 75 History of VTE Family history of VTE Factor V Leiden Prothrombin [id number] Lupus anticoagulant Anticardiolipin antibodies Elevated serum homocysteine Heparin-induced thrombocytopenia Other congenital or acquired thrombophilia Stroke (< 1 month) Elective arthroplasty Hip, pelvis, or leg fracture Acute spinal cord injury (< 1 month) Prophylaxis Regimen Total Risk Factor Score Risk Level Prophylaxis Regimen 0-1 Low Early ambulation 2 Moderate Order ONE of the following: *Sequential Compression Device (SCD) *Heparin 5000 units SQ BID 3-4 Higher Order ONE of the following medications: *Heparin 5000 units SQ TID *Enoxaparin/Lovenox 40 mg SQ daily (WT < 150 kg, CrCl > 30 mL/min) *Enoxaparin/Lovenox 30 mg SQ daily (WT < 150 kg, CrCl > 10-29 mL/min) *Enoxaparin/Lovenox 30 mg SQ BID (WT < 150 kg, CrCl > 30 mL/min) AND/OR *Sequential Compression Device (SCD) 5 or more Highest Order ONE of the following medications: *Heparin 5000 units SQ TID (Preferred with Epidurals) *Enoxaparin/Lovenox 40 mg SQ daily (WT < 150 kg, CrCl > 30 mL/min) *Enoxaparin/Lovenox 30 mg SQ daily (WT < 150 kg, CrCl > 10-29 mL/min) *Enoxaparin/Lovenox 30 mg SQ BID (WT < 150 kg, CrCl > 30 mL/min) AND *Sequential Compression Device (SCD) Assessment and Plan Problem List: (1) PNA (pneumonia) ICD Code: J18.9 - Pneumonia, unspecified organism Status: Acute (2) Non-small cell carcinoma of lung metastatic to abdomen ICD Code: C34.90 - Malignant neoplasm of unspecified part of unspecified bronchus or lung; C79.89 - Secondary malignant neoplasm of other specified sites Status: Acute (3) malnutrition, serum albumin 1.6 (4) Anemia ICD Code: D64.9 - Anemia, unspecified Assessment and Plan -Right lower lobe community-acquired pneumonia. Stable on 2 L nasal cannula. She has significant leukocytosis, has not received Neulasta recently per her oncologist. Continue cefepime and Zithromax. Oxygen via 2 L nasal cannula. DuoNeb's as needed. Follow leukocytosis and blood cultures. Patient is not producing sputum for culture. -Non-small cell lung cancer with diffuse metastasis status post one round of chemotherapy and radiation- status post therapeutic abdominal paracentesis today with removal of 3 L of fluid. Follow-up outpatient with Dr. Pedraza for further chemotherapy. -COPD with chronic respiratory failure on 2 L nasal cannula oxygen. No wheezing on exam but to the dyspnea we are treating with Solu-Medrol, DuoNeb's. -Chronic anemia. Hemoglobin decreased to 7.5 today. Repeat CBC in the morning. Transfuse when necessary hemoglobin less than 7. Lortab as needed for pain. -Moderate malnutrition. Add boost. -Anasarca due to the abdominal metastasis, malnutrition. -DVT prophylaxis with Lovenox 40 mg subcutaneous daily. Gem Zendejas MD Feb 12, 2017 13:06
[2017-02-12] MEDS ORDERED: SODIUM CHLORID 0.9% 500 ML INJ 500 ML IV ONE (18:00)
--- NOTE | 2017-02-12 18:43 | EKG ---
Date Performed: 02/11/2017 Time Performed: 17:06:46 PTAGE: 56 years EKG: Sinus rhythm INCOMPLETE RIGHT BUNDLE BRANCH BLOCK NONSPECIFIC ST & T-WAVE ABNORMALITY WHEN COMPARED TO PRIOR EKG PATIENT IS NO LONGER TACHYCARDIC. BORDERLINE ECG PREVIOUS TRACING : 12/25/2016 18.09 DOCTOR: Tila Lackey Interpretating Date/Time 02/12/2017 18:43:13
[2017-02-12] MEDS: BUDESONIDE-FORMOTEROL 160/4.5 MCG INHALER INH SCH (21:27)
[2017-02-12] MEDS ORDERED: AZITHROMYCIN INJ 500 MG in SODIUM CHLOR 0.9% 250 ML INJ 250 ML IV SCH (22:00)
[2017-02-13] VITALS (11 sets, daily range): BP systolic 84–108; BP diastolic 64–118; PULSE 98–127; RESP 14–21; TEMP 96.2–98.4; O2SAT 94–100
[2017-02-13] MEDS: RESP: ALBUTEROL 2.5 MG/IPRATROPIUM 0.5 MG NEB (SCH) NEB ×4 (03:18→20:19)
[2017-02-13] MEDS: ACETAMINOPHEN/HYDROcodone 325 MG/5 MG TAB PO PRN ×3 (06:07→21:44)
[2017-02-13] MEDS: CEFEPIME INJ 2,000 MG in SODIUM CHLORIDE 0.9% INJ 100 ML IV SCH ×3 (06:09→22:38)
[2017-02-13] MEDS: HEPARIN SODIUM - SQ 10,000 UNITS/ML VIAL SQ SCH ×2 (06:10→14:29)
[2017-02-13 06:35] LABS: AUTOMATED NEUTROPHIL # 15.1 TH/MM3 (1.8-7.7); BASOPHIL % 0.2 % (0.0-2.0); EOSINOPHIL # 0.1 TH/MM3 (0-0.4); EOSINOPHIL % 0.5 % (0.0-4.0); HEMATOCRIT 21.7 % (35.0-46.0); LYMPH % 2.9 % (9.0-44.0); LYMPHOCYTE # 0.5 TH/MM3 (1.0-4.8); MEAN CELL VOLUME 86.9 FL (80.0-100.0); MEAN CORPUSCULAR HEMOGLOBIN 28.7 PG (27.0-34.0); MONO % 2.2 % (0.0-8.0); NEUT % 94.2 % (16.0-70.0); PLATELET COUNT 315 TH/MM3 (150-450); RED CELL DISTRIBUTION WIDTH 20.8 % (11.6-17.2); WHITE BLOOD COUNT 16.1 TH/MM3 (4.0-11.0)
[2017-02-13 06:41] LABS: CHLORIDE 106 MEQ/L (98-107); POTASSIUM 3.8 MEQ/L (3.5-5.1); SODIUM (NA) 138 MEQ/L (136-145)
[2017-02-13 06:45] LABS: ANION GAP 10 MEQ/L (5-15); BICARBONATE 22.4 MEQ/L (21.0-32.0); BLOOD UREA NITROGEN 50 MG/DL (7-18)
[2017-02-13 06:48] LABS: ALT (GPT) 49 U/L (10-53); AST (GOT) 30 U/L (15-37); GLOMERULAR FILTRATION RATE 57 ML/MIN (>89)
[2017-02-13 06:49] LABS: HEMO FLAGS DIFF FINAL
[2017-02-13 06:50] LABS: TOTAL BILIRUBIN ADULT 0.4 MG/DL (0.2-1.0)
[2017-02-13 06:51] LABS: ALKALINE PHOSPHATASE 120 U/L (45-117)
[2017-02-13] MEDS: ASPIRIN 81 MG CHEW TAB CHEW SCH (08:45)
[2017-02-13] MEDS: POTASSIUM CHLORIDE 20 MEQ CONTROLLED RELEASE TAB PO SCH (08:45)
[2017-02-13] MEDS: FUROSEMIDE 20 MG TAB PO SCH (08:46)
[2017-02-13] MEDS: BUDESONIDE-FORMOTEROL 160/4.5 MCG INHALER INH SCH ×2 (08:46→21:41)
[2017-02-13] MEDS ORDERED: PILL SPLITTER OTHER PRN (12:00)
[2017-02-13] MEDS: METOPROLOL TARTRATE 25 MG TAB PO SCH ×2 (12:49→21:41)
[2017-02-13] MEDS ORDERED: SODIUM CHLOR 0.9% 250 ML INJ 250 ML IV ONE (13:15)
--- NOTE | 2017-02-13 13:25 | HHI.PR ---
Objective Vital Signs Date Time Temp Pulse Resp B/P (MAP) Pulse Ox O2 Delivery O2 Flow Rate FiO2 02/13/17 12:00 96.2 118 14 94/118 (110) 99 02/13/17 09:14 100 Nasal Cannula 2.00 02/13/17 08:00 97.1 108 14 95/70 (78) 100 02/13/17 07:07 18 02/13/17 04:00 96.8 126 20 108/78 (88) 100 02/13/17 00:00 97.0 127 20 101/74 (83) 100 02/12/17 21:35 100 Nasal Cannula 2.00 02/12/17 20:00 96.6 117 18 114/78 (90) 100 02/12/17 20:00 117 02/12/17 16:00 97.2 97 18 102/70 (81) 98 I/O 02/12/17 02/12/17 02/12/17 02/13/17 02/13/17 02/13/17 07:00 15:00 23:00 07:00 15:00 23:00 Intake Total 530 ml 775 ml 750 ml 480 ml 230 ml Balance 530 ml 775 ml 750 ml 480 ml 230 ml Intake Oral 180 ml 675 ml 480 ml 130 ml IV Total 350 ml 100 ml 750 ml 100 ml # Voids 2 3 2 1 1 # Bowel Movements 1 1 0 1 Result Diagram: 02/13/1751402/13/17514 Objective Remarks GENERAL: Patient sitting up in bed. Appears comfortable. SKIN: Warm and dry. HEAD: Normocephalic. EYES: No scleral icterus. No injection or drainage. NECK: Supple, trachea midline. No JVD. CARDIOVASCULAR: Regular rate and rhythm without murmurs, gallops, or rubs. RESPIRATORY: Breath sounds equal bilaterally. No accessory muscle use. GASTROINTESTINAL: Abdomen slightly distended. Positive ascites. No rebound or guarding. Positive bowel sounds. MUSCULOSKELETAL: No cyanosis, or edema. BACK: Nontender without obvious deformity. No CVA tenderness. A/P Assessment and Plan //Right lower lobe community-acquired pneumonia. Stable on 2 L nasal cannula. She has significant leukocytosis, has not received Neulasta recently per her oncologist. Continue cefepime and Zithromax. Oxygen via 2 L nasal cannula. DuoNeb's as needed. Follow leukocytosis and blood cultures. Patient is not producing sputum for culture. = 02/13. Respiratory status improving. Leukocytosis 16. Improving. Continue on antibiotics. Suspect that some of her weakness is secondary to anemia. //Non-small cell lung cancer with diffuse metastasis status post one round of chemotherapy and radiation- status post therapeutic abdominal paracentesis today with removal of 3 L of fluid. Follow-up outpatient with Dr. Pedraza for further chemotherapy. //COPD with chronic respiratory failure on 2 L nasal cannula oxygen. No wheezing on exam but to the dyspnea we are treating with Hallie Hathaway's. //Chronic anemia. -Hemoglobin 8.4 on admission -02/13. Hemoglobin 7.2. No signs of bleeding. Weakness apparently worsening. Unable to participate out of bed with physical therapy today. Transfuse 2 units PRBCs. Consult oncology. //Moderate malnutrition. We'll add [place] Instant Breakfast as per patient request. //Anasarca due to the abdominal metastasis, malnutrition. Status post paracentesis on 02/12. Still with ascites. Patient is breakfast added for malnutrition. Oncology consult. Appreciate assistance. //recent CVA. cont aspirin. cont Lasix. Hold Coreg for now as she is normotensive. //DVT prophylaxis with Lovenox 40 mg subcutaneous daily. Discharge Planning Patient very weak from anemia. Pending transfusion. Pending oncology consult. Patient will likely need to go to SNF at discharge. Joey Murguia MD Feb 13, 2017 13:25
[2017-02-13 15:21] LABS: RETIC % 2.2 % (0.4-3.0)
[2017-02-13 15:26] LABS: REVIEW FLAG FINAL
[2017-02-13 15:37] LABS: TRANSFERRIN IRON PROFILE 81 MG/DL (200-360)
[2017-02-13 15:52] LABS: FERRITIN 9392 NG/ML (8-252)
[2017-02-13] MEDS ORDERED: FUROSEMIDE 20 MG/2 ML VIAL IV PUSH ONE (17:00)
--- NOTE | 2017-02-13 17:06 | HHI.HCPN ---
Reason for visit a. To assist with evaluation and management of symptoms including: pain, dyspnea b. To assist medical decision maker(s) with: better understanding of current medical conditions; weighing benefits/burdens of medical treatment options; making medical treatment decisions. . Subjective/Interval History INTERVAL NOTE: The patient says she thinks her breathing is better, but she continues to feel weak. She reports that the paracentesis "got a couple bottles of fluid out of there" yesterday. She feels less pressure in her abdomen. She is awaiting her oncology consultation. . Advance Directives Living Will: Never completed Health Care Surrogate: Copy in medical record Durable Power of Artificial Flower Maker: Never completed Advance Directive Specifics Date completed: 02/12/17 . Health Care Surrogate(s): The patient named her sister Jaqueline Muhammad (Toni) as her surrogate. . Objective Vital Signs Date Time Temp Pulse Resp B/P (MAP) Pulse Ox O2 Delivery O2 Flow Rate FiO2 02/13/17 15:30 18 02/13/17 12:00 96.2 118 14 94/118 (110) 99 02/13/17 09:14 100 Nasal Cannula 2.00 02/13/17 08:00 97.1 108 14 95/70 (78) 100 02/13/17 04:00 96.8 126 20 108/78 (88) 100 02/13/17 00:00 97.0 127 20 101/74 (83) 100 02/12/17 21:35 100 Nasal Cannula 2.00 02/12/17 20:00 96.6 117 18 114/78 (90) 100 02/12/17 20:00 117 Intake & Output 02/13/17 02/13/17 07:00 19:00 Intake Total 1230 ml 230 ml Balance 1230 ml 230 ml Intake Oral 480 ml 130 ml IV Total 750 ml 100 ml # Voids 1 1 # Bowel Movements 0 1 Physical Exam CONSTITUTIONAL/GENERAL: This is a somewhat thin patient, in no apparent distress. TUBES/LINES/DRAINS: Nasal cannula oxygen, peripheral IV SKIN: No jaundice, rashes, or lesions. Ecchymoses on upper extremities. No wounds seen anteriorly. Skin temperature appropriate. Not diaphoretic. CARDIOVASCULAR: Regular rate and rhythm without murmurs, gallops, or rubs. No JVD. Peripheral pulses symmetric. RESPIRATORY/CHEST: Symmetric, unlabored respirations. There are a couple expiratory wheezes on the right, and some scattered rhonchi bilateral. GASTROINTESTINAL: Abdomen soft, non-tender, but mildly distended with apparent ascites. No hepato-splenomegaly, or palpable masses. No guarding. Bowel sounds present. MUSCULOSKELETAL: Extremities without clubbing or cyanosis, but she has 2+ pitting edema below both knees. No joint tenderness or effusion noted. No calf tenderness. No mottling or clubbing. LYMPHATICS: No palpable cervical or supraclavicular adenopathy. NEUROLOGICAL: Awake and alert. There is a motor deficit involving the entire left face including the forehead, but no other motor deficits noted. Follows commands. Cognitively sharp. Moves all extremities. PSYCHIATRIC: No obvious anxiety/depression. no apparent hallucinations or other psychotic thought process. . Diagnostic Tests Laboratory Laboratory Tests Test 02/11/17 17:30 02/11/17 20:40 02/12/17 07:00 02/13/17 05:15 White Blood Count 25.9 TH/MM3 (4.0-11.0) 18.8 TH/MM3 (4.0-11.0) 16.1 TH/MM3 (4.0-11.0) Red Blood Count 2.94 MIL/MM3 (4.00-5.30) 2.49 MIL/MM3 (4.00-5.30) 2.50 MIL/MM3 (4.00-5.30) Hemoglobin 8.4 GM/DL (11.6-15.3) 7.5 GM/DL (11.6-15.3) 7.2 GM/DL (11.6-15.3) Hematocrit 25.3 % (35.0-46.0) 21.9 % (35.0-46.0) 21.7 % (35.0-46.0) Mean Corpuscular Volume 86.1 FL (80.0-100.0) 88.0 FL (80.0-100.0) 86.9 FL (80.0-100.0) Mean Corpuscular Hemoglobin 28.7 PG (27.0-34.0) 30.0 PG (27.0-34.0) 28.7 PG (27.0-34.0) Mean Corpuscular Hemoglobin Concent 33.3 % (32.0-36.0) 34.1 % (32.0-36.0) 33.0 % (32.0-36.0) Red Cell Distribution Width 21.4 % (11.6-17.2) 22.0 % (11.6-17.2) 20.8 % (11.6-17.2) Platelet Count 332 TH/MM3 (150-450) 313 TH/MM3 (150-450) 315 TH/MM3 (150-450) Mean Platelet Volume 7.9 FL (7.0-11.0) 7.6 FL (7.0-11.0) 8.3 FL (7.0-11.0) Neutrophils (%) (Auto) 96.8 % (16.0-70.0) 97.3 % (16.0-70.0) 94.2 % (16.0-70.0) Lymphocytes (%) (Auto) 1.3 % (9.0-44.0) 1.0 % (9.0-44.0) 2.9 % (9.0-44.0) Monocytes (%) (Auto) 0.8 % (0.0-8.0) 1.2 % (0.0-8.0) 2.2 % (0.0-8.0) Eosinophils (%) (Auto) 0.0 % (0.0-4.0) 0.1 % (0.0-4.0) 0.5 % (0.0-4.0) Basophils (%) (Auto) 1.1 % (0.0-2.0) 0.4 % (0.0-2.0) 0.2 % (0.0-2.0) Neutrophils # (Auto) 25.1 TH/MM3 (1.8-7.7) 18.3 TH/MM3 (1.8-7.7) 15.1 TH/MM3 (1.8-7.7) Lymphocytes # (Auto) 0.3 TH/MM3 (1.0-4.8) 0.2 TH/MM3 (1.0-4.8) 0.5 TH/MM3 (1.0-4.8) Monocytes # (Auto) 0.2 TH/MM3 (0-0.9) 0.2 TH/MM3 (0-0.9) 0.4 TH/MM3 (0-0.9) Eosinophils # (Auto) 0.0 TH/MM3 (0-0.4) 0.0 TH/MM3 (0-0.4) 0.1 TH/MM3 (0-0.4) Basophils # (Auto) 0.3 TH/MM3 (0-0.2) 0.1 TH/MM3 (0-0.2) 0.0 TH/MM3 (0-0.2) CBC Comment DIFF FINAL DIFF FINAL DIFF FINAL Differential Comment Prothrombin Time 12.0 SEC (9.8-11.6) Prothromb Time International Ratio 1.1 RATIO Activated Partial Thromboplast Time 27.1 SEC (24.3-30.1) Blood Urea Nitrogen 53 MG/DL (7-18) 52 MG/DL (7-18) 50 MG/DL (7-18) Creatinine 0.95 MG/DL (0.50-1.00) 1.00 MG/DL (0.50-1.00) 1.00 MG/DL (0.50-1.00) Random Glucose 99 MG/DL (74-106) 75 MG/DL (74-106) 91 MG/DL (74-106) Total Protein 6.9 GM/DL (6.4-8.2) 5.7 GM/DL (6.4-8.2) Albumin 1.6 GM/DL (3.4-5.0) 1.2 GM/DL (3.4-5.0) Calcium Level 8.9 MG/DL (8.5-10.1) 8.7 MG/DL (8.5-10.1) 8.1 MG/DL (8.5-10.1) Magnesium Level 2.0 MG/DL (1.5-2.5) Alkaline Phosphatase 150 U/L (45-117) 120 U/L (45-117) Aspartate Amino Transf (AST/SGOT) 45 U/L (15-37) 30 U/L (15-37) Alanine Aminotransferase (ALT/SGPT) 76 U/L (10-53) 49 U/L (10-53) Total Bilirubin 0.5 MG/DL (0.2-1.0) 0.4 MG/DL (0.2-1.0) Sodium Level 138 MEQ/L (136-145) 140 MEQ/L (136-145) 138 MEQ/L (136-145) Potassium Level 3.2 MEQ/L (3.5-5.1) 3.5 MEQ/L (3.5-5.1) 3.8 MEQ/L (3.5-5.1) Chloride Level 105 MEQ/L (98-107) 105 MEQ/L (98-107) 106 MEQ/L (98-107) Carbon Dioxide Level 23.1 MEQ/L (21.0-32.0) 25.7 MEQ/L (21.0-32.0) 22.4 MEQ/L (21.0-32.0) Anion Gap 10 MEQ/L (5-15) 9 MEQ/L (5-15) 10 MEQ/L (5-15) Estimat Glomerular Filtration Rate 60 ML/MIN (>89) 57 ML/MIN (>89) 57 ML/MIN (>89) Lactic Acid Level 1.4 mmol/L (0.4-2.0) Total Creatine Kinase 28 U/L (26-192) Troponin I LESS THAN 0.02 NG/ML B-Type Natriuretic Peptide 75 PG/ML (0-100) Urine Color YELLOW (YELLW/STRAW) Urine Turbidity CLEAR (CLEAR) Urine pH 5.5 (5.0-8.5) Urine Specific [place] 1.018 (1.002-1.035) Urine Protein 30 mg/dL (NEG-TRACE) Urine Glucose (UA) NEG mg/dL (NEG) Urine Ketones NEG mg/dL (NEG) Urine Occult Blood MOD (NEG) Urine Nitrite NEG (NEG) Urine Bilirubin NEG (NEG) Urine Leukocyte Esterase TRACE (NEG) Urine RBC 0-3 /hpf (0-3) Urine WBC 3-5 /hpf (0-5) Urine Squamous Epithelial Cells 6-8 /hpf (0-5) Urine Amorphous Sediment FEW Urine Bacteria FEW /hpf (NONE) Urine Mucus FEW /lpf (OCC) Microscopic Urinalysis Comment CULT NOT INDICATED Test 02/13/17 13:40 Reticulocyte Count 2.2 % (0.4-3.0) Absolute Reticulocyte Count 51.3 MIL/L (20.0-150.0) Iron Level 30 MCG/DL (50-170) Total Iron Binding Capacity 113 MCG/DL (250-450) Percent Iron Saturation 26.5 % (20-50) Ferritin 9392 NG/ML (8-252) Result Diagram: 02/13/17 0515 02/13/17 0515 Microbiology Microbiology Date/Time Source Procedure Growth Status 02/11/17 17:30 Blood Peripheral Aerobic Blood Culture - Preliminary NO GROWTH IN 2 DAYS Resulted 02/11/17 17:30 Blood Peripheral Anaerobic Blood Culture - Preliminary NO GROWTH IN 2 DAYS Resulted 02/11/17 17:30 Blood Peripheral Aerobic Blood Culture - Preliminary NO GROWTH IN 2 DAYS Resulted 02/11/17 17:30 Blood Peripheral Anaerobic Blood Culture - Preliminary NO GROWTH IN 2 DAYS Resulted Imaging Last Impressions Chest X-Ray 02/11/17 1647 Signed Impressions: Service Date/Time: Saturday, February 11, 2017 16:55 - CONCLUSION: Interval improvement. Minimal blunting left costophrenic sulcus without significant pleural effusion. Yaya Napier MD FACR CT Angiography 02/11/17 0000 Signed Impressions: Service Date/Time: Saturday, February 11, 2017 21:06 - CONCLUSION: 1. No PE is identified. 2. There is new airspace consolidation in the right lower lobe. This could represent an infectious process in the appropriate clinical history. The small left pleural effusion has decreased in size. 3. Mild decrease in size of the left supraclavicular, mediastinal, bilateral hilar, and retroperitoneal lymphadenopathy. 4. Mild increased size of the lytic lesion in the left humerus suspicious for a metastatic lesion. The pathologic T4 compression fracture appears stable. 5. Stable soft tissue encasing and mildly narrowing the main bronchi. Isidoro Merchant MD Procedures Paracentesis 02/12/17 . Assessment and Plan Disease Oriented Problem List: (1) pneumonia/sepsis (2) non-small cell lung cancer diagnosed November 2016 (3) metastatic disease involving adenopathy in the chest and retroperitoneum, as well as multiple bony areas (4) s/p initial couple treatments, but recently lost to follow-up (5) s/p radiation therapy to spine (6) underlying COPD, long-term cigarette smoker (7) history of recent stroke affecting left face and swallowing, January 2017 (8) chronic anemia (9) pathologic fracture T4 (10) malnutrition, serum albumin 1.6 Symptom Scale: (1) dyspnea 0-10 Scale: 1 (2) pain 0-10 Scale: 1 (primarily abdominal discomfort) Pertinent Non-Medical Issues Psychosocial: Long-term separation from current , one estranged 35-year- old son, 16-year-old son living with her and the patient's sister. 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 Spiritual: Unaffiliated Jewish, would like judicial clerk visits. Legal: The patient has capacity for decision-making. She has designated her sister Jaqueline Muhammad (Toni) as healthcare surrogate. Ethical issues impacting care: None . Important Contacts The patient's sister and designated HCS Jaqueline Muhammad (Toni) [phone] . Prognosis The patient has advanced stage non-small cell lung cancer, likely eventually terminal. She is undergoing chemotherapy and recent radiation now. . Code Status: No Code Plan * DO NOT RESUSCITATE, per request of patient 02/12/17 * DECISION-MAKING: The patient has capacity for decision-making at this time. She has designated her sister Jaqueline Muhammad (Toni) as healthcare surrogate. * GOALS: The patient clearly wants to continue chemotherapy and other recommended aggressive treatments for her cancer, as one of her goals is to see her 16-year-old son graduate from high school. She does understand her disease is likely not curable, and she definitely does NOT want to be resuscitated or put on life support machines when that time comes. * SYMPTOMS: The patient's dyspnea is improved and she remains on supplemental oxygen (as she has been for 3 months); her back pain is improved since her radiation treatments, and she has mild abdominal pain. No specific medication recommendations are made at this time. * Community DNR form completed, and she understands she is to take that home with her. * Palliative Care will continue to follow this patient during this hospitalization. . Time Spent Total Floor Time (mins): 28 Face to Face Time (mins): 16 >50% Counseling/Coord of Care: Yes (d/w RN) Attestation To help prompt me to consider important information that might be impacting today's encounter and assessment, information from prior notes written by myself or my colleagues may have been "brought forward" into today's note. My signature on this note, however, is an attestation that I personally performed the exam, history, and/or decision-making noted today, and, unless otherwise indicated, the interactions with patient, family, and staff as well as the review of records all occurred today. I also attest that the listed assessment and stated plan reflect my best clinical judgment today based on the combination of historical information, prior notes, and today's exam/ interactions. When time spent is documented, it refers only to time spent today by the signer, or if indicated, combined time spent today by collaborating physician/nurse practitioner. Diandra Mccarty MD Feb 13, 2017 17:06
[2017-02-14] VITALS (12 sets, daily range): BP systolic 90–111; BP diastolic 61–73; PULSE 96–115; RESP 16–20; TEMP 96–98.3; O2SAT 98–100
--- NOTE | 2017-02-14 00:24 | PD.ONC.PN ---
Subjective Subjective Remarks Patient seen on 02/13/17 Consult note dictated agree with pRBC transfusion treat pneumonia Nutrition/PT will need rehab placement on discharge Objective Data Date Time Temp Pulse Resp B/P (MAP) Pulse Ox O2 Delivery O2 Flow Rate FiO2 02/13/17 21:47 97.6 109 21 98/66 100 02/13/17 20:22 99 Nasal Cannula 2.00 02/13/17 20:00 98.4 100 16 100/75 (83) 100 02/13/17 17:53 97.2 105 17 84/69 94 02/13/17 17:33 97.0 106 17 88/64 02/13/17 16:00 97.3 110 14 98/67 (77) 100 02/13/17 15:30 18 02/13/17 12:00 96.2 118 14 94/118 (110) 99 02/13/17 09:14 100 Nasal Cannula 2.00 02/13/17 08:00 97.1 108 14 95/70 (78) 100 02/13/17 04:00 96.8 126 20 108/78 (88) 100 Result Diagram: 02/13/1715 02/13/1715 Laboratory Results Laboratory Tests Test 02/13/17 05:15 02/13/17 13:40 White Blood Count 16.1 TH/MM3 Red Blood Count 2.50 MIL/MM3 Hemoglobin 7.2 GM/DL Hematocrit 21.7 % Mean Corpuscular Volume 86.9 FL Mean Corpuscular Hemoglobin 28.7 PG Mean Corpuscular Hemoglobin Concent 33.0 % Red Cell Distribution Width 20.8 % Platelet Count 315 TH/MM3 Mean Platelet Volume 8.3 FL Neutrophils (%) (Auto) 94.2 % Lymphocytes (%) (Auto) 2.9 % Monocytes (%) (Auto) 2.2 % Eosinophils (%) (Auto) 0.5 % Basophils (%) (Auto) 0.2 % Neutrophils # (Auto) 15.1 TH/MM3 Lymphocytes # (Auto) 0.5 TH/MM3 Monocytes # (Auto) 0.4 TH/MM3 Eosinophils # (Auto) 0.1 TH/MM3 Basophils # (Auto) 0.0 TH/MM3 CBC Comment DIFF FINAL Differential Comment Blood Urea Nitrogen 50 MG/DL Creatinine 1.00 MG/DL Random Glucose 91 MG/DL Total Protein 5.7 GM/DL Albumin 1.2 GM/DL Calcium Level 8.1 MG/DL Alkaline Phosphatase 120 U/L Aspartate Amino Transf (AST/SGOT) 30 U/L Alanine Aminotransferase (ALT/SGPT) 49 U/L Total Bilirubin 0.4 MG/DL Sodium Level 138 MEQ/L Potassium Level 3.8 MEQ/L Chloride Level 106 MEQ/L Carbon Dioxide Level 22.4 MEQ/L Anion Gap 10 MEQ/L Estimat Glomerular Filtration Rate 57 ML/MIN Reticulocyte Count 2.2 % Absolute Reticulocyte Count 51.3 MIL/L Iron Level 30 MCG/DL Total Iron Binding Capacity 113 MCG/DL Percent Iron Saturation 26.5 % Ferritin 9392 NG/ML Culture Results Microbiology Date/Time Source Procedure Growth Status 02/11/17 17:30 Blood Peripheral Aerobic Blood Culture - Preliminary NO GROWTH IN 2 DAYS Resulted 02/11/17 17:30 Blood Peripheral Anaerobic Blood Culture - Preliminary NO GROWTH IN 2 DAYS Resulted 02/11/17 17:30 Blood Peripheral Aerobic Blood Culture - Preliminary NO GROWTH IN 2 DAYS Resulted 02/11/17 17:30 Blood Peripheral Anaerobic Blood Culture - Preliminary NO GROWTH IN 2 DAYS Resulted Administered Medications Medications (Trade) Dose Ordered Sig/Ramy Route PRN Reason Start Time Stop Time Status Last Admin Dose Admin Heparin Sodium (Porcine) (Heparin Inj) 5,000 units Q8H SQ 02/11/17 23:00 02/13/17 14:29 Albuterol/ Ipratropium (Duoneb Neb) 1 ampule Q6HR NEB NEB 02/12/17 04:00 02/13/17 20:19 Cefepime HCl 2000 mg/Sodium Chloride 100 ml @ 200 mls/hr Q8HR IV 02/12/17 06:00 02/13/17 22:38 Acetaminophen/ Hydrocodone Bitart ([place] 5-325 Mg) 1 tab Q6H PRN PO pain 1-10 02/12/17 08:30 02/13/17 21:44 Aspirin (Aspirin Chew) 81 mg DAILY CHEW 02/13/17 09:00 02/13/17 08:45 Budesonide/ Formoterol Fumarate (Symbicort 160-4.5 Inh) 2 puff Q12HR INH 02/12/17 21:00 02/13/17 21:41 Furosemide (Lasix) 20 mg DAILY PO 02/13/17 09:00 02/13/17 08:46 Potassium Chloride (KCl) 20 meq DAILY PO 02/13/17 09:00 02/13/17 08:45 Metoprolol Tartrate (Lopressor) 12.5 mg Q12HR PO 02/13/17 11:30 02/13/17 12:49 Sodium Chloride 250 ml @ 15 mls/hr ONCE ONCE IV 02/13/17 13:15 02/14/17 05:54 02/13/17 17:33 Objective Remarks GENERAL: extremely weak, cachectic and deconditioned SKIN: Warm and dry. HEAD: Normocephalic. EYES: No scleral icterus. No injection or drainage. NECK: Supple, trachea midline. No JVD or lymphadenopathy. LYMPHATIC: No adenopathy. CARDIOVASCULAR: tachy RESPIRATORY: rhonchi faint/scattered. GASTROINTESTINAL: Abdomen soft, non-tender, nondistended. EXTREMITIES: No cyanosis, or edema. MUSCULOSKELETAL: Adequate muscle tone. NEUROLOGICAL: No obvious focal deficit. Awake, alert, and oriented x3. PSYCHIATRIC: Appropriate mood and affect; insight and judgment normal. Assessment/Plan Problem List: (1) Metastatic neoplastic disease ICD Codes: C79.9 - Secondary malignant neoplasm of unspecified site (2) Recurrent pleural effusion on left ICD Codes: J90 - Pleural effusion, not elsewhere classified (3) Lymphadenopathy ICD Codes: R59.1 - Generalized enlarged lymph nodes Status: Acute (4) non-small cell lung cancer diagnosed November 2016 (5) underlying COPD, long-term cigarette smoker (6) Anemia ICD Codes: D64.9 - Anemia, unspecified (7) PNA (pneumonia) ICD Codes: J18.9 - Pneumonia, unspecified organism Status: Acute (8) metastatic disease involving adenopathy in the chest and retroperitoneum, as well as multiple bony areas (9) pathologic fracture T4 Tobi Lemus MD Feb 14, 2017 00:24
[2017-02-14] MEDS: HEPARIN SODIUM - SQ 10,000 UNITS/ML VIAL SQ SCH ×4 (01:17→22:01)
[2017-02-14] MEDS: RESP: ALBUTEROL 2.5 MG/IPRATROPIUM 0.5 MG NEB (SCH) NEB ×4 (03:48→21:02)
[2017-02-14] MEDS: CEFEPIME INJ 2,000 MG in SODIUM CHLORIDE 0.9% INJ 100 ML IV SCH (05:45)
[2017-02-14] MEDS: ACETAMINOPHEN/HYDROcodone 325 MG/5 MG TAB PO PRN ×2 (05:59→17:40)
--- NOTE | 2017-02-14 08:43 | MB ---
cc: CASSANDRA PENNINGTON DATE OF 1960. DATE OF CONSULTATION February 13, 2017. REASON FOR CONSULTATION Patient with a history of Stage IV [id number]-tavi lung cancer who was admitted with shortness of breath and physical weakness. HISTORY OF PRESENT ILLNESS This is a 56-year-old female who has a diagnosis of Stage IV lung cancer. She was found to have subcarinal mediastinal adenopathy based on a CT scan in November of 2016. A bronchoscopic biopsy was completed which confirmed a poorly differentiated non-small cell lung cancer. The immunohistochemical staining suggested possible neuroendocrine differentiation. She follows with my associate Dr. Pedraza in the oncology clinic. She is currently being treated with cisplatin and HOME CARE COORDINATOR-16 and has received one cycle of the treatment on 12/31/2016. She has had MRI of the cervical, thoracic and lumbar spine which showed multiple metastatic bony disease in the thoracic and lumbar spine. MRI of the brain did not show any intracranial metastatic disease. She has had a history of bilateral pleural effusion. She has severe emphysema and multifocal interstitial lung disease. She also has a history of spinal cord compression of T3, T5 and T9-T10. She has received radiation treatments beginning 01/18/2017 and completing on 01/28/2017. She has also developed abdominal ascites and lower extremity edema. She now presents to the emergency room with progressive dyspnea, cough and abdominal distension. She has undergone therapeutic paracentesis with removal of 3 liters of fluid which has helped in improvement of her dyspnea and abdominal discomfort. In the emergency department a CT angiogram was obtained which did not show any pulmonary embolism. There was airspace consolidation in the right lower lobe. She is currently being treated for pneumonia. The CTA shows some decrease in the size of the left supraclavicular, mediastinal, hilar and retroperitoneal adenopathy. However, there has been increase in the size of the lytic lesion in the left humerus. The patient has become more anemic with a hemoglobin of 7.2 and she is getting packed red blood cell transfusion. She is quite weak and unable to get out of the bed and stand up without assistance. She is unable to ambulate on her own. She has not had any fever, hemoptysis or chest pain. Her ECOG performance status is 2-3. REVIEW OF SYSTEMS A comprehensive 14-point review of systems was completed which is negative except as described in the HPI. PAST MEDICAL HISTORY 1. Fse-ylhch-wjlw lung cancer with neuroendocrine features. 2. History of metastatic disease to the bones and retroperitoneum. 3. History of cord compression. 4. COPD, tobacco abuse. 5. History of CVA in January 2017. 6. Anemia due to malignancy and chemotherapy. PAST SURGICAL HISTORY 1. Thoracentesis in November of 2016. 2. Bronchoscopy and biopsy in 2016. MEDICATIONS 1. Metoprolol 12.5 mg p.o. q.12 hours. 2. Aspirin 81 mg daily. 3. Furosemide 20 mg p.o. daily. 4. Potassium chloride 20 mEq p.o. daily. 5. Symbicort 2 puffs q. 12 hours INH. 6. [place] 5/325 one tablet p.o. q.6 hours p.r.n. 7. Cefepime 2 grams IV q.8 hours. 8. Albuterol ipratropium DuoNebs q.6 hours p.r.n. 9. Heparin subcu 5000 units q.8 hours. ALLERGIES She has no known drug allergies. FAMILY HISTORY Reviewed and is noncontributory to this admission. SOCIAL HISTORY She has an extensive history of tobacco abuse. No illicit drug use. No alcohol abuse. PHYSICAL EXAMINATION VITAL SIGNS: Blood pressure is 100/75, pulse is in the 100s, temperature is 98.4, O2 sat 100% on 2 liters nasal cannula. GENERAL: Acutely ill, severely cachectic, thin and weak female in no apparent distress. HEENT: Pupils are equal, round, reactive to light. EOMI. No oral thrush. No oral lesions. NECK: Supple. No JVD, no bruits, no lymphadenopathy. CHEST: Right upper lobe faint rhonchi and mild wheezes. ABDOMEN: Soft and nontender, nondistended. Bowel sounds are present. EXTREMITIES: Without any edema, erythema or cyanosis. SKIN: Without any petechiae, lesion or bruises. NEUROLOGIC: No focal deficits. PSYCHIATRIC: Mood and affect is appropriate. LABORATORY DATA WBC 16.1, hemoglobin is 7.2, hematocrit is 21.7, MCV is 86.9, platelet count is 315. Serum chemistries show sodium of 138, potassium 3.8, chloride 106, CO2 22.4, BUN is 50, creatinine is 1, GFR is 57, calcium is 8.1. Iron is 30, TIBC is 113, percent saturation is 26.5. Ferritin is 9392, total bilirubin is 0.4, AST is 30, ALT is 49, alk phos is 120, total protein is 5.7, albumin is 1.2. Serum coags show PT of 12, INR 1.1 and PTT of 27.1. UA showed trace leukocyte esterase, moderate occult blood, a few bacteria. Blood cultures from 02/11/2017 did not show any growth after 48 hours. There was no growth in the peritoneal fluid as well. Gram's stain was negative. IMAGING STUDIES Chest x-ray Was reviewed. There is improvement in airspace disease in the right lung. CT angiogram was reviewed which showed a very small left pleural effusion which is trivial. There is airspace consolidation in the right lower lobe. ASSESSMENT AND PLAN This is a 56-year-old female who has a diagnosis of Stage IV enj-ocxih-wkux lung cancer with neuroendocrine features who presented to the emergency department with progressive dyspnea, abdominal distension, cough and severe physical deconditioning. 1. Abdominal distension due to ascites: The patient has undergone paracentesis; the cytology results are pending. This is likely malignant ascites. She has had symptomatic relief of her symptoms. 2. Right lower lobe community-acquired pneumonia: I agree with continued antibiotics. Clinically she is improving. Continue supportive care, DuoNebs and supplemental oxygen. Blood cultures have been negative thus far. 3. Severe physical deconditioning: Continue PT. This patient will need discharge to a rehab facility. 4. Severe malnutrition with an albumin of 1.2. Dietitian consult, strict calorie count. She may benefit from TPN if her nutritional intake does not improve. Dietitian consult. Supplement diet with Ensure Plus or Boost t.i.d. with meals. 5. Acute symptomatic anemia with tachycardia and hypotension as well as dyspnea: I agree with packed red blood cell transfusion. I have reviewed her anemia studies. There is some iron deficiency as well as presence of chronic inflammation with a ferritin level which is in 9,000 range. It is unclear whether she has had repetitive blood transfusion in the past. She may benefit from chelation therapy. I will defer this to Dr. Pedraza who will see this patient tomorrow. 6. Stage IV wji-ixiew-hick lung cancer with neuroendocrine features: She is currently quite deconditioned. Focus will be on improving her nutrition, physical therapy and treating her anemia and pneumonia. She will need to go to rehab. She will follow up with Dr. Pedraza outpatient for further treatments. 7. Leukocytosis, likely reactive, also underlying pneumonia. Thank you for allowing me to participate in the care of this patient. Dr. Pedraza will follow up with this patient on . MD JONI Henderson/AFSHIN /12:09 AM /8:43 AM
[2017-02-14] MEDS: POTASSIUM CHLORIDE 20 MEQ CONTROLLED RELEASE TAB PO SCH (09:54)
[2017-02-14] MEDS: ASPIRIN 81 MG CHEW TAB CHEW SCH (09:55)
[2017-02-14] MEDS: METOPROLOL TARTRATE 25 MG TAB PO SCH ×2 (09:55→22:01)
[2017-02-14] MEDS: FUROSEMIDE 20 MG TAB PO SCH (09:55)
[2017-02-14] MEDS: BUDESONIDE-FORMOTEROL 160/4.5 MCG INHALER INH SCH ×2 (09:55→22:00)
[2017-02-14 09:57] LABS: AUTOMATED NEUTROPHIL # 15.2 TH/MM3 (1.8-7.7); BASOPHIL # 0.1 TH/MM3 (0-0.2); BASOPHIL % 0.4 % (0.0-2.0); EOSINOPHIL # 0.1 TH/MM3 (0-0.4); EOSINOPHIL % 0.8 % (0.0-4.0); HEMATOCRIT 29.3 % (35.0-46.0); LYMPH % 2.7 % (9.0-44.0); LYMPHOCYTE # 0.4 TH/MM3 (1.0-4.8); MEAN CELL VOLUME 85.9 FL (80.0-100.0); MEAN CORPUSCULAR HEMOGLOBIN 28.6 PG (27.0-34.0); MEAN CORPUSCULAR HGB CONC 33.3 % (32.0-36.0); MONO % 2.7 % (0.0-8.0); NEUT % 93.4 % (16.0-70.0); PLATELET COUNT 257 TH/MM3 (150-450); RED CELL DISTRIBUTION WIDTH 17.3 % (11.6-17.2); WHITE BLOOD COUNT 16.2 TH/MM3 (4.0-11.0)
[2017-02-14 10:04] LABS: HEMO FLAGS DIFF FINAL
[2017-02-14 10:15] LABS: BICARBONATE 21.7 MEQ/L (21.0-32.0); POTASSIUM 3.6 MEQ/L (3.5-5.1)
[2017-02-14 10:16] LABS: MAGNESIUM 1.6 MG/DL (1.5-2.5)
[2017-02-14 11:11] LABS: LDH SERUM 255 U/L (84-246)
--- NOTE | 2017-02-14 11:27 | HHI.PR ---
Subjective Remarks Patient says she feels less fatigued today and general. However Patient says that abdomen is more distended today, becoming uncomfortable. She did like drinking [place] Instant Breakfast yesterday. Denies any chest pain. She feels that repeat paracentesis would help her discomfort. Objective Vital Signs Date Time Temp Pulse Resp B/P (MAP) Pulse Ox O2 Delivery O2 Flow Rate FiO2 02/14/17 09:32 98 Nasal Cannula 2.00 02/14/17 08:00 96.5 102 20 111/70 (84) 98 02/14/17 04:39 98.0 100 16 106/68 100 02/14/17 04:00 98.0 100 16 106/68 (81) 100 02/14/17 01:19 96.0 104 19 102/73 100 02/14/17 00:58 96.4 100 19 90/66 100 02/14/17 00:00 98.3 100 16 93/67 (76) 100 02/13/17 21:47 97.6 109 21 98/66 100 02/13/17 20:22 99 Nasal Cannula 2.00 02/13/17 20:00 98 02/13/17 20:00 98.4 100 16 100/75 (83) 100 02/13/17 17:53 97.2 105 17 84/69 94 02/13/17 17:33 97.0 106 17 88/64 02/13/17 16:00 97.3 110 14 98/67 (77) 100 02/13/17 15:30 18 02/13/17 12:00 96.2 118 14 94/118 (110) 99 I/O 02/13/17 02/13/17 02/13/17 02/14/17 02/14/17 02/14/17 07:00 15:00 23:00 07:00 15:00 23:00 Intake Total 480 ml 230 ml 1372 ml 821 ml Output Total 400 ml Balance 480 ml 230 ml 1372 ml 421 ml Intake Oral 480 ml 130 ml 934 ml 240 ml IV Total 100 ml 134 ml Packed Cells 400 ml 400 ml Blood Product IV Normal Saline Flush 38 ml 47 ml Output Urine Total 400 ml # Voids 1 1 1 # Bowel Movements 0 1 1 1 Result Diagram: 02/14/1794402/14/17944 Objective Remarks GENERAL: Patient sitting up in bed. Appears uncomfortable today secondary to abdominal distention SKIN: Warm and dry. HEAD: Normocephalic. EYES: No scleral icterus. No injection or drainage. NECK: Supple, trachea midline. No JVD. CARDIOVASCULAR: Regular rate and rhythm without murmurs, gallops, or rubs. RESPIRATORY: Breath sounds equal bilaterally. No accessory muscle use. GASTROINTESTINAL: Abdomen more distended today. No rebound or guarding. Positive bowel sounds. MUSCULOSKELETAL: No cyanosis, or edema. BACK: Nontender without obvious deformity. No CVA tenderness. A/P Assessment and Plan //Right lower lobe community-acquired pneumonia. Stable on 2 L nasal cannula. She has significant leukocytosis, has not received Neulasta recently per her oncologist. Continue cefepime and Zithromax. Oxygen via 2 L nasal cannula. DuoNeb's as needed. Follow leukocytosis and blood cultures. Patient is not producing sputum for culture. = 02/13. Respiratory status improving. Leukocytosis 16. Improving. Continue on antibiotics. Suspect that some of her weakness is secondary to anemia. = 02/14. Respiratory status slightly worsened today secondary to abdominal distention. We'll order paracentesis. Switch antibiotics to ceftriaxone and azithromycin. //Non-small cell lung cancer with diffuse metastasis status post one round of chemotherapy and radiation- status post therapeutic abdominal paracentesis today with removal of 3 L of fluid. Follow-up outpatient with Dr. Pedraza for further chemotherapy. = Repeat paracentesis. Labs ordered. May benefit from abdominal Pleurx catheter. Hematology following inpatient. Appreciate assistance. //COPD with chronic respiratory failure on 2 L nasal cannula oxygen. No wheezing on exam but to the dyspnea we are treating with DuoNeb's. = Suspect most likely gastric status worsened by abdominal distention. Continue antibiotics, duo nebs. //Chronic anemia. -Hemoglobin 8.4 on admission -02/13. Hemoglobin 7.2. No signs of bleeding. Weakness apparently worsening. Unable to participate out of bed with physical therapy today. Transfuse 2 units PRBCs. Consult oncology. = 02/14. Hemoglobin improved to 9.7 after transfusion 2 units on 02/13. Fatigue improved. Hematology following. Appreciate assistance. //Moderate malnutrition. Continue [place] Instant Breakfast. Calorie count ordered by hematology. Appreciate assistance. //Anasarca due to the abdominal metastasis, malnutrition. Status post paracentesis on 02/12. Still with ascites. Patient is breakfast added for malnutrition. Oncology consult. Appreciate assistance. = 02/14. Repeat paracentesis area //recent CVA. cont aspirin. cont Lasix. Hold Coreg for now as she is normotensive. = Continue metoprolol. //DVT prophylaxis with Lovenox 40 mg subcutaneous daily. Discharge Planning Pending repeat paracentesis. Patient will likely need to go to SNF at discharge. Joey Murguia MD Feb 14, 2017 11:27
[2017-02-14] MEDS ORDERED: AZITHROMYCIN 250 MG TAB PO ONE (11:30)
--- NOTE | 2017-02-14 11:58 | RADRPT ---
EXAM DATE/TIME: 02/12/2017 11:20 [facility] COMPARISON: No previous studies available for comparison. INDICATIONS : Ascites. MEDICAL HISTORY : Chronic obstructive pulmonary disease. Carcinoma, lung. Pneumonia. Measles. Ascites. CVA. Dyspnea. SURGICAL HISTORY : Paracentesis. Chemotherapy. Radiation therapy. Blood transfusions. ENCOUNTER: Subsequent ACUITY: 2 months PAIN SCORE: 6/10 LOCATION: Right lower quadrant FLUID: Total volume of 3,800 cc of clear, red fluid was removed. Fluid was discarded. Paracentesis was therapeutic only. Post procedure scanning reveals no hematoma or other complication. TECHNIQUE: 1. Ultrasound guidance for abdominal paracentesis. 2. Paracentesis. The risks, benefits, and alternatives to ultrasound guided paracentesis were explained to the patient in detail including the risk of bleeding and infection. Written and verbal informed consent was obt ained. With the patient on the ultrasound table, ultrasound imaging was used to select the most appropriate approach for paracentesis. Overlying skin was prepped and draped in the usual sterile fashion and wi th a local anesthetic, a dermatotomy was made with an 11 blade scalpel. A 6 [place] [id number] ca theter was introduced into the peritoneal cavity and fluid was collected. The patient tolerated the procedure well and left the ultrasound suite in stable condition. CONCLUSION: Uncomplicated ultrasound guided paracentesis. Soham Mcbride MD on February 14, 2017 at 11:56 Board Certified Radiologist. This report was verified electronically.
[2017-02-14] MEDS: cefTRIAXone INJ 1,000 MG in SODIUM CHLORIDE 0.9% INJ 100 ML IV SCH (12:28)
[2017-02-15] VITALS (9 sets, daily range): BP systolic 80–115; BP diastolic 55–80; PULSE 66–120; RESP 18; TEMP 96.4–98.1; O2SAT 94–100
[2017-02-15] MEDS ORDERED: ALPRAZolam 0.5 MG TAB PO ONE (00:30)
[2017-02-15] MEDS: RESP: ALBUTEROL 2.5 MG/IPRATROPIUM 0.5 MG NEB (SCH) NEB ×3 (03:44→20:51)
[2017-02-15] MEDS: ACETAMINOPHEN/HYDROcodone 325 MG/5 MG TAB PO PRN ×2 (03:53→17:49)
[2017-02-15] MEDS: HEPARIN SODIUM - SQ 10,000 UNITS/ML VIAL SQ SCH ×3 (05:51→23:42)
[2017-02-15 10:20] LABS: CHLORIDE 106 MEQ/L (98-107); POTASSIUM 3.6 MEQ/L (3.5-5.1); SODIUM (NA) 139 MEQ/L (136-145)
[2017-02-15 10:24] LABS: AUTOMATED NEUTROPHIL # 17.5 TH/MM3 (1.8-7.7); BASOPHIL # 0.4 TH/MM3 (0-0.2); BASOPHIL % 2.2 % (0.0-2.0); EOSINOPHIL # 0.1 TH/MM3 (0-0.4); EOSINOPHIL % 0.5 % (0.0-4.0); HEMATOCRIT 30.5 % (35.0-46.0); LYMPH % 3.6 % (9.0-44.0); LYMPHOCYTE # 0.7 TH/MM3 (1.0-4.8); MEAN CELL VOLUME 87.2 FL (80.0-100.0); MEAN CORPUSCULAR HEMOGLOBIN 29.4 PG (27.0-34.0); MEAN CORPUSCULAR HGB CONC 33.7 % (32.0-36.0); MONO % 2.2 % (0.0-8.0); NEUT % 91.5 % (16.0-70.0); PLATELET COUNT 249 TH/MM3 (150-450); RED CELL DISTRIBUTION WIDTH 18.4 % (11.6-17.2); WHITE BLOOD COUNT 19.1 TH/MM3 (4.0-11.0)
[2017-02-15 10:25] LABS: ANION GAP 11 MEQ/L (5-15); BICARBONATE 21.8 MEQ/L (21.0-32.0); BLOOD UREA NITROGEN 51 MG/DL (7-18)
[2017-02-15 10:28] LABS: ALT (GPT) 29 U/L (10-53); AST (GOT) 20 U/L (15-37); GLOMERULAR FILTRATION RATE 57 ML/MIN (>89); HEMO FLAGS AUTO DIFF
[2017-02-15 10:30] LABS: TOTAL BILIRUBIN ADULT 0.5 MG/DL (0.2-1.0)
[2017-02-15 10:31] LABS: ALKALINE PHOSPHATASE 116 U/L (45-117)
[2017-02-15 11:04] LABS: PLATELET ESTIMATE SMEAR NORMAL (NORMAL); PLATELET MORPHOLOGY NORMAL (NORMAL); SCAN/DIFF AUTO DIFF CONFIRMED
[2017-02-15] MEDS: BUDESONIDE-FORMOTEROL 160/4.5 MCG INHALER INH SCH ×2 (11:19→21:36)
[2017-02-15] MEDS: AZITHROMYCIN 250 MG TAB PO SCH (11:20)
[2017-02-15] MEDS: POTASSIUM CHLORIDE 20 MEQ CONTROLLED RELEASE TAB PO SCH (11:20)
[2017-02-15] MEDS: METOPROLOL TARTRATE 25 MG TAB PO SCH ×2 (11:20→21:36)
[2017-02-15] MEDS: FUROSEMIDE 20 MG TAB PO SCH (11:20)
[2017-02-15] MEDS: ASPIRIN 81 MG CHEW TAB CHEW SCH (11:20)
[2017-02-15] MEDS: cefTRIAXone INJ 1,000 MG in SODIUM CHLORIDE 0.9% INJ 100 ML IV SCH (11:30)
[2017-02-15 11:50] LABS: PERITONEAL WBC 13000 /MM3 (0-10)
[2017-02-15 13:06] LABS: PERITONEAL LYMPHS 8 %; PERITONEAL MONOS 13 %; PERITONEAL POLYS(SEGS) 79 %
--- NOTE | 2017-02-15 16:42 | RADRPT ---
EXAM DATE/TIME: 02/15/2017 08:53 [facility] COMPARISON: No previous studies available for comparison. INDICATIONS : Ascites. MEDICAL HISTORY : Chronic obstructive pulmonary disease. Carcinoma, lung. Pneumonia. Measles. Ascites. CVA. Dyspnea. SURGICAL HISTORY : Paracentesis. Chemotherapy. Radiation therapy. Blood transfusions. ENCOUNTER: Subsequent ACUITY: 3 days PAIN SCORE: 2/10 LOCATION: Left lower quadrant FLUID: Total volume of 2,100 cc of clear, red fluid was removed. Fluid was sent to lab for ordered studies. Post procedure scanning reveals no hematoma or other complication. TECHNIQUE: 1. Ultrasound guidance for abdominal paracentesis. 2. Paracentesis. The risks, benefits, and alternatives to ultrasound guided paracentesis were explained to the patient in detail including the risk of bleeding and infection. Written and verbal informed consent was obt ained. With the patient on the ultrasound table, ultrasound imaging was used to select the most appropriate approach for paracentesis. Overlying skin was prepped and draped in the usual sterile fashion and wi th a local anesthetic, a dermatotomy was made with an 11 blade scalpel. A 6 [place] [id number] ca theter was introduced into the peritoneal cavity and fluid was collected. The patient tolerated the procedure well and left the ultrasound suite in stable condition. CONCLUSION: Uncomplicated ultrasound guided paracentesis. Soham Mcbried MD on February 15, 2017 at 16:40 Board Certified Radiologist. This report was verified electronically.
--- NOTE | 2017-02-15 16:54 | HHI.PR ---
Subjective Remarks Patient says she is not feeling very well this morning. Abdominal discomfort after paracentesis. She reports continued shortness of breath, generalized fatigue. Continues with poor appetite. Objective Vital Signs Date Time Temp Pulse Resp B/P (MAP) Pulse Ox O2 Delivery O2 Flow Rate FiO2 02/15/17 16:00 97.5 66 18 101/80 (87) 97 02/15/17 14:13 100 Nasal Cannula 2.00 02/15/17 12:21 97.2 120 18 99/55 (70) 96 02/15/17 08:24 97.6 120 18 115/64 (81) 100 02/15/17 05:00 116 18 90/64 (73) 94 02/15/17 04:53 18 02/15/17 04:00 97.6 120 18 80/65 (70) 95 02/15/17 00:00 98.1 110 18 104/63 (77) 98 02/14/17 21:02 99 Nasal Cannula 2.00 02/14/17 20:00 113 02/14/17 20:00 97.6 115 16 98/61 (73) 99 I/O 02/14/17 02/14/17 02/14/17 02/15/17 02/15/17 02/15/17 07:00 15:00 23:00 07:00 15:00 23:00 Intake Total 821 ml 840 ml 240 ml 240 ml Output Total 400 ml 600 ml Balance 421 ml 840 ml -360 ml 240 ml Intake Oral 240 ml 840 ml 240 ml 240 ml IV Total 134 ml Packed Cells 400 ml Blood Product IV Normal Saline Flush 47 ml Output Urine Total 400 ml 600 ml # Voids 4 3 2 # Bowel Movements 1 4 4 1 Result Diagram: 02/15/1773602/15/17736 Objective Remarks GENERAL: Patient sitting up in bed. Appears generally uncomfortable similar to yesterday. SKIN: Warm and dry. HEAD: Normocephalic. EYES: No scleral icterus. No injection or drainage. NECK: Supple, trachea midline. No JVD. CARDIOVASCULAR: Regular rate and rhythm without murmurs, gallops, or rubs. RESPIRATORY: Breath sounds equal bilaterally. No accessory muscle use. GASTROINTESTINAL: Abdomen slightly less distended today. No rebound or guarding. Positive bowel sounds. Nontender No rebound or guarding. MUSCULOSKELETAL: Diffuse anasarca as before. BACK: Nontender without obvious deformity. No CVA tenderness. A/P Assessment and Plan //Right lower lobe community-acquired pneumonia. Stable on 2 L nasal cannula. She has significant leukocytosis, has not received Neulasta recently per her oncologist. Continue cefepime and Zithromax. Oxygen via 2 L nasal cannula. DuoNeb's as needed. Follow leukocytosis and blood cultures. Patient is not producing sputum for culture. = 02/13. Respiratory status improving. Leukocytosis 16. Improving. Continue on antibiotics. Suspect that some of her weakness is secondary to anemia. = 02/14. Respiratory status slightly worsened today secondary to abdominal distention. We'll order paracentesis. Switch antibiotics to ceftriaxone and azithromycin. = 02/15. Slightly improved breathing after paracentesis today. Duo nebs ordered. Continue to monitor. //Non-small cell lung cancer with diffuse metastasis status post one round of chemotherapy and radiation- status post therapeutic abdominal paracentesis today with removal of 3 L of fluid. Follow-up outpatient with Dr. Pedraza for further chemotherapy. = Repeat paracentesis. Labs ordered. May benefit from abdominal Pleurx catheter. Hematology following inpatient. Appreciate assistance. = Repeat paracentesis performed 02/15. Appears to be sanguinous with increased red blood cells, as well as white blood cells. Cultures pending. Low suspicion for SBP. Patient already on antibiotics. //COPD with chronic respiratory failure on 2 L nasal cannula oxygen. No wheezing on exam but to the dyspnea we are treating with DuoNeb's. = Suspect most likely gastric status worsened by abdominal distention. Continue antibiotics, duo nebs. //Chronic anemia. -Hemoglobin 8.4 on admission -02/13. Hemoglobin 7.2. No signs of bleeding. Weakness apparently worsening. Unable to participate out of bed with physical therapy today. Transfuse 2 units PRBCs. Consult oncology. = 02/14. Hemoglobin improved to 9.7 after transfusion 2 units on 02/13. Fatigue improved. Hematology following. Appreciate assistance. = Hemoglobin stable at 10.3. Continue to monitor. //Moderate malnutrition. Continue [place] Instant Breakfast. Calorie count ordered by hematology. Appreciate assistance. = 02/15. Discussed with skate maker. Will perform calorie count. Have ordered Marinol to help with appetite stimulation. //Anasarca due to the abdominal metastasis, malnutrition. Status post paracentesis on 02/12. Still with ascites. Patient is breakfast added for malnutrition. Oncology consult. Appreciate assistance. = 02/14. Repeat paracentesis area = 02/15. Nutrition interventions as above. //recent CVA. cont aspirin. cont Lasix. Hold Coreg for now as she is normotensive. = 02/15. Increase metoprolol to 25 mg twice daily. = Continue metoprolol. //DVT prophylaxis with Lovenox 40 mg subcutaneous daily. Discharge Planning Status post repeat paracentesis today. Patient very weak, with poor appetite. Not sure she will do well at SNF. She would like to regain strength, pursue chemotherapy in the future, however with recurrent ascites, weakness, anasarca this seems like an unreasonable expectation. I discussed with Dr. Pedraza, who will see the patient today. Joey Murguia MD Feb 15, 2017 16:54
[2017-02-15] MEDS ORDERED: DRONABINOL 2.5 MG CAP PO ONE (17:00)
[2017-02-15] MEDS ORDERED: ALBUMIN 25% INJ 100 ML IV ONE (17:00)
--- NOTE | 2017-02-15 18:00 | PD.ONC.PN ---
Subjective Subjective Remarks I don't know where to go? My behind hurts with that ulcer. My back hurts. I had fluid removed (paracentesis) but it's in pockets. Objective Data Date Time Temp Pulse Resp B/P (MAP) Pulse Ox O2 Delivery O2 Flow Rate FiO2 02/15/17 16:00 97.5 66 18 101/80 (87) 97 02/15/17 14:13 100 Nasal Cannula 2.00 02/15/17 12:21 97.2 120 18 99/55 (70) 96 02/15/17 08:24 97.6 120 18 115/64 (81) 100 02/15/17 05:00 116 18 90/64 (73) 94 02/15/17 04:53 18 02/15/17 04:00 97.6 120 18 80/65 (70) 95 02/15/17 00:00 98.1 110 18 104/63 (77) 98 02/14/17 21:02 99 Nasal Cannula 2.00 02/14/17 20:00 113 02/14/17 20:00 97.6 115 16 98/61 (73) 99 02/15/17 02/15/17 02/15/17 07:00 15:00 23:00 Intake Total 240 ml 240 ml Output Total 600 ml Balance -360 ml 240 ml Result Diagram: 02/15/1737 02/15/1737 Laboratory Results Laboratory Tests Test 02/15/17 07:37 02/15/17 09:07 White Blood Count 19.1 TH/MM3 Red Blood Count 3.50 MIL/MM3 Hemoglobin 10.3 GM/DL Hematocrit 30.5 % Mean Corpuscular Volume 87.2 FL Mean Corpuscular Hemoglobin 29.4 PG Mean Corpuscular Hemoglobin Concent 33.7 % Red Cell Distribution Width 18.4 % Platelet Count 249 TH/MM3 Mean Platelet Volume 8.4 FL Neutrophils (%) (Auto) 91.5 % Lymphocytes (%) (Auto) 3.6 % Monocytes (%) (Auto) 2.2 % Eosinophils (%) (Auto) 0.5 % Basophils (%) (Auto) 2.2 % Neutrophils # (Auto) 17.5 TH/MM3 Lymphocytes # (Auto) 0.7 TH/MM3 Monocytes # (Auto) 0.4 TH/MM3 Eosinophils # (Auto) 0.1 TH/MM3 Basophils # (Auto) 0.4 TH/MM3 CBC Comment AUTO DIFF Differential Comment AUTO DIFF CONFIRMED Platelet Estimate NORMAL Platelet Morphology Comment NORMAL Haptoglobin 356 MG/DL Blood Urea Nitrogen 51 MG/DL Creatinine 1.00 MG/DL Random Glucose 72 MG/DL Total Protein 5.7 GM/DL Albumin 1.2 GM/DL Calcium Level 8.1 MG/DL Alkaline Phosphatase 116 U/L Aspartate Amino Transf (AST/SGOT) 20 U/L Alanine Aminotransferase (ALT/SGPT) 29 U/L Total Bilirubin 0.5 MG/DL Sodium Level 139 MEQ/L Potassium Level 3.6 MEQ/L Chloride Level 106 MEQ/L Carbon Dioxide Level 21.8 MEQ/L Anion Gap 11 MEQ/L Estimat Glomerular Filtration Rate 57 ML/MIN Lactate Dehydrogenase 310 U/L Peritoneal Fluid WBC 87598 /MM3 Peritoneal Fluid RBC [id number] /MM3 Peritoneal Fluid Neutrophils 79 % Peritoneal Fluid Lymphocytes 8 % Peritoneal Fluid Monocytes 13 % Peritoneal Fluid Albumin 0.7 G/DL Culture Results Microbiology Date/Time Source Procedure Growth Status 02/15/17 09:07 Fluid Peritoneal Fluid Gram Stain Pending Received 02/15/17 09:07 Fluid Peritoneal Fluid Body Fluid Culture Pending Received Imaging Studies Last 24 hours Impressions Cyst Biopsy Asp-Paracentesis US 02/15/17 0000 Signed Impressions: Service Date/Time: Wednesday, February 15, 2017 08:53 - CONCLUSION: Uncomplicated ultrasound guided paracentesis. Soham Mcbride MD Administered Medications Medications (Trade) Dose Ordered Sig/Ramy Route PRN Reason Start Time Stop Time Status Last Admin Dose Admin Sodium Chloride (NS Flush) 2 ml UNSCH PRN IVF FLUSH AFTER USING IV ACCESS 02/11/17 17:00 02/14/17 22:01 Heparin Sodium (Porcine) (Heparin Inj) 5,000 units Q8H SQ 02/11/17 23:00 02/15/17 05:51 Acetaminophen/ Hydrocodone Bitart ([place] 5-325 Mg) 1 tab Q6H PRN PO pain 1-10 02/12/17 08:30 02/15/17 03:53 Aspirin (Aspirin Chew) 81 mg DAILY CHEW 02/13/17 09:00 02/15/17 11:20 Budesonide/ Formoterol Fumarate (Symbicort 160-4.5 Inh) 2 puff Q12HR INH 02/12/17 21:00 02/15/17 11:19 Furosemide (Lasix) 20 mg DAILY PO 02/13/17 09:00 02/15/17 11:20 Potassium Chloride (KCl) 20 meq DAILY PO 02/13/17 09:00 02/15/17 11:20 Ceftriaxone Sodium 1000 mg/ Sodium Chloride 100 ml @ 200 mls/hr Q24H IV 02/14/17 11:30 02/15/17 11:30 Azithromycin (Zithromax) 250 mg DAILY PO 02/15/17 09:00 02/15/17 11:20 Albuterol/ Ipratropium (Duoneb Neb) 1 ampule Q6HR WHILE AWAKE NEB NEB 02/15/17 14:00 02/15/17 14:13 Objective Remarks GENERAL: Cachectic, ill appearing, well-developed patient. SKIN: Warm and dry. HEAD: Normocephalic. Alopecia. EYES: No scleral icterus. No injection or drainage. L eye lid do not close, L facial weakness. NECK: Supple, trachea midline. No JVD or lymphadenopathy. LYMPHATIC: No adenopathy. CARDIOVASCULAR: Regular rate and rhythm without murmurs. RESPIRATORY: Breath sounds equal bilaterally. No accessory muscle use. GASTROINTESTINAL: Abdomen soft, non-tender, mildly distended. EXTREMITIES: Anasarca, 1+ pitting edema both LE. MUSCULOSKELETAL: Adequate muscle tone. NEUROLOGICAL: Numbness L arm but no motor weakness on either UE. Awake, alert, and oriented x3. Assessment/Plan Problem List: (1) Metastatic neoplastic disease ICD Codes: C79.9 - Secondary malignant neoplasm of unspecified site Status: Chronic Plan: Progression on palliative chemotherapy x 1 cycle Palliative XRT Pending to start immune check point inhibitor Admitted for symptoms and still not better despite supportive care. (2) underlying COPD, long-term cigarette smoker Status: Chronic Plan: Chronic tobacco use. (3) Anemia ICD Codes: D64.9 - Anemia, unspecified Status: Acute Plan: s/p transfusion (4) pathologic fracture T4 Plan: Multiple compression and bony lesions- radiated. Assessment 56 y/o woman with metastatic NSCLCA with progression and decrease in KPS. Palliative therapy have increase risk of toxicity and diminished benefit. She is symptomatic and would benefit from transfer to care center. Discussed option of hospice care. If she gets better she can recind hospice. However if she worsen, they will continue palliative care in hospice and offer support for her 16 y/o son. Referral to hospice. Jasmyne Pedraza MD Feb 15, 2017 18:00
[2017-02-15] MEDS: MORPHINE SULFATE 15 MG TAB PO SCH (18:42)
[2017-02-16] VITALS: BP 91/61; PULSE 101; RESP 18; TEMP 96.6; O2SAT 99
[2017-02-16] MEDS: ACETAMINOPHEN/HYDROcodone 325 MG/5 MG TAB PO PRN ×3 (03:14→17:18)
[2017-02-16 04:00] VITALS: PULSE 98; RESP 20; TEMP 97; O2SAT 100
[2017-02-16] MEDS: MORPHINE SULFATE 15 MG TAB PO SCH ×3 (05:54→08:34)
[2017-02-16] MEDS: HEPARIN SODIUM - SQ 10,000 UNITS/ML VIAL SQ SCH ×2 (05:55→08:33)
[2017-02-16] MEDS: RESP: ALBUTEROL 2.5 MG/IPRATROPIUM 0.5 MG NEB (SCH) NEB ×2 (07:47→13:35)
[2017-02-16 07:50] VITALS: O2SAT 100
[2017-02-16 08:00] VITALS: BP 77/57; PULSE 100; PULSE 102; RESP 16; TEMP 96.8; O2SAT 100
[2017-02-16] MEDS ORDERED: SODIUM CHLORID 0.9% 500 ML INJ 500 ML IV ONE (08:15)
[2017-02-16] MEDS: METOPROLOL TARTRATE 25 MG TAB PO SCH (08:33)
[2017-02-16] MEDS: AZITHROMYCIN 250 MG TAB PO SCH (08:33)
[2017-02-16] MEDS: POTASSIUM CHLORIDE 20 MEQ CONTROLLED RELEASE TAB PO SCH (08:34)
[2017-02-16] MEDS: ASPIRIN 81 MG CHEW TAB CHEW SCH (08:34)
[2017-02-16] MEDS: FUROSEMIDE 20 MG TAB PO SCH (08:34)
[2017-02-16] MEDS: BUDESONIDE-FORMOTEROL 160/4.5 MCG INHALER INH SCH (08:39)
[2017-02-16] MEDS: DRONABINOL 5 MG CAP PO SCH ×2 (11:00→15:40)
[2017-02-16] MEDS: cefTRIAXone INJ 1,000 MG in SODIUM CHLORIDE 0.9% INJ 100 ML IV SCH (11:30)
[2017-02-16 12:00] VITALS: BP 86/52; PULSE 99; RESP 16; TEMP 96.8; O2SAT 100
[2017-02-16 16:00] VITALS: BP 78/60; PULSE 109; RESP 16; TEMP 97; O2SAT 100
--- NOTE | 2017-02-16 16:12 | HHI.DCPOC ---
Discharge Care Plan Diagnosis: (1) Ascites (2) Hypoxia (3) HCAP (healthcare-associated pneumonia) (4) metastatic disease involving adenopathy in the chest and retroperitoneum, as well as multiple bony areas (5) Non-small cell carcinoma of lung metastatic to abdomen Goals to Promote Your Health * To prevent worsening of your condition and complications * To maintain your health at the optimal level Directions to Meet Your Goals Take your medications as prescribed Follow your dietary instruction Follow activity as directed Keep your appointments as scheduled Take your immunizations and boosters as scheduled If your symptoms worsen call your PCP, if no PCP go to Urgent Care Center or Emergency Room Smoking is Dangerous to Your Health. Avoid second hand smoke Call the 24-hour hour crisis hotline for domestic abuse at [facility] Feb 16, 2017 16:12
--- NOTE | 2017-02-16 16:28 | HHI.DS ---
Discharge Summary Admission Date Feb 11, 2017 at 22:05 Discharge Date: Feb 16, 2017 Admitting Diagnosis sepsis, right lower lobe pneumonia, dyspnea (1) PNA (pneumonia) ICD Code: J18.9 - Pneumonia, unspecified organism Status: Acute (2) Non-small cell carcinoma of lung metastatic to abdomen ICD Code: C34.90 - Malignant neoplasm of unspecified part of unspecified bronchus or lung; C79.89 - Secondary malignant neoplasm of other specified sites Status: Acute (3) malnutrition, serum albumin 1.6 (4) Anemia ICD Code: D64.9 - Anemia, unspecified Status: Acute Procedures Paracentesis 02/12/17, 02/15/17 Brief History - From Admission This is a pleasant 78 year-old female who is diagnosed with non-small cell lung cancer several months ago with metastasis. She underwent first round of chemotherapy in December and underwent radiation therapy of [facility] last month. Patient was also admitted to the [facility] last month and diagnosed with an acute stroke. She had left facial droop and some left sided weakness. Her oncologist is Dr. Pedraza. The patient was seen in her clinic on Saturday. At that time she was noted to have increased swelling in her abdomen and lower extremities. She was scheduled for an abdominal paracentesis today. Over the weekend the patient started to get more edematous and started to have increased shortness of breath. She does use home oxygen. Symptoms were moderate without alleviating factors. The patient also has a cough but feels she is unable to produce sputum. The patient presented to the emergency department last night for evaluation of these symptoms. CTA was negative for pulmonary embolism but did show a new airspace consolidation in the right lower lobe. The patient was given cefepime and azithromycin and admitted to the hospital. Patient underwent therapeutic paracentesis today with removal of 3 L of fluid. Her dyspnea has improved. Patient denies fever or chills. History obtained from the patient and discussion with Dr. Pedraza. The patient has also had thoracentesis for a left pleural effusion. CTA showed only a small left pleural effusion in the ED. CBC/BMP: 02/15/17 0737 02/15/17 0737 Significant Findings Laboratory Tests Test 02/14/17 09:45 02/15/17 07:37 02/15/17 09:07 White Blood Count 16.2 TH/MM3 (4.0-11.0) 19.1 TH/MM3 (4.0-11.0) Red Blood Count 3.40 MIL/MM3 (4.00-5.30) 3.50 MIL/MM3 (4.00-5.30) Hemoglobin 9.7 GM/DL (11.6-15.3) 10.3 GM/DL (11.6-15.3) Hematocrit 29.3 % (35.0-46.0) 30.5 % (35.0-46.0) Red Cell Distribution Width 17.3 % (11.6-17.2) 18.4 % (11.6-17.2) Neutrophils (%) (Auto) 93.4 % (16.0-70.0) 91.5 % (16.0-70.0) Lymphocytes (%) (Auto) 2.7 % (9.0-44.0) 3.6 % (9.0-44.0) Neutrophils # (Auto) 15.2 TH/MM3 (1.8-7.7) 17.5 TH/MM3 (1.8-7.7) Lymphocytes # (Auto) 0.4 TH/MM3 (1.0-4.8) 0.7 TH/MM3 (1.0-4.8) Haptoglobin 365 MG/DL (30-200) 356 MG/DL (30-200) Blood Urea Nitrogen 51 MG/DL (7-18) 51 MG/DL (7-18) Creatinine 1.10 MG/DL (0.50-1.00) Albumin 1.1 GM/DL (3.4-5.0) 1.2 GM/DL (3.4-5.0) Calcium Level 7.8 MG/DL (8.5-10.1) 8.1 MG/DL (8.5-10.1) Estimat Glomerular Filtration Rate 51 ML/MIN (>89) 57 ML/MIN (>89) Lactate Dehydrogenase 255 U/L (84-246) 310 U/L (84-246) Vitamin B12 Level 1055 PG/ML (193-986) Basophils (%) (Auto) 2.2 % (0.0-2.0) Basophils # (Auto) 0.4 TH/MM3 (0-0.2) Random Glucose 72 MG/DL (74-106) Total Protein 5.7 GM/DL (6.4-8.2) Peritoneal Fluid WBC 66591 /MM3 (0-10) Peritoneal Fluid RBC [id number] /MM3 (0-0) Imaging Last Impressions Cyst Biopsy Asp-Paracentesis US 02/15/17 0000 Signed Impressions: Service Date/Time: Wednesday, February 15, 2017 08:53 - CONCLUSION: Uncomplicated ultrasound guided paracentesis. Soham Mcbride MD Chest X-Ray 02/11/17 1647 Signed Impressions: Service Date/Time: Saturday, February 11, 2017 16:55 - CONCLUSION: Interval improvement. Minimal blunting left costophrenic sulcus without significant pleural effusion. Yaya Napier MD FACR CT Angiography 02/11/17 0000 Signed Impressions: Service Date/Time: Saturday, February 11, 2017 21:06 - CONCLUSION: 1. No PE is identified. 2. There is new airspace consolidation in the right lower lobe. This could represent an infectious process in the appropriate clinical history. The small left pleural effusion has decreased in size. 3. Mild decrease in size of the left supraclavicular, mediastinal, bilateral hilar, and retroperitoneal lymphadenopathy. 4. Mild increased size of the lytic lesion in the left humerus suspicious for a metastatic lesion. The pathologic T4 compression fracture appears stable. 5. Stable soft tissue encasing and mildly narrowing the main bronchi. Isidoro Merchant MD PE at Discharge GENERAL: Well-developed, cachectic, in no acute distress. alert and orientated HEENT: Head is normocephalic without any lesions or masses noted. Facial features are symmetric. Eyes: Extraocular muscles are intact. Conjunctivae were clear. NECK: Supple without any masses. Trachea midline no deviation. No JVD, CARDIAC: Regular rhythm, regular rate. S1/S2 are heard. No murmurs gallops or rubs. LUNGS: Diminished breath sounds noted bilaterally. No wheeze, rhonchi or rales. No use of accessory muscles on inspiration or expiration. ABDOMEN: Soft, nontender. Nondistended. Bowel sounds heard in all 4 quadrants. No organomegaly or masses. Negative rebound, negative guarding EXTREMITIES: No edema, pulses are equal bilaterally. No cyanosis or clubbing NEUROLOGY: Mood and affect appear appropriate. Cranial nerves II through XII grossly intact. Moving all extremities, muscle strength diminished in all 4 extremities. Speech is clear Hospital Course Non-small cell lung cancer with diffuse metastasis status post one round of palliative chemotherapy and radiation Dr. Pedraza following the patient Hospice consult performed. Patient DNR, request hospice care facility. Will make arrangements today Sepsis Patient met criteria on admission with leukocytosis, tachycardia, right lower lung pneumonia Patient started on empirical antibiotics to include cefepime, azithromycin Blood cultures have remained negative Right lower lobe community-acquired pneumonia. Continue O2 supplementation maintain O2 sats greater than 92% Continue cefepime and Zithromax DuoNeb's as needed. Anasarca/ascites Due to the abdominal metastasis, malnutrition. paracentesis on 02/12. With removal of 3800 cc clear red fluid Paracentesis 02/15/17 with removal of 2100 cc of clear red fluid Cultures are negative for 24 hours Continue Lasix Chronic hypoxic respiratory failure with history of chronic obstructive pulmonary disease Continue O2 supplementation maintain O2 sats greater 92% Continue DuoNeb treatments Chronic anemia. Patient hemoglobin dropped to 7.2, patient was transfused 2 units of packed red blood cells Hemoglobin has remained stable this time Continue to monitor Moderate malnutrition. Continue [employer] Instant Breakfast. Calorie count ordered by hematology. Appreciate assistance. Have ordered Marinol to help with appetite stimulation. Recent CVA. Continue aspirin Continue physical therapy Profound weakness Likely secondary to all the above Patient is unable to walk to bedside chair on her own Continue physical therapy Pt Condition on Discharge: Guarded Discharge Disposition: Hospice/Med Facility Discharge Time: > 30 minutes Discharge Instructions DIET: Follow Instructions for: As Tolerated, No Restrictions Activities you can perform: Regular-No Restrictions Follow up Referrals: PCP Follow-up - 1 Week Continued Medications: Albuterol 18 GM Inh (Ventolin Hfa 18 GM Inh) 90 Mcg/Act Aer 2 PUFF INH Q4-6H PRN for SHORTNESS OF BREATH, #1 INHALER 0 Refills Aspirin (Aspirin) 81 Mg Chew 81 MG CHEW DAILY, TAB 0 Refills Budesonide-Formoterol Inh (Symbicort Inh) 160-4.5 Mcg/Act Aero 2 PUFF INH Q12HR for breathing, #1 INHALER Carvedilol (Coreg) 6.25 Mg Tab 6.25 MG PO Q12HR for Blood Pressure Management, #60 TAB Furosemide (Furosemide) 20 Mg Tab 20 MG PO DAILY for edema, #3 TAB Hydrocodone-Acetaminophen (Hydrocodone-Acetaminophen) 5-325 mg Tab 1 TAB PO Q6HR PRN for pain, #28 TAB Potassium Chloride Microencaps (Potassium Chloride Microencaps) 20 Meq Tab 20 MEQ PO DAILY for Electrolyte Replacement, #3 TAB Harmeet Deshpande Feb 16, 2017 16:28
== END 2017-02-16 18:50 | disposition hospice, inpatient (51) | DRG 871 ==
LOC: PHED 16:16 → PHEDA 22:05 → PH3B 23:04
PROVIDERS: ADMIT Hospitalist; ATTEND Hospitalist
PROC: 0W9G3ZZ Drainage of Peritoneal Cavity, Percutaneous Approach (ICD-10-PCS; principal; 2017-02-12)
PROC: 30233N1 Transfusion of Nonautologous Red Blood Cells into Peripheral Vein, Percutaneous Approach (ICD-10-PCS; 2017-02-13)
PROC: 0W9G3ZX Drainage of Peritoneal Cavity, Percutaneous Approach, Diagnostic (ICD-10-PCS; 2017-02-15)
DX: A41.9 Sepsis, unspecified organism (principal); J18.9 Pneumonia, unspecified organism; E43 Unspecified severe protein-calorie malnutrition; J96.11 Chronic respiratory failure with hypoxia; R64 Cachexia; R18.8 Other ascites; C78.6 Secondary malignant neoplasm of retroperitoneum and peritoneum; C79.51 Secondary malignant neoplasm of bone; C34.90 Malignant neoplasm of unspecified part of unspecified bronchus or lung; Z68.1 Body mass index [BMI] 19.9 or less, adult; Y95 Nosocomial condition; D64.81 Anemia due to antineoplastic chemotherapy; D63.0 Anemia in neoplastic disease; Z66 Do not resuscitate; Z51.5 Encounter for palliative care; Z92.21 Personal history of antineoplastic chemotherapy; Z92.3 Personal history of irradiation; J43.9 Emphysema, unspecified; I69.392 Facial weakness following cerebral infarction; I69.391 Dysphagia following cerebral infarction; R13.10 Dysphagia, unspecified; F17.210 Nicotine dependence, cigarettes, uncomplicated; R60.1 Generalized edema; E61.1 Iron deficiency; M84.48XD Pathological fracture, other site, subsequent encounter for fracture with routine healing
CPT/HCPCS: 36430; 49083; 71010; 71275; 76937; 80048; 80053; 80069; 81001; 82042; 82550; 82607; 82728; 82747; 83010; 83540; 83550; 83605; 83615; 83735; 83880; 84484; 85025; 85044; 85610; 85730; 86850; 86900; 86901; 86920; 87040; 87070; 87205; 88305; 89051; 93005; 94150; 94640; 94664; C1729; J0456; J0692; J0696; J1644; J1940; J7040; J7050; P9016; P9047; Q0167; Q9967